=== PATIENT | female | born 1945 | race Caucasian/White ===

== ENCOUNTER → 2016-03-21 | Outpatient (CLI) | payer OTHER, MEDICARE ==
[~2016-03-21] MED LIST: ASPCH81X PO; CITA20TA9 PO; CLTP PO; CLX20 PO; COEN100C15 PO; Centrum Silver PO; DPH/ PO; DYZ PO; EST1 PO; GLC/500 PO; GLC500 PO; HMLI7525 SC; INSDGI SC; INSU100I SC; LEVO112T4 PO; LOSA50TA6 PO; METO25TA56 PO; NVLGI SC; PRAV20TA PO; REPA2TAB13 PO; SYN100 PO
--- NOTE | 2016-03-21 12:46 | MAMMOGRAPHY REPORT ---
BILATERAL DIGITAL SCREENING MAMMOGRAM TOMOSYNTHESIS WITH CAD: 03/21/2016 CLINICAL HISTORY: Routine screening. Patient has no complaints. TECHNIQUE: Breast tomosynthesis in addition to standard 2D mammography was performed. Current study was also evaluated with a Computer Aided Detection (CAD) system. COMPARISON: Comparison is made to exams dated: 03/16/2015 mammogram, 03/16/2015 ultrasound, 03/09/2015 mammogram, 03/02/2013 mammogram, 02/28/2012 mammogram, and 02/26/2011 mammogram - [facility]. BREAST COMPOSITION: There are scattered areas of fibroglandular density in both breasts. FINDINGS: No suspicious masses, calcifications, or areas of architectural distortion are noted in e ither breast. There has been no significant interval change compared to prior exams. Bilateral joaquina gn-appearing calcifications are not significantly changed. A biopsy marker clip is again noted in t he right upper outer quadrant. Small partially visualized benign-appearing mass in the right medial posterior breast is stable, and was shown to represent a benign epidermal inclusion/sebaceous cyst on prior 2015 ultrasound exam. IMPRESSION: ACR BI-RADS CATEGORY 2: BENIGN There is no mammographic evidence of malignancy. A 1 year screening mammogram is recommended. The p atient will receive written notification of the results. Approximately 10% of breast cancers are not detected with mammography. A negative mammographic repor t should not delay biopsy if a clinically suggestive mass is present. Jaci Heath M.D. ah/:03/21/2016 11:30:55 Vp Home Health: Ashley Dover, [facility] letter sent: Normal 1/2 BI-RADS Code: ACR BI-RADS Category 2: Benign
== END | disposition home or self-care (01) ==
LOC: C.MAMM 11:07
PROVIDERS: ATTEND Internal Medicine
DX: Z12.31 Encounter for screening mammogram for malignant neoplasm of breast (principal)

== ENCOUNTER 2016-10-02 21:17 | Emergency (ER) | payer OTHER, MEDICARE ==
[~2016-10-02] VITALS: Ht 154.9 cm; Wt 99.0 kg
[2016-10-02] MEDS: MoRPHine SULFATE 2 MG/ML CARP IV STA (00:25)
[~2016-10-02 21:17] MED LIST changes: -CITA20TA9 PO; -GLC/500 PO; -HMLI7525 SC; -INSU100I SC; -LEVO112T4 PO; -LOSA50TA6 PO; -METO25TA56 PO
[2016-10-02 21:36] VITALS: TEMP 36.7; Ht 154.9 cm; Wt 99.0 kg
[2016-10-02] MEDS ORDERED: ONDANSETRON INJ 2 MG/ML 2 ML VIAL IV STA (21:47)
[2016-10-02] MEDS ORDERED: MoRPHine SULFATE 4 MG/ML 1 ML CARP\\VIAL IV STA (21:47)
[2016-10-02 22:13] LABS: BASO % 0.2 %; BASO ABS # 0.02 K/uL (0-0.2); COMPLETE YES; EOS % 2.7 %; HEMATOCRIT 40.3 % (37-47); IG% 0.2 %; LYMPH % 24.9 %; LYMPH ABS # 2.62 K/uL (1.2-3.4); MEAN CORPUSCULAR HEMOGLOBIN 27.9 pg (25-34); MEAN CORPUSCULAR HGB CONC 31.8 g/dl (32-36); MEAN PLATELET VOLUME 11.2 fL (7.4-10.4); MONO % 6.9 %; NEUT % 65.1 %; PLATELET COUNT 263 K/uL (130-400); RED BLOOD COUNT 4.58 M/uL (4.2-5.4); WHITE BLOOD COUNT 10.53 K/uL (4.8-10.8)
[2016-10-02 22:28] LABS: ALT/SGPT 21 U/L (12-78); BLOOD UREA NITROGEN 11 mg/dl (7-18); BUN/CREATININE RATIO 11.7 (10-20); CALCIUM 9.1 mg/dl (8.5-10.1); CARBON DIOXIDE 27 mmol/L (21-32); CHLORIDE 108 mmol/L (98-107); CREATININE 0.95 mg/dl (0.60-1.20); GLUCOSE 99 mg/dl (70-99); POTASSIUM 4.5 mmol/L (3.5-5.1); SODIUM 141 mmol/L (136-145)
[2016-10-02 22:31] LABS: ALKALINE PHOSPHATASE 105 U/L (45-117); AST/SGOT 18 U/L (15-37)
--- NOTE | 2016-10-02 22:40 | DIAGNOSTIC IMAGING REPORT ---
LUMBAR SPINE WITHOUT CT DOSE: 1893.32 mGy.cm HISTORY: Pain. Trauma. eval for fx TECHNIQUE: Multiaxial CT images of the lumbar spine were performed and reformatted in the sagittal and coronal plane without the use of contrast. A dose lowering technique was utilized adhering to the principles of ALARA. COMPARISON: None. FINDINGS: Operative changes consistent with posterior laminectomy and fusion at L3 and L4. Posterior fusion L5-S1 with a disc spaces from L3 through S1. Posterior bulging disc L3-L4 combine with posterior osteophytic reaction. This prominent findings are seen at L4-L5. Compromise of the neuroforamina bilaterally at L3-L4 although somewhat more prominent on the right. Degenerative sclerosis and vacuum disc changes L2-L3. IMPRESSION: 1. Severe degenerative change throughout the entire lumbar spine with postoperative changes throughout is noted. 2. Posterior bulging disc L3-L4 with posterior osteophytic reaction. This creates prominent narrowing of the right and to lesser extent left neural foramina. 3. Moderate compromise of the neuroforamina bilaterally at L4-L5. 4. No acute process. The above report was generated using voice recognition software. It may contain grammatical, syntax or spelling errors. Electronically signed by: Fabio Street M.D. 10/02/2016 10:38 PM Dictated Date/Time: 10/02/2016 10:35 PM
[2016-10-02 22:41] LABS: URINE APPEARANCE CLEAR (CLEAR); URINE BILIRUBIN NEG (NEG); URINE COLOR YELLOW; URINE NITRITE NEG (NEG); URINE SPECIFIC GRAVITY 1.008 (1.000-1.030); UROBILINOGEN NEG (NEG)
--- NOTE | 2016-10-02 22:42 | DIAGNOSTIC IMAGING REPORT ---
ABD/PELVIS WITHOUT FOR STONE CT DOSE: HISTORY: Pain. right flank pain eval for stone TECHNIQUE: Multiaxial CT images of the abdomen and pelvis were performed without the use of intravenous and oral contrast according to the standard department stone protocol. A dose lowering technique was utilized adhering to the principles of ALARA. COMPARISON STUDY: None. FINDINGS: Lung bases are clear. Liver spleen and pancreas are unremarkable. Several gallstones are present the gallbladder neck. Kidneys demonstrate several vascular calcifications bilaterally. There is no evidence for an obstructing urinary tract calculus or hydronephrosis. Bowel pattern is nonobstructive. No significant abdominal or pelvic adenopathy. Postoperative changes of the lumbosacral spine. IMPRESSION: 1. Several small gallstones in the region of the gallbladder neck. 2. Nonobstructive bowel pattern. 3. No evidence for an obstructing urinary tract calculus. The above report was generated using voice recognition software. It may contain grammatical, syntax or spelling errors. Electronically signed by: Fabio Strete M.D. 10/02/2016 10:41 PM Dictated Date/Time: 10/02/2016 10:39 PM
[2016-10-02 22:50] LABS: MANUAL MICROSCOPIC REQUIRED? NO; REVIEW REQ? NO
[2016-10-02] MEDS ORDERED: METO25TA56 PO (22:50)
[2016-10-02] MEDS ORDERED: GLC/500 PO (22:50)
[2016-10-02] MEDS ORDERED: HMLI7525 SC (22:50)
[2016-10-02] MEDS ORDERED: LOSA50TA6 PO (22:50)
[2016-10-02] MEDS ORDERED: INSDGI SC (22:50)
[2016-10-02] MEDS ORDERED: CITA20TA9 PO (22:50)
[2016-10-02] MEDS ORDERED: INSU100I SC (22:50)
[2016-10-02] MEDS ORDERED: LEVO112T4 PO (22:50)
[2016-10-02] MEDS ORDERED: KETOROLAC TROMETHAMINE 30 MG/ML VIAL IV STA (23:52)
[2016-10-03] MEDS: MoRPHine SULFATE 2 MG/ML CARP IV STA (00:28)
[2016-10-03 00:30] VITALS: BP 109/63; PULSE 74; O2SAT 96
--- NOTE | 2016-10-03 00:51 | EMERGENCY ROOM VISIT NOTE ---
History Report prepared by Kathi: Everton Chaney Under the Supervision of: Dr. Ken Littlejohn M.D. First contact with patient: 21:40 Chief Complaint: FLANK PAIN Stated Complaint: SEVERE PAIN AT R KIDNEY History of Present Illness The patient is a 71 year old female who presents to the Emergency Room with complaints of intermittent sharp right sided flank pain that began a few days ago. She rates her pain a 10/10 in severity. Her pain is exacerbated with movement. She notes that the pain does not radiate to any other location. She denies any fevers, cough, chest pain, shortness of breath, diarrhea, dysuria, hematuria, previous abdominal surgeries, or any kidney stone history. She denies any recent trauma or falls as well. She is currently nauseated and had 1 episode of vomiting. Source of History: patient Onset: a couple of days ago Position: back (right flank) Symptom Intensity: 10/10 Quality: sharp Timing: constant Modifying Factors (Worsening): movement Associated Symptoms: + nausea, + vomiting, No fevers, No cough, No chest pain, No SOB, No abdominal pain, No urinary symptoms Review of Systems See HPI for pertinent positives & negatives. A total of 10 systems reviewed and were otherwise negative. Past Medical & Surgical Medical Problems: (1) Diabetes (2) HTN (hypertension) (3) Spinal stenosis Family History Omitted secondary to age. Social History Smoking Status: Never Smoker Smokeless Tobacco Use: No Drug Use: none Marital Status: Housing Status: lives with family Occupation Status: retired Current/Historical Medications Scheduled Aspirin (Aspirin Chewable), 81 MG PO DAILY Citalopram Hydrobromide (Celexa), 20 MG PO DAILY Insulin Glargine (Lantus), 25 UNITS SC HS Insulin Lispro (Human) (Humalog), 12 UNITS SC WM Levothyroxine Sodium (Levothyroxine Sodium), 1 TAB PO DAILYBB Losartan Potassium (Cozaar), 50 MG PO DAILY Metformin Hcl (Glucophage), 500 MG PO UD Metoprolol Tartrate (Lopressor) (Lopressor), Unknown Dose PO BID Pravastatin Sodium (Pravachol), 20 MG PO HS Allergies Coded Allergies: Adhesives (Verified Allergy, Unknown, 10/02/16) Meclizine (Verified Adverse Reaction, Unknown, SEVERE N&V, 10/02/16) Tetracycline (Verified Adverse Reaction, Unknown, SEVERE N&V, 10/02/16) Uncoded Allergies: OPIATEAGONISTS (Adverse Reaction, Unknown, SEVERE N&V,INCR HEART RATE, SKIPPED BEATS, 03/25/09) Physical Exam Vital Signs Date Time Temp Pulse Resp B/P (MAP) Pulse Ox O2 Delivery O2 Flow Rate FiO2 10/02/16 22:48 87 18 137/62 97 Room Air 10/02/16 21:36 36.7 67 20 124/79 94 Room Air Physical Exam Constitutional: Vital signs reviewed. Eyes: Pupils are equal round reactive to light. Conjunctiva are noninjected. ENT: Pharynx is clear without erythema or exudate. Mucous membranes are moist. Neck supple without meningeal signs. Respiratory: Clear to auscultation bilaterally. Breath sounds are equal bilaterally. Cardiovascular: Regular rate and rhythm. No rubs or gallops. GI: Soft, nondistended and nontender. Bowel sounds are present. Musculoskeletal: No peripheral edema. No lower extremity tenderness. No midline tenderness to the thoracic or lumbosacral spine. No CVA tenderness. Pain with movement of her trunk. Integumentary: No cyanosis. Neurological: The patient is awake and alert. No focal deficits. Psychiatric: Normal affect. Medical Decision & Procedures ER Provider Diagnostic Interpretation: Radiology results as stated below per my review and the radiologist's interpretation: ABD/PELVIS WITHOUT FOR STONE CT DOSE: HISTORY: Pain. right flank pain eval for stone TECHNIQUE: Multiaxial CT images of the abdomen and pelvis were performed without the use of intravenous and oral contrast according to the standard department stone protocol. A dose lowering technique was utilized adhering to the principles of ALARA. COMPARISON STUDY: None. FINDINGS: Lung bases are clear. Liver spleen and pancreas are unremarkable. Several gallstones are present the gallbladder neck. Kidneys demonstrate several vascular calcifications bilaterally. There is no evidence for an obstructing urinary tract calculus or hydronephrosis. Bowel pattern is nonobstructive. No significant abdominal or pelvic adenopathy. Postoperative changes of the lumbosacral spine. IMPRESSION: 1. Several small gallstones in the region of the gallbladder neck. 2. Nonobstructive bowel pattern. 3. No evidence for an obstructing urinary tract calculus. The above report was generated using voice recognition software. It may contain grammatical, syntax or spelling errors. Electronically signed by: Fabio Street M.D. 10/02/2016 10:41 PM Dictated Date/Time: 10/02/2016 10:39 PM LUMBAR SPINE WITHOUT CT DOSE: 1893.32 mGy.cm HISTORY: Pain. Trauma. eval for fx TECHNIQUE: Multiaxial CT images of the lumbar spine were performed and reformatted in the sagittal and coronal plane without the use of contrast. A dose lowering technique was utilized adhering to the principles of ALARA. COMPARISON: None. FINDINGS: Operative changes consistent with posterior laminectomy and fusion at L3 and L4. Posterior fusion L5-S1 with a disc spaces from L3 through S1. Posterior bulging disc L3-L4 combine with posterior osteophytic reaction. This prominent findings are seen at L4-L5. Compromise of the neuroforamina bilaterally at L3-L4 although somewhat more prominent on the right. Degenerative sclerosis and vacuum disc changes L2-L3. IMPRESSION: 1. Severe degenerative change throughout the entire lumbar spine with postoperative changes throughout is noted. 2. Posterior bulging disc L3-L4 with posterior osteophytic reaction. This creates prominent narrowing of the right and to lesser extent left neural foramina. 3. Moderate compromise of the neuroforamina bilaterally at L4-L5. 4. No acute process. The above report was generated using voice recognition software. It may contain grammatical, syntax or spelling errors. Electronically signed by: Fabio Street M.D. 10/02/2016 10:38 PM Dictated Date/Time: 10/02/2016 10:35 PM CHEST X-RAY 1 VIEW: No evidence of pneumothorax, effusion, infiltrate, or rib fracture. Per vt Laboratory Results 10/02/16 22:00 Red Blood Count 4.58, Mean Corpuscular Volume 88.0, Mean Corpuscular Hemoglobin 27.9, Mean Corpuscular Hemoglobin Concent 31.8, Mean Platelet Volume 11.2, Neutrophils (%) (Auto) 65.1, Lymphocytes (%) (Auto) 24.9, Monocytes (%) (Auto) 6.9, Eosinophils (%) (Auto) 2.7, Basophils (%) (Auto) 0.2, Neutrophils # (Auto) 6.86, Lymphocytes # (Auto) 2.62, Monocytes # (Auto) 0.73, Eosinophils # (Auto) 0.28, Basophils # (Auto) 0.02 10/02/16 22:00 Test 10/02/16 22:00 10/02/16 22:20 White Blood Count 10.53 K/uL (4.8-10.8) Red Blood Count 4.58 M/uL (4.2-5.4) Hemoglobin 12.8 g/dL (12.0-16.0) Hematocrit 40.3 % (37-47) Mean Corpuscular Volume 88.0 fL (80-100) Mean Corpuscular Hemoglobin 27.9 pg (25-34) Mean Corpuscular Hemoglobin Concent 31.8 g/dl (32-36) Platelet Count 263 K/uL (130-400) Mean Platelet Volume 11.2 fL (7.4-10.4) Neutrophils (%) (Auto) 65.1 % Lymphocytes (%) (Auto) 24.9 % Monocytes (%) (Auto) 6.9 % Eosinophils (%) (Auto) 2.7 % Basophils (%) (Auto) 0.2 % Neutrophils # (Auto) 6.86 K/uL (1.4-6.5) Lymphocytes # (Auto) 2.62 K/uL (1.2-3.4) Monocytes # (Auto) 0.73 K/uL (0.11-0.59) Eosinophils # (Auto) 0.28 K/uL (0-0.5) Basophils # (Auto) 0.02 K/uL (0-0.2) RDW Standard Deviation 44.5 fL (36.4-46.3) RDW Coefficient of Variation 13.8 % (11.5-14.5) Immature Granulocyte % (Auto) 0.2 % Immature Granulocyte # (Auto) 0.02 K/uL (0.00-0.02) Anion Gap 6.0 mmol/L (3-11) Est Creatinine Clear Calc Drug Dose 56.8 ml/min Estimated GFR () 68.9 Estimated GFR (Non- 59.4 BUN/Creatinine Ratio 11.7 (10-20) Calcium Level 9.1 mg/dl (8.5-10.1) Total Bilirubin 0.3 mg/dl (0.2-1) Direct Bilirubin < 0.1 mg/dl (0-0.2) Aspartate Amino Transf (AST/SGOT) 18 U/L (15-37) Alanine Aminotransferase (ALT/SGPT) 21 U/L (12-78) Alkaline Phosphatase 105 U/L (45-117) Total Protein 7.2 gm/dl (6.4-8.2) Albumin 3.6 gm/dl (3.4-5.0) Lipase 519 U/L (73-393) Urine Color YELLOW Urine Appearance CLEAR (CLEAR) Urine pH 7.0 (4.5-7.5) Urine Specific Ralston 1.008 (1.000-1.030) Urine Protein NEG (NEG) Urine Glucose (UA) NEG (NEG) Urine Ketones NEG (NEG) Urine Occult Blood NEG (NEG) Urine Nitrite NEG (NEG) Urine Bilirubin NEG (NEG) Urine Urobilinogen NEG (NEG) Urine Leukocyte Esterase NEG (NEG) Laboratory results as reviewed by me. Medications Administered Medications (Trade) Dose Ordered Sig/Elisabeth Route Start Time Stop Time Status Last Admin Dose Admin Ondansetron HCl (Zofran Inj) 4 mg NOW STAT IV 10/02/16 21:47 10/02/16 21:49 DC 10/02/16 22:12 4 MG Morphine Sulfate (MoRPHine SULFATE INJ) 2 mg NOW STAT IV 10/02/16 23:52 10/02/16 23:54 DC 10/03/16 00:28 2 MG Ketorolac Tromethamine (Toradol Inj) 10 mg NOW STAT IV 10/02/16 23:52 10/02/16 23:54 DC 10/03/16 00:28 10 MG ED Course 0: The patient was evaluated in room C3. A complete history and physical exam was performed. 2146: Ordered Zofran Inj 4 mg IV, Morphine Sulfate 4 mg IV 2251: After reassessment, the patient is still having pain. She is having tenderness in her right posterior 12th rib. She is not having tenderness over her abdomen. We discussed her test results. 2349: I discussed her test results with her. She says she has an appointment to see her PA-C tomorrow morning at 1000. She requested pain medication so she can go home and sleep. 2351: Ordered Toradol Inj 10 mg IV, Morphine Sulfate 2 mg IV 5: Upon reevaluation, the patient appeared to have improvement of her symptoms. I discussed tabatha's findings with her. She verbalized agreement of the treatment plan. She was discharged home. Medical Decision This is a 71-year-old female who presents with right-sided back pain. Differential diagnosis includes strain, rib fracture, vertebral fracture, kidney stone, colitis.I did perform a limited focused review of portions of the patient's old chart on the electronic medical record. The patient has had no recent pertinent visits to this hospital. I did evaluate the patient as noted above. IV access was established. I did treat the patient with IV Zofran and morphine. I did order and personally review the patient's urinalysis as described above. I did order and review the patient's blood work as noted in the electronic medical record. Labs are unremarkable other than a minimally elevated lipase. I did order a CT of the abdomen and pelvis and lumbosacral spine. I did review the images myself as well as the radiology report as described above. There is no evidence of acute abnormality on her CT scan of the abdomen or pelvis. She does have gallstones and she has degenerative changes in her lumbar spine. I did reassess the patient. She has absolutely no tenderness in her abdomen or pain in her abdomen to suggest gallbladder pathology. She has reproducible tenderness to the right posterior 12th rib. I did order a chest and rib x-ray which per my dictation shows no acute fracture or dislocation. At this time the cause of her symptoms is unclear but I did not see any indication for hospitalization or further testing. Her pain is very reproducible with movement and palpation. She does have an appointment to see her PA tomorrow morning which she will keep. She did request another pain shot before she goes home so that she can sleep. She was given IV Toradol and 2 mg morphine IV. She was discharged in good condition with return instructions as outlined below. Medication Reconcilliation Current Medication List: was personally reviewed by me Blood Pressure Screening Patient's blood pressure: Elevated blood pressure Blood pressure disposition: Elevated BP felt to be situational Impression Primary Impression: Right flank pain Additional Impression: Gallstones Scribe Attestation The scribe's documentation has been prepared under my direct and personally reviewed by me in its entirety. I confirm that the note above accurately reflects all work, treatment, procedures, and medical decision making performed by me. Departure Information Dispostion Home / Self-Care Referrals Marlee Rizvi M.D. (PCP) Forms HOME CARE DOCUMENTATION FORM, IMPORTANT VISIT INFORMATION Patient Instructions ED Flank Pain Uncertain Cause, Gallstones Dc, [facility] Additional Instructions You have been examined and treated today on an emergency basis only. This is not a substitute for, or an effort to provide, complete comprehensive medical care. It is impossible to recognize and treat all injuries or illnesses in a single emergency department visit. It is therefore important that you follow up closely with your physician per your appointment tomorrow morning. Return for worsening symptoms or if you develop fever, vomiting, abdominal pain, chest pain , shortness of breath or any other concerning symptoms. Problem Qualifiers
--- NOTE | 2016-10-03 07:11 | DIAGNOSTIC IMAGING REPORT ---
PA CHEST WITH RIGHT-SIDED RIB SERIES CLINICAL HISTORY: Right-sided chest wall pain. FINDINGS: A PA chest radiograph with 4 additional views may right-sided rib series is compared to study dated 12/11/2007. The patient is status post midline sternotomy. The heart is enlarged and there is atherosclerotic calcification of the thoracic aorta. The pulmonary vasculature is noncongested. Chronic interstitial thickening is similar to previous. No airspace consolidation, pleural effusion, or pneumothorax is seen. The skeletal structures are osteopenic. There is no radiographic evidence of right-sided rib fracture on the rib series. The remainder of the bony thorax is grossly intact. Fusion hardware is noted in the lumbar region. IMPRESSION: 1. Cardiomegaly with no active disease in the chest. 2. There is no radiographic evidence of right-sided rib fracture as clinically queried. Electronically signed by: Michael Chauhan M.D. 10/03/2016 7:10 AM Dictated Date/Time: 10/03/2016 7:08 AM
== END 2016-10-03 00:37 | disposition home or self-care (01) ==
LOC: C.EDB 21:18 → C.EDC 10-03 00:37
DX: R10.11 Right upper quadrant pain (principal); R10.31 Right lower quadrant pain; K80.20 Calculus of gallbladder without cholecystitis without obstruction; R11.2 Nausea with vomiting, unspecified; E11.9 Type 2 diabetes mellitus without complications; I10 Essential (primary) hypertension; M48.00 Spinal stenosis, site unspecified; Z79.82 Long term (current) use of aspirin; Z79.4 Long term (current) use of insulin; Z79.84 Long term (current) use of oral hypoglycemic drugs

== ENCOUNTER → 2017-03-25 | Outpatient (CLI) | payer OTHER, MEDICARE ==
[~2017-03-25] MED LIST changes: +CITA20TA9 PO; -CLTP PO; -CLX20 PO; -COEN100C15 PO; -Centrum Silver PO; -DPH/ PO; -DYZ PO; -EST1 PO; +GLC/500 PO; -GLC500 PO; +INSU100I SC; +LEVO112T4 PO; +LOSA50TA6 PO; +METO25TA56 PO; -NVLGI SC; -REPA2TAB13 PO; -SYN100 PO
--- NOTE | 2017-03-26 13:28 | MAMMOGRAPHY REPORT ---
BILATERAL DIGITAL SCREENING MAMMOGRAM TOMOSYNTHESIS WITH CAD: 03/25/2017 CLINICAL HISTORY: Routine screening. Patient has no complaints. TECHNIQUE: Breast tomosynthesis in addition to standard 2D mammography was performed. Current study was also evaluated with a Computer Aided Detection (CAD) system. COMPARISON: Comparison is made to exams dated: 03/21/2016 mammogram, 03/16/2015 mammogram, 03/16/2015 ul trasound, 03/09/2015 mammogram, 03/03/2014 mammogram, and 03/02/2013 mammogram - [facility] enter. BREAST COMPOSITION: There are scattered areas of fibroglandular density in both breasts. FINDINGS: There is a newly visualized 6.7 mm focal asymmetry in the upper outer anterior subareolar right breast, for which additional targeted ultrasound and possible additional mammographic views are recommended. There are diffuse bilateral benign-appearing calcifications and groupings of microcalcifications, whi ch are stable compared to prior exams. Mild to moderate vascular calcification in the breasts. No ot her suspicious mass, architectural distortion or cluster of microcalcifications is seen. IMPRESSION: ACR BI-RADS CATEGORY 0: INCOMPLETE EVALUATION: NEED ADDITIONAL IMAGING EVALUATION The newly visualized 6.7 mm focal asymmetry in the anterior/subareolar right breast needs additional evaluation. The patient will be called to schedule an appointment. Approximately 10% of breast cancers are not detected with mammography. A negative mammographic report should not delay biopsy if a clinically suggestive mass is present. Maria D Hwang M.D. ay/:03/25/2017 16:09:51 Alcoholic Counselor: Ashley ROMO(R)(M), [facility] letter sent: Addl Imaging 0 BI-RADS Code: ACR BI-RADS Category 0: Incomplete Evaluation: Need Additional Imaging Evaluation
== END | disposition home or self-care (01) ==
LOC: C.MAMM 09:56
PROVIDERS: ATTEND Internal Medicine
DX: Z12.31 Encounter for screening mammogram for malignant neoplasm of breast (principal); N64.89 Other specified disorders of breast

== ENCOUNTER → 2017-04-01 | Outpatient (CLI) | payer OTHER, MEDICARE ==
--- NOTE | 2017-04-01 15:20 | MAMMOGRAPHY REPORT ---
ULTRASOUND OF RIGHT BREAST: 04/01/2017 CLINICAL HISTORY: 71-year-old woman called back from screening mammography for a 6.7 mm focal asymmet ry in the anterior subareolar right breast, best seen on the MLO view. Family history of breast canc er = mother and 2 sisters. COMPARISON: Comparison is made to exams dated: 03/25/2017 mammogram, 03/21/2016 mammogram, 03/16/2015 wilma mogram, 03/16/2015 ultrasound, 03/09/2015 mammogram, and 03/03/2014 mammogram - [facility] nter. FINDINGS: Targeted ultrasound was performed in the periareolar and subareolar right breast. In the 11:00 periareolar right breast, there is an oval parallel circumscribed hypoechoic solid mass measuri ng 8.1 x 3.5 x 7.5 mm. This correlates with the mammographic focal asymmetry. Given the smooth circ umscribed margins and parallel orientation this most likely represents a fibroadenoma. With the heather ent in the room, prior right MLO views were again reviewed and it is noted that the prior 2013 and 13 as well as 2009 mammograms have a somewhat similar appearance to the current exam although tomosyn thesis was not available for those images. Nevertheless, this most likely represent a benign fibroad enoma. Given the strong family history of breast cancer, a short interval follow-up targeted ultraso und and possible tomosynthesis mammogram is recommended to ensure stability in 6 months. IMPRESSION: ACR-BI-RADS CATEGORY 3: PROBABLY BENIGN - FOLLOW-UP RECOMMENDED There is a benign-appearing solid 8.1 mm oval parallel and circumscribed mass in the 11:00 periareola r right breast on targeted ultrasound, thought to correlate with the mammographic finding. 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 However, given the strong f amily history of breast cancer, a short interval follow-up targeted right breast ultrasound and possi ble tomosynthesis mammogram is recommended to ensure stability in 6 months. Maria D Hwang M.D. ay/:04/01/2017 14:16:46 Patient Companion: Dr. Maria D Hwang, [facility] letter sent: Follow Up Recommended 3 BI-RADS Code: ACR-BI-RADS Category 3: Probably Benign
== END | disposition home or self-care (01) ==
LOC: C.MAMM 13:45
PROVIDERS: ATTEND Internal Medicine
DX: N63.11 Unspecified lump in the right breast, upper outer quadrant (principal); Z80.3 Family history of malignant neoplasm of breast

== ENCOUNTER 2022-06-18 09:04 | Inpatient (IN) ==
--- NOTE | 2022-06-18 10:14 | Emergency Department Note ---
Impression & Plan Acute low back pain, Degenerative disc disease, Neuroforaminal stenosis of lumbar spine ED Provider Note INFORMANT: Patient ED PROVIDER(S): Jaylan Suarez MD CHIEF COMPLAINT: Back PLAN: Disposition: Admitted Condition: Good Outpatient prescription management: none Referral: None MEDICAL DECISION MAKING: Patient presented with acute worsening of her low back pain. She had a fall. She had a work-up initiated. Her CBC and chemistry panels were unremarkable. CT scan of the lumbar spine was performed and revealed postoperative changes in significant degenerative findings. The patient had no fracture. She was given IV Tylenol as she cannot take any other pain medications without severe adverse reaction. On reassessment she was feeling somewhat better. I consulted with her spine surgeon, Dr. Taveras. In light of the issues and pre-existing problems he felt the patient would benefit from admission and further management by him. Patient was admitted. Discussed with enterprise services manager. After review of the information above and other included data, I feel the patient requires admission. Triage Nursing notes reviewed and agree them. Vital Signs: reviewed and remarkable for no significant abnormalities Prior /Outside records reviewed: none Differential diagnosis: Musculoskeletal, disc herniation, fracture, metastatic disease, cord compression, discitis, sciatica, cauda equina, infection, aortic disease, renal colic, gastrointestinal, as well as other pathologies. Diagnostics, as interpreted by me: ECG: none Cardiac Monitoring: Cardiac monitoring ordered by me: The patient was placed on continuous cardiac monitoring and observed. It revealed a normal sinus rhythm at 60 beats per minute without ectopy or evidence of dysrhythmia. Medical decision rules: none Imaging studies: CT as noted above HPI: The patient is a 76 year old female who presents to the Emergency Room with complaints of back pain. This started a year ago, worsened and is now severe. Located in lumbar region, radiates to abd. She had a visit in Feb which lead to a MRI, but could not complete. Had to have sedation, which occurred two weeks ago. Saw Dr. Guerra 4 days ago for spine consult. Told she needs surgery. Patient fell 3 days ago. The patient also notes the following associated s ymptoms, weakness. The patient has using tylenol relieving factors. Current pain is rated as 10/10. Pt denies LOC, headache, fevers, chills, diaphoresis, visual changes, neck pain, chest pain, breathing difficulties, nausea, vomiting, abdominal pain, melena, hematochezia, urinary symptoms, numbness, lymphadenopathy, rash, or other complaints. PAST MEDICAL HISTORY: See Below, htn, dm PAST SURGICAL HISTORY: See Below, SOCIAL HISTORY: See Below, retired HOME MEDICATIONS: See Below ALLERGIES: See Below VITALS: See Below PHYSICAL EXAMINATION: GENERAL: Awake, alert, uncomfortable-appearing, in no distress HENT: Normocephalic, atraumatic. Oropharynx unremarkable. EYES: Normal conjunctiva. Sclera non-icteric. NECK: Inspection normal. Non-tender. Supple. No nuchal rigidity. FROM. No masses. RESPIRATORY: Clear to auscultation. No wheezes. No rales. Normal respiratory effort. CARDIAC: Normal rate. Normal rhythm. No murmurs. No rubs. Extremities warm and well perfused. Pulses equal. No JVD. GI: Soft, non-distended. No tenderness to palpation. No rebound or guarding. No masses. RECTAL: Deferred. MUSCULOSKELETAL: Atraumatic. Chest examination reveals no tenderness. The back is symmetrical on inspection without obvious abnormality. There is no CVA tenderness to palpation. No joint edema. LOWER EXTREMITIES: Calves are equal size bilaterally and non-tender. No edema. No discoloration. NEURO: Normal sensorium. No focal sensory or motor deficits noted. SKIN: No rash or jaundice noted. Past Med/Surg History Medical History (Updated 06/18/22 @ 16:08 by Jaylan Suarez MD) Arthritis CAD (coronary artery disease) CABG (2011) 09/19/20 cardiac cath with patent grafts > medical management rec'd Chronic back pain Claustrophobia severe Diabetes mellitus, type 2 IDDM GERD (gastroesophageal reflux disease) controlled History of anemia No known blood transfusions History of COVID-19 PHx 2020 - headache only at the time. History of gastric ulcer 2019 Hx of gout Hyperlipidemia 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 Hypothyroidism Macular degeneration Morbid obesity Motion sickness Nausea and vomiting after administration of anesthetic agent Spinal stenosis Stroke ~2019 -> treated at [facility] -> left eye blindness and gastric ulcers at the time. follows with PCP. Surgical History H/O partial thyroidectomy Benign lump removal History of appendectomy History of breast biopsy x3 History of cardiac cath 09/19/20 > no stents History of cataract surgery R/L History of cholecystectomy History of colonoscopy History of coronary artery bypass graft CABG (2011) x2 vessels. follows with [facility] History of esophagogastroduodenoscopy (EGD) History of hysterectomy History of lumbar surgery x2 (+ hardware) History of tooth extraction History of total knee replacement Right Family History Brother Family history of diabetes mellitus Sister Family history of diabetes mellitus Mother Family history of diabetes mellitus Father Family history of diabetes mellitus Other No family history of adverse response to anesthesia Social History Smoking Status: Never smoker Second Hand Exposure: No; Do You Dip or Chew Tobacco: No; Hx Alcohol Use: No Hx Substance Use: No Preferred Language: Kyrgyz Communication Ability: Effective Laborer Tree Tapping Required: No Beliefs That Will Affect Care: None Current Living Situation: Alone Feels Safe at Home: Yes Assistive Devices: Denture - Upper, Glasses, Scooter/Electric Scooter, Stair Lift and Walker Allergies Allergies Allergy/AdvReac Type Severity Reaction Status Date / Time latex Allergy Intermediate skin Verified 06/04/22 09:58 irritation and peels skin off prednisone AdvReac Severe STROKE Verified 06/04/22 09:41 meclizine AdvReac Mild Severe N&V Verified 06/04/22 09:41 tetracycline AdvReac Mild Severe N&V Verified 06/04/22 09:41 tramadol AdvReac Blurry Verified 06/08/22 06:50 [facility] Allergy Intermediate Severe Uncoded 06/04/22 09:41 N&V, increased heart rate, "skipped beats" Home Meds Home Medications Medication Instructions Recorded Confirmed allopurinol 100 mg tablet 200 mg PO QPM 10/26/20 06/18/22 amlodipine 2.5 mg tablet 2.5 mg PO QAM 10/26/20 06/18/22 aspirin 81 mg tablet,delayed 81 mg PO QAM 10/26/20 06/18/22 release atorvastatin 40 mg tablet 40 mg PO HS 10/26/20 06/18/22 furosemide 20 mg tablet 20 mg PO Q2D 10/26/20 06/18/22 insulin glargine 100 unit/mL (3 25 unit subcut HS 10/26/20 06/18/22 mL) subcutaneous pen (Lantus Solostar U-100 Insulin) insulin lispro 100 unit/mL 10 unit subcut TIDM 10/26/20 06/18/22 subcutaneous pen (Humalog KwikPen (U-100) Insulin) pantoprazole 40 mg tablet,delayed 40 mg PO QAM 10/26/20 06/18/22 release acetaminophen 500 mg tablet 500 mg PO TID PRN Pain 06/04/22 06/18/22 levothyroxine 125 mcg tablet 125 mcg PO DAILY 06/18/22 06/18/22 Results & Data (ED) Vital Signs Vital Signs - 24 hr 06/18/22 09:08 06/18/22 09:19 06/18/22 09:30 Temperature 36.8 C Temperature Source Temporal Artery Scan Pulse Rate 47 L 60 72 Pulse Rate from SpO2 Sensor Respiratory Rate 20 19 Blood Pressure 122/73 Blood Pressure Mean 89 Pulse Oximetry 96 95 Oxygen Delivery Method Room Air Sepsis Recent Fever Within 48 Hours No Sepsis New/Unexplained Change in Mental Status N/A Sepsis Action Taken by Nursing No Action Required 06/18/22 10:00 06/18/22 11:10 06/18/22 12:08 Temperature Temperature Source Pulse Rate 62 60 60 Pulse Rate from SpO2 Sensor 58 L Respiratory Rate 18 19 20 Blood Pressure 120/66 Blood Pressure Mean 84 Pulse Oximetry 97 98 97 Oxygen Delivery Method Sepsis Recent Fever Within 48 Hours Sepsis New/Unexplained Change in Mental Status Sepsis Action Taken by Nursing 06/18/22 13:00 06/18/22 14:29 Temperature Temperature Source Pulse Rate 60 60 Pulse Rate from SpO2 Sensor 58 L Respiratory Rate 15 20 Blood Pressure 121/62 Blood Pressure Mean 81 Pulse Oximetry 96 97 Oxygen Delivery Method Sepsis Recent Fever Within 48 Hours Sepsis New/Unexplained Change in Mental Status Sepsis Action Taken by Nursing Laboratory Data 06/18/22 11:18 06/18/22 12:02 Lab Results 06/18/22 06/18/22 06/18/22 Range/Units 11:18 11:18 12:02 WBC 7.20 (4.8-10.8) K/ul RBC 4.78 (4.20-5.40) M/uL Hgb 13.8 (12.0-16.0) g/dl Hct 42.8 (37.0-47.0) % MCV 89.5 (80.0-100.0) fL MCH 28.9 (25.0-34.0) pg MCHC 32.2 (32.0-36.0) g/dL RDW Std Deviation 45.4 (36.4-46.3) fL RDW Coeff of Jeri 13.9 (11.5-14.5) % Plt Count 196 (130-400) K/uL MPV 12.3 (9.4-12.4) fL Immature Gran % (Auto) 0.3 % Neut % (Auto) 61.2 % Lymph % (Auto) 29.7 % Stanly % (Auto) 7.1 % Eos % (Auto) 1.1 % Baso % (Auto) 0.6 % Neut # (Auto) 4.41 (1.40-6.50) K/uL Lymph # (Auto) 2.14 (1.2-3.4) K/uL Stanly # (Auto) 0.51 (0.11-0.59) K/uL Eos # (Auto) 0.08 (0-0.50) K/uL Baso # (Auto) 0.04 (0-0.2) K/uL Immature Gran # (Auto) 0.02 (0.01-0.20) K/uL Sodium 139 (136-145) mmol/L Potassium TNP 4.4 Chloride 106 (98-107) mmol/L Carbon Dioxide 27 (21-32) mmol/L Anion Gap 6 (3-11) BUN 18 (6-23) mg/dl Creatinine 0.79 (0.6-1.2) mg/dl Est Cr Clr Drug Dosing Not Reportable Est GFR ( Amer) 83.1 ml/min Est GFR (Non-Af Amer) 71.7 ml/min BUN/Creatinine Ratio 22.8 H (10-20) Glucose 136 H (70-99(Fasting)) mg/dl Calcium 9.4 (8.6-10.3) mg/dl Total Bilirubin 0.6 (0.2-1.0) mg/dl AST TNP 21 ALT 18 (7-52) U/L Alkaline Phosphatase 98 (34-104) U/L Total Protein 6.8 (6.0-8.3) gm/dl Albumin 4.0 (3.4-5.0) gm/dl Globulin 2.8 (2.5-4.0) gm/dl Albumin/Globulin Ratio 1.4 (0.9-2) SARS-CoV-2, RNA, NAAT (NEGATIVE) 06/18/22 Range/Units Unknown WBC (4.8-10.8) K/ul RBC (4.20-5.40) M/uL Hgb (12.0-16.0) g/dl Hct (37.0-47.0) % MCV (80.0-100.0) fL MCH (25.0-34.0) pg MCHC (32.0-36.0) g/dL RDW Std Deviation (36.4-46.3) fL RDW Coeff of Jeri (11.5-14.5) % Plt Count (130-400) K/uL MPV (9.4-12.4) fL Immature Gran % (Auto) % Neut % (Auto) % Lymph % (Auto) % Stanly % (Auto) % Eos % (Auto) % Baso % (Auto) % Neut # (Auto) (1.40-6.50) K/uL Lymph # (Auto) (1.2-3.4) K/uL Stanly # (Auto) (0.11-0.59) K/uL Eos # (Auto) (0-0.50) K/uL Baso # (Auto) (0-0.2) K/uL Immature Gran # (Auto) (0.01-0.20) K/uL Sodium (136-145) mmol/L Potassium Chloride (98-107) mmol/L Carbon Dioxide (21-32) mmol/L Anion Gap (3-11) BUN (6-23) mg/dl Creatinine (0.6-1.2) mg/dl Est Cr Clr Drug Dosing Est GFR ( Amer) ml/min Est GFR (Non-Af Amer) ml/min BUN/Creatinine Ratio (10-20) Glucose (70-99(Fasting)) mg/dl Calcium (8.6-10.3) mg/dl Total Bilirubin (0.2-1.0) mg/dl AST ALT (7-52) U/L Alkaline Phosphatase (34-104) U/L Total Protein (6.0-8.3) gm/dl Albumin (3.4-5.0) gm/dl Globulin (2.5-4.0) gm/dl Albumin/Globulin Ratio (0.9-2) SARS-CoV-2, RNA, NAAT NEGATIVE (NEGATIVE) Administered Medications Discontinued Medications Acetaminophen (Ofirmev) 1,000 mg in 100 mls @ 400 mls/hr IV NOW STA Stop: 06/18/22 10:35 Last Infusion: 06/18/22 11:30 Dose: 0 mls/hr Documented By: Admin: 06/18/22 11:10 Dose: 400 mls/hr Documented By: MINH Imaging Data Radiologist's Impression: Lumbar Spine CT 06/18/22 10:15 CT SCAN OF THE LUMBAR SPINE WITHOUT IV CONTRAST CLINICAL HISTORY: Low back pain. Recent fall. COMPARISON STUDY: CT of the lumbar spine dated 10/02/2016. MRI of the lumbar spine dated 06/08/2022. TECHNIQUE: CT scan of the lumbar spine was performed from the lower thoracic spine to the sacrum. Images are reviewed in the axial, sagittal, and coronal planes. IV contrast was not administered for this examination. The examination is degraded by large body habitus, and by significant streak artifact from the body wall abutting the CT gantry. There is also streak artifact from metallic spinal hardware. A dose lowering technique was utilized adhering to the principles of ALARA. CT DOSE: 709.88 mGy.cm FINDINGS: Skeletal structures are osteopenic. There is no evidence of acute fracture or malalignment involving the lumbar spine. Vertebral body height and alignment are maintained. Large anterior and lateral marginal osteophytes are seen throughout. There is postsurgical change from laminectomy and posterior fusion seen at L3-S1. Interpedicular screws are seen at L3 and L4. The orth opedic hardware appears intact. Lucency around the interpedicular screws at L4 suggests loosening. The patient is status post discectomy at L3-L4, L4-L5, and L5-S1. There is advanced disc space narrowing at L2-L3. Advanced disc space narrowing is also seen in the lower thoracic region. The central canal is not well visualized due to streak artifact. Posterior disc osteophyte complexes are seen at several levels. There is multilevel degenerative endplate sclerosis. The visualized sacrum and bony pelvis appear intact. Sclerotic change is noted in the sacroiliac joints. Mild paravertebral edema the lower thoracic region is likely on a degenerative basis. There is fatty atrophy of the paraspinous musculature. The abdominal aorta is normal in caliber noting moderate atherosclerotic calcification. No retroperitoneal lymphadenopathy is seen. IMPRESSION: 1. Significantly streak artifact degraded examination. 2. There is no evidence of fracture or malalignment involving the lumbar spine. 3. Osteopenia with postoperative and spondylotic change as above. ACT 112: Negative or not required by law. Dictated: 06/18/2022 10:59 AM Transcribed: 06/18/2022 11:40 AM Venkata [id number] RENÉE_Luis Daniel [id number] Electronically signed by: Michael Chauhan M.D. 06/18/2022 11:45 AM Discharge Plan Visit Data Chief Complaint: Back Injury/Pain Stated Complaint: BACK AND HIP PAIN ED Provider: Jaylan Suarez Discharge Problem: Acute low back pain, Degenerative disc disease, Neuroforaminal stenosis of lumbar spine Forms Stand Alone Forms: My [facility] [place] Prescriptions Prescriptions: No Action atorvastatin 40 mg Tablet 40 mg PO HS amlodipine 2.5 mg Tablet 2.5 mg PO QAM allopurinol 100 mg Tablet 200 mg PO QPM aspirin 81 mg Tablet,Delayed Release (Dr/Ec) 81 mg PO QAM pantoprazole 40 mg Tablet,Delayed Release (Dr/Ec) 40 mg PO QAM furosemide 20 mg Tablet 20 mg PO Q2D insulin lispro [Humalog KwikPen Insulin] 100 unit/mL Insulin Pen 10 unit SUBCUT TIDM insulin glargine [Lantus Solostar U-100 Insulin] 100 unit/mL (3 mL) Insulin Pen 25 unit SUBCUT HS acetaminophen 500 mg Tablet 500 mg PO TID PRN (Reason: Pain) levothyroxine 125 mcg tablet 125 mcg PO DAILY Referrals Referrals: Chaitanya Fernandez MD [Primary Care Provider] -
[2022-06-18] MEDS ORDERED: ACETAMINOPHEN 1,000 MG/100 ML VIAL IV STA (10:21)
[2022-06-18 11:39] LABS: Basophils # (auto) 0.04 K/uL (0-0.2); Basophils % (auto) 0.6 %; Eosinophils # (auto) 0.08 K/uL (0-0.50); Eosinophils % (auto) 1.1 %; Hematocrit (blood only) 42.8 % (37.0-47.0); Hemoglobin 13.8 g/dl (12.0-16.0); Immature Granulocytes # (auto) 0.02 K/uL (0.01-0.20); Immature Granulocytes % (auto) 0.3 %; Lymphocytes # (auto) 2.14 K/uL (1.2-3.4); Lymphocytes % (auto) 29.7 %; Mean Corpuscular Hemoglobin 28.9 pg (25.0-34.0); Mean Corpuscular Hgb Conc 32.2 g/dL (32.0-36.0); Mean Corpuscular Volume 89.5 fL (80.0-100.0); Mean Platelet Volume 12.3 fL (9.4-12.4); Monocytes # (auto) 0.51 K/uL (0.11-0.59); Monocytes % (auto) 7.1 %; Neutrophils # (auto) 4.41 K/uL (1.40-6.50); Neutrophils % (auto) 61.2 %; Platelet Count 196 K/uL (130-400); RDW Coefficient of Variation 13.9 % (11.5-14.5); RDW Standard Deviation 45.4 fL (36.4-46.3); Red Blood Count 4.78 M/uL (4.20-5.40)
--- NOTE | 2022-06-18 11:46 | CT Scan Report ---
CT SCAN OF THE LUMBAR SPINE WITHOUT IV CONTRAST CLINICAL HISTORY: Low back pain. Recent fall. COMPARISON STUDY: CT of the lumbar spine dated 10/02/2016. MRI of the lumbar spine dated 06/08/2022. TECHNIQUE: CT scan of the lumbar spine was performed from the lower thoracic spine to the sacrum. Denisse ges are reviewed in the axial, sagittal, and coronal planes. IV contrast was not administered for thi s examination. The examination is degraded by large body habitus, and by significant streak artifact from the body wall abutting the CT gantry. There is also streak artifact from metallic spinal hardwar e. A dose lowering technique was utilized adhering to the principles of ALARA. CT DOSE: 709.88 mGy.cm FINDINGS: Skeletal structures are osteopenic. There is no evidence of acute fracture or malalignment involving the lumbar spine. Vertebral body height and alignment are maintained. Large anterior and la teral marginal osteophytes are seen throughout. There is postsurgical change from laminectomy and pos terior fusion seen at L3-S1. Interpedicular screws are seen at L3 and L4. The orthopedic hardware isma ears intact. Lucency around the interpedicular screws at L4 suggests loosening. The patient is status post discectomy at L3-L4, L4-L5, and L5-S1. There is advanced disc space narrowing at L2-L3. Advance d disc space narrowing is also seen in the lower thoracic region. The central canal is not well visua lized due to streak artifact. Posterior disc osteophyte complexes are seen at several levels. There i s multilevel degenerative endplate sclerosis. The visualized sacrum and bony pelvis appear intact. Sc lerotic change is noted in the sacroiliac joints. Mild paravertebral edema the lower thoracic region is likely on a degenerative basis. There is fatty atrophy of the paraspinous musculature. The abdomin al aorta is normal in caliber noting moderate atherosclerotic calcification. No retroperitoneal lymph adenopathy is seen. IMPRESSION: 1. Significantly streak artifact degraded examination. 2. There is no evidence of fracture or malalignment involving the lumbar spine. 3. Osteopenia with postoperative and spondylotic change as above. ACT 112: Negative or not required by law. Dictated: 06/18/2022 10:59 AM Transcribed: 06/18/2022 11:40 AM Venkata [id number] Luis [id number] Electronically signed by: Michael Chauhan M.D. 06/18/2022 11:45 AM
[2022-06-18 11:57] LABS: Alanine Aminotransferase 18 U/L (7-52); Albumin Globulin Ratio 1.4 (0.9-2); Alkaline Phosphatase 98 U/L (34-104); Anion Gap 6 (3-11); BUN Creatinine Ratio 22.8 (10-20); Bilirubin,Total 0.6 mg/dl (0.2-1.0); Blood Urea Nitrogen 18 mg/dl (6-23); Calcium 9.4 mg/dl (8.6-10.3); Carbon Dioxide 27 mmol/L (21-32); Chloride 106 mmol/L (98-107); Est GFR (African American) 83.1 ml/min; Est GFR (Non-African American) 71.7 ml/min; Globulin 2.8 gm/dl (2.5-4.0); Glucose 136 mg/dl (70-99(Fasting)); Sodium 139 mmol/L (136-145); Total Protein 6.8 gm/dl (6.0-8.3)
--- NOTE | 2022-06-18 12:40 | History & Physical Report ---
Date of Service June 18, 2022 Assessment & Plan (1) Spinal stenosis: Plan: Assessment severe thoracolumbar spinal stenosis secondary to disc condition T12- L1 and canal compromise. The patient has had marked plan status over the past several weeks cannot stand and walk without her legs giving out. She has severe pain across the lumbosacral junction down her legs when she stands. She is only comfortable at rest. This point in light of her presentation recommending thoracolumbar decompression and fusion T11-L3 with instrumentation. Patient stands agrees. She will be admitted for medical evaluation and will perform surgery as soon as possible. History of Present Illness Chief Complaint: Bilateral leg pain and weakness Primary Care Provider: Chaitanya Fernandez MD This is a 76-year-old female known to me the presents multiple status over the past several weeks. She is here today after a fall on Saturday and decreased ability to ambulate. Allergies Allergy/AdvReac Type Severity Reaction Status Date / Time latex Allergy Intermediate skin Verified 06/04/22 09:58 irritation and peels skin off prednisone AdvReac Severe STROKE Verified 06/04/22 09:41 meclizine AdvReac Mild Severe N&V Verified 06/04/22 09:41 tetracycline AdvReac Mild Severe N&V Verified 06/04/22 09:41 tramadol AdvReac Blurry Verified 06/08/22 06:50 [facility] Allergy Intermediate Severe Uncoded 06/04/22 09:41 N&V, increased heart rate, "skipped beats" Home Medications Medication Instructions Recorded Confirmed Type allopurinol 100 mg tablet 200 mg PO QPM 10/26/20 06/08/22 History amlodipine 2.5 mg tablet 2.5 mg PO QAM 10/26/20 06/08/22 History aspirin 81 mg tablet,delayed 81 mg PO QAM 10/26/20 06/08/22 History release atorvastatin 40 mg tablet 40 mg PO HS 10/26/20 06/08/22 History furosemide 20 mg tablet 20 mg PO Q2D 10/26/20 06/08/22 History insulin glargine 100 unit/mL (3 25 unit subcut HS 10/26/20 06/08/22 History mL) subcutaneous pen (Lantus Solostar U-100 Insulin) insulin lispro 100 unit/mL 10 unit subcut TIDM 10/26/20 06/08/22 History subcutaneous pen (Humalog KwikPen (U-100) Insulin) levothyroxine 112 mcg tablet 112 mcg PO QAM 10/26/20 06/08/22 History pantoprazole 40 mg tablet,delayed 40 mg PO QAM 10/26/20 06/08/22 History release acetaminophen 500 mg tablet 500 mg PO TID PRN Pain 06/04/22 06/08/22 History Past Med/Surg History Medical History (Updated 06/18/22 @ 10:14 by Jaylan Suarez MD) Arthritis CAD (coronary artery disease) CABG (2011) 09/19/20 cardiac cath with patent grafts > medical management rec'd Chronic back pain Claustrophobia severe Diabetes mellitus, type 2 IDDM GERD (gastroesophageal reflux disease) controlled History of anemia No known blood transfusions History of COVID-19 PHx 2020 - headache only at the time. History of gastric ulcer 2019 Hx of gout Hyperlipidemia 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 Hypothyroidism Macular degeneration Morbid obesity Motion sickness Nausea and vomiting after administration of anesthetic agent Spinal stenosis Stroke ~2018 -> treated at [facility] -> left eye blindness and gastric ulcers at the time. follows with PCP. Surgical History H/O partial thyroidectomy Benign lump removal History of appendectomy History of breast biopsy x3 History of cardiac cath 09/19/20 > no stents History of cataract surgery R/L History of cholecystectomy History of colonoscopy History of coronary artery bypass graft CABG (2011) x2 vessels. follows with [facility] History of esophagogastroduodenoscopy (EGD) History of hysterectomy History of lumbar surgery x2 (+ hardware) History of tooth extraction History of total knee replacement Right Family History Brother Family history of diabetes mellitus Sister Family history of diabetes mellitus Mother Family history of diabetes mellitus Father Family history of diabetes mellitus Other No family history of adverse response to anesthesia Social History Smoking Status: Never smoker Second Hand Exposure: No; Do You Dip or Chew Tobacco: No; Hx Alcohol Use: No Hx Substance Use: No Preferred Language: Portuguese Communication Ability: Effective Warehouse Delivery Manager Required: No Beliefs That Will Affect Care: None Current Living Situation: Alone Feels Safe at Home: Yes Assistive Devices: Denture - Upper, Glasses, Scooter/Electric Scooter, Stair Lift and Walker Physical Exam Physical Exam: On exam she is currently in bed she is comfortable while lying supine. She is reasonable plantarflexion dorsiflexion quadriceps. Sensory is intact. Results & Data Results & Data Vital Signs (Past 12 Hours) Vital Signs Temp Pulse Resp BP Pulse Ox O2 Del Method 06/18/22 12:08 60 20 120/66 97 06/18/22 11:10 60 19 98 06/18/22 10:00 62 18 97 06/18/22 09:30 72 19 95 06/18/22 09:19 60 06/18/22 09:08 36.8 C 47 L 20 122/73 96 Room Air Code Status & VTE Plan VTE Prophylaxis Plan VTE Prophylaxis will be ordered: Yes
[2022-06-18 12:44] LABS: Potassium 4.4 mmol/L (3.5-5.1)
[2022-06-18] MEDS ORDERED: NALOXONE HCL 0.4 MG/1 ML VIAL/CARP IV PRN (17:06)
[2022-06-18] MEDS ORDERED: ACETAMINOPHEN 1,000 MG/100 ML VIAL IV PRN (17:06)
[2022-06-18] MEDS ORDERED: diphenhydrAMINE Capsule 25 MG CAP PO PRN (17:06)
[2022-06-18] MEDS ORDERED: ONDANSETRON 4 MG OD TAB PO PRN (17:06)
[2022-06-18] MEDS ORDERED: METOCLOPRAMIDE HCL INJ 5 MG/ML 2 ML VIAL IV PRN (17:06)
[2022-06-18] MEDS ORDERED: PROMETHAZINE HCL 12.5 MG in SODIUM CHLORIDE 0.9% 50 ML IV PRN (17:06)
[2022-06-18] MEDS ORDERED: ACETAMINOPHEN 500 MG TAB PO PRN (17:06)
[2022-06-18] MEDS ORDERED: ALUMINUM/MAGNESIUM SUSP 30 ML UDC PO PRN (17:06)
[2022-06-18] MEDS ORDERED: PHARMACY GLYCEMIC MGMT CONSULT PRN (17:06)
[2022-06-18] MEDS ORDERED: MAGNESIUM HYDROXIDE SUSP 30 ML UDC PO PRN (17:06)
[2022-06-18] MEDS ORDERED: ONDANSETRON INJ 2 MG/ML 2 ML VIAL IV PRN (17:06)
[2022-06-18] MEDS ORDERED: HYDROmorphone INJ 0.5 MG/0.5 ML SYR IV PRN (17:06)
[2022-06-18] MEDS ORDERED: hydrOXYzine HCl 25 MG TAB PO PRN (17:06)
[2022-06-18] MEDS ORDERED: Patient's ALLERGY Info needs ENTERED SCH (17:30)
[2022-06-18 17:46] LABS: Basophils # (auto) 0.06 K/uL (0-0.2); Basophils % (auto) 0.9 %; Eosinophils % (auto) 1.5 %; Hematocrit (blood only) 42.7 % (37.0-47.0); Hemoglobin 14.2 g/dl (12.0-16.0); Immature Granulocytes # (auto) 0.07 K/uL (0.01-0.20); Lymphocytes # (auto) 2.29 K/uL (1.2-3.4); Lymphocytes % (auto) 33.8 %; Mean Corpuscular Hemoglobin 29.2 pg (25.0-34.0); Mean Corpuscular Hgb Conc 33.3 g/dL (32.0-36.0); Mean Corpuscular Volume 87.7 fL (80.0-100.0); Mean Platelet Volume 12.6 fL (9.4-12.4); Monocytes # (auto) 0.48 K/uL (0.11-0.59); Monocytes % (auto) 7.1 %; Neutrophils # (auto) 3.78 K/uL (1.40-6.50); Neutrophils % (auto) 55.7 %; Platelet Count 205 K/uL (130-400); RDW Coefficient of Variation 13.9 % (11.5-14.5); RDW Standard Deviation 44.6 fL (36.4-46.3); Red Blood Count 4.87 M/uL (4.20-5.40); White Blood Count 6.78 K/ul (4.8-10.8)
[2022-06-18 17:55] LABS: Bilirubin,Total 0.7 mg/dl (0.2-1.0); Calcium 9.3 mg/dl (8.6-10.3); Potassium 4.6 mmol/L (3.5-5.1)
[2022-06-18 18:01] LABS: Albumin Globulin Ratio 1.4 (0.9-2); BUN Creatinine Ratio 22.4 (10-20); Creatinine Clr Calc Pharmacy 63.9 ml/min; Est GFR (African American) 87.1 ml/min; Est GFR (Non-African American) 75.1 ml/min; Globulin 2.8 gm/dl (2.5-4.0); Total Protein 6.8 gm/dl (6.0-8.3)
[2022-06-18] MEDS: SODIUM CHLORIDE 0.9% 1000ML 1,000 ML IV SCH (18:10)
[2022-06-18] MEDS: ALLERGY Noted to ORDERED Medication SCH (18:11)
--- NOTE | 2022-06-18 18:11 | Hospitalist Consultation ---
Date of Consultation June 18, 2022 Assessment & Plan (1) Spinal stenosis: Admitted to [facility] under spine Ortho service Patient presenting from home with reports of worsening back pain. Had MRI on 06/08/2022 that showed Large T12-L1 disc extrusion causes severe central canal stenosis. Dr. Taveras recommending thoracolumbar decompression and fusion T11-L3 with instrumentation. Surgery date pending. Due to chronic medical conditions, patient will be considered intermediate to high risk for surgery. Obtain preop EKG and CXR Pain control bowel regimen (2) CAD (coronary artery disease): S/p CABG in 2011 and cardiac cath 09/2020 done after positive stress test showed patent SHANE to LAD and SVG-OM graft, SVG graft to RCA was occluded and RCA territory was supplied by collaterals from left. Appears stable, no reports of chest pain Will obtain EKG Continue ASA, statin, beta-soni (3) Diabetes mellitus, type 2: Hgb A1c 7.4 04/2022 On Humalog and Lantus Glycemic pharmacy consulted by primary service (4) HTN (hypertension): Continue metoprolol, amlodipine, losartan (5) Hypothyroidism: Continue levothyroxine (6) GERD (gastroesophageal reflux disease): Continue PPI DVT PROPHYLAXIS TEDs/SCDs as per spine Ortho Patient seen in collaboration with Dr. Alanis. Thank you for this consultation. We will follow the patient with you during their hospital stay. You can reach a member of the [facility] Hospitalist Team 10/09 via the [facility]ist role in [place] [employer]. I spent a total of 60 minutes coordinating, documenting, and providing care for this patient excluding time spent in the performance of separately billed services. This included personally reviewing all current laboratories and imaging studies, medication reconciliation, outpatient chart review, and discussion with specialists. Supervising Physician Co-Signing Physician Notes Reviewed patient with Linda Neuro: AAOx 3 HEENT: head normocephalic, CV: S1/S2, no murmurs Resp: Lungs air entry present bilaterally no crackles GI: Abdomen no tenderness Musculoskeletal: no join pain , back pain + Skin: (-) rashes , (-) erythema. Psych: normal affect Thank you for the courtesy of the consult. Our team will continue to follow this patient along with you . stratified at moderate risk for this procedure. History of Present Illness Reason for Consultation: Preop evaluation Requesting Physician: Dr. Taveras Attending Physician: Benoit Taveras, History of Present Illness 76-year-old female with PMH DM type II, hypothyroidism, HTN, CAD s/p CABG, retinal artery occlusion, osteoarthritis, degenerative disc disease, and other problems listed below who presents to the ED for evaluation of ongoing back pain. History is obtained from the patient at the bedside as well as review of outpatient PCP, cardiology, neurosurgery records. Patient reports ongoing worsening mid to low back pain for the past several months. Patient reports pain radiates into both of her hips and she has associated bilateral lower extremity weakness. Denies numbness and tingling. No bowel or bladder dysfunction. Patient suffered a fall 3 days ago while trying to reach for her walker. Due to back pain, patient has low exercise capacity. She denies any episodes of chest pain or shortness of breath. No lightheadedness, dizziness, diaphoresis, syncopal events. Denies any other recent illnesses, fevers, chills. No abdominal pain, nausea, vomiting, diarrhea. Denies urinary symptoms. Patient had an MRI completed on 06/08/2022 that showed Large T12-L1 disc extrusion causes severe central canal stenosis. Patient was evaluated by Dr. Taveras in the ED who is recommending thoracolumbar decompression and fusion T11-L3 with instrumentation. Allergies Allergy/AdvReac Type Severity Reaction Status Date / Time latex Allergy Intermediate skin Verified 06/04/22 09:58 irritation and peels skin off prednisone AdvReac Severe STROKE Verified 06/04/22 09:41 meclizine AdvReac Mild Severe N&V Verified 06/04/22 09:41 tetracycline AdvReac Mild Severe N&V Verified 06/04/22 09:41 tramadol AdvReac Blurry Verified 06/08/22 06:50 [facility] Allergy Intermediate Severe Uncoded 06/04/22 09:41 N&V, increased heart rate, "skipped beats" Home Medications Medication Instructions Recorded Confirmed Type allopurinol 100 mg tablet 200 mg PO QPM 10/26/20 06/18/22 History aspirin 81 mg tablet,delayed 81 mg PO QAM 10/26/20 06/18/22 History release atorvastatin 40 mg tablet 40 mg PO HS 10/26/20 06/18/22 History furosemide 20 mg tablet 20 mg PO Q2D PRN leg edema 10/26/20 06/18/22 History insulin glargine 100 unit/mL (3 25 unit subcut HS 10/26/20 06/18/22 History mL) subcutaneous pen (Lantus Solostar U-100 Insulin) insulin lispro 100 unit/mL 10 unit subcut TIDM 10/26/20 06/18/22 History subcutaneous pen (Humalog KwikPen (U-100) Insulin) pantoprazole 40 mg tablet,delayed 40 mg PO BID 10/26/20 06/18/22 History release amlodipine 5 mg tablet 5 mg PO DAILY 06/18/22 06/18/22 History levothyroxine 125 mcg tablet 125 mcg PO DAILY 06/18/22 06/18/22 History losartan 50 mg tablet 50 mg PO DAILY 06/18/22 06/18/22 History metoprolol tartrate 50 mg tablet 50 mg PO BID 06/18/22 06/18/22 History trazodone 50 mg tablet 25 mg PO HS 06/18/22 06/18/22 History Patient History Medical History (Updated 06/18/22 @ 18:12 by CARRINGTON Kaba) Arthritis CAD (coronary artery disease) CABG (2011) 09/19/20 catheterization done after positive stress test showed patent SHANE to LAD and SVG-OM graft, SVG graft to RCA was occluded and RCA territory was supplied by collaterals from left, Chronic back pain Claustrophobia severe Diabetes mellitus, type 2 IDDM GERD (gastroesophageal reflux disease) controlled History of anemia No known blood transfusions History of COVID-19 PHx 2020 - headache only at the time. History of gastric ulcer 2019 Hx of gout Hyperlipidemia 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 Hypothyroidism Left knee DJD Macular degeneration Morbid obesity Motion sickness Nausea and vomiting after administration of anesthetic agent Spinal stenosis Stroke ~2018 -> treated at [facility] -> left eye blindness and gastric ulcers at the time. follows with PCP. Surgical History H/O partial thyroidectomy Benign lump removal History of appendectomy History of breast biopsy x3 History of cardiac cath 09/19/20 > no stents History of cataract surgery R/L History of cholecystectomy History of colonoscopy History of coronary artery bypass graft CABG (2011) x2 vessels. follows with [facility] Cardiology History of esophagogastroduodenoscopy (EGD) History of hysterectomy History of lumbar surgery x2 (+ hardware) History of tooth extraction History of total knee replacement Right Family History Brother Family history of diabetes mellitus Sister Family history of diabetes mellitus Mother Family history of diabetes mellitus Father Family history of diabetes mellitus Other No family history of adverse response to anesthesia Social History Smoking Status: Never smoker Second Hand Exposure: No; Do You Dip or Chew Tobacco: No; Hx Alcohol Use: No Hx Substance Use: No Preferred Language: Indian Communication Ability: Effective A R Collections Rep Required: No Beliefs That Will Affect Care: None Current Living Situation: Alone Other Information That Helps Us Care for You: No Feels Safe at Home: Yes Safety Concerns: Feels Safe At This Time Assistive Devices: Stair Lift, Walker and Wheelchair Review of Systems Review of Systems: ROS per HPI, all other systems reviewed and negative Physical Exam Physical Exam: please refer to Dr. Alanis's addendum for physical exam Results & Data Results & Data Vital Signs (Past 12 Hours) Vital Signs Temp Pulse Pulse Pulse Resp BP BP 06/18/22 17:08 36.7 C 58 L 16 160/78 H 06/18/22 16:35 62 18 141/60 H 06/18/22 16:25 62 18 141/60 H 06/18/22 14:29 60 20 121/62 06/18/22 13:00 60 15 06/18/22 12:08 60 20 120/66 06/18/22 11:10 60 19 06/18/22 10:00 62 18 06/18/22 09:30 72 19 06/18/22 09:19 60 06/18/22 09:08 36.8 C 47 L 20 122/73 Pulse Ox O2 Del Method 06/18/22 17:08 96 Room Air 06/18/22 16:35 96 Room Air 06/18/22 16:25 96 Room Air 06/18/22 14:29 97 06/18/22 13:00 96 06/18/22 12:08 97 06/18/22 11:10 98 06/18/22 10:00 97 06/18/22 09:30 95 06/18/22 09:19 06/18/22 09:08 96 Room Air Laboratory Results Short CBC 06/18/22 06/18/22 Range/Units 11:18 17:18 WBC 7.20 6.78 (4.8-10.8) K/ul Hgb 13.8 14.2 (12.0-16.0) g/dl Hct 42.8 42.7 (37.0-47.0) % Plt Count 196 205 (130-400) K/uL BMP 06/18/22 06/18/22 06/18/22 11:18 12:02 17:18 Sodium 139 136 Potassium TNP 4.4 4.6 Chloride 106 109 H Carbon Dioxide 27 23 BUN 18 17 Creatinine 0.79 0.76 Glucose 136 H 150 H Calcium 9.4 9.3 Liver Function 06/18/22 06/18/22 06/18/22 Range/Units 11:18 12:02 17:18 Total Bilirubin 0.6 0.7 (0.2-1.0) mg/dl AST TNP 21 24 ALT 18 17 (7-52) U/L Alkaline Phosphatase 98 99 (34-104) U/L Albumin 4.0 4.0 (3.4-5.0) gm/dl Diagnostic Findings Lumbar Spine CT 06/18/22 10:15 CT SCAN OF THE LUMBAR SPINE WITHOUT IV CONTRAST CLINICAL HISTORY: Low back pain. Recent fall. COMPARISON STUDY: CT of the lumbar spine dated 10/02/2016. MRI of the lumbar spine dated 06/08/2022. TECHNIQUE: CT scan of the lumbar spine was performed from the lower thoracic spine to the sacrum. Images are reviewed in the axial, sagittal, and coronal planes. IV contrast was not administered for this examination. The examination is degraded by large body habitus, and by significant streak artifact from the body wall abutting the CT gantry. There is also streak artifact from metallic spinal hardware. A dose lowering technique was utilized adhering to the principles of ALARA. CT DOSE: 709.88 mGy.cm FINDINGS: Skeletal structures are osteopenic. There is no evidence of acute fracture or malalignment involving the lumbar spine. Vertebral body height and alignment are maintained. Large anterior and lateral marginal osteophytes are seen throughout. There is postsurgical change from laminectomy and posterior fusion seen at L3-S1. Interpedicular screws are seen at L3 and L4. The orthopedic hardware appears intact. Lucency around the interpedicular screws at L4 suggests loosening. The patient is status post discectomy at L3-L4, L4-L5, and L5-S1. There is advanced disc space narrowing at L2-L3. Advanced disc space narrowing is also seen in the lower thoracic region. The central canal is not well visualized due to streak artifact. Posterior disc osteophyte complexes are seen at several levels. There is multilevel degenerative endplate sclerosis. The visualized sacrum and bony pelvis appear intact. Sclerotic change is noted in the sacroiliac joints. Mild paravertebral edema the lower thoracic region is likely on a degenerative basis. There is fatty atrophy of the paraspinous musculature. The abdominal aorta is normal in caliber noting moderate atherosclerotic calcification. No retroperitoneal lymphadenopathy is seen. IMPRESSION: 1. Significantly streak artifact degraded examination. 2. There is no evidence of fracture or malalignment involving the lumbar spine. 3. Osteopenia with postoperative and spondylotic change as above. ACT 112: Negative or not required by law. Dictated: 06/18/2022 10:59 AM Transcribed: 06/18/2022 11:40 AM Venkata [id number] RENÉE_Luis Daniel [id number] Electronically signed by: Michael Chauhan M.D. 06/18/2022 11:45 AM
[2022-06-18] MEDS: FUROSEMIDE 20 MG TAB PO SCH (18:28)
[2022-06-18] MEDS: ACETAMINOPHEN 500 MG TAB PO SCH (19:48)
[2022-06-18] MEDS: ATORVASTATIN 40 MG TAB PO SCH (20:44)
[2022-06-18] MEDS: allopurinoL 100 MG TAB PO SCH ×2 (20:44→21:10)
[2022-06-18] MEDS: METOPROLOL TARTRATE 50 MG TAB PO SCH (20:45)
[2022-06-18] MEDS: PANTOprazole 40 MG TAB PO SCH (20:46)
[2022-06-18] MEDS: traZODone HCL 50 MG TAB PO SCH (20:48)
[2022-06-18] MEDS: INSULIN ASPART PER UNIT CHARGE SC SCH (21:18)
[2022-06-18] MEDS: LANTUS PER UNIT CHARGE SC SCH (21:21)
[2022-06-19] MEDS: ACETAMINOPHEN 500 MG TAB PO SCH ×4 (00:37→20:35)
[2022-06-19] MEDS: ALLERGY Noted to ORDERED Medication SCH ×3 (00:38→15:30)
[2022-06-19] MEDS: LEVOTHYROXINE SODIUM 125 MCG TABLET PO SCH (05:42)
[2022-06-19] MEDS ORDERED: ceFAZolin 2000MG 2,000 MG/15 ML SYR IV SCH (06:00)
[2022-06-19] MEDS: SODIUM CHLORIDE 0.9% 1000ML 1,000 ML IV SCH ×2 (07:25→19:55)
[2022-06-19 07:41] LABS: Hematocrit (blood only) 40.4 % (37.0-47.0); Hemoglobin 13.2 g/dl (12.0-16.0); Mean Corpuscular Hemoglobin 29.3 pg (25.0-34.0); Mean Corpuscular Hgb Conc 32.7 g/dL (32.0-36.0); Mean Corpuscular Volume 89.6 fL (80.0-100.0); Mean Platelet Volume 12.5 fL (9.4-12.4); Platelet Count 206 K/uL (130-400); RDW Coefficient of Variation 13.8 % (11.5-14.5); RDW Standard Deviation 45.1 fL (36.4-46.3); Red Blood Count 4.51 M/uL (4.20-5.40); White Blood Count 5.88 K/ul (4.8-10.8)
--- NOTE | 2022-06-19 08:04 | XRay Report ---
XR chest 1V portable HISTORY: Preoperative evaluation. COMPARISON: Chest 10/28/2020. FINDINGS: No pneumothorax. No pleural effusions. There are low lung volumes. No new focal lung consol idations to suggest a pneumonia. No evidence for pulmonary edema. The cardiac silhouette is mildly en larged. There are mitral annulus calcifications and poststernotomy changes again noted. IMPRESSION: Mild cardiomegaly. Otherwise, no acute process within the chest. ACT 112: Negative or not required by law. Electronically signed by: Eduard Mustafa M.D. 06/19/2022 7:14 AM
[2022-06-19 08:14] LABS: BUN Creatinine Ratio 21.3 (10-20); Calcium 9.1 mg/dl (8.6-10.3); Creatinine Clr Calc Pharmacy 60.7 ml/min; Est GFR (African American) 81.8 ml/min; Est GFR (Non-African American) 70.6 ml/min; Potassium 4.1 mmol/L (3.5-5.1)
[2022-06-19] MEDS: LOSARTAN POTASSIUM 50 MG TAB PO SCH (08:15)
[2022-06-19] MEDS: ASPIRIN 81 MG ECTAB PO SCH (08:15)
[2022-06-19] MEDS: PANTOprazole 40 MG TAB PO SCH ×2 (08:15→20:38)
[2022-06-19] MEDS: amLODIPine BESYLATE 5 MG TAB PO SCH (08:15)
[2022-06-19] MEDS: METOPROLOL TARTRATE 50 MG TAB PO SCH ×2 (08:16→20:37)
[2022-06-19] MEDS: LANTUS PER UNIT CHARGE SC SCH ×2 (08:46→20:39)
[2022-06-19] MEDS: INSULIN ASPART PER UNIT CHARGE SC SCH ×4 (08:47→20:39)
[2022-06-19] MEDS ORDERED: amLODIPine BESYLATE 5 MG TAB PO SCH (09:00)
[2022-06-19] MEDS ORDERED: PANTOprazole 40 MG TAB PO SCH (09:00)
[2022-06-19] MEDS ORDERED: LEVOTHYROXINE SODIUM 112 MCG TABLET PO SCH (09:00)
[2022-06-19 09:35] LABS: Estimated Average Glucose 154 mg/dl
--- NOTE | 2022-06-19 13:13 | Orthopedic Progress Note ---
Date of Service June 19, 2022 Assessment & Plan (1) Spinal stenosis: Plan: At this time she is cleared for surgery. We have allocated to significant component of time morning to perform her procedure. We will make her n.p.o. at midnight Saturday. Patient stands and agrees. Admission and Anticipated Discharge Date Admission Date: June 18, 2022 Subjective Patient continues to have back and bilateral leg pain with inability to ambulate Physical Exam Physical Exam: Patient is currently in bed. She does have reasonable plantarflexion dorsiflexion at rest. Results & Data Vital Signs (Past 12 Hours) Vital Signs Temp Pulse Resp BP Pulse Ox O2 Del Method 06/19/22 07:19 36.3 C L 58 L 18 155/80 H 97 Room Air
--- NOTE | 2022-06-19 13:22 | Pharmacy Report ---
Pharmacy Glycemic Short Note 2 - Date of Service June 19, 2022 - Glycemic Short BSG Results (Last 24 hours): 06/18/22 06/18/22 06/18/22 16:58 17:18 20:51 Glucose 150 H POC Glucose 139 H 192 H 06/19/22 06/19/22 06/19/22 07:03 08:07 12:05 Glucose 114 H POC Glucose 115 H 153 H OUTPATIENT ANTIDIABETIC REGIMEN: * Lantus 25 units SC HS * Humalog 10 units SC AC * HbA1c: 7.0% (06/19/22) ASSESSMENT: * 76 yo F admitted on 06/18/22 secondary to intractable back pain. Pharmacy has been consulted to assist with inpatient glycemic management. Patient is a well controlled Type 2 diabetic as an outpatient. Please refer to outpatient regimen and most recent HbA1c above. * Plan is to go to the OR with Dr. Taveras on (06/21). Ordered and tolerating a T2DM diet. * Received 14 units of basal last evening along with 2 units of bolus insulin. BSGs were: 139-192 mg/dL. * Fasting BSG this AM was 115 mg/dL, controlled. Tightened Novolog with breakfast given OR date is now scheduled and no chance of going NPO. * Lunch BSG trended up to 153 mg/dL. Therefore, tightened Novolog even further to start at dinner. Now based on weight/stress of 2-3. Will schedule a reduced basal dose as compared to home dose for now that is similar to the 14 units she received last evening. PLAN FOR INPATIENT GLYCEMIC CONTROL: * Basal insulin * Lantus 15 units SC HS * Bolus insulin * NovoLog per scale ACHS or Q6hrs while NPO * Goal Range: Low 110 mg/dL - High 140 mg/dL * Correction Factor: 20 mg/dL/unit * Nutritional / Prandial insulin per carb ratio of 1 unit per 6 grams CHO consumed
--- NOTE | 2022-06-19 13:58 | Hospitalist Progress Note ---
Date of Service June 19, 2022 Assessment & Plan (1) Spinal stenosis: Plan: Admitted to [facility] under spine Ortho service Patient presenting from home with reports of worsening back pain. Had MRI on 06/08/2022 that showed Large T12-L1 disc extrusion causes severe central canal stenosis. Dr. Taveras recommending thoracolumbar decompression and fusion T11-L3 with instrumentation. Plan is for surgery on , 06/21/22. We will make n.p.o. after midnight on 06/21 Due to chronic medical conditions, patient will be considered intermediate to high risk for surgery. Chest x-ray revealed mild cardiomegaly, no acute cardiopulmonary process EKG reveals normal sinus rhythm with occasional PVC, ventricular rate 68 bpm, no significant ST or T wave changes, compared to ec from 10/25/21 Pain control bowel regimen (2) CAD (coronary artery disease): Plan: S/p CABG in 2011 and cardiac cath 09/2020 done after positive stress test showed patent SHANE to LAD and SVG-OM graft, SVG graft to RCA was occluded and RCA territory was supplied by collaterals from left. Appears stable, no reports of chest pain Continue ASA, statin, beta-soni Last echocardiogram 07/25/2020 revealed normal LV EF 55%, mitral calcification with moderate MR stable since 2019 Patient denies any chest pain or shortness of breath (3) Diabetes mellitus, type 2: Plan: Hgb A1c 7.4 04/2022, now 7.0 as of today On Humalog and Lantus Glycemic pharmacy consulted by primary service BSG 114, 153, stable (4) HTN (hypertension): Plan: Continue metoprolol, amlodipine, losartan (5) Hypothyroidism: Plan: Continue levothyroxine (6) GERD (gastroesophageal reflux disease): Plan: Continue PPI DVT PROPHYLAXIS TEDs/SCDs as per spine Ortho Thank you for this consultation. We will follow the patient with you during their hospital stay. You can reach a member of the [facility] Hospitalist Team 10/09 via the [facility] Hospitalist role in [place] [employer]. A total of 40 was spent coordinating, documenting, and providing care for this patient excluding time spent in the performance of separately billed services. This included personally viewing all current laboratories and imaging studies, medication reconciliation, outpatient chart review, and discussion with specialists. Patient was seen and examined in collaboration with Dr. Perdue, please see addendum Admission and Anticipated Discharge Date Admission Date: June 18, 2022 Supervising Physician Co-Signing Physician Notes Attending addendum: The patient was seen and examined in medical floor She complains to have back pain with bilateral leg weakness and numbness Denies any other symptoms of cough, chest pain, shortness of breath, abdominal pain, nausea and or vomiting On examination Sitting at the edge of the bed with acute distress due to back pain Hemodynamically stable Chest-clear to auscultate bilateral Heart-S1, D2anzbdna Abdomen-benign Examination of the spine-localized tenderness lower lumbar area Her labs, EKG and imaging studies reviewed Has lumbar spinal stenosis with radiculopathy Will have lumbar decompression and fusion tomorrow Agree with assessment and plan as outlined above by Ellen Perdue Subjective Patient was seen and examined in room 361. Follow-up thoracolumbar compression. At this point time she feels her pain is controlled. She is asking if she can be discharged to home until her surgery date. She denies fever, chills, sweats, lightheadedness, dizziness, chest pain, shortness of breath, nausea, vomiting, abdominal pain. She continues to have back and bilateral leg pain. She is unable to walk due to pain and weakness. Review of Systems Review of Systems: All systems reviewed & are unremarkable except as noted in HPI & below Physical Exam Physical Exam: Gen: WD/WN, NAD, A&O x3 HEENT: Normocephalic, atraumatic, conjunctivae moist, sclerae anicteric, mucous membranes moist. Lung: Clear to Auscultation bilaterally, no wheezes/rales/rhonchi Heart: Regular rate, regular rhythm, no murmurs, rubs, or gallops Abdomen: Soft, NT, ND +BS x 4 Extremities: No edema Skin: Warm, no rash, negative turgor. Results & Data Results & Data Vital Signs (Past 12 Hours) Vital Signs Temp Pulse Resp BP Pulse Ox O2 Del Method 06/19/22 07:19 36.3 C L 58 L 18 155/80 H 97 Room Air Laboratory Results Short CBC 06/18/22 06/19/22 Range/Units 17:18 07:03 WBC 6.78 5.88 (4.8-10.8) K/ul Hgb 14.2 13.2 (12.0-16.0) g/dl Hct 42.7 40.4 (37.0-47.0) % Plt Count 205 206 (130-400) K/uL BMP 06/18/22 06/19/22 17:18 07:03 Sodium 136 141 Potassium 4.6 4.1 Chloride 109 H 107 Carbon Dioxide 23 26 BUN 17 17 Creatinine 0.76 0.80 Glucose 150 H 114 H Calcium 9.3 9.1 Liver Function 06/18/22 Range/Units 17:18 Total Bilirubin 0.7 (0.2-1.0) mg/dl AST 24 (13-39) U/L ALT 17 (7-52) U/L Alkaline Phosphatase 99 (34-104) U/L Albumin 4.0 (3.4-5.0) gm/dl Diagnostic Findings Reviewed imaging with patient Medications Administered Current Inpatient Medications Acetaminophen (Acetaminophen 500 Mg Tab) 1,000 mg PO Q8 LETTY Stop: 07/18/22 17:59 Last Admin: 06/19/22 13:55 Dose: 1,000 mg Al Hydrox/Mg Hydrox/Simethicone (Aluminum/Magnesium Susp 30 Ml Udc) 30 ml PO Q6H PRN PRN Reason: Dyspepsia Stop: 07/18/22 17:05 Allopurinol (Allopurinol 100 Mg Tab) 200 mg PO QPM LETTY Stop: 07/18/22 20:59 Last Admin: 06/18/22 21:10 Dose: Not Given Amlodipine Besylate (Amlodipine Besylate 5 Mg Tab) 5 mg PO DAILY LETTY Stop: 07/19/22 08:59 Last Admin: 06/19/22 08:15 Dose: 5 mg Aspirin (Aspirin 81 Mg Ectab) 81 mg PO QAM LETTY Stop: 07/19/22 08:59 Last Admin: 06/19/22 08:15 Dose: 81 mg Atorvastatin Calcium (Atorvastatin 40 Mg Tab) 40 mg PO HS LETTY Stop: 07/18/22 20:59 Last Admin: 06/18/22 20:44 Dose: 40 mg Bisacodyl (Bisacodyl 10 Mg Supp) 10 mg NV DAILY PRN PRN Reason: Constipation Stop: 07/20/22 12:13 Diphenhydramine HCl (Diphenhydramine Capsule 25 Mg Cap) 25 mg PO Q6H PRN PRN Reason: Allergic Rhinitis/Insomnia Stop: 07/18/22 17:05 Furosemide (Furosemide 20 Mg Tab) 20 mg PO Q48H [facility] Stop: 07/18/22 17:05 Last Admin: 06/18/22 18:28 Dose: 20 mg Hydroxyzine HCl (Hydroxyzine Hcl 25 Mg Tab) 25 mg PO Q8H PRN PRN Reason: Anxiety Stop: 07/18/22 17:05 Sodium Chloride (Nss 1000ml) 1,000 mls @ 75 mls/hr IV .[id number] [facility] Stop: 07/18/22 17:05 Last Admin: 06/19/22 07:25 Dose: 75 mls/hr Promethazine HCl 12.5 mg/ (Sodium Chloride) 50.5 mls @ 202 mls/hr IV Q6H PRN PRN Reason: Nausea &/or Vomiting Stop: 07/18/22 17:05 Cefazolin Sodium (Ancef 2000mg) 2,000 mg in 15 mls @ 3.75 mls/min IV PREOP [facility]; Protocol Stop: 06/20/22 05:59 Last Admin: 06/19/22 05:43 Dose: Not Given Insulin Aspart (Insulin Aspart Per Unit Charge) 0 units SC [facility]; Protocol Stop: 07/18/22 20:59 Last Admin: 06/19/22 12:49 Dose: 5 units Insulin Glargine (Lantus Per Unit Charge) 15 units SC [facility]; Protocol Stop: 07/19/22 20:59 Levothyroxine Sodium (Levothyroxine Sodium 125 Mcg Tablet) [facility] Stop: 07/19/22 06:29 Last Admin: 06/19/22 05:42 Dose: 125 mcg Losartan Potassium (Losartan Potassium 50 Mg Tab) 50 mg PO DAILY [facility] Stop: 07/19/22 08:59 Last Admin: 06/19/22 08:15 Dose: 50 mg Magnesium Hydroxide (Magnesium Hydroxide Susp 30 Ml Udc) 30 ml PO Q24H PRN PRN Reason: Constipation Stop: 07/18/22 17:05 Metoclopramide HCl (Metoclopramide Hcl Inj 5 Mg/Ml 2 Ml Vial) 10 mg IV Q6H PRN PRN Reason: Nausea &/or Vomiting Stop: 07/18/22 17:05 Metoprolol Tartrate (Metoprolol Tartrate 50 Mg Tab) 50 mg PO BID [facility] Stop: 07/18/22 20:59 Last Admin: 06/19/22 08:16 Dose: Not Given Miscellaneous Information (Pharmacy Glycemic Mgmt Consult) 1 each N/A UD PRN PRN Reason: Consult Stop: 07/18/22 17:05 Miscellaneous Information (Allergy Noted To Ordered Medication) 1 each N/A QSHIFT [facility] Stop: 07/18/22 17:29 Last Admin: 06/19/22 08:16 Dose: 1 each Naloxone HCl (Naloxone Hcl 0.4 Mg/1 Ml Vial/Carp) 0.1 mg IV Q5M PRN PRN Reason: Oversedation/respiratory dep Stop: 07/18/22 17:05 Ondansetron HCl (Ondansetron Inj 2 Mg/Ml 2 Ml Vial) 4 mg IV Q6H PRN PRN Reason: Nausea &/or Vomiting Stop: 07/18/22 17:05 Ondansetron HCl (Ondansetron 4 Mg Od Tab) 4 mg PO Q6H PRN PRN Reason: Nausea Stop: 07/18/22 17:05 Pantoprazole Sodium (Pantoprazole 40 Mg Tab) 40 mg PO BID [facility] Stop: 07/18/22 20:59 Last Admin: 06/19/22 08:15 Dose: 40 mg Trazodone HCl (Trazodone Hcl 50 Mg Tab) 25 mg PO HS [facility] Stop: 07/18/22 20:59 Last Admin: 06/18/22 20:48 Dose: 25 mg
--- NOTE | 2022-06-19 20:20 | Electrocardiogram Report ---
Test Reason : Blood Pressure : / mmHG Vent. Rate : 068 BPM Atrial Rate : 068 BPM P-R Int : 156 ms QRS Dur : 096 ms QT Int : 434 ms P-R-T Axes : -17 -27 113 degrees QTc Int : 461 ms Sinus rhythm with occasional Premature ventricular complexes Abnormal ECG When compared with ECG of 11-DEC-2007 09:20, Premature ventricular complexes are now Present QRS duration has increased ST now depressed in Lateral leads Inverted T waves have replaced nonspecific T wave abnormality in Lateral leads Confirmed by Zach Wilson ([id number]) on 06/19/2022 8:20:15 PM Referred By: REFERRED SELF Confirmed By:Zach Wilson
[2022-06-19] MEDS: allopurinoL 100 MG TAB PO SCH (20:36)
[2022-06-19] MEDS: ATORVASTATIN 40 MG TAB PO SCH (20:37)
[2022-06-19] MEDS: traZODone HCL 50 MG TAB PO SCH (20:38)
[2022-06-20] MEDS: ALLERGY Noted to ORDERED Medication SCH ×2 (05:41→10:27)
[2022-06-20] MEDS: ACETAMINOPHEN 500 MG TAB PO SCH ×3 (05:42→21:26)
[2022-06-20] MEDS: LEVOTHYROXINE SODIUM 125 MCG TABLET PO SCH (05:43)
[2022-06-20] MEDS: SODIUM CHLORIDE 0.9% 1000ML 1,000 ML IV SCH (08:14)
[2022-06-20] MEDS: PANTOprazole 40 MG TAB PO SCH ×2 (08:16→21:25)
[2022-06-20] MEDS: LOSARTAN POTASSIUM 50 MG TAB PO SCH (08:16)
[2022-06-20] MEDS: amLODIPine BESYLATE 5 MG TAB PO SCH (08:17)
[2022-06-20] MEDS: ASPIRIN 81 MG ECTAB PO SCH (08:17)
[2022-06-20] MEDS: METOPROLOL TARTRATE 50 MG TAB PO SCH ×2 (08:19→21:25)
[2022-06-20] MEDS: DOCUSATE SODIUM/SENNA 50/8.6MG TAB PO SCH (09:02)
[2022-06-20] MEDS: POLYETHYLENE (MIRALAX) 17 GM PACK PO SCH (09:02)
[2022-06-20] MEDS: INSULIN ASPART PER UNIT CHARGE SC SCH ×4 (09:03→21:24)
[2022-06-20] MEDS ORDERED: Nursing to Pharmacy Communication SCH (10:30)
--- NOTE | 2022-06-20 11:11 | Pharmacy Report ---
Pharmacy Glycemic Short Note 2 - Date of Service June 20, 2022 - Glycemic Short BSG Results (Last 24 hours): 06/19/22 06/19/22 06/19/22 12:05 17:05 20:27 POC Glucose 153 H 112 H 124 H 06/20/22 08:12 POC Glucose 137 H OUTPATIENT ANTIDIABETIC REGIMEN: * Lantus 25 units SC HS * Humalog 10 units SC AC * HbA1c: 7.0% (06/19/22) ASSESSMENT: 06/20: * Patient received 32 units of insulin yesterday; 15 units basal and 17 units bolus. * BSGs yesterday were [phone] mg/dl * Fasting BSG today was 137 mg/dl. Since her fasting increased today compared to yesterday, her basal dose could be increased. However, continued basal at 15 units again today since she will be going NPO at midnight for lumbar surgery in the morning tomorrow. * Novolog parameters continued the same as yesterday. 06/19/22: * 76 yo F admitted on 06/18/22 secondary to intractable back pain. Pharmacy has been consulted to assist with inpatient glycemic management. Patient is a well controlled Type 2 diabetic as an outpatient. Please refer to outpatient regimen and most recent HbA1c above. * Plan is to go to the OR with Dr. Taveras on (06/21). Ordered and tolerating a T2DM diet. * Received 14 units of basal last evening along with 2 units of bolus insulin. BSGs were: 139-192 mg/dL. * Fasting BSG this AM was 115 mg/dL, controlled. Tightened Novolog with breakfast given OR date is now scheduled and no chance of going NPO. * Lunch BSG trended up to 153 mg/dL. Therefore, tightened Novolog even further to start at dinner. Now based on weight/stress of 2-3. Will schedule a reduced basal dose as compared to home dose for now that is similar to the 14 units she received last evening. PLAN FOR INPATIENT GLYCEMIC CONTROL: * Basal insulin * Lantus 15 units SC HS * Bolus insulin * NovoLog per scale ACHS or Q6hrs while NPO * Goal Range: Low 110 mg/dL - High 140 mg/dL * Correction Factor: 20 mg/dL/unit * Nutritional / Prandial insulin per carb ratio of 1 unit per 6 grams CHO consumed
[2022-06-20] MEDS ORDERED: bisacodyL 10 MG SUPP PR PRN (12:14)
--- NOTE | 2022-06-20 13:56 | Hospitalist Progress Note ---
Date of Service June 20, 2022 Assessment & Plan (1) Spinal stenosis: Plan: Admitted to [facility] under spine Ortho service Patient presenting from home with reports of worsening back pain. Had MRI on 06/08/2022 that showed Large T12-L1 disc extrusion causes severe central canal stenosis. Dr. Taveras recommending thoracolumbar decompression and fusion T11-L3 with instrumentation. Plan is for surgery on , 06/21/22. will make n.p.o. after midnight on 06/21 Due to chronic medical conditions, patient will be considered intermediate to high risk for surgery. Chest x-ray revealed mild cardiomegaly, no acute cardiopulmonary process EKG reveals normal sinus rhythm with occasional PVC, ventricular rate 68 bpm, no significant ST or T wave changes, compared to ec from 10/25/21 Pain contro,l bowel regimen Hold IVF for now, resume when NPO, pt tolerating diet (2) CAD (coronary artery disease): Plan: S/p CABG in 2011 and cardiac cath 09/2020 done after positive stress test showed patent SHANE to LAD and SVG-OM graft, SVG graft to RCA was occluded and RCA territory was supplied by collaterals from left. Appears stable, no reports of chest pain Continue ASA, statin, beta-soni Last echocardiogram 07/25/2020 revealed normal LV EF 55%, mitral calcification with moderate MR stable since 2019 Patient denies any chest pain or shortness of breath (3) Diabetes mellitus, type 2: Plan: Hgb A1c 7.4 04/2022, now 7.0 as of 06/19 On Humalog and Lantus Glycemic pharmacy consulted by primary service BSG 145 (4) HTN (hypertension): Plan: Continue metoprolol, amlodipine, losartan, lasix (5) Hypothyroidism: Plan: Continue levothyroxine (6) GERD (gastroesophageal reflux disease): Plan: Continue PPI DVT PROPHYLAXIS TEDs/SCDs as per spine Ortho Thank you for this consultation. We will follow the patient with you during their hospital stay. You can reach a member of the [facility] Hospitalist Team 10/09 via the [facility] Hospitalist role in [employer]. A total of 35 was spent coordinating, documenting, and providing care for this patient excluding time spent in the performance of separately billed services. This included personally viewing all current laboratories and imaging studies, medication reconciliation, outpatient chart review, and discussion with special ists. Patient was seen and examined in collaboration with Dr. Orellana, please see addendum Admission and Anticipated Discharge Date Admission Date: June 18, 2022 Supervising Physician Co-Signing Physician Notes Patient is seen and examined at bedside. States having back pain controlled with medications. Offers no other complaints. Patient is planned for lumbar surgery tomorrow. Agree with assessment and plan as above. Continue insulin while hospitalized for management of diabetes mellitus. I personally reviewed the record. Patient is interviewed and examined at bedside. Patient's care is coordinated with Katina Dunlap PA-C. Please refer to the documentation above for details of patient's presentation and for discussion of other issues. Subjective Patient was seen and examined in room 361. Follow-up thoracolumbar compression. Currently she feels constipated. No BM in 4 days. Requesting bowel meds. Denies f/c/s, chest pain, sob, n/v/d, abd pain. Review of Systems Review of Systems: All systems reviewed & are unremarkable except as noted in Subjective Physical Exam Physical Exam: Gen: WD/WN, NAD, A&O x3 HEENT: Normocephalic, atraumatic, conjunctivae moist, sclerae anicteric, mucous membranes moist. Lung: Clear to Auscultation bilaterally, no wheezes/rales/rhonchi Heart: Regular rate, regular rhythm, no murmurs, rubs, or gallops Abdomen: Soft, NT, ND +BS x 4 obese abdomen Extremities: No edema Skin: Warm, no rash, negative turgor. Results & Data Results & Data Vital Signs (Past 12 Hours) Vital Signs Temp Pulse Resp BP Pulse Ox O2 Del Method 06/20/22 07:29 36.3 C L 59 L 17 147/82 H 94 Room Air Laboratory Results Lumbar Spine CT 06/18/22 10:15 CT SCAN OF THE LUMBAR SPINE WITHOUT IV CONTRAST CLINICAL HISTORY: Low back pain. Recent fall. COMPARISON STUDY: CT of the lumbar spine dated 10/02/2016. MRI of the lumbar spine dated 06/08/2022. TECHNIQUE: CT scan of the lumbar spine was performed from the lower thoracic spine to the sacrum. Images are reviewed in the axial, sagittal, and coronal planes. IV contrast was not administered for this examination. The examination is degraded by large body habitus, and by significant streak artifact from the body wall abutting the CT gantry. There is also streak artifact from metallic spinal hardware. A dose lowering technique was utilized adhering to the principles of ALARA. CT DOSE: 709.88 mGy.cm FINDINGS: Skeletal structures are osteopenic. There is no evidence of acute fracture or malalignment involving the lumbar spine. Vertebral body height and alignment are maintained. Large anterior and lateral marginal osteophytes are seen throughout. There is postsurgical change from laminectomy and posterior fusion seen at L3-S1. Interpedicular screws are seen at L3 and L4. The orthopedic hardware appears intact. Lucency around the interpedicular screws at L4 suggests loosening. The patient is status post discectomy at L3-L4, L4-L5, and L5-S1. There is advanced disc space narrowing at L2-L3. Advanced disc space narrowing is also seen in the lower thoracic region. The central canal is not well visualized due to streak artifact. Posterior disc osteophyte complexes are seen at several levels. There is multilevel degenerative endplate sclerosis. The visualized sacrum and bony pelvis appear intact. Sclerotic change is noted in the sacroiliac joints. Mild paravertebral edema the lower thoracic region is likely on a degenerative basis. There is fatty atrophy of the paraspinous musculature. The abdominal aorta is normal in caliber noting moderate atherosclerotic calcification. No retroperitoneal lymphadenopathy is seen. IMPRESSION: 1. Significantly streak artifact degraded examination. 2. There is no evidence of fracture or malalignment involving the lumbar spine. 3. Osteopenia with postoperative and spondylotic change as above. ACT 112: Negative or not required by law. Dictated: 06/18/2022 10:59 AM Transcribed: 06/18/2022 11:40 AM Venkata [id number] RENÉE_Luis Daniel [id number] Electronically signed by: Michael Chauhan M.D. 06/18/2022 11:45 AM Chest X-Ray 06/18/22 18:53 XR chest 1V portable HISTORY: Preoperative evaluation. COMPARISON: Chest 10/28/2020. FINDINGS: No pneumothorax. No pleural effusions. There are low lung volumes. No new focal lung consolidations to suggest a pneumonia. No evidence for pulmonary edema. The cardiac silhouette is mildly enlarged. There are mitral annulus calcifications and poststernotomy changes again noted. IMPRESSION: Mild cardiomegaly. Otherwise, no acute process within the chest. ACT 112: Negative or not required by law. Electronically signed by: Eduard Mustafa M.D. 06/19/2022 7:14 AM Medications Administered Current Inpatient Medications Acetaminophen (Acetaminophen 500 Mg Tab) 1,000 mg PO Q8 LETTY Stop: 07/18/22 17:59 Last Admin: 06/20/22 13:00 Dose: 1,000 mg Al Hydrox/Mg Hydrox/Simethicone (Aluminum/Magnesium Susp 30 Ml Udc) 30 ml PO Q6H PRN PRN Reason: Dyspepsia Stop: 07/18/22 17:05 Allopurinol (Allopurinol 100 Mg Tab) 200 mg PO QPM LETTY Stop: 07/18/22 20:59 Last Admin: 06/19/22 20:36 Dose: 200 mg Amlodipine Besylate (Amlodipine Besylate 5 Mg Tab) 5 mg PO DAILY LETTY Stop: 07/19/22 08:59 Last Admin: 06/20/22 08:17 Dose: 5 mg Aspirin (Aspirin 81 Mg Ectab) 81 mg PO QAM LETTY Stop: 07/19/22 08:59 Last Admin: 06/20/22 08:17 Dose: 81 mg Atorvastatin Calcium (Atorvastatin 40 Mg Tab) 40 mg PO HS LETTY Stop: 07/18/22 20:59 Last Admin: 06/19/22 20:37 Dose: 40 mg Bisacodyl (Bisacodyl 10 Mg Supp) [address] DAILY PRN PRN Reason: Constipation Stop: 07/20/22 12:13 Diphenhydramine HCl (Diphenhydramine Capsule 25 Mg Cap) 25 mg PO Q6H PRN PRN Reason: Allergic Rhinitis/Insomnia Stop: 07/18/22 17:05 Last Admin: 06/19/22 20:35 Dose: 25 mg Furosemide (Furosemide 20 Mg Tab) 20 mg PO Q48H LETTY Stop: 07/18/22 17:05 Last Admin: 06/18/22 18:28 Dose: 20 mg Hydroxyzine HCl (Hydroxyzine Hcl 25 Mg Tab) 25 mg PO Q8H PRN PRN Reason: Anxiety Stop: 07/18/22 17:05 Sodium Chloride (Nss 1000ml) 1,000 mls @ 75 mls/hr IV .[id number] LETTY Stop: 07/18/22 17:05 Last Infusion: 06/20/22 10:40 Dose: Infused Promethazine HCl 12.5 mg/ (Sodium Chloride) 50.5 mls @ 202 mls/hr IV Q6H PRN PRN Reason: Nausea &/or Vomiting Stop: 07/18/22 17:05 Insulin Aspart (Insulin Aspart Per Unit Charge) 0 units SC ACHS [facility]; Protocol Stop: 07/18/22 20:59 Last Admin: 06/20/22 12:58 Dose: 3 units Insulin Glargine (Lantus Per Unit Charge) 15 units SC [facility]; Protocol Stop: 07/19/22 20:59 Last Admin: 06/19/22 20:39 Dose: 15 units Levothyroxine Sodium (Levothyroxine Sodium 125 Mcg Tablet) [facility] Stop: 07/19/22 06:29 Last Admin: 06/20/22 05:43 Dose: 125 mcg Losartan Potassium (Losartan Potassium 50 Mg Tab) 50 mg PO DAILY [facility] Stop: 07/19/22 08:59 Last Admin: 06/20/22 08:16 Dose: 50 mg Magnesium Hydroxide (Magnesium Hydroxide Susp 30 Ml Udc) 30 ml PO Q24H PRN PRN Reason: Constipation Stop: 07/18/22 17:05 Metoclopramide HCl (Metoclopramide Hcl Inj 5 Mg/Ml 2 Ml Vial) 10 mg IV Q6H PRN PRN Reason: Nausea &/or Vomiting Stop: 07/18/22 17:05 Metoprolol Tartrate (Metoprolol Tartrate 50 Mg Tab) 50 mg PO BID [facility] Stop: 07/18/22 20:59 Last Admin: 06/20/22 08:19 Dose: Not Given Miscellaneous Information (Pharmacy Glycemic Mgmt Consult) 1 each N/A UD PRN PRN Reason: Consult Stop: 07/18/22 17:05 Naloxone HCl (Naloxone Hcl 0.4 Mg/1 Ml Vial/Carp) 0.1 mg IV Q5M PRN PRN Reason: Oversedation/respiratory dep Stop: 07/18/22 17:05 Ondansetron HCl (Ondansetron Inj 2 Mg/Ml 2 Ml Vial) 4 mg IV Q6H PRN PRN Reason: Nausea &/or Vomiting Stop: 07/18/22 17:05 Ondansetron HCl (Ondansetron 4 Mg Od Tab) 4 mg PO Q6H PRN PRN Reason: Nausea Stop: 07/18/22 17:05 Pantoprazole Sodium (Pantoprazole 40 Mg Tab) 40 mg PO BID LETTY Stop: 07/18/22 20:59 Last Admin: 06/20/22 08:16 Dose: 40 mg Polyethylene Glycol (Polyethylene (Miralax) 17 Gm Pack) 17 gm PO DAILY LETTY Stop: 07/20/22 08:59 Last Admin: 06/20/22 09:02 Dose: 17 gm Senna/Docusate Sodium (Docusate Sodium/Senna 50/8.6mg Tab) 1 tab PO QAM LETTY Stop: 07/20/22 08:59 Last Admin: 06/20/22 09:02 Dose: 1 tab Trazodone HCl (Trazodone Hcl 50 Mg Tab) 25 mg PO HS [facility] Stop: 07/18/22 20:59 Last Admin: 06/19/22 20:38 Dose: 25 mg
[2022-06-20] MEDS: FUROSEMIDE 20 MG TAB PO SCH (17:46)
[2022-06-20] MEDS ORDERED: LANTUS PER UNIT CHARGE SC SCH (21:00)
[2022-06-20] MEDS: LANTUS PER UNIT CHARGE SC SCH (21:24)
[2022-06-20] MEDS: traZODone HCL 50 MG TAB PO SCH (21:25)
[2022-06-20] MEDS: ATORVASTATIN 40 MG TAB PO SCH (21:25)
[2022-06-20] MEDS: allopurinoL 100 MG TAB PO SCH (21:27)
[2022-06-21] MEDS: LEVOTHYROXINE SODIUM 125 MCG TABLET PO SCH (06:10)
[2022-06-21] MEDS: ACETAMINOPHEN 500 MG TAB PO SCH (06:10)
[2022-06-21] MEDS ORDERED: LIDOCAINE 2% 2 ML VIAL/AMP(20MG/ML) INFIL ONE ×2 (07:08→08:11)
[2022-06-21] MEDS ORDERED: PROPOFOL IV EMULSION 10 MG/ML 20 ML VIAL IV ONE (07:08)
[2022-06-21] MEDS ORDERED: ROCURONIUM BROMIDE 10 MG/ML 5 ML VIAL IV ONE (07:08)
[2022-06-21] MEDS ORDERED: ONDANSETRON INJ 2 MG/ML 2 ML VIAL ONE (07:08)
[2022-06-21] MEDS ORDERED: fentaNYL citrate PF 100 MCG/2 ML VIAL ONE (07:09)
[2022-06-21] MEDS ORDERED: ALBUMIN HUMAN 5% 12.5 GM/250 ML VIAL IV ONE (07:23)
--- NOTE | 2022-06-21 07:31 | History & Physical Bridge Note ---
Date of Service June 21, 2022 History & Physical Bridge Note I have examined the patient, reviewed the History & Physical and in the interval since the performance of the History & Physical I have noted the following changes of clinical significance: no changes noted Lumbar decompression and fusion T12-L3 with hardware removal L3-L4
[2022-06-21] MEDS ORDERED: BUPIVACAINE/EPINEPHRINE 0.25% 1:200,000 30 ML VIAL ONE (08:17)
[2022-06-21] MEDS ORDERED: ceFAZolin 330 MG/ML 1 GM VIAL ONE (08:17)
[2022-06-21] MEDS ORDERED: ePHEDrine sulfate 50 MG/ML AMP IV PRN (08:20)
[2022-06-21] MEDS ORDERED: fentaNYL citrate PF 100 MCG/2 ML VIAL IV PRN (08:20)
[2022-06-21] MEDS ORDERED: ONDANSETRON INJ 2 MG/ML 2 ML VIAL IV PRN (08:20)
[2022-06-21] MEDS ORDERED: ATROPINE SULFATE 0.1 MG/ML 10ML SYR IV PRN (08:20)
--- NOTE | 2022-06-21 08:20 | Anesthesiology Consultation ---
Date of Service June 21, 2022 Assessment & Plan Chart Review Chart Review: Acceptable Risk for Surgery Consults Requested none ASA ASA3 Proposed Anesthesia Anesthesia Type: General Anesthesia Line Insertion: Arterial line and Central Venous Catheter Risk / Benefits Reviewed With: PT / POA / Parent / Guardian, Accepts Plan and In formed Consent Obtained Additional Comments: possible cvp History Surgery Operation Date: 06/21/22 08:15 Proposed Procedures p T12-L3 Decompression Fusion, L3-L4 Hardware Removal - Benoit Taveras, Height/Weight Height: 5 ft 1 in Weight: 94.1 kg Allergies Allergy/AdvReac Type Severity Reaction Status Date / Time latex Allergy Intermediate skin Verified 06/04/22 09:58 irritation and peels skin off prednisone AdvReac Severe STROKE Verified 06/04/22 09:41 meclizine AdvReac Mild Severe N&V Verified 06/04/22 09:41 tetracycline AdvReac Mild Severe N&V Verified 06/04/22 09:41 tramadol AdvReac Blurry Verified 06/08/22 06:50 Vision [employer]PIATE[employer] Allergy Intermediate Severe Uncoded 06/04/22 09:41 N&V, increased heart rate, "skipped beats" Medications Home Medications Medication Instructions Recorded Confirmed Last Taken allopurinol 100 mg tablet 200 mg PO QPM 10/26/20 06/18/22 06/18/22 aspirin 81 mg tablet,delayed 81 mg PO QAM 10/26/20 06/18/22 06/18/22 release atorvastatin 40 mg tablet 40 mg PO HS 10/26/20 06/18/22 06/17/22 furosemide 20 mg tablet 20 mg PO Q2D PRN leg edema 10/26/20 06/18/22 06/16/22 insulin glargine 100 unit/mL (3 25 unit subcut HS 10/26/20 06/18/22 06/17/22 mL) subcutaneous pen (Lantus Solostar U-100 Insulin) insulin lispro 100 unit/mL 10 unit subcut TIDM 10/26/20 06/18/22 06/18/22 subcutaneous pen (Humalog KwikPen (U-100) Insulin) pantoprazole 40 mg tablet,delayed 40 mg PO BID 10/26/20 06/18/22 06/18/22 release amlodipine 5 mg tablet 5 mg PO DAILY 06/18/22 06/18/22 Unknown levothyroxine 125 mcg tablet 125 mcg PO DAILY 06/18/22 06/18/22 06/18/22 losartan 50 mg tablet 50 mg PO DAILY 06/18/22 06/18/22 Unknown metoprolol tartrate 50 mg tablet 50 mg PO BID 06/18/22 06/18/22 Unknown trazodone 50 mg tablet 25 mg PO HS 06/18/22 06/18/22 Unknown Active Medications Generic Name Dose Route Start Last Admin Trade Name Freq PRN Reason Stop Dose Admin Acetaminophen 1,000 mg 06/18/22 18:00 06/21/22 06:10 Acetaminophen 500 Mg Tab PO 07/18/22 17:59 1,000 mg Q8 LETTY Administration Allopurinol 200 mg 06/18/22 21:00 06/20/22 21:27 Allopurinol 100 Mg Tab PO 07/18/22 20:59 200 mg QPM LETTY Administration Amlodipine Besylate 5 mg 06/19/22 09:00 06/20/22 08:17 Amlodipine Besylate 5 Mg Tab PO 07/19/22 08:59 5 mg DAILY LETTY Administration Aspirin 81 mg 06/19/22 09:00 06/20/22 08:17 Aspirin 81 Mg Ectab PO 07/19/22 08:59 81 mg QAM LETTY Administration Atorvastatin Calcium 40 mg 06/18/22 21:00 06/20/22 21:25 Atorvastatin 40 Mg Tab PO 07/18/22 20:59 40 mg HS LETTY Administration Diphenhydramine HCl 25 mg 06/18/22 17:06 06/19/22 20:35 Diphenhydramine Capsule 25 Mg Cap PO 07/18/22 17:05 25 mg Q6H PRN Administration Allergic Rhinitis/Insomnia Furosemide 20 mg 06/18/22 17:06 06/20/22 17:46 Furosemide 20 Mg Tab PO 07/18/22 17:05 20 mg Q48H LETTY Administration Sodium Chloride 1,000 mls @ 75 mls/hr 06/18/22 17:06 06/20/22 10:40 Nss 1000ml IV 07/18/22 17:05 Infused .[id number] LETTY Infusion Insulin Glargine 15 units 06/19/22 21:00 06/20/22 21:24 Lantus Per Unit Charge SC 07/19/22 20:59 15 units HS LETTY Administration Protocol Levothyroxine Sodium 125 mcg 06/19/22 06:30 06/21/22 06:10 Levothyroxine Sodium 125 Mcg Tablet PO 07/19/22 06:29 125 mcg DAILYBB LETTY Administration Losartan Potassium 50 mg 06/19/22 09:00 06/20/22 08:16 Losartan Potassium 50 Mg Tab PO 07/19/22 08:59 50 mg DAILY LETTY Administration Metoprolol Tartrate 50 mg 06/18/22 21:00 06/20/22 21:25 Metoprolol Tartrate 50 Mg Tab PO 07/18/22 20:59 50 mg BID LETTY Administration Pantoprazole Sodium 40 mg 06/18/22 21:00 06/20/22 21:25 Pantoprazole 40 Mg Tab PO 07/18/22 20:59 40 mg BID LETTY Administration Polyethylene Glycol 17 gm 06/20/22 09:00 06/20/22 09:02 Polyethylene (Miralax) 17 Gm Pack PO 07/20/22 08:59 17 gm DAILY LETTY Administration Senna/Docusate Sodium 1 tab 06/20/22 09:00 06/20/22 09:02 Docusate Sodium/Senna 50/8.6mg Tab PO 07/20/22 08:59 1 tab QAM LETTY Administration Trazodone HCl 25 mg 06/18/22 21:00 06/20/22 21:25 Trazodone Hcl 50 Mg Tab PO 07/18/22 20:59 25 mg HS LETTY Administration NPO Date Last Intake of Fluids: 06/20/22 Time Last Intake of Fluids: 21:30 Last Intake of Fluids Comment: sips with meds Date Last Intake of Solids: 06/20/22 Time Last Intake of Solids: 17:30 Past Medical History Medical History (Updated 06/18/22 @ 18:12 by CARRINGTON Kaba) Arthritis CAD (coronary artery disease) CABG (2011) 09/19/20 catheterization done after positive stress test showed patent SHANE to LAD and SVG-OM graft, SVG graft to RCA was occluded and RCA territory was supplied by collaterals from left, Chronic back pain Claustrophobia severe Diabetes mellitus, type 2 IDDM GERD (gastroesophageal reflux disease) controlled History of anemia No known blood transfusions History of COVID-19 PHx 2020 - headache only at the time. History of gastric ulcer 2019 Hx of gout Hyperlipidemia 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 Hypothyroidism Left knee DJD Macular degeneration Morbid obesity Motion sickness Nausea and vomiting after administration of anesthetic agent Spinal stenosis Stroke ~2019 -> treated at [facility] -> left eye blindness and gastric ulcers at the time. follows with PCP. Exercise / Class Metabolic Activity II 4-5 Yardwork/Stairs/Walk up hill Past Family History Family History Brother Family history of diabetes mellitus Sister Family history of diabetes mellitus Mother Family history of diabetes mellitus Father Family history of diabetes mellitus Other No family history of adverse response to anesthesia Past Surgical History Surgical History H/O partial thyroidectomy Benign lump removal History of appendectomy History of breast biopsy x3 History of cardiac cath 09/19/20 > no stents History of cataract surgery R/L History of cholecystectomy History of colonoscopy History of coronary artery bypass graft CABG (2011) x2 vessels. follows with [facility] Cardiology History of esophagogastroduodenoscopy (EGD) History of hysterectomy History of lumbar surgery x2 (+ hardware) History of tooth extraction History of total knee replacement Right Past Anesthesia History No Hx of Anesthesia Complications History of PONV No Hx of PONV Social History Smoking Status: Never smoker tobacco type: cigarettes Do You Dip or Chew Tobacco: No Hx Alcohol Use: No Hx Substance Use: No substance use type: does not use Review of Systems ROS Unobtainable: All systems reviewed & are unremarkable except as noted in HPI & below Physical Exam Vital Signs Last Vital Signs Temp 36.7 C 06/21/22 07:23 Pulse 65 06/21/22 07:23 Resp 18 06/21/22 07:23 BP 117/62 06/21/22 07:23 Pulse Ox 98 06/21/22 07:23 O2 Del Method Room Air 06/21/22 07:23 ENMT Thyromental Distance: > or= 3.5 Finger Breadths Mallampati Class: II Respiratory normal respiratory effort Auscultation: lungs clear to auscultation bilaterally Cardiovascular Rate/Rhythm: regular rate and regular rhythm Neurologic moves all extremities Psychiatric Orientation: alert and oriented x 3 Testing Laboratory Results 06/19/22 07:03 06/19/22 07:03 Hemoglobin A1c 7.0 % (4.5-5.6) H 06/19/22 07:03 Blood Type O Positive 06/20/22 14:50 Antibody Screen NEGATIVE 06/20/22 14:50 06/21/22 06/20/22 07:20 20:20 POC Glucose 142 H 168 H
[2022-06-21] MEDS ORDERED: ePHEDrine sulfate 50 MG/ML SYR ONE (08:52)
[2022-06-21] MEDS ORDERED: PHENYLEPHRINE 100MCG/ML 5ML SYR ONE (08:52)
[2022-06-21] MEDS ORDERED: SODIUM CHLORIDE 0.9% PF INJ 10 ML VIAL ONE (09:07)
[2022-06-21] MEDS ORDERED: FLOSEAL HEMOSTATIC MATRIX 10ML TOP ONE (09:21)
[2022-06-21] MEDS ORDERED: SURGICEL ABSORB HEMOSTAT 2IN X 14IN TOP ONE (09:24)
--- NOTE | 2022-06-21 09:47 | Pharmacy Report ---
Pharmacy Glycemic Short Note 2 - Date of Service June 21, 2022 - Glycemic Short BSG Results (Last 24 hours): 06/20/22 06/20/22 06/20/22 12:02 17:04 20:20 POC Glucose 145 H 145 H 168 H 06/21/22 07:20 POC Glucose 142 H OUTPATIENT ANTIDIABETIC REGIMEN: * Lantus 25 units SC HS * Humalog 10 units SC AC * HbA1c: 7.0% (06/19/22) ASSESSMENT: 06/21: * Carie received 31 units of insulin yesterday (15 units Lantus + 16 units Novolog) with good glycemic control * Currently NPO for T12-L3 Decompression Fusion, L3-L4 Hardware Removal. She is ordered dexamethasone 6 mg IV daily x 3 doses post-op. No steroids given lena- operatively. * Fasting BSG is trending upward (115 -> 137 ->142 mg/dL). Will increase basal insulin today following surgery. * Post prandial BSGs are acceptable. No change to Novolog for today. Will tighten starting tomorrow due to steroids. 06/20: * Patient received 32 units of insulin yesterday; 15 units basal and 17 units bolus. * BSGs yesterday were [id number] mg/dl * Fasting BSG today was 137 mg/dl. Since her fasting increased today compared to yesterday, her basal dose could be increased. However, continued basal at 15 units again today since she will be going NPO at midnight for lumbar surgery in the morning tomorrow. * Novolog parameters continued the same as yesterday. 06/19/22: * 76 yo F admitted on 06/18/22 secondary to intractable back pain. Pharmacy has been consulted to assist with inpatient glycemic management. Patient is a well controlled Type 2 diabetic as an outpatient. Please refer to outpatient regimen and most recent HbA1c above. * Plan is to go to the OR with Dr. Taveras on (06/21). Ordered and tolerating a T2DM diet. * Received 14 units of basal last evening along with 2 units of bolus insulin. BSGs were: 139-192 mg/dL. * Fasting BSG this AM was 115 mg/dL, controlled. Tightened Novolog with breakfast given OR date is now scheduled and no chance of going NPO. * Lunch BSG trended up to 153 mg/dL. Therefore, tightened Novolog even further to start at dinner. Now based on weight/stress of 2-3. Will schedule a reduced basal dose as compared to home dose for now that is similar to the 14 units she received last evening. PLAN FOR INPATIENT GLYCEMIC CONTROL: * Basal insulin * Lantus 18 units SC HS * Bolus insulin * NovoLog per scale ACHS or Q6hrs while NPO * Goal Range: Low 110 mg/dL - High 140 mg/dL * Correction Factor: 20 mg/dL/unit -> tighten to 15 starting 5/5 AM * Nutritional / Prandial insulin per carb ratio of 1 unit per 6 grams CHO consumed -> tighten to 4 starting 5/5 AM
[2022-06-21] MEDS ORDERED: SUGAMMADEX SODIUM 200 MG/2 ML VIAL IV ONE (10:20)
--- NOTE | 2022-06-21 11:40 | Operative Report ---
Post Operative Report Pre & Post Diagnosis Operation Date: 06/21/22 08:15 Pre-Op Diagnosis: Thoracolumbar spinal stenosis with myelopathy Morbid obesity Post-Op Diagnosis: Same I identified the patient and participated in the time-out.: Yes Procedure Operation Date: 06/21/22 08:15 Actual Procedures #1 removal of posterior instrumentation L3-L4. #2 exploration of fusion L3-L4 per #3 lumbar decompression with bilaterally facetectomies and foraminotomies T10-T11, T11-T12 and T12-L1. #4 posterior spinal fusion T10-L4. #5 placement posterior segmental instrumentation T10-L4. #6 interbody fusion T12-L1. #7 placement of Spira 9 x 26 mm cage x2 at T12-L1. #8 placement locally harvested morselized autograft and posterior gutters. #9 placement of I factor amount of V toss in the interbody space and infuse collagen sponge V toss in the posterior gutters T10-L4. Surgeon Benoit Taveras, DO [employer] Jackelyn Saucedo Estimated Blood Loss 600 Findings Consistent with Post-Op Diagnosis The patient is 5 foot 1 weighing over 94 kg with a BMI in excess of 39. The patient's body habitus did contribute to significant technical difficulty required deeper retractors longer instruments in order to perform her procedure. This at least 50% increased operative time. Specimens None Indications This is a 76-year-old female who presents above-mentioned diagnosis and is here for surgical intervention. Description of Procedure Patient was met with identified informed consent obtained. Patient was then taken to the operative suite underwent patient placed in a prone position the [place] table top Mika frame. All bony promises well-padded eyes inspected to ensure no external pressure placed upon the. This point the thoracolumbar spine was prepped and draped in a sterile fashion. Sharp dissection with assistance of Bovie cautery to form down to and exposing the lamina and transverse processes from T10 to the instrumentation at L3-L4 bilaterally. Then proceeded move the hardware bilaterally explore the fusion mass noted to be intact. Then formed a complete laminectomy of L1 T12 T11 and partial laminectomy for the 10 to address severe central and lateral recess stenosis. Also evidence of massive disc herniation T12-L1. Pedicle screws then placed in [id number] and L1-L2 and L4 bilaterally with assistance of fluoroscopy and the proper sized lisbeth contoured and placed. By way the transforaminal approach on the left complete discectomy of T12-L1 was performed endplates curetted to subcortically bone and two 9 x 26 mm Spira cage with I factor tapped the position to provide adequate stabilization. The rods then locked in final position bilaterally. The transverse processes of [id number] L1-L2 were then burred to subcortically and bone. Infuse bone sponge from mass graft locally harvested Was placed in the posterior gutters. 15 round NANDO drain inserted. The incision was then closed with 1 Vicryl to fascia 2-0 Vicryl subcutaneously and 4 Monocryl for final skin closure. Steri-Strip sterile dressings placed. Patient awakened and taken to PACU in stable condition. Please note spinal cord monitoring was utilized at the procedure no changes noted. Lastly Jackelyn Saucedo was present at the entire procedure involved patient positioning complex portions of the surgery and final skin closure. I attest to the content of the Intraoperative Record and any orders documented therein. Any exceptions are noted below.
[2022-06-21] MEDS ORDERED: METOPROLOL TARTRATE 1 MG/ML VIAL IV ONE (11:56)
[2022-06-21] MEDS ORDERED: ESMOLOL HCL INJ 10 MG/ML 10ML VIAL IV ONE (11:57)
--- NOTE | 2022-06-21 12:13 | Fluoroscopy Report ---
INTRAOPERATIVE RADIOGRAPHS CLINICAL HISTORY: T12-L3 spinal fusion. Fluoro time: 64 seconds. Ka,r: 31.28 mGy FINDINGS: 4 spot fluoroscopic views of the thoracolumbar spine are presented. There is evidence of mu ltilevel discectomy with extensive thoracolumbar spinal fusion. The exact levels cannot be delineated on the provided images. The orthopedic hardware appears intact. IMPRESSION: Intraoperative images from thoracolumbar spinal fusion surgery as above. Electronically signed by: Michael Chauhan M.D. 06/21/2022 12:11 PM
[2022-06-21] MEDS ORDERED: METOCLOPRAMIDE HCL INJ 5 MG/ML 2 ML VIAL IV STA (12:31)
[2022-06-21] MEDS ORDERED: ACETAMINOPHEN 1000 MG/100 ML IV IV ONE (13:00)
[2022-06-21] MEDS ORDERED: ACETAMINOPHEN 1,000 MG/100 ML VIAL IV STA (13:06)
[2022-06-21] MEDS ORDERED: HYDROmorphone INJ 1 MG/ML SYRINGE IV PRN (13:45)
[2022-06-21] MEDS ORDERED: DO NOT ADMINISTER FLU VACCINE PRN (13:45)
[2022-06-21] MEDS ORDERED: LORazepam 0.5 MG TAB PO PRN (13:45)
[2022-06-21] MEDS ORDERED: METOCLOPRAMIDE HCL INJ 5 MG/ML 2 ML VIAL IV PRN (13:45)
[2022-06-21] MEDS ORDERED: hydrOXYzine HCl 25 MG TAB PO PRN (13:45)
[2022-06-21] MEDS ORDERED: diphenhydrAMINE Capsule 25 MG CAP PO PRN (13:45)
[2022-06-21] MEDS ORDERED: NALOXONE HCL 0.4 MG/1 ML VIAL/CARP IV PRN (13:45)
[2022-06-21] MEDS ORDERED: DO NOT ADMINISTER PNEUMOCOCCAL VACCINE PRN (13:45)
[2022-06-21] MEDS ORDERED: PROMETHAZINE HCL 12.5 MG in SODIUM CHLORIDE 0.9% 50 ML IV PRN (13:45)
[2022-06-21] MEDS ORDERED: HYDROmorphone INJ 0.5 MG/0.5 ML SYR IV PRN (13:45)
[2022-06-21] MEDS ORDERED: ALUMINUM/MAGNESIUM SUSP 30 ML UDC PO PRN (13:45)
[2022-06-21] MEDS ORDERED: FAMOTIDINE 20 MG TAB PO PRN (13:45)
[2022-06-21] MEDS ORDERED: oxyCODONE HCL IR 5 MG TAB (IMMEDIATE RELEASE) PO PRN (13:45)
[2022-06-21] MEDS ORDERED: SOD PHOSPHATE/SOD BIPHOSPHATE ENEMA 132 ML BTL PR PRN (13:45)
[2022-06-21] MEDS ORDERED: bisacodyL 10 MG SUPP PR PRN (13:45)
[2022-06-21] MEDS ORDERED: LORazepam 2 MG/1 ML VIAL IV PRN (13:45)
[2022-06-21] MEDS ORDERED: MAGNESIUM HYDROXIDE SUSP 30 ML UDC PO PRN (13:45)
[2022-06-21] MEDS: SODIUM CHLORIDE 0.9% 1000ML 1,000 ML IV SCH ×2 (14:43→14:59)
[2022-06-21] MEDS: INSULIN ASPART PER UNIT CHARGE SC SCH ×3 (14:55→18:47)
[2022-06-21] MEDS: ASPIRIN 81 MG ECTAB PO SCH (14:56)
[2022-06-21] MEDS: METOPROLOL TARTRATE 50 MG TAB PO SCH ×2 (14:56→21:07)
[2022-06-21] MEDS: LOSARTAN POTASSIUM 50 MG TAB PO SCH (14:56)
[2022-06-21] MEDS: amLODIPine BESYLATE 5 MG TAB PO SCH (14:56)
[2022-06-21] MEDS: PANTOprazole 40 MG TAB PO SCH ×2 (14:57→21:07)
[2022-06-21] MEDS: DOCUSATE SODIUM/SENNA 50/8.6MG TAB PO SCH ×2 (14:59→21:05)
[2022-06-21] MEDS: POLYETHYLENE (MIRALAX) 17 GM PACK PO SCH (14:59)
[2022-06-21 15:19] LABS: Albumin Level 3.8 gm/dl (3.4-5.0); BUN Creatinine Ratio 23.5 (10-20); Bilirubin,Total 0.6 mg/dl (0.2-1.0); Calcium 8.7 mg/dl (8.6-10.3); Creatinine Clr Calc Pharmacy 57.1 ml/min; Est GFR (African American) 76.1 ml/min; Est GFR (Non-African American) 65.6 ml/min; Globulin 1.9 gm/dl (2.5-4.0); Magnesium 1.5 mg/dl (1.7-2.4); Potassium 4.4 mmol/L (3.5-5.1); Total Protein 5.7 gm/dl (6.0-8.3)
[2022-06-21 15:54] LABS: INR 1.1 (0.9-1.1); Prothrombin Time 11.5 Seconds (9.0-12.0)
[2022-06-21 16:04] LABS: Basophils # (auto) 0.02 K/uL (0-0.2); Basophils % (auto) 0.2 %; Eosinophils # (auto) 0.01 K/uL (0-0.50); Eosinophils % (auto) 0.1 %; Hematocrit (blood only) 31.5 % (37.0-47.0); Hemoglobin 10.2 g/dl (12.0-16.0); Immature Granulocytes # (auto) 0.05 K/uL (0.01-0.20); Immature Granulocytes % (auto) 0.4 %; Lymphocytes # (auto) 0.64 K/uL (1.2-3.4); Lymphocytes % (auto) 5.5 %; Mean Corpuscular Hemoglobin 29.1 pg (25.0-34.0); Mean Corpuscular Hgb Conc 32.4 g/dL (32.0-36.0); Mean Corpuscular Volume 89.7 fL (80.0-100.0); Mean Platelet Volume 12.4 fL (9.4-12.4); Monocytes # (auto) 0.52 K/uL (0.11-0.59); Monocytes % (auto) 4.5 %; Neutrophils # (auto) 10.41 K/uL (1.40-6.50); Neutrophils % (auto) 89.3 %; Platelet Count 178 K/uL (130-400); RDW Coefficient of Variation 13.6 % (11.5-14.5); RDW Standard Deviation 44.1 fL (36.4-46.3); Red Blood Count 3.51 M/uL (4.20-5.40); White Blood Count 11.65 K/ul (4.8-10.8)
[2022-06-21] MEDS: ACETAMINOPHEN 1,000 MG/100 ML VIAL IV PRN (17:03)
--- NOTE | 2022-06-21 17:54 | Hospitalist Progress Note ---
Date of Service June 21, 2022 Assessment & Plan (1) Spinal stenosis: Plan: Thoracolumbar spinal stenosis with myelopathy S/P thoracal lumbar decompression, fusion surgery by on 06/21/22 MRI on 06/08/2022 that showed Large T12-L1 disc extrusion causes severe central canal stenosis. Pain control, DVT prophylaxis, wound care and activity as per primary team Monitor for postop anemia Incentive spirometry Bowel regimen to prevent constipation PT OT as able Hypomagnesemia Replete electrolytes as needed (2) CAD (coronary artery disease): Plan: S/p CABG in 2011 and cardiac cath 09/2020 done after positive stress test showed patent SHANE to LAD and SVG-OM graft, SVG graft to RCA was occluded and RCA territory was supplied by collaterals from left. Appears stable, no reports of chest pain Continue ASA, statin, beta-soni Last echocardiogram 07/25/2020 revealed normal LV EF 55%, mitral calcification with moderate MR stable since 2019 Patient denies any chest pain or shortness of breath (3) Diabetes mellitus, type 2: Plan: Hgb A1c 7.4 04/2022, now 7.0 as of 06/19 On Humalog and Lantus Glycemic pharmacy consulted by primary service Monitor BSG (4) HTN (hypertension): Plan: Continue metoprolol, amlodipine, losartan, lasix (5) Hypothyroidism: Plan: Continue levothyroxine (6) GERD (gastroesophageal reflux disease): Plan: Continue PPI DVT PROPHYLAXIS TEDs/SCDs as per spine Ortho Admission and Anticipated Discharge Date Admission Date: June 18, 2022 Subjective Patient is seen and examined postoperatively States having back pain, nausea Also was transiently hypoxic, hypothermic which resolved Denies any chest pain, dyspnea, dizziness No other complaints Review of Systems Review of Systems: All systems reviewed & are unremarkable except as noted in Subjective Physical Exam Physical Exam: Physical Exam: Vitals signs as noted above General Appearance:Obese, no apparent distress Head: normocephalic, Atraumatic Eyes: normal inspection, EOMI Neck: supple, Trachea midline Respiratory/Chest: Normal breath sounds, CTA, No accessory muscle use Cardiovascular: S1, S2, No murmur Abdomen/GI:Soft, Non tender, Bowel sounds present Extremities/Musculoskeletal:normal inspection, no edema Neurologic/Psych:AAOX3, grossly no focal neurological deficits Skin: normal color, warm Results & Data Results & Data Vital Signs (Past 12 Hours) Vital Signs Temp Pulse Pulse Resp BP BP Pulse Ox 06/21/22 15:43 06/21/22 16:55 36.2 C L 88 16 111/55 L 94 06/21/22 15:58 36.3 C L 84 18 122/57 L 94 06/21/22 14:44 36.3 C L 81 16 120/70 100 06/21/22 14:39 36.3 C L 06/21/22 14:13 34.8 C L 78 15 117/66 100 06/21/22 13:45 34.4 C L 83 15 126/70 100 06/21/22 13:15 36.1 C L 85 19 100 06/21/22 13:05 82 17 118/47 L 100 06/21/22 12:55 78 16 129/56 L 100 06/21/22 12:45 86 16 121/73 97 06/21/22 12:35 87 15 137/57 L 100 06/21/22 12:25 87 12 115/49 L 93 06/21/22 12:15 88 22 122/56 L 100 06/21/22 12:05 92 H 17 124/49 L 100 06/21/22 11:54 36.1 C L 92 H 14 109/70 100 06/21/22 07:23 36.7 C 65 18 117/62 98 O2 Del Method O2 Flow Rate 06/21/22 15:43 Room Air 06/21/22 16:55 Room Air 06/21/22 15:58 Room Air 06/21/22 14:44 Nasal Cannula 3 06/21/22 14:39 06/21/22 14:13 Nasal Cannula 2 06/21/22 13:45 Nasal Cannula 2 06/21/22 13:15 Nasal Cannula 2 06/21/22 13:05 Nasal Cannula 3 06/21/22 12:55 Nasal Cannula 3 06/21/22 12:45 Room Air 06/21/22 12:35 Room Air 06/21/22 12:25 Room Air 06/21/22 12:15 Oxymask 5 06/21/22 12:05 Oxymask 5 06/21/22 11:54 Oxymask 8 06/21/22 07:23 Room Air Laboratory Results Short CBC 06/21/22 06/21/22 Range/Units 14:23 15:43 WBC Cancelled 11.65 H Hgb Cancelled 10.2 L Hct Cancelled 31.5 L Plt Count Cancelled 178 BMP 06/21/22 14:23 Sodium 138 Potassium 4.4 Chloride 105 Carbon Dioxide 23 BUN 20 Creatinine 0.85 Glucose 233 H Calcium 8.7 Liver Function 06/21/22 Range/Units 14:23 Total Bilirubin 0.6 (0.2-1.0) mg/dl AST 18 (13-39) U/L ALT 12 (7-52) U/L Alkaline Phosphatase 78 (34-104) U/L Albumin 3.8 (3.4-5.0) gm/dl
[2022-06-21] MEDS ORDERED: MAGNESIUM SULFATE / D5W 1 GM/100 ML BAG IV ONE (18:15)
[2022-06-21] MEDS: ceFAZolin 2000MG 2,000 MG/15 ML SYR IV SCH (19:36)
[2022-06-21] MEDS ORDERED: INSULIN ASPART PER UNIT CHARGE SC SCH (21:00)
[2022-06-21] MEDS ORDERED: LANTUS PER UNIT CHARGE SC SCH (21:00)
[2022-06-21] MEDS: traZODone HCL 50 MG TAB PO SCH (21:01)
[2022-06-21] MEDS: allopurinoL 100 MG TAB PO SCH (21:05)
[2022-06-21] MEDS: ATORVASTATIN 40 MG TAB PO SCH (21:08)
[2022-06-21] MEDS ORDERED: SODIUM CHLORIDE 0.9% 500 ML IV ONE (23:58)
--- NOTE | 2022-06-22 00:01 | Communication Note ---
Date of Service: June 22, 2022 SBP noted to be 80s as per RN. Patient asymptomatic. NANDO drainage slower than what patient reported as per RN. AP Hypotension IVF bolus hold antihypertensives for now
[2022-06-22] MEDS: SODIUM CHLORIDE 0.9% 1000ML 1,000 ML IV SCH (00:09)
[2022-06-22] MEDS: KETOROLAC TROMETHAMINE 15 MG/ML VIAL IV PRN ×3 (00:10→21:53)
[2022-06-22 00:43] LABS: Hemoglobin 8.8 g/dl (12.0-16.0)
[2022-06-22] MEDS ORDERED: SODIUM CHLORIDE 0.9% 1000ML 1,000 ML IV SCH (01:00)
[2022-06-22] MEDS: LACTATED RINGER'S 1,000 ML IV SCH ×3 (01:25→14:33)
[2022-06-22] MEDS: ceFAZolin 2000MG 2,000 MG/15 ML SYR IV SCH (01:32)
[2022-06-22] MEDS: LEVOTHYROXINE SODIUM 125 MCG TABLET PO SCH (05:57)
[2022-06-22] MEDS: POLYETHYLENE (MIRALAX) 17 GM PACK PO SCH ×3 (05:57→18:15)
[2022-06-22] MEDS ORDERED: LACTATED RINGER'S 1,000 ML IV ONE (06:24)
[2022-06-22 06:58] LABS: Anion Gap 7 (3-11); BUN Creatinine Ratio 22.1 (10-20); Blood Urea Nitrogen 17 mg/dl (6-23); Calcium 8.3 mg/dl (8.6-10.3); Carbon Dioxide 24 mmol/L (21-32); Chloride 107 mmol/L (98-107); Est GFR (African American) 85.7 ml/min; Glucose 133 mg/dl (70-99(Fasting)); Magnesium 1.7 mg/dl (1.7-2.4); Sodium 138 mmol/L (136-145)
[2022-06-22] MEDS: ACETAMINOPHEN 1,000 MG/100 ML VIAL IV PRN (07:55)
[2022-06-22] MEDS: ONDANSETRON 4 MG OD TAB PO PRN (08:01)
[2022-06-22] MEDS: ASPIRIN 81 MG ECTAB PO SCH (08:48)
[2022-06-22] MEDS: dexAMETHasone 6 MG in SYRINGE 0 ML IV SCH (08:48)
[2022-06-22] MEDS: PANTOprazole 40 MG TAB PO SCH ×2 (08:49→20:54)
[2022-06-22] MEDS: LANTUS PER UNIT CHARGE SC SCH (08:51)
[2022-06-22] MEDS ORDERED: LACTATED RINGER'S 2,000 ML IV ONE (09:34)
[2022-06-22] MEDS: METOPROLOL TARTRATE 50 MG TAB PO SCH ×2 (10:37→20:55)
--- NOTE | 2022-06-22 10:45 | Pharmacy Report ---
Pharmacy Glycemic Short Note 2 - Date of Service June 22, 2022 - Glycemic Short BSG Results (Last 24 hours): 06/21/22 06/21/22 06/21/22 11:03 11:59 14:23 Glucose 233 H POC Glucose 196 H 205 H 06/21/22 06/21/22 06/22/22 17:00 19:43 06:13 Glucose 133 H POC Glucose 248 H 258 H 06/22/22 08:31 Glucose POC Glucose 167 H OUTPATIENT ANTIDIABETIC REGIMEN: * Lantus 25 units SC HS * Humalog 10 units SC AC * HbA1c: 7.0% (06/19/22) ASSESSMENT: 06/22: * Total of 30 units of insulin given yesterday; 18 units basal and 12 units bolus. * BSGs yesterday were [phone] mg/dl. Unclear why her BSGs trended up above 200 mg/dl at dinner and HS yesterday. I wonder if she did receive a dose of IV steroid lena-operatively yesterday although there is no documentation of this on the APR. * Fasting BSG today was 133 mg/dl. Lantus HS dose increased slightly. * Since IV Dex 6 mg daily x 3 days is ordered, Lantus 15 units (based on stress of 2) QAM added on to be given with IV steroid x 3 days. 06/21: * Carie received 31 units of insulin yesterday (15 units Lantus + 16 units Novolog) with good glycemic control * Currently NPO for T12-L3 Decompression Fusion, L3-L4 Hardware Removal. She is ordered dexamethasone 6 mg IV daily x 3 doses post-op. No steroids given lena- operatively. * Fasting BSG is trending upward (115 -> 137 ->142 mg/dL). Will increase basal insulin today following surgery. * Post prandial BSGs are acceptable. No change to Novolog for today. Will tighten starting tomorrow due to steroids. 06/20: * Patient received 32 units of insulin yesterday; 15 units basal and 17 units bolus. * BSGs yesterday were [phone] mg/dl * Fasting BSG today was 137 mg/dl. Since her fasting increased today compared to yesterday, her basal dose could be increased. However, continued basal at 15 units again today since she will be going NPO at midnight for lumbar surgery in the morning tomorrow. * Novolog parameters continued the same as yesterday. 06/19/22: * 76 yo F admitted on 06/18/22 secondary to intractable back pain. Pharmacy has been consulted to assist with inpatient glycemic management. Patient is a well controlled Type 2 diabetic as an outpatient. Please refer to outpatient regimen and most recent HbA1c above. * Plan is to go to the OR with Dr. Taveras on (06/21). Ordered and tolerating a T2DM diet. * Received 14 units of basal last evening along with 2 units of bolus insulin. BSGs were: 139-192 mg/dL. * Fasting BSG this AM was 115 mg/dL, controlled. Tightened Novolog with breakfast given OR date is now scheduled and no chance of going NPO. * Lunch BSG trended up to 153 mg/dL. Therefore, tightened Novolog even further to start at dinner. Now based on weight/stress of 2-3. Will schedule a reduced basal dose as compared to home dose for now that is similar to the 14 units she received last evening. PLAN FOR INPATIENT GLYCEMIC CONTROL: * Basal insulin * Lantus 20 units SC HS * Lantus 15 units SC QAM with IV Dex x 3 days * Bolus insulin * NovoLog per scale ACHS or Q6hrs while NPO * Goal Range: Low 110 mg/dL - High 140 mg/dL * Correction Factor: 15 mg/dL/unit * Nutritional / Prandial insulin per carb ratio of 1 unit per 4 grams CHO consumed
[2022-06-22 10:48] LABS: Basophils # (auto) 0.04 K/uL (0-0.2); Basophils % (auto) 0.4 %; Eosinophils # (auto) 0.01 K/uL (0-0.50); Eosinophils % (auto) 0.1 %; Hematocrit (blood only) 25.3 % (37.0-47.0); Hemoglobin 8.6 g/dl (12.0-16.0); Immature Granulocytes # (auto) 0.04 K/uL (0.01-0.20); Immature Granulocytes % (auto) 0.4 %; Lymphocytes # (auto) 0.54 K/uL (1.2-3.4); Lymphocytes % (auto) 4.9 %; Mean Corpuscular Hemoglobin 29.9 pg (25.0-34.0); Mean Corpuscular Volume 87.8 fL (80.0-100.0); Mean Platelet Volume 13.1 fL (9.4-12.4); Monocytes # (auto) 0.74 K/uL (0.11-0.59); Monocytes % (auto) 6.7 %; Neutrophils # (auto) 9.72 K/uL (1.40-6.50); Neutrophils % (auto) 87.5 %; Platelet Count 169 K/uL (130-400); RDW Coefficient of Variation 14.1 % (11.5-14.5); RDW Standard Deviation 45.3 fL (36.4-46.3); Red Blood Count 2.88 M/uL (4.20-5.40); White Blood Count 11.09 K/ul (4.8-10.8)
[2022-06-22] MEDS: INSULIN ASPART PER UNIT CHARGE SC SCH ×4 (10:55→20:45)
[2022-06-22] MEDS: oxyCODONE HCL IR 5 MG TAB (IMMEDIATE RELEASE) PO PRN ×2 (13:43→20:46)
--- NOTE | 2022-06-22 14:11 | Orthopedic Progress Note ---
Date of Service June 22, 2022 Assessment & Plan (1) Spinal stenosis: Plan: At this time we will continue physical therapy monitor progress and consider rehab Saturday. Admission and Anticipated Discharge Date Admission Date: June 18, 2022 Subjective Patient's back pain is controlled leg symptoms improved Physical Exam Physical Exam: Patient is in the chair at the bedside. Is good strength testing. Results & Data Vital Signs (Past 12 Hours) Vital Signs Temp Pulse Resp BP Pulse Ox O2 Del Method 06/22/22 12:10 84 16 112/66 98 Room Air 06/22/22 07:36 37.7 C H 93 H 16 109/66 97 Room Air 06/22/22 04:01 36.7 C 87 16 95/58 L 94 Room Air Queries Orthopedic Spine Acute Posthemorrhagic Anemia: Yes Obesity: Yes
--- NOTE | 2022-06-22 20:15 | Hospitalist Progress Note ---
Date of Service June 22, 2022 Assessment & Plan (1) Spinal stenosis: Plan: Thoracolumbar spinal stenosis with myelopathy S/P thoracal lumbar decompression, fusion surgery by on 06/21/22 Postoperative acute blood loss anemia MRI on 06/08/2022 that showed Large T12-L1 disc extrusion causes severe central canal stenosis. Pain control, DVT prophylaxis, wound care and activity as per primary team Monitor for postop anemia Incentive spirometry Bowel regimen to prevent constipation PT OT as able No indication for transfusion currently Leukocytosis likely reactive, secondary to steroids Monitor CBC Hypomagnesemia Replete electrolytes as needed (2) CAD (coronary artery disease): Plan: S/p CABG in 2011 and cardiac cath 09/2020 done after positive stress test showed patent SHANE to LAD and SVG-OM graft, SVG graft to RCA was occluded and RCA territory was supplied by collaterals from left. Appears stable, no reports of chest pain Continue ASA, statin, beta-soni Last echocardiogram 07/25/2020 revealed normal LV EF 55%, mitral calcification with moderate MR stable since 2019 Patient denies any chest pain or shortness of breath (3) Diabetes mellitus, type 2: Plan: Hgb A1c 7.4 04/2022, now 7.0 as of 06/19 On Humalog and Lantus Glycemic pharmacy consulted by primary service Monitor BSG (4) HTN (hypertension): Plan: Continue metoprolol Hold amlodipine, losartan, lasix for now (5) Hypothyroidism: Plan: Continue levothyroxine (6) GERD (gastroesophageal reflux disease): Plan: Continue PPI DVT PROPHYLAXIS TEDs/SCDs as per spine Ortho Admission and Anticipated Discharge Date Admission Date: June 18, 2022 Subjective Patient is seen and examined postoperatively Patient's feels tired Also reports back pain at surgical site No other complaints Denies any chest pain, dyspnea, dizziness Review of Systems Review of Systems: All systems reviewed & are unremarkable except as noted in Subjective Physical Exam Physical Exam: Physical Exam: Vitals signs as noted above General Appearance:Obese, no apparent distress Head: normocephalic, Atraumatic Eyes: normal inspection, EOMI Neck: supple, Trachea midline Respiratory/Chest: Normal breath sounds, CTA, No accessory muscle use Cardiovascular: S1, S2, No murmur Abdomen/GI:Soft, Non tender, Bowel sounds present Extremities/Musculoskeletal:normal inspection, no edema Neurologic/Psych:AAOX3, grossly no focal neurological deficits Skin: normal color, warm Results & Data Results & Data Vital Signs (Past 12 Hours) Vital Signs Temp Pulse Resp BP Pulse Ox O2 Del Method 06/22/22 19:29 Room Air 06/22/22 15:18 36.8 C 70 16 111/70 95 Room Air 06/22/22 12:10 84 16 112/66 98 Room Air
[2022-06-22] MEDS: traZODone HCL 50 MG TAB PO SCH (20:54)
[2022-06-22] MEDS: ATORVASTATIN 40 MG TAB PO SCH (20:54)
[2022-06-22] MEDS: DOCUSATE SODIUM/SENNA 50/8.6MG TAB PO SCH (20:55)
[2022-06-22] MEDS: allopurinoL 100 MG TAB PO SCH (20:55)
[2022-06-22] MEDS ORDERED: LANTUS PER UNIT CHARGE SC SCH (21:00)
[2022-06-23] MEDS: POLYETHYLENE (MIRALAX) 17 GM PACK PO SCH ×5 (00:16→22:42)
[2022-06-23] MEDS: LACTATED RINGER'S 1,000 ML IV SCH (00:22)
[2022-06-23] MEDS: ONDANSETRON 4 MG OD TAB PO PRN (05:23)
[2022-06-23] MEDS: oxyCODONE HCL IR 5 MG TAB (IMMEDIATE RELEASE) PO PRN (05:24)
[2022-06-23] MEDS: LEVOTHYROXINE SODIUM 125 MCG TABLET PO SCH (05:24)
[2022-06-23] MEDS: LANTUS PER UNIT CHARGE SC SCH ×2 (08:43→20:50)
[2022-06-23] MEDS: INSULIN ASPART PER UNIT CHARGE SC SCH ×4 (08:44→20:50)
[2022-06-23] MEDS: ASPIRIN 81 MG ECTAB PO SCH (08:55)
[2022-06-23] MEDS: METOPROLOL TARTRATE 50 MG TAB PO SCH ×2 (08:55→20:52)
--- NOTE | 2022-06-23 08:55 | Orthopedic Progress Note ---
Date of Service June 23, 2022 Assessment & Plan (1) Spinal stenosis: Plan: This time we will continue physical therapy advance her bowel regiment and consider discharge next week. Admission and Anticipated Discharge Date Admission Date: June 18, 2022 Subjective Patient complaining of back pain struggling with no bowel movement. Leg symptoms improved. Physical Exam Physical Exam: On exam she is in the chair at bedside is good strength testing. Results & Data Vital Signs (Past 12 Hours) Vital Signs Temp Pulse Resp BP Pulse Ox O2 Del Method 06/23/22 07:33 36.8 C 77 16 105/65 96 Room Air Queries Orthopedic Spine Acute Posthemorrhagic Anemia: Yes Obesity: Yes
[2022-06-23] MEDS: PANTOprazole 40 MG TAB PO SCH ×2 (08:56→20:51)
[2022-06-23] MEDS: dexAMETHasone 6 MG in SYRINGE 0 ML IV SCH (08:57)
[2022-06-23 10:18] LABS: Hematocrit (blood only) 24.3 % (37.0-47.0); Hemoglobin 8.4 g/dl (12.0-16.0); Mean Corpuscular Hemoglobin 29.1 pg (25.0-34.0); Mean Corpuscular Hgb Conc 34.6 g/dL (32.0-36.0); Mean Corpuscular Volume 84.1 fL (80.0-100.0); Mean Platelet Volume 13.4 fL (9.4-12.4); Platelet Count 159 K/uL (130-400); Platelet Estimate Normal (Normal); RDW Coefficient of Variation 14.3 % (11.5-14.5); RDW Standard Deviation 44.2 fL (36.4-46.3); Red Blood Count 2.89 M/uL (4.20-5.40); White Blood Count 13.45 K/ul (4.8-10.8)
[2022-06-23] MEDS ORDERED: bisacodyL 5 MG TABEC PO ONE (13:51)
--- NOTE | 2022-06-23 17:16 | Hospitalist Progress Note ---
Date of Service June 23, 2022 Assessment & Plan (1) Spinal stenosis: Plan: Thoracolumbar spinal stenosis with myelopathy S/P thoracal lumbar decompression, fusion surgery by on 06/21/22 Postoperative acute blood loss anemia MRI on 06/08/2022 that showed Large T12-L1 disc extrusion causes severe central canal stenosis. Pain control, DVT prophylaxis, wound care and activity as per primary team Monitor for postop anemia Incentive spirometry PT OT as able No indication for transfusion currently Leukocytosis likely reactive, secondary to steroids Monitor CBC Continue bowel regimen Hypomagnesemia Replete electrolytes as needed (2) CAD (coronary artery disease): Plan: S/p CABG in 2011 and cardiac cath 09/2020 done after positive stress test showed patent SHANE to LAD and SVG-OM graft, SVG graft to RCA was occluded and RCA territory was supplied by collaterals from left. Appears stable, no reports of chest pain Continue ASA, statin, beta-soni Last echocardiogram 07/25/2020 revealed normal LV EF 55%, mitral calcification with moderate MR stable since 2019 Patient denies any chest pain or shortness of breath (3) Diabetes mellitus, type 2: Plan: Hgb A1c 7.4 04/2022, now 7.0 as of 06/19 On Humalog and Lantus Glycemic pharmacy consulted by primary service Monitor BSG (4) HTN (hypertension): Plan: Continue metoprolol Hold amlodipine, losartan, lasix for now BP stable (5) Hypothyroidism: Plan: Continue levothyroxine (6) GERD (gastroesophageal reflux disease): Plan: Continue PPI DVT PROPHYLAXIS TEDs/SCDs as per spine Ortho Admission and Anticipated Discharge Date Admission Date: June 18, 2022 Subjective Patient is seen and examined postoperatively Reports constipation, nausea and poor appetite Also reports back pain at surgical site No other complaints BP stable Denies any chest pain, dyspnea, dizziness Review of Systems Review of Systems: All systems reviewed & are unremarkable except as noted in Subjective Physical Exam Physical Exam: Physical Exam: Vitals signs as noted above General Appearance:Obese, no apparent distress Head: normocephalic, Atraumatic Eyes: normal inspection, EOMI Neck: supple, Trachea midline Respiratory/Chest: Normal breath sounds, CTA, No accessory muscle use Cardiovascular: S1, S2, No murmur Abdomen/GI:Soft, Non tender, Bowel sounds present Extremities/Musculoskeletal:normal inspection, no edema Neurologic/Psych:AAOX3, grossly no focal neurological deficits Skin: normal color, warm Results & Data Results & Data Vital Signs (Past 12 Hours) Vital Signs Temp Pulse Resp BP Pulse Ox O2 Del Method 06/23/22 15:22 37.3 C 72 16 122/72 92 Room Air 06/23/22 07:33 36.8 C 77 16 105/65 96 Room Air Laboratory Results Short CBC 06/23/22 Range/Units 09:20 WBC 13.45 H (4.8-10.8) K/ul Hgb 8.4 L (12.0-16.0) g/dl Hct 24.3 L (37.0-47.0) % Plt Count 159 (130-400) K/uL
[2022-06-23] MEDS: DOCUSATE SODIUM/SENNA 50/8.6MG TAB PO SCH (20:51)
[2022-06-23] MEDS: allopurinoL 100 MG TAB PO SCH (20:52)
[2022-06-23] MEDS: ATORVASTATIN 40 MG TAB PO SCH (20:52)
[2022-06-23] MEDS: traZODone HCL 50 MG TAB PO SCH (20:52)
[2022-06-24] MEDS: LEVOTHYROXINE SODIUM 125 MCG TABLET PO SCH (05:56)
[2022-06-24] MEDS: POLYETHYLENE (MIRALAX) 17 GM PACK PO SCH ×3 (05:56→16:11)
[2022-06-24] MEDS: ONDANSETRON 4 MG OD TAB PO PRN ×2 (05:56→12:27)
[2022-06-24 06:39] LABS: BUN Creatinine Ratio 23.8 (10-20); Calcium 8.7 mg/dl (8.6-10.3); Creatinine Clr Calc Pharmacy 77.1 ml/min; Est GFR (African American) 99.6 ml/min; Est GFR (Non-African American) 85.9 ml/min; Potassium 4.3 mmol/L (3.5-5.1)
[2022-06-24 06:48] LABS: Hematocrit (blood only) 22.7 % (37.0-47.0); Hemoglobin 7.5 g/dl (12.0-16.0)
[2022-06-24] MEDS: ACETAMINOPHEN 500 MG TAB PO PRN ×2 (07:33→15:33)
[2022-06-24] MEDS: PANTOprazole 40 MG TAB PO SCH ×2 (07:34→20:50)
[2022-06-24] MEDS: dexAMETHasone 6 MG in SYRINGE 0 ML IV SCH (07:34)
[2022-06-24] MEDS: ASPIRIN 81 MG ECTAB PO SCH (07:34)
--- NOTE | 2022-06-24 08:21 | Orthopedic Progress Note ---
Date of Service June 24, 2022 Assessment & Plan (1) Neuroforaminal stenosis of lumbar spine: Plan: Carie is postoperative day 3 status post T10-L4 decompression fusion. We will continue with physical therapy. Maintain NANDO drain due to high output. Would consider blood transfusion. We will leave this up to the hospitalist team to assess as well. Ultimately she [facility] be [facility] when they have a bed available and insurance is authorized. DVT prophylaxis is in the form of teds and SCDs. Continue with aggressive bowel regimen. Admission and Anticipated Discharge Date Admission Date: June 18, 2022 Subjective Carie is postoperative day 3 status post T10-L4 decompression and fusion. She is in a bit more pain today. This is across her incision. H&H are 7.5 and 22.7 respectively. Denies any heart palpitations, shortness of breath, dizziness or lightheadedness. NANDO drain output last shift was 75 cc. Yesterday in physical therapy ambling roughly 30 feet. Review of Systems Review of Systems: All systems reviewed & are unremarkable except as noted in HPI & below Physical Exam Physical Exam: She sitting in a chair A bit uncomfortable Alert and oriented x3 Dressing is clean dry and intact with functioning NANDO drain Calf soft nontender bilaterally Abdomen soft Strength intact bilateral lower extremities Results & Data Vital Signs (Past 12 Hours) Vital Signs Temp Pulse Resp BP Pulse Ox O2 Del Method 06/24/22 07:47 36.6 C 64 18 145/79 H 99 Room Air 06/24/22 04:00 36.8 C 70 18 128/72 94 Room Air 06/23/22 20:32 36.8 C 72 18 137/76 95 Room Air
[2022-06-24] MEDS ORDERED: SODIUM CHLORIDE 0.9% 250 ML IV PRN (08:47)
[2022-06-24] MEDS: METOPROLOL TARTRATE 50 MG TAB PO SCH ×2 (09:11→20:49)
[2022-06-24] MEDS: INSULIN ASPART PER UNIT CHARGE SC SCH ×4 (09:11→20:53)
[2022-06-24] MEDS: LANTUS PER UNIT CHARGE SC SCH ×2 (09:18→20:54)
--- NOTE | 2022-06-24 10:13 | XRay Report ---
[facility] CLINICAL HISTORY: Constipation. COMPARISON STUDY: CT of the abdomen and pelvis October 02, 2016. FINDINGS: Postoperative findings within the spine are incidentally noted. Small right and trace left pleural effusions. A surgical drain is in place. The bowel gas pattern is normal. Moderate to large a mount of stool within the rectum is noted. Small amount of stool within the colon is noted. IMPRESSION: 1. Moderate to large amount of stool within the rectum. Small amount of stool within the colon. 2. No evidence for a bowel obstruction. ACT 112: Negative or not required by law. Electronically signed by: Fortino Monaco M.D. 06/24/2022 10:11 AM
--- NOTE | 2022-06-24 17:52 | Hospitalist Progress Note ---
Date of Service June 24, 2022 Assessment & Plan (1) Spinal stenosis: Plan: Thoracolumbar spinal stenosis with myelopathy S/P thoracal lumbar decompression, fusion surgery by on 06/21/22 Postoperative acute blood loss anemia MRI on 06/08/2022 that showed Large T12-L1 disc extrusion causes severe central canal stenosis. Pain control, DVT prophylaxis, wound care and activity as per primary team Monitor for postop anemia Incentive spirometry PT OT as able No indication for transfusion currently Leukocytosis likely reactive, secondary to steroids Monitor CBC Continue bowel regimen, enema as needed Hb 7.5 today We will transfuse 1 unit PRBC today given history of coronary artery disease Hypomagnesemia Replete electrolytes as needed (2) CAD (coronary artery disease): Plan: S/p CABG in 2011 and cardiac cath 09/2020 done after positive stress test showed patent SHANE to LAD and SVG-OM graft, SVG graft to RCA was occluded and RCA territory was supplied by collaterals from left. Appears stable, no reports of chest pain Continue ASA, statin, beta-soni Last echocardiogram 07/25/2020 revealed normal LV EF 55%, mitral calcification with moderate MR stable since 2019 Patient denies any chest pain or shortness of breath (3) Diabetes mellitus, type 2: Plan: Hgb A1c 7.4 04/2022, now 7.0 as of 06/19 On Humalog and Lantus Glycemic pharmacy consulted by primary service Monitor BSG (4) HTN (hypertension): Plan: Continue metoprolol Hold amlodipine, losartan Resume home Lasix Blood pressure better (5) Hypothyroidism: Plan: Continue levothyroxine (6) GERD (gastroesophageal reflux disease): Plan: Continue PPI DVT PROPHYLAXIS TEDs/SCDs as per spine Ortho Admission and Anticipated Discharge Date Admission Date: June 18, 2022 Subjective Patient is seen and examined postoperatively Remains constipated Also reports nausea and pain at surgical site Denies any chest pain, dyspnea, dizziness No other complaints Review of Systems Review of Systems: All systems reviewed & are unremarkable except as noted in Subjective Physical Exam Physical Exam: Physical Exam: Vitals signs as noted above General Appearance:Obese, no apparent distress Head: normocephalic, Atraumatic Eyes: normal inspection, EOMI Neck: supple, Trachea midline Respiratory/Chest: Normal breath sounds, CTA, No accessory muscle use Cardiovascular: S1, S2, No murmur Abdomen/GI:Soft, Non tender, Bowel sounds present Extremities/Musculoskeletal:normal inspection, pedal edema Neurologic/Psych:AAOX3, grossly no focal neurological deficits Skin: normal color, warm Results & Data Results & Data Vital Signs (Past 12 Hours) Vital Signs Temp Pulse Pulse Resp BP BP Pulse Ox 06/24/22 14:18 36.3 C L 74 16 136/72 97 06/24/22 13:18 36.7 C 70 18 135/68 95 06/24/22 12:18 37.1 C 63 18 145/76 H 96 06/24/22 11:18 36.7 C 57 L 16 122/73 96 06/24/22 10:48 36.9 C 61 16 132/72 98 06/24/22 10:15 37 C 67 18 120/77 94 06/24/22 10:33 36.9 C 58 L 16 128/74 98 06/24/22 07:47 36.6 C 64 18 145/79 H 99 O2 Del Method 06/24/22 14:18 06/24/22 13:18 06/24/22 12:18 06/24/22 11:18 06/24/22 10:48 06/24/22 10:15 06/24/22 10:33 06/24/22 07:47 Room Air Laboratory Results Short CBC 06/24/22 Range/Units 05:27 Hgb 7.5 L (12.0-16.0) g/dl Hct 22.7 L (37.0-47.0) % BMP 06/24/22 05:27 Sodium 138 Potassium 4.3 Chloride 105 Carbon Dioxide 27 BUN 15 Creatinine 0.63 Glucose 121 H Calcium 8.7
[2022-06-24] MEDS ORDERED: FUROSEMIDE INJ 20 MG/2 ML VIAL IV ONE (18:00)
[2022-06-24] MEDS: ATORVASTATIN 40 MG TAB PO SCH (20:48)
[2022-06-24] MEDS: allopurinoL 100 MG TAB PO SCH (20:48)
[2022-06-24] MEDS: DOCUSATE SODIUM/SENNA 50/8.6MG TAB PO SCH (20:49)
[2022-06-24] MEDS: traZODone HCL 50 MG TAB PO SCH (20:50)
[2022-06-25] MEDS: ACETAMINOPHEN 500 MG TAB PO PRN (04:23)
[2022-06-25] MEDS: ONDANSETRON 4 MG OD TAB PO PRN ×2 (04:23→18:23)
[2022-06-25] MEDS: LEVOTHYROXINE SODIUM 125 MCG TABLET PO SCH (06:10)
[2022-06-25 07:35] LABS: Hematocrit (blood only) 29.4 % (37.0-47.0); Hemoglobin 9.7 g/dl (12.0-16.0); Mean Corpuscular Hemoglobin 29.4 pg (25.0-34.0); Mean Corpuscular Volume 89.1 fL (80.0-100.0); Mean Platelet Volume 12.5 fL (9.4-12.4); Platelet Count 223 K/uL (130-400); RDW Coefficient of Variation 13.8 % (11.5-14.5); RDW Standard Deviation 45.1 fL (36.4-46.3); White Blood Count 11.28 K/ul (4.8-10.8)
[2022-06-25] MEDS: ASPIRIN 81 MG ECTAB PO SCH (08:31)
[2022-06-25] MEDS: METOPROLOL TARTRATE 50 MG TAB PO SCH ×2 (08:31→20:00)
[2022-06-25] MEDS: PANTOprazole 40 MG TAB PO SCH ×2 (08:31→20:44)
[2022-06-25] MEDS: oxyCODONE HCL IR 5 MG TAB (IMMEDIATE RELEASE) PO PRN ×2 (08:35→18:23)
[2022-06-25] MEDS ORDERED: bisacodyL 10 MG SUPP PR STA (09:13)
--- NOTE | 2022-06-25 09:22 | Orthopedic Progress Note ---
Date of Service June 25, 2022 Assessment & Plan (1) Spinal stenosis: Plan: At this time we will initiate physical therapy again today. Pending her progress she would be candidate for discharge to [facility] tomorrow. Admission and Anticipated Discharge Date Admission Date: June 18, 2022 Subjective Patient's back pain is controlled. Leg pain improved. She did not ambulate yesterday. Physical Exam Physical Exam: On exam she is in the chair at the bedside discussing the testing. She appears comfortable today. Results & Data Vital Signs (Past 12 Hours) Vital Signs Temp Pulse Resp BP Pulse Ox O2 Del Method 06/25/22 07:48 36.6 C 62 16 141/63 H 98 Room Air Queries Orthopedic Spine Acute Posthemorrhagic Anemia: Yes Obesity: Yes
[2022-06-25] MEDS: INSULIN ASPART PER UNIT CHARGE SC SCH ×4 (09:26→20:45)
[2022-06-25] MEDS: POLYETHYLENE (MIRALAX) 17 GM PACK PO SCH ×2 (10:20→20:46)
[2022-06-25] MEDS ORDERED: ASPIRIN 81 MG CHEW PO STA (10:29)
[2022-06-25 10:50] LABS: Albumin Globulin Ratio 1.2 (0.9-2); Albumin Level 3.2 gm/dl (3.4-5.0); BUN Creatinine Ratio 26.6 (10-20); Bilirubin,Total 0.9 mg/dl (0.2-1.0); Calcium 8.6 mg/dl (8.6-10.3); Creatinine Clr Calc Pharmacy 61.4 ml/min; Est GFR (African American) 83.1 ml/min; Est GFR (Non-African American) 71.7 ml/min; Globulin 2.6 gm/dl (2.5-4.0); Potassium 3.9 mmol/L (3.5-5.1); Total Protein 5.8 gm/dl (6.0-8.3)
[2022-06-25 10:58] LABS: Troponin I High Sensitivity 960.5 pg/ml (0-14)
--- NOTE | 2022-06-25 11:40 | Cardiology Consultation ---
Date of Consultation June 25, 2022 Assessment & Plan (1) Status post lumbar spine surgery for decompression of spinal cord: (2) Chest pain at rest: (3) Postoperative anemia: (4) Multi-vessel coronary artery stenosis: (5) Status post aorto-coronary artery bypass graft: (6) HTN (hypertension): (7) Dyslipidemia, goal LDL below 70: Plan 76-year-old female seen in cardiology consultation due to an episode of chest pain occurring at rest earlier this morning, symptoms suggestive of stress- induced angina versus other. EKG abnormal though without acute changes compared to prior. High-sensitivity troponin I elevated, significance to be determined. Recommend transfer to telemetry, serial high-sensitivity troponin measurements, resting echocardiography. Continue beta-soni, aspirin, and statin therapy. Would hold off on initiation of IV heparin pending serial troponin and findings. Recommend resumption of diuretic therapy. Further recommendations to come. Supervising Physician Co-Signing Physician Notes Patient seen and examined at the bedside. POD #[address] Taveras. Reports episode of substernal chest discomfort this a.m. lasting approximately 10 minutes. Discomfort began when she was speaking about her . Symptoms spontaneously resolved. High-sensitivity troponin elevated. ECG with diffuse ST-T wave abnormality unchanged from previous. She is pain-free currently. Notes discomfort related to recent surgery. Received transfusion of 1 unit packed red blood cells yesterday due to postoperative anemia. Reports worsening lower extremity edema. Diuretics held since admission. PE: VSS. GEN: NAD, AAO x3. Heart: Regular rhythm, normal S1-S2. No murmur appreciated. Lungs: Scant crackles at the left base, otherwise no rhonchi or wheeze. Extremities: 1-2 + LE edema. A/P: Agree with above PA-C history, physical exam, assessment and plan. Transient chest pain related to stress in the setting of volume overload and postoperative anemia status post transfusion of 1 unit packed red blood cells. Hemoglobin within acceptable range. Recommend restart furosemide. She will receive 40 mg x 1 now with repeat BMP in AM. Follow daily weight, fluid balance, and GFR. We will hold off on IV anticoagulation currently given postoperative state and anemia. She is chest pain free. Echocardiogram demonstrating preserved LV systolic function with a small, basal lateral wall motion abnormality. Patient has known severe, chronic chitina vessel disease as described above. Conservative management recommended at this time. We will continue to follow during hospitalization. History of Present Illness Reason for Consultation: Ekg change, episode of CP this morning,now resolved Requesting Physician: Germán Attending Physician: Benoit Taveras DO History of Present Illness Ms. Carie Rodney is a complex 76-year-old female who was admitted to [facility] on June 18, 2022 with worsening back pain. MRI on June 08, 2022 revealed a large T12-L1 disc extrusion causing severe central canal stenosis. On , June 21, 2022 the patient underwent lumbar decompression and fusion without complication. Postoperative course complicated by acute blood loss anemia with hemoglobin down to 7.5 g/dL on June 24, 2022. Patient received 1 unit of packed red blood cells on June 24, 2022 without complication, hemoglobin improving to 9.7 g/dL on June 25, 2022. This morning, while lying in bed talking to the nurse about her late , the patient developed sharp substernal chest discomfort that she describes as being a little on the heavy side. She notes experiencing the same discomfort when her in September 2021. No associated shortness of breath, diaphoresis, nausea, etc. The discomfort episode this morning lasted approximately 10 minutes and resolved without intervention. EKG at that time revealed sinus bradycardia at [address] bpm with diffuse marked ST abnormality. The results of the EKG this morning are similar to an EKG that was obtained on September 19, 2020 although the lateral changes are somewhat more pronounced on today's tracing. High-sensitivity troponin I elevated at 960.5 pg/mL. Resting echocardiography pending. Hypotension observed earlier this hospitalization required holding of amlodipine and losartan. Metoprolol has been continued without interruption. Aspirin has been administered throughout except for missing 1 dose on June 21, 2022. Patient with past poor tolerance to nitrates per documentation and discussion with the patient today. Patient currently chest pain-free. Patient lying supine, resting comfortably, without cough, chest congestion, shortness of breath, orthopnea, or PND. She notes lower extremity peripheral edema attributed to withholding of furosemide during hospitalization. No dizziness or lightheadedness. No near syncope or syncope. No current fevers or chills. Past Medical and Surgical History: Multivessel coronary artery disease Status post CABG x2 in 2011. Diagnostic cardiac catheterization on April 08, 2019 revealed severe chitina coronary disease with widely patent SHANE to the LAD and SVG to OM2 grafts. The RCA appeared chronically occluded in the distal RCA was supplied via left to right collaterals via the SVG-OM2. Coronary angiography last performed on September 19, 2020 revealed severe chronic chitina coronary artery disease with 2 of 2 bypass grafts patent. Left to right collaterals observed to the chronically occluded RCA. Overall, no changes in her coronary or bypass graft anatomy were noted to account for her symptoms at that time. Continued optimal medical therapy recommended. 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 Father with diabetes. Social History: Remote former smoker, 9 pack years. Social alcohol. No illegal drug use. 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 Allergies Allergy/AdvReac Type Severity Reaction Status Date / Time latex Allergy Intermediate skin Verified 06/04/22 09:58 irritation and peels skin off prednisone AdvReac Severe STROKE Verified 06/04/22 09:41 meclizine AdvReac Mild Severe N&V Verified 06/04/22 09:41 tetracycline AdvReac Mild Severe N&V Verified 06/04/22 09:41 tramadol AdvReac Blurry Verified 06/08/22 06:50 [facility] Allergy Intermediate Severe Uncoded 06/04/22 09:41 N&V, increased heart rate, "skipped beats" Home Medications Medication Instructions Recorded Confirmed Type allopurinol 100 mg tablet 200 mg PO QPM 10/26/20 06/18/22 History aspirin 81 mg tablet,delayed 81 mg PO QAM 10/26/20 06/18/22 History release atorvastatin 40 mg tablet 40 mg PO HS 10/26/20 06/18/22 History furosemide 20 mg tablet 20 mg PO Q2D PRN leg edema 10/26/20 06/18/22 History insulin glargine 100 unit/mL (3 25 unit subcut HS 10/26/20 06/18/22 History mL) subcutaneous pen (Lantus Solostar U-100 Insulin) insulin lispro 100 unit/mL 10 unit subcut TIDM 10/26/20 06/18/22 History subcutaneous pen (Humalog KwikPen (U-100) Insulin) pantoprazole 40 mg tablet,delayed 40 mg PO BID 10/26/20 06/18/22 History release amlodipine 5 mg tablet 5 mg PO DAILY 06/18/22 06/18/22 History levothyroxine 125 mcg tablet 125 mcg PO DAILY 06/18/22 06/18/22 History losartan 50 mg tablet 50 mg PO DAILY 06/18/22 06/18/22 History metoprolol tartrate 50 mg tablet 50 mg PO BID 06/18/22 06/18/22 History trazodone 50 mg tablet 25 mg PO HS 06/18/22 06/18/22 History oxycodone 5 mg tablet 5 mg PO DAILY PRN pain #30 tabs 06/25/22 Rx Patient History Medical History Arthritis CAD (coronary artery disease) CABG (2011) 09/19/20 catheterization done after positive stress test showed patent SHANE to LAD and SVG-OM graft, SVG graft to RCA was occluded and RCA territory was supplied by collaterals from left, Chronic back pain Claustrophobia severe Diabetes mellitus, type 2 IDDM GERD (gastroesophageal reflux disease) controlled History of anemia No known blood transfusions History of COVID-19 PHx 2020 - headache only at the time. History of gastric ulcer 2019 Hx of gout Hyperlipidemia 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 Hypothyroidism Left knee DJD Macular degeneration Morbid obesity Motion sickness Nausea and vomiting after administration of anesthetic agent Spinal stenosis Stroke ~2018 -> treated at [facility] -> left eye blindness and gastric ulcers at the time. follows with PCP. Surgical History H/O partial thyroidectomy Benign lump removal History of appendectomy History of breast biopsy x3 History of cardiac cath 09/19/20 > no stents History of cataract surgery R/L History of cholecystectomy History of colonoscopy History of coronary artery bypass graft CABG (2011) x2 vessels. follows with [facility] Cardiology History of esophagogastroduodenoscopy (EGD) History of hysterectomy History of lumbar surgery x2 (+ hardware) History of tooth extraction History of total knee replacement Right Family History Brother Family history of diabetes mellitus Sister Family history of diabetes mellitus Mother Family history of diabetes mellitus Father Family history of diabetes mellitus Other No family history of adverse response to anesthesia Social History Smoking Status: Never smoker Second Hand Exposure: No; Do You Dip or Chew Tobacco: No; Hx Alcohol Use: No Hx Substance Use: No Preferred Language: Swedish Communication Ability: Effective [employer] Sales Representative Required: No Beliefs That Will Affect Care: None Current Living Situation: Alone Other Information That Helps Us Care for You: No Feels Safe at Home: Yes Safety Concerns: Feels Safe At This Time Assistive Devices: Scooter/Electric Scooter and Walker Review of Systems Review of Systems: Complete review of systems is otherwise as stated above, negative, noncontributory. Physical Exam Physical Exam: General: A&Ox3. NAD. + Pallor HENT: Normocephalic. Atraumatic. Eyes: PER. Conjunctiva pink, sclera clear. Neck: Bilateral carotid bruit No JVD. No HJR. Heart: RRR, 60 bpm. Systolic ejection murmurs, question mild aortic stenosis, mitral regurgitation Lungs: Clear to auscultation anteriorly and laterally. Abdomen: +BS. Soft. Nontender. No masses or organomegaly. Extremities: Thick, with 1+ pitting edema. No clubbing. No cyanosis. Limited neurological examination is without focal deficits. Pulses: radial=2/4, posterior tibial=1/4. Results & Data Vital Signs (Past 12 Hours) Vital Signs Temp Pulse Resp BP BP Pulse Ox O2 Del Method 06/25/22 09:56 56 L 16 136/77 96 Room Air 06/25/22 07:48 36.6 C 62 16 141/63 H 98 Room Air Laboratory Results Cardiac Enzymes 06/25/22 Range/Units 10:09 AST 29 (13-39) U/L Troponin I High Sens 960.5 H* (0-14) pg/ml CBC 06/25/22 Range/Units 07:15 WBC 11.28 H (4.8-10.8) K/ul RBC 3.30 L (4.20-5.40) M/uL Hgb 9.7 L (12.0-16.0) g/dl Hct 29.4 L (37.0-47.0) % Plt Count 223 (130-400) K/uL Comprehensive Metabolic Panel 06/25/22 Range/Units 10:09 Sodium 139 (136-145) mmol/L Potassium 3.9 (3.5-5.1) mmol/L Chloride 103 (98-107) mmol/L Carbon Dioxide 30 (21-32) mmol/L BUN 21 (6-23) mg/dl Creatinine 0.79 (0.6-1.2) mg/dl Glucose 111 H (70-99(Fasting)) mg/dl Calcium 8.6 (8.6-10.3) mg/dl AST 29 (13-39) U/L ALT 23 (7-52) U/L Alkaline Phosphatase 75 (34-104) U/L Total Protein 5.8 L (6.0-8.3) gm/dl Albumin 3.2 L (3.4-5.0) gm/dl Intake and Output 06/24/22 06/25/22 06/25/22 22:59 06:59 14:59 Intake Total 660 / 970 Output Total 51 / 141 20 / 141 Balance 609 / 829 -20 / 829 Intake: Oral 660 / 660 Output: Drain Output 50 / 140 20 / 140 Back NANDO 50 / 140 20 / 140 # Bowel Movements Other: # Unmeasured Voids 2 1
[2022-06-25] MEDS ORDERED: NITROGLYCERIN SL 0.4 MG/TAB TAB SL PRN (12:00)
--- NOTE | 2022-06-25 12:14 | Hospitalist Progress Note ---
Date of Service June 25, 2022 Assessment & Plan (1) Spinal stenosis: Plan: Thoracolumbar spinal stenosis with myelopathy S/P thoracal lumbar decompression, fusion surgery by on 06/21/22 Postoperative acute blood loss anemia MRI on 06/08/2022 that showed Large T12-L1 disc extrusion causes severe central canal stenosis. Pain control, DVT prophylaxis, wound care and activity as per primary team Monitor for postop anemia Incentive spirometry PT OT as able No indication for transfusion currently Leukocytosis likely reactive, secondary to steroids Monitor CBC Continue bowel regimen, enema as needed Hb 7.5 today on 06/24, received 1 unit PRBC hgb up to 9.7 today Hypomagnesemia Replete electrolytes as needed (2) CAD (coronary artery disease): Plan: S/p CABG in 2011 and cardiac cath 09/2020 done after positive stress test showed patent SHANE to LAD and SVG-OM graft, SVG graft to RCA was occluded and RCA territory was supplied by collaterals from left. Appears stable, no reports of chest pain Continue ASA, statin, beta-soni Last echocardiogram 07/25/2020 revealed normal LV EF 55%, mitral calcification with moderate MR stable since 2019 Patient denies any chest pain or shortness of breath Acute Resting Chest Pain Elevated troponin, ecg change pt c/o resting CP that occurred for approx 10-15min and resolved on own. Occurred after discussing patients late who passed in September 2021 and she became very tearful Initial trop 960, ecg with dynamic inferior and lateral T wave inversions and inferior ST depression from admitting ecg; however similar to ecg from September. Known RCA disease Obtain echo, repeat 2hr trop at 12 and then q6 after that consult cards - discussed with Dr. Tinsley and Fabio Taveras aware and okay with IV heparin if indicated Echocardiogram demonstrating preserved LV systolic function with a small, basal lateral wall motion abnormality Appreciate cards recommendation - no indication for heparin at this time given post op status and anemia, continue to trend trops, IV diuresis ordered (3) Diabetes mellitus, type 2: Plan: Hgb A1c 7.4 04/2022, now 7.0 as of 06/19 On Humalog and Lantus Glycemic pharmacy consulted by primary service Monitor BSG (4) HTN (hypertension): Plan: Continue metoprolol Hold amlodipine, losartan Resume home Lasix Blood pressure better, 129/74, continue to hold above meds for now (5) Hypothyroidism: Plan: Continue levothyroxine (6) GERD (gastroesophageal reflux disease): Plan: Continue PPI DVT PROPHYLAXIS TEDs/SCDs as per spine Ortho Pt was seen and examined in collaboration with Dr. Orellana please see addendum A total of 60 was spent coordinating, documenting, and providing care for this patient excluding time spent in the performance of separately billed services. This included personally viewing all current laboratories and imaging studies, medication reconciliation, outpatient chart review, and discussion with specialists. Discussed with Granddaughter Marjan [phone] Attempted to call Marjan back with permission of patient and she did not answer x 2 to provide afternoon update. Admission and Anticipated Discharge Date Admission Date: June 18, 2022 Supervising Physician Co-Signing Physician Notes Patient is seen and examined at bedside. Back pain at surgical site is improved after removing drain today. Patient had transient chest pain this morning. Reports chronic unchanged nausea. Denies any shortness of breath, dizziness, diaphoresis. EKG showed ischemic changes, echo showed small sized lateral wall motion abnormality with hypokinesis of the segments. Elevated troponins noted. Discussed with ice cream dispenser on-call. Recommended conservative management given postoperative state, anemia. Currently patient is chest pain-free. Troponin elevation likely demand ischemia secondary to volume overload. IV Lasix given. Monitor volume status. Appreciate cardiology input. We will repeat EKG in the morning. Trend troponin. No IV heparin for now per cardiology. No contraindication for IV heparin as per orthopedic surgery. I personally reviewed the record. Patient is interviewed and examined at bedside. Patient's care is coordinated with Katina Dunlap PA-C. Please refer to the documentation above for details of patient's presentation and for discussion of other issues. Subjective Patient was seen and evaluated in room 361. Follow-up thoracolumbar decompression and fusion by Dr. Taveras. Patient sitting up in bedside chair. She continues to complain of back and hip pain. She said currently her hip pain is worse in her back. She did have a bowel movement yesterday secondary to a suppository. That was her first bowel movement in over a week. She continues to feel chronically nauseated and bloated. Generally decreased appetite. Patient's nurse reported patient complaint of chest pain and therefore patient was reevaluated. She said pain was substernal and nonradiating. She denied any diaphoresis but continued to complain of nausea. She denies any associated shortness of breath. She has history of CABG back in 2011. Chest pain was brought on by talking about her who passed last September which she was for 54 years. This made her tearful. Review of Systems Review of Systems: All systems reviewed & are unremarkable except as noted in HPI & below Physical Exam Physical Exam: Gen: WD/WN, elderly, female, sitting up in bedside chair, NAD, A&O x3, tearful HEENT: Normocephalic, atraumatic, conjunctivae moist, sclerae anicteric, mucous membranes moist. Lung: Clear to Auscultation bilaterally, no wheezes/rales/rhonchi Heart: Regular rate, regular rhythm, no murmurs, rubs, or gallops Abdomen: Soft, NT, ND +BS x 4 obese abdomen Extremities: Obese extremities,no edema, lumbar dressing CDI, NANDO drain removed Skin: Warm, no rash, negative turgor. Results & Data Results & Data Vital Signs (Past 12 Hours) Vital Signs Temp Pulse Resp BP BP Pulse Ox O2 Del Method 06/25/22 09:56 56 L 16 136/77 96 Room Air 06/25/22 07:48 36.6 C 62 16 141/63 H 98 Room Air Laboratory Results Short CBC 06/25/22 Range/Units 07:15 WBC 11.28 H (4.8-10.8) K/ul Hgb 9.7 L (12.0-16.0) g/dl Hct 29.4 L (37.0-47.0) % Plt Count 223 (130-400) K/uL BMP 06/25/22 10:09 Sodium 139 Potassium 3.9 Chloride 103 Carbon Dioxide 30 BUN 21 Creatinine 0.79 Glucose 111 H Calcium 8.6 Liver Function 06/25/22 Range/Units 10:09 Total Bilirubin 0.9 (0.2-1.0) mg/dl AST 29 (13-39) U/L ALT 23 (7-52) U/L Alkaline Phosphatase 75 (34-104) U/L Albumin 3.2 L (3.4-5.0) gm/dl
--- NOTE | 2022-06-25 13:26 | Pharmacy Report ---
Pharmacy Glycemic Short Note 2 - Date of Service June 25, 2022 - Glycemic Short BSG Results (Last 24 hours): 06/24/22 06/24/22 06/25/22 17:11 20:25 08:05 Glucose POC Glucose 242 H 197 H 127 H 06/25/22 06/25/22 10:09 11:44 Glucose 111 H POC Glucose 136 H OUTPATIENT ANTIDIABETIC REGIMEN: * Lantus 25 units SC HS * Humalog 10 units SC AC * HbA1c: 7.0% (06/19/22) ASSESSMENT: 06/25/22 * Patient's BSGs yesterday were [phone] mg/dL. Patient received 62 units (40 units of basal and 22 units of bolus). Patient's last day of dexamethasone 6 mg IV was yesterday. * Yesterday and today patient has decreased PO intake. * Fasting today is 127 mg/dL. * Due to decreased PO intake and discontinuation of steroids, will create Lantus scale for this evening. Patient with acute chest pain so unclear currently treatment path. * Novolog loosened since steroids discontinued. 06/22: * Total of 30 units of insulin given yesterday; 18 units basal and 12 units bolus. * BSGs yesterday were [phone] mg/dl. Unclear why her BSGs trended up above 200 mg/dl at dinner and HS yesterday. I wonder if she did receive a dose of IV steroid lena-operatively yesterday although there is no documentation of this on the APR. * Fasting BSG today was 133 mg/dl. Lantus HS dose increased slightly. * Since IV Dex 6 mg daily x 3 days is ordered, Lantus 15 units (based on stress of 2) QAM added on to be given with IV steroid x 3 days. 06/21: * Carie received 31 units of insulin yesterday (15 units Lantus + 16 units Novolog) with good glycemic control * Currently NPO for T12-L3 Decompression Fusion, L3-L4 Hardware Removal. She is ordered dexamethasone 6 mg IV daily x 3 doses post-op. No steroids given lena- operatively. * Fasting BSG is trending upward (115 -> 137 ->142 mg/dL). Will increase basal insulin today following surgery. * Post prandial BSGs are acceptable. No change to Novolog for today. Will tighten starting tomorrow due to steroids. 06/20: * Patient received 32 units of insulin yesterday; 15 units basal and 17 units bolus. * BSGs yesterday were [phone] mg/dl * Fasting BSG today was 137 mg/dl. Since her fasting increased today compared to yesterday, her basal dose could be increased. However, continued basal at 15 units again today since she will be going NPO at midnight for lumbar surgery in the morning tomorrow. * Novolog parameters continued the same as yesterday. 06/19/22: * 76 yo F admitted on 06/18/22 secondary to intractable back pain. Pharmacy has been consulted to assist with inpatient glycemic management. Patient is a well controlled Type 2 diabetic as an outpatient. Please refer to outpatient regimen and most recent HbA1c above. * Plan is to go to the OR with Dr. Taveras on (06/21). Ordered and tolerating a T2DM diet. * Received 14 units of basal last evening along with 2 units of bolus insulin. BSGs were: 139-192 mg/dL. * Fasting BSG this AM was 115 mg/dL, controlled. Tightened Novolog with breakfast given OR date is now scheduled and no chance of going NPO. * Lunch BSG trended up to 153 mg/dL. Therefore, tightened Novolog even further to start at dinner. Now based on weight/stress of 2-3. Will schedule a reduced basal dose as compared to home dose for now that is similar to the 14 units she received last evening. PLAN FOR INPATIENT GLYCEMIC CONTROL: * Basal insulin * Lantus 15-25 units HS (see eMAR for details) * Bolus insulin * NovoLog per scale ACHS or Q6hrs while NPO * Goal Range: Low 110 mg/dL - High 140 mg/dL * Correction Factor: 20 mg/dL/unit * Nutritional / Prandial insulin per carb ratio of 1 unit per 6 grams CHO consumed
[2022-06-25] MEDS: KETOROLAC TROMETHAMINE 15 MG/ML VIAL IV PRN ×2 (13:44→22:02)
[2022-06-25] MEDS: ONDANSETRON INJ 2 MG/ML 2 ML VIAL IV PRN ×2 (13:44→22:02)
[2022-06-25] MEDS ORDERED: FUROSEMIDE 40 MG/4 ML VIAL IV ONE (13:56)
[2022-06-25] MEDS ORDERED: POTASSIUM CHLORIDE CRTAB 20 MEQ TABCR PO ONE (13:58)
[2022-06-25] MEDS: traZODone HCL 50 MG TAB PO SCH (20:42)
[2022-06-25] MEDS: ATORVASTATIN 40 MG TAB PO SCH (20:43)
[2022-06-25] MEDS: allopurinoL 100 MG TAB PO SCH (20:43)
[2022-06-25] MEDS: DOCUSATE SODIUM/SENNA 50/8.6MG TAB PO SCH (20:44)
[2022-06-25] MEDS: LANTUS PER UNIT CHARGE SC SCH (20:45)
[2022-06-26] MEDS: ONDANSETRON 4 MG OD TAB PO PRN ×2 (01:08→09:38)
[2022-06-26] MEDS: oxyCODONE HCL IR 5 MG TAB (IMMEDIATE RELEASE) PO PRN ×4 (01:08→19:42)
[2022-06-26] MEDS: KETOROLAC TROMETHAMINE 15 MG/ML VIAL IV PRN (06:28)
[2022-06-26] MEDS: ONDANSETRON INJ 2 MG/ML 2 ML VIAL IV PRN ×2 (06:30→14:49)
[2022-06-26] MEDS: LEVOTHYROXINE SODIUM 125 MCG TABLET PO SCH (06:31)
[2022-06-26 07:35] LABS: BUN Creatinine Ratio 22.7 (10-20); Calcium 8.3 mg/dl (8.6-10.3); Creatinine Clr Calc Pharmacy 56.1 ml/min; Est GFR (African American) 72.9 ml/min; Est GFR (Non-African American) 62.9 ml/min; Magnesium 1.8 mg/dl (1.7-2.4); Potassium 4.1 mmol/L (3.5-5.1)
[2022-06-26] MEDS: INSULIN ASPART PER UNIT CHARGE SC SCH ×4 (07:37→20:51)
[2022-06-26] MEDS ORDERED: GLUCAGON FOR INJ 1 MG VIAL IM PRN (07:45)
[2022-06-26] MEDS ORDERED: GLUCOSE 10 TAB/TUBE PO PRN (07:45)
[2022-06-26] MEDS ORDERED: DEXTROSE 50% 50 ML SYRINGE IV PRN (07:45)
[2022-06-26] MEDS ORDERED: CARBOHYDRATES FOR HYPOGLYCEMIA PO PRN (07:45)
[2022-06-26] MEDS ORDERED: GLUCOSE 40% GEL 15 GM TUBE PO PRN (07:45)
[2022-06-26] MEDS: METOPROLOL TARTRATE 50 MG TAB PO SCH ×2 (08:50→20:52)
[2022-06-26] MEDS: POLYETHYLENE (MIRALAX) 17 GM PACK PO SCH ×2 (08:50→20:54)
[2022-06-26] MEDS: ASPIRIN 81 MG ECTAB PO SCH (08:50)
[2022-06-26] MEDS: PANTOprazole 40 MG TAB PO SCH ×2 (08:50→20:53)
[2022-06-26] MEDS ORDERED: FUROSEMIDE INJ 20 MG/2 ML VIAL IV ONE (09:48)
[2022-06-26] MEDS ORDERED: POTASSIUM CHLORIDE 10 MEQ TABCR PO ONE (09:49)
--- NOTE | 2022-06-26 09:52 | Cardiology Progress Note ---
Date of Service June 26, 2022 Assessment & Plan (1) Status post lumbar spine surgery for decompression of spinal cord: (2) Chest pain at rest: (3) Postoperative anemia: (4) Multi-vessel coronary artery stenosis: (5) Status post aorto-coronary artery bypass graft: (6) HTN (hypertension): (7) Dyslipidemia, goal LDL below 70: Plan 76-year-old female with significant multivessel coronary artery disease status post CABG. Patient evaluated initially on 06/25/2022 after experiencing an episode of resting chest pain which was self limiting. EKG abnormal though without significant change compared to prior available EKG's. Troponin elevated, flat. Echocardiogram demonstrating preserved LV systolic function with a small, basal lateral wall motion abnormality. Event felt to represent demand ischemia occurring in the setting of postoperative anemia, volume overload, and grief nevaeh ction when discussing her late husbands . IV heparin not utilized (postoperative back surgery, anemia). Patient without further chest pain. Volume overload improved following IV furosemide administration. Recommend ongoing conservative medical management with patient in full agreement. Continue beta- soni, aspirin, and statin therapy. Resume lower dose amlodipine, 2.5 mg/day. Additional IV diuretic therapy today with oral potassium supplementation. Increase activity as tolerated. Admission and Anticipated Discharge Date Admission Date: June 18, 2022 Supervising Physician Co-Signing Physician Notes Patient seen and examined at the bedside. POD #[address] Taveras.No recurrent discomfort. Received transfusion of 1 unit packed red blood cells 06/23/2022 due to postoperative anemia. Edema improved with restarting furosemide. PE: VSS. GEN: NAD, AAO x3. Heart: Regular rhythm, normal S1-S2. No murmur appreciated. Lungs: No rales, rhonchi or wheeze. Extremities: Trace edema. A/P: Agree with above PA-C history, physical exam, assessment and plan. Transient chest pain related to stress in the setting of volume overload, postoperative anemia status post transfusion of 1 unit packed red blood cells with elevated troponin suggestive of demand ischemia. Hemoglobin within acceptable range. Additional IV furosemide today. Follow daily weight, fluid balance, and GFR. Remains chest pain free. Echocardiogram demonstrating preserved LV systolic function with a small, basal lateral wall motion abnormality. Patient has known severe, chronic nome vessel disease as described above. Continue conservative management recommended at this time. Subjective Patient seen and examined. Chart, medications, and telemetry reviewed. Ongoing back pain. No further chest pain. Breathing is OK. Peripheral edema has improved. No palpitations. No orthopnea or PND. No lightheadedness, dizziness, or near syncope. No fevers or chills Telemetry: Sinus bradycardia overnight into the upper 40's, currently sinus at 72 bpm. No significant bradycardia or pauses. No atrial arrhythmias. No VT. Review of Systems Review of Systems: Complete review of systems is otherwise as stated above, negative, noncontributory. Physical Exam Physical Exam: General: A&Ox3. NAD. + Pallor HENT: Normocephalic. Atraumatic. Eyes: PER. Conjunctiva pink, sclera clear. Neck: Bilateral carotid bruit No JVD. No HJR. Heart: RRR, 70 bpm. Systolic ejection murmurs, question mild aortic stenosis, mitral regurgitation Lungs: Clear to auscultation anteriorly and laterally. Abdomen: +BS. Soft. Nontender. No masses or organomegaly. Extremities: Thick. Improved peripheral edema, nonpitting. No clubbing. No cyanosis. Limited neurological examination is without focal deficits. Pulses: radial=2/4, posterior tibial=1/4. Results & Data Vital Signs (Past 12 Hours) Vital Signs Temp Pulse Pulse Resp BP BP Pulse Ox 06/26/22 08:06 36.5 C 77 18 139/76 97 06/26/22 07:00 51 L 06/26/22 02:26 36.4 C L 63 18 133/76 94 06/25/22 23:00 56 L 06/25/22 23:00 36.5 C 51 L 17 108/61 98 O2 Del Method 06/26/22 08:06 Room Air 06/26/22 07:00 06/26/22 02:26 Room Air 06/25/22 23:00 06/25/22 23:00 Room Air Laboratory Results Cardiac Enzymes 06/25/22 06/25/22 06/25/22 Range/Units 10:09 12:28 14:53 AST 29 (13-39) U/L Troponin I High Sens 960.5 H* 1237.2 H* D 1468.5 H* (0-14) pg/ml 06/25/22 06/25/22 06/26/22 Range/Units 18:20 21:33 00:12 AST (13-39) U/L Troponin I High Sens 1332.1 H* 963.9 H* D 1135.8 H* (0-14) pg/ml Comprehensive Metabolic Panel 06/25/22 06/26/22 Range/Units 10:09 06:42 Sodium 139 140 (136-145) mmol/L Potassium 3.9 4.1 (3.5-5.1) mmol/L Chloride 103 104 (98-107) mmol/L Carbon Dioxide 30 31 (21-32) mmol/L BUN 21 20 (6-23) mg/dl Creatinine 0.79 0.88 (0.6-1.2) mg/dl Glucose 111 H 51 L* (70-99(Fasting)) mg/dl Calcium 8.6 8.3 L (8.6-10.3) mg/dl AST 29 (13-39) U/L ALT 23 (7-52) U/L Alkaline Phosphatase 75 (34-104) U/L Total Protein 5.8 L (6.0-8.3) gm/dl Albumin 3.2 L (3.4-5.0) gm/dl Intake and Output 06/25/22 06/26/22 06/26/22 22:59 06:59 14:59 Intake Total 300 / 300 Output Total Balance 299 / 299 Intake: Oral 300 / 300 Output: # Bowel Movements Other: Other Intake Source sips sips # Unmeasured Voids 1 Weight 96.8 kg Weight Measurement Method Built in [facility]
[2022-06-26] MEDS: amLODIPine BESYLATE 5 MG TAB PO SCH (11:19)
[2022-06-26] MEDS: ACETAMINOPHEN 500 MG TAB PO PRN (12:32)
--- NOTE | 2022-06-26 13:12 | Hospitalist Progress Note ---
Date of Service June 26, 2022 Assessment & Plan (1) Spinal stenosis: Plan: Thoracolumbar spinal stenosis with myelopathy S/P thoracal lumbar decompression, fusion surgery by on 06/21/22 Postoperative acute blood loss anemia MRI on 06/08/2022 that showed Large T12-L1 disc extrusion causes severe central canal stenosis. Pain control, DVT prophylaxis, wound care and activity as per primary team Monitor for postop anemia Incentive spirometry PT OT as able No indication for transfusion currently Leukocytosis likely reactive, secondary to steroids Monitor CBC Continue bowel regimen, she is now having bowel movements Hb 7.5 today on 06/24, received 1 unit PRBC hgb up to 9.7 today Acute blood loss anemia 2/ postoperative state pre op hgb 13.2 06/24 was 7.5, received 1 unit PRBC now 9.7 continue to monitor, no s/sx of bleeding Hypomagnesemia Replete electrolytes as needed (2) CAD (coronary artery disease): Plan: S/p CABG in 2011 and cardiac cath 09/2020 done after positive stress test showed patent SHANE to LAD and SVG-OM graft, SVG graft to RCA was occluded and RCA territory was supplied by collaterals from left. Appears stable, no reports of chest pain Continue ASA, statin, beta-soni Last echocardiogram 07/25/2020 revealed normal LV EF 55%, mitral calcification with moderate MR stable since 2019 Patient denies any chest pain or shortness of breath NSTEMI 2/2 demand ischemia in setting of volume overload and post operative anemia pt c/o resting CP that occurred for approx 10-15min and resolved on own. Occurred after discussing patients late who passed in September 2021 and she became very tearful Initial trop 960, ecg with dynamic inferior and lateral T wave inversions and inferior ST depression from admitting ecg; however similar to ecg from September. Known RCA disease Seen and evaluated by cardiology - appreciate their input Echocardiogram demonstrating preserved LV systolic function with a small, basal lateral wall motion abnormality Appreciate cards recommendation - no indication for heparin at this time given post op status and anemia, continue to trend trops, IV diuresis ordered (3) Diabetes mellitus, type 2: Plan: Hgb A1c 7.4 04/2022, now 7.0 as of 06/19 On Humalog and Lantus Glycemic pharmacy consulted by primary service Monitor BSG - pt hypoglycemic this morning will discuss with Pharmacy (4) HTN (hypertension): Plan: Continue metoprolol lasix and amlodipine resumed; however amlodipine now 2.5mg daily losartan still on hold, BP 146/76 continue to monitor and consider resuming (5) Hypothyroidism: Plan: Continue levothyroxine (6) GERD (gastroesophageal reflux disease): Plan: Continue PPI DVT PROPHYLAXIS TEDs/SCDs as per spine Ortho Pt was seen and examined in collaboration with Dr. Orellana please see addendum A total of 45 was spent coordinating, documenting, and providing care for this patient excluding time spent in the performance of separately billed services. This included personally viewing all current laboratories and imaging studies, medication reconciliation, outpatient chart review, and discussion with specialists. Admission and Anticipated Discharge Date Admission Date: June 18, 2022 Supervising Physician Co-Signing Physician Notes Patient is seen and examined at bedside. Patient denied any recurrence of chest pain. Still has back pain with activity especially. Had bowel movement today. Hemoglobin stable today. Denies any shortness of breath, dizziness, diaphoresis. Thoracolumbar spinal stenosis with myelopathy S/P surgery. Acute blood loss anemia postoperative. Hypomagnesemia. Type II NE. Appreciate cardiology input. Agree with physical exam, assessment and plan. Monitor volume status. IV Lasix per cardiology. Monitor CBC and transfuse PRBCs as needed. Monitor electrolytes. Blood pressure improved. Insulin adjusted for hyperglycemia. I personally reviewed the record. Patient is interviewed and examined at bedside. Patient's care is coordinated with Katina Dunlap PA-C. Please refer to the documentation above for details of patient's presentation and for discussion of other issues. Subjective Patient seen and examined in room 220. Follow-up thoracolumbar surgery NSTEMI. Patient is feeling much better today. She has had no recurrence of chest pain. She feels lower extremity swelling is improving. She continues to have back pain but feels she is moving around better. She is hopeful to get discharged to [facility] tomorrow. Her bowels are now moving has had multiple loose bowel movements. She is also able to tolerate oral intake better. Review of Systems Review of Systems: All systems reviewed & are unremarkable except as noted in HPI & below Physical Exam Physical Exam: Gen: WD/WN, elderly, female, sitting up in bed, NAD, A&O x3, HEENT: Normocephalic, atraumatic, conjunctivae moist, sclerae anicteric, mucous membranes moist. Lung: Clear to Auscultation bilaterally, no wheezes/rales/rhonchi Heart: Regular rate, regular rhythm, no murmurs, rubs, or gallops Abdomen: Soft, NT, ND +BS x 4 obese abdomen Extremities: Obese extremities, +1 lower extremity edema, lumbar dressing CDI, Skin: Warm, no rash, negative turgor. Results & Data Results & Data Vital Signs (Past 12 Hours) Vital Signs Temp Pulse Pulse Resp BP Pulse Ox Pulse Ox 06/26/22 12:00 36.8 C 06/26/22 12:00 95 06/26/22 11:59 37.0 C 61 19 146/76 H 97 06/26/22 08:06 36.5 C 77 18 139/76 97 06/26/22 07:00 51 L 06/26/22 02:26 36.4 C L 63 18 133/76 94 O2 Del Method O2 Del Method 06/26/22 12:00 06/26/22 12:00 Room Air 06/26/22 11:59 Room Air 06/26/22 08:06 Room Air 06/26/22 07:00 06/26/22 02:26 Room Air Diagnostic Findings BMP 06/26/22 06:42 Sodium 140 Potassium 4.1 Chloride 104 Carbon Dioxide 31 BUN 20 Creatinine 0.88 Glucose 51 L* Calcium 8.3 L Echocardiogram: EF 60 to 65%, mild concentric left ventricular hypertrophy, small size lateral wall motion abnormality with hypokinesis of segments. Aortic valve sclerosis mild, severe mitral annular calcification, mild MR, mild TR elevated systolic pulmonary pressure of 40 mmHg Medications Administered Current Inpatient Medications Acetaminophen (Acetaminophen 500 Mg Tab) 1,000 mg PO Q8H PRN PRN Reason: MILD Pain Scale 1,2,3 & Pre PT Stop: 07/21/22 13:44 Last Admin: 06/26/22 12:32 Dose: 1,000 mg Al Hydrox/Mg Hydrox/Simethicone (Aluminum/Magnesium Susp 30 Ml Udc) 30 ml PO Q6H PRN PRN Reason: Dyspepsia Stop: 07/21/22 13:44 Allopurinol (Allopurinol 100 Mg Tab) 200 mg PO QPM LETTY Stop: 07/18/22 20:59 Last Admin: 06/25/22 20:43 Dose: 200 mg Amlodipine Besylate (Amlodipine Besylate 5 Mg Tab) [facility] [place]: 07/26/22 09:59 Last Admin: 06/26/22 11:19 Dose: 2.5 mg Aspirin (Aspirin 81 Mg Ectab) 81 mg PO QAM [facility] Stop: 07/19/22 08:59 Last Admin: 06/26/22 08:50 Dose: 81 mg Atorvastatin Calcium (Atorvastatin 40 Mg Tab) 40 mg PO HS [facility] Stop: 07/18/22 20:59 Last Admin: 06/25/22 20:43 Dose: 40 mg Bisacodyl (Bisacodyl 10 Mg Supp) 10 mg ME DAILY PRN PRN Reason: Constipation Stop: 07/21/22 13:44 Last Admin: 06/24/22 15:29 Dose: 10 mg Dextrose (Dextrose 50% 50 Ml Syringe) 25 - 50 ml IV UD PRN; Protocol PRN Reason: Hypoglycemia Protocol Stop: 07/26/22 07:44 Diphenhydramine HCl (Diphenhydramine Capsule 25 Mg Cap) 25 mg PO Q6H PRN PRN Reason: Allergic Rhinitis/Insomnia Stop: 07/21/22 13:44 Last Admin: 06/21/22 21:00 Dose: 25 mg Famotidine (Famotidine 20 Mg Tab) 20 mg PO Q12H PRN PRN Reason: Dyspepsia Stop: 07/21/22 13:44 Furosemide (Furosemide 20 Mg Tab) 20 mg PO Q48H [facility] Stop: 07/18/22 17:05 Last Admin: 06/20/22 17:46 Dose: 20 mg Glucagon (Glucagon For Inj 1 Mg Vial) 1 mg IM UD PRN; Protocol PRN Reason: Hypoglycemia Protocol Stop: 07/26/22 07:44 Glucose (Glucose 40% Gel 15 Gm Tube) 15 - 30 gm PO UD PRN; Protocol PRN Reason: Hypoglycemia Protocol Stop: 07/26/22 07:44 Glucose (Glucose 10 Tab/Tube) 4 - 8 tab PO UD PRN; Protocol PRN Reason: Hypoglycemia Protocol Stop: 07/26/22 07:44 Hydroxyzine HCl (Hydroxyzine Hcl 25 Mg Tab) 25 mg PO Q8H PRN PRN Reason: Anxiety Stop: 07/21/22 13:44 Promethazine HCl 12.5 mg/ (Sodium Chloride) 50.5 mls @ 202 mls/hr IV Q6H PRN PRN Reason: Nausea &/or Vomiting Stop: 07/21/22 13:44 Last Infusion: 06/21/22 16:24 Dose: Infused Influenza Virus Vaccine Quadrival (Do Not Administer Flu Vaccine) 1 each N/A PRN PRN PRN Reason: Notification Stop: 07/21/22 13:44 Insulin Aspart (Insulin Aspart Per Unit Charge) 0 units SC [facility]; Protocol Stop: 07/22/22 07:29 Last Admin: 06/26/22 12:11 Dose: Not Given Insulin Glargine (Lantus Per Unit Charge) 0 units SC [facility]; Protocol Stop: 07/25/22 20:59 Last Admin: 06/25/22 20:45 Dose: 20 units Ketorolac Tromethamine (Ketorolac Tromethamine 15 Mg/Ml Vial) 15 mg IV Q8 PRN PRN Reason: Pain Stop: 06/26/22 18:00 Last Admin: 06/26/22 06:28 Dose: 15 mg Levothyroxine Sodium (Levothyroxine Sodium 125 Mcg Tablet) [facility] Stop: 07/19/22 06:29 Last Admin: 06/26/22 06:31 Dose: 125 mcg Lorazepam (Lorazepam 0.5 Mg Tab) 0.5 mg PO Q8H PRN PRN Reason: Sedation/Anxiety Stop: 07/21/22 13:44 Lorazepam (Lorazepam 2 Mg/1 Ml Vial) 0.5 mg IV Q8H PRN PRN Reason: Sedation/Anxiety Stop: 07/21/22 13:44 Losartan Potassium (Losartan Potassium 50 Mg Tab) 50 mg PO DAILY [facility] Stop: 07/19/22 08:59 Last Admin: 06/21/22 14:56 Dose: Not Given Magnesium Hydroxide (Magnesium Hydroxide Susp 30 Ml Udc) 30 ml PO Q24H PRN PRN Reason: Constipation Stop: 07/21/22 13:44 Last Admin: 06/22/22 12:52 Dose: 30 ml Metoclopramide HCl (Metoclopramide Hcl Inj 5 Mg/Ml 2 Ml Vial) 10 mg IV Q6H PRN PRN Reason: Nausea &/or Vomiting Stop: 07/21/22 13:44 Last Admin: 06/21/22 21:00 Dose: 10 mg Metoprolol Tartrate (Metoprolol Tartrate 50 Mg Tab) 50 mg PO BID [facility] Stop: 07/18/22 20:59 Last Admin: 06/26/22 08:50 Dose: 50 mg Miscellaneous (Carbohydrates For Hypoglycemia ) 15 - 30 gm PO UD PRN PRN Reason: Hypoglycemia Treatment Stop: 07/26/22 07:44 Last Admin: 06/26/22 07:25 Dose: 30 gm Miscellaneous Information (Pharmacy Glycemic Mgmt Consult) 1 each N/A UD PRN PRN Reason: Consult Stop: 07/18/22 17:05 Naloxone HCl (Naloxone Hcl 0.4 Mg/1 Ml Vial/Carp) 0.1 mg IV Q5M PRN PRN Reason: Oversedation/Resp depression Stop: 07/21/22 13:44 Nitroglycerin (Nitroglycerin Sl 0.4 Mg/Tab Tab) 0.4 mg SL UD PRN PRN Reason: Chest Pain Stop: 07/25/22 11:59 Ondansetron HCl (Ondansetron Inj 2 Mg/Ml 2 Ml Vial) 4 mg IV Q6H PRN PRN Reason: Nausea &/or Vomiting Stop: 07/21/22 13:44 Last Admin: 06/26/22 06:30 Dose: 4 mg Ondansetron HCl (Ondansetron 4 Mg Od Tab) 4 mg PO Q6H PRN PRN Reason: Nausea Stop: 07/21/22 13:44 Last Admin: 06/26/22 09:38 Dose: 4 mg Oxycodone HCl (Oxycodone Hcl Ir 5 Mg Tab (Immediate Release)) 2.5 mg PO Q4H PRN PRN Reason: Pain & Pre PT Stop: 07/05/22 13:44 Last Admin: 06/26/22 09:38 Dose: 2.5 mg Pantoprazole Sodium (Pantoprazole 40 Mg Tab) 40 mg PO BID [facility] Stop: 07/18/22 20:59 Last Admin: 06/26/22 08:50 Dose: 40 mg Pneumococcal Polyvalent Vaccine (Do Not Administer Pneumococcal Vaccine) 1 each N/A PRN PRN PRN Reason: Notification Stop: 07/21/22 13:44 Polyethylene Glycol (Polyethylene (Miralax) 17 Gm Pack) 17 gm PO BID [facility] Stop: 07/25/22 09:14 Last Admin: 06/26/22 08:50 Dose: 17 gm Senna/Docusate Sodium (Docusate Sodium/Senna 50/8.6mg Tab) 2 tab PO LETTY Stop: 07/21/22 20:59 Last Admin: 06/25/22 20:44 Dose: 2 tab Trazodone HCl (Trazodone Hcl 50 Mg Tab) 25 mg PO [facility] Stop: 07/18/22 20:59 Last Admin: 06/25/22 20:42 Dose: 25 mg
--- NOTE | 2022-06-26 13:19 | Pharmacy Report ---
Pharmacy Glycemic Short Note 2 - Date of Service June 26, 2022 - Glycemic Short BSG Results (Last 24 hours): 06/25/22 06/26/22 06/26/22 20:11 06:42 07:21 Glucose 51 L* POC Glucose 160 H 50 L* 06/26/22 06/26/22 06/26/22 07:23 07:54 11:19 Glucose POC Glucose 52 L* 87 131 H OUTPATIENT ANTIDIABETIC REGIMEN: * Lantus 25 units SC HS * Humalog 10 units SC AC * HbA1c: 7.0% (06/19/22) ASSESSMENT: 06/26/22 * Patient received total of 21 units of insulin yesterday, of which 20 units were basal * Steroids d/c yesterday therefore basal insulin decreased by ~50%. Fasting BSG low this AM at 50 mg/dL despite decrease in basal insulin. No oral intake noted yesterday * Will hold basal insulin this AM and provide conservative scale for HS 0-5-10 units based upon BSG value * Plan to loosen CF/CR this AM 06/25/22 * Patient's BSGs yesterday were [phone] mg/dL. Patient received 62 units (40 units of basal and 22 units of bolus). Patient's last day of dexamethasone 6 mg IV was yesterday. * Yesterday and today patient has decreased PO intake. * Fasting today is 127 mg/dL. * Due to decreased PO intake and discontinuation of steroids, will create Lantus scale for this evening. Patient with acute chest pain so unclear currently treatment path. * Novolog loosened since steroids discontinued. 06/22: * Total of 30 units of insulin given yesterday; 18 units basal and 12 units bolus. * BSGs yesterday were [phone] mg/dl. Unclear why her BSGs trended up above 200 mg/dl at dinner and HS yesterday. I wonder if she did receive a dose of IV steroid lena-operatively yesterday although there is no documentation of this on the APR. * Fasting BSG today was 133 mg/dl. Lantus HS dose increased slightly. * Since IV Dex 6 mg daily x 3 days is ordered, Lantus 15 units (based on stress of 2) QAM added on to be given with IV steroid x 3 days. 06/21: * Carie received 31 units of insulin yesterday (15 units Lantus + 16 units Novolog) with good glycemic control * Currently NPO for T12-L3 Decompression Fusion, L3-L4 Hardware Removal. She is ordered dexamethasone 6 mg IV daily x 3 doses post-op. No steroids given lena- operatively. * Fasting BSG is trending upward (115 -> 137 ->142 mg/dL). Will increase basal insulin today following surgery. * Post prandial BSGs are acceptable. No change to Novolog for today. Will tighten starting tomorrow due to steroids. 06/20: * Patient received 32 units of insulin yesterday; 15 units basal and 17 units bolus. * BSGs yesterday were [phone] mg/dl * Fasting BSG today was 137 mg/dl. Since her fasting increased today compared to yesterday, her basal dose could be increased. However, continued basal at 15 units again today since she will be going NPO at midnight for lumbar surgery in the morning tomorrow. * Novolog parameters continued the same as yesterday. 06/19/22: * 76 yo F admitted on 06/18/22 secondary to intractable back pain. Pharmacy has been consulted to assist with inpatient glycemic management. Patient is a well controlled Type 2 diabetic as an outpatient. Please refer to outpatient regimen and most recent HbA1c above. * Plan is to go to the OR with Dr. Taveras on (06/21). Ordered and tolerating a T2DM diet. * Received 14 units of basal last evening along with 2 units of bolus insulin. BSGs were: 139-192 mg/dL. * Fasting BSG this AM was 115 mg/dL, controlled. Tightened Novolog with breakfast given OR date is now scheduled and no chance of going NPO. * Lunch BSG trended up to 153 mg/dL. Therefore, tightened Novolog even further to start at dinner. Now based on weight/stress of 2-3. Will schedule a reduced basal dose as compared to home dose for now that is similar to the 14 units she received last evening. PLAN FOR INPATIENT GLYCEMIC CONTROL: * Basal insulin * Lantus 0,5,10 units HS (see eMAR for details) * Bolus insulin * NovoLog per scale ACHS or Q6hrs while NPO * Goal Range: Low 110 mg/dL - High 140 mg/dL * Correction Factor: 30 mg/dL/unit * Nutritional / Prandial insulin per carb ratio of 1 unit per 10 grams CHO consumed
--- NOTE | 2022-06-26 16:02 | Orthopedic Progress Note ---
Date of Service June 26, 2022 Assessment & Plan (1) Status post lumbar spine surgery for decompression of spinal cord: Plan: At this time we will continue to encourage the patient to be out of bed ambulating once in the chair. We will await clearance from medicine prior to discharge to rehab. Admission and Anticipated Discharge Date Admission Date: June 18, 2022 Subjective Back pain controlled leg symptoms continue to be improved. She denies any chest pain or shortness of breath. Physical Exam Physical Exam: Patient is currently in bed. She has good strength testing lower extremities. No edema is appreciated. Results & Data Vital Signs (Past 12 Hours) Vital Signs Temp Pulse Pulse Resp BP Pulse Ox Pulse Ox 06/26/22 15:31 36.7 C 75 18 101/57 L 97 06/26/22 12:00 36.8 C 06/26/22 12:00 95 06/26/22 11:59 37.0 C 61 19 146/76 H 97 06/26/22 08:06 36.5 C 77 18 139/76 97 06/26/22 07:00 51 L O2 Del Method O2 Del Method 06/26/22 15:31 Room Air 06/26/22 12:00 06/26/22 12:00 Room Air 06/26/22 11:59 Room Air 06/26/22 08:06 Room Air 06/26/22 07:00 Queries Orthopedic Spine Acute Posthemorrhagic Anemia: Yes Obesity: Yes
[2022-06-26] MEDS: FUROSEMIDE 20 MG TAB PO SCH (17:22)
[2022-06-26] MEDS: LANTUS PER UNIT CHARGE SC SCH (20:50)
[2022-06-26] MEDS: allopurinoL 100 MG TAB PO SCH (20:52)
[2022-06-26] MEDS: ATORVASTATIN 40 MG TAB PO SCH (20:53)
[2022-06-26] MEDS: DOCUSATE SODIUM/SENNA 50/8.6MG TAB PO SCH (21:05)
[2022-06-26] MEDS: traZODone HCL 50 MG TAB PO SCH (21:06)
[2022-06-27] MEDS: oxyCODONE HCL IR 5 MG TAB (IMMEDIATE RELEASE) PO PRN ×3 (02:20→12:07)
--- NOTE | 2022-06-27 04:58 | Electrocardiogram Report ---
Test Reason : Blood Pressure : / mmHG Vent. Rate : 053 BPM Atrial Rate : 053 BPM P-R Int : 126 ms QRS Dur : 094 ms QT Int : 446 ms P-R-T Axes : 085 -02 182 degrees QTc Int : 418 ms Sinus bradycardia Marked ST abnormality, possible lateral subendocardial injury T wave abnormality, consider anterior ischemia Abnormal ECG When compared with ECG of 19-JUN-2022 10:08, Premature ventricular complexes are no longer Present T wave inversion now evident in Inferior leads T wave inversion now evident in Anterior leads Confirmed by Carlos Enrique Butler ([id number]) on 06/27/2022 4:57:33 AM Referred By: REFERRED SELF Confirmed By:Carlos Enrique Butler
--- NOTE | 2022-06-27 05:02 | Electrocardiogram Report ---
Test Reason : Blood Pressure : / mmHG Vent. Rate : 061 BPM Atrial Rate : 061 BPM P-R Int : 134 ms QRS Dur : 102 ms QT Int : 416 ms P-R-T Axes : 067 -05 177 degrees QTc Int : 418 ms Normal sinus rhythm with sinus arrhythmia Abnormal ECG When compared with ECG of 25-JUN-2022 10:03, No significant change was found Confirmed by Carlos Enrique Butler ([id number]) on 06/27/2022 5:02:34 AM Referred By: REFERRED SELF Confirmed By:Carlos Enrique Butler
--- NOTE | 2022-06-27 05:56 | Electrocardiogram Report ---
Test Reason : Blood Pressure : / mmHG Vent. Rate : 065 BPM Atrial Rate : 065 BPM P-R Int : 140 ms QRS Dur : 096 ms QT Int : 404 ms P-R-T Axes : 084 -21 153 degrees QTc Int : 420 ms Normal sinus rhythm T wave abnormality, consider anterior ischemia Abnormal ECG When compared with ECG of 25-JUN-2022 11:24, T wave inversion no longer evident in Inferior leads Confirmed by Carlos Enrique Butler ([id number]) on 06/27/2022 5:56:17 AM Referred By: REFERRED SELF Confirmed By:Carlos Enrique Butler
[2022-06-27] MEDS: LEVOTHYROXINE SODIUM 125 MCG TABLET PO SCH (06:21)
[2022-06-27 07:08] LABS: Hematocrit (blood only) 28.4 % (37.0-47.0); Hemoglobin 9.2 g/dl (12.0-16.0); Mean Corpuscular Hemoglobin 28.8 pg (25.0-34.0); Mean Corpuscular Hgb Conc 32.4 g/dL (32.0-36.0); Mean Corpuscular Volume 88.8 fL (80.0-100.0); Mean Platelet Volume 12.1 fL (9.4-12.4); Platelet Count 222 K/uL (130-400); RDW Coefficient of Variation 13.7 % (11.5-14.5); RDW Standard Deviation 44.8 fL (36.4-46.3)
[2022-06-27 07:21] LABS: BUN Creatinine Ratio 21.1 (10-20); Creatinine Clr Calc Pharmacy 65.8 ml/min; Est GFR (African American) 87.1 ml/min; Est GFR (Non-African American) 75.1 ml/min; Magnesium 1.7 mg/dl (1.7-2.4)
[2022-06-27] MEDS: ASPIRIN 81 MG ECTAB PO SCH (07:47)
[2022-06-27] MEDS: PANTOprazole 40 MG TAB PO SCH (07:47)
[2022-06-27] MEDS: METOPROLOL TARTRATE 50 MG TAB PO SCH (07:47)
[2022-06-27] MEDS: amLODIPine BESYLATE 5 MG TAB PO SCH (07:47)
[2022-06-27] MEDS: POLYETHYLENE (MIRALAX) 17 GM PACK PO SCH (07:48)
[2022-06-27] MEDS: INSULIN ASPART PER UNIT CHARGE SC SCH ×2 (07:58→12:06)
--- NOTE | 2022-06-27 08:48 | Orthopedic Progress Note ---
Date of Service June 27, 2022 Assessment & Plan (1) Status post lumbar spine surgery for decompression of spinal cord: Plan: Carie is orthopedically stable for discharge to [facility]. Currently awaiting for the okay from the hospitalist team for discharge as well. We will continue with physical therapy. Continue with pain control. DVT prophylaxis is in the form of teds and SCDs. Admission and Anticipated Discharge Date Admission Date: June 18, 2022 Subjective Carie is postoperative day 7 status post T10-L4 decompression and fusion. Only complaint is incisional pain. She states her legs feel greatly improved when ambulating. Denies any chest pain, shortness of breath, dizziness or lightheadedness. She is having bowel movements. She has been accepted to [facility] for discharge Review of Systems Review of Systems: All systems reviewed & are unremarkable except as noted in HPI & below Physical Exam Physical Exam: Sitting on the edge of the bed eating breakfast in no acute distress Alert and oriented x3 Dressing has modest drainage incision looks great Calf soft and nontender bilaterally Strength is intact bilateral lower extremities Results & Data Vital Signs (Past 12 Hours) Vital Signs Temp Pulse Pulse Resp BP BP Pulse Ox 06/27/22 07:38 36.9 C 66 18 112/65 92 06/27/22 03:41 36.6 C 73 17 146/68 H 93 06/26/22 23:00 75 06/26/22 22:53 36.8 C 70 15 115/65 94 O2 Del Method 06/27/22 07:38 Room Air 06/27/22 03:41 Room Air 06/26/22 23:00 06/26/22 22:53 Room Air
--- NOTE | 2022-06-27 09:14 | Cardiology Progress Note ---
Date of Service June 27, 2022 Assessment & Plan (1) Status post lumbar spine surgery for decompression of spinal cord: (2) Chest pain at rest: (3) Postoperative anemia: (4) Multi-vessel coronary artery stenosis: (5) Status post aorto-coronary artery bypass graft: (6) HTN (hypertension): (7) Dyslipidemia, goal LDL below 70: Plan 76-year-old female with significant multivessel coronary artery disease status post CABG. Patient evaluated initially on 06/25/2022 after experiencing an episode of resting chest pain which was self limiting. EKG abnormal though without significant change compared to prior available EKG's. Troponin elevated, flat. Echocardiogram demonstrating preserved LV systolic function with a small, basal lateral wall motion abnormality. Event felt to represent demand ischemia occurring in the setting of postoperative anemia, volume overload, and grief re action when discussing her late husbands . IV heparin not utilized (postoperative back surgery, anemia). Patient without further chest pain. Volume overload improved following IV furosemide. Recommend ongoing conservative medical management with patient in full agreement. Continue beta-soni, aspirin, and statin therapy. Amlodipine resumed with dosing reduced to 2.5 mg/day. Recommend furosemide 20 mg/day. Increase activity as tolerated. Signing off; contact with questions or concerns. Admission and Anticipated Discharge Date Admission Date: June 18, 2022 Supervising Physician Co-Signing Physician Notes Patient seen and examined at the bedside. POD #[address] Taveras.No recurrent chest discomfort. Received transfusion of 1 unit packed red blood cells 06/23/2022 due to postoperative anemia. Hemoglobin remained stable. Edema improved. PE: VSS. GEN: NAD, AAO x3. Heart: Regular rhythm, normal S1-S2. No murmur appreciated. Lungs: No rales, rhonchi or wheeze. Extremities: Trace edema. A/P: Agree with above PA-C history, physical exam, assessment and plan. Transient chest pain related to stress event, volume overload, and postoperative anemia with elevated troponin suggestive of demand ischemia. Hemoglobin within acceptable range. Additional IV furosemide today. Follow daily weight, fluid balance, and GFR. Remains chest pain free. Echocardiogram demonstrating preserved LV systolic function with a small, basal lateral wall motion abnormality. Patient has known severe, chronic [place] vessel disease as described above. Continue conservative management recommended at this time. Continue outpatient cardiac medications as noted above. Subjective Patient seen and examined. Chart, medications, and telemetry reviewed. Ongoing back pain, improving. No chest pain. No shortness of breath. No palpitations. Peripheral edema has improved. No orthopnea or PND. No dizziness or near syncope. No fevers or chills. Telemetry: Sinus rhythm in the 60s to 90s, with occasional PACs. No significant bradycardia. No pauses. No atrial arrhythmias. No VT. Review of Systems Review of Systems: Complete review of systems is otherwise as stated above, negative, noncontributory. Physical Exam Physical Exam: General: A&Ox3. NAD. + Pallor HENT: Normocephalic. Atraumatic. Eyes: PER. Conjunctiva pink, sclera clear. Neck: Bilateral carotid bruit No JVD. No HJR. Heart: RRR, 70 bpm. Systolic ejection murmurs, question mild aortic stenosis, mitral regurgitation Lungs: Clear to auscultation anteriorly and laterally. Abdomen: +BS. Soft. Nontender. No masses or organomegaly. Extremities: Thick. Improved peripheral edema, only mild. No clubbing. No cyanosis. Limited neurological examination is without focal deficits. Pulses: radial=2/4, posterior tibial=1/4. Results & Data Vital Signs (Past 12 Hours) Vital Signs Temp Pulse Pulse Resp BP BP Pulse Ox 06/27/22 07:38 36.9 C 66 18 112/65 92 06/27/22 03:41 36.6 C 73 17 146/68 H 93 06/26/22 23:00 75 06/26/22 22:53 36.8 C 70 15 115/65 94 O2 Del Method 06/27/22 07:38 Room Air 06/27/22 03:41 Room Air 06/26/22 23:00 06/26/22 22:53 Room Air Laboratory Results CBC 06/27/22 Range/Units 06:24 WBC 6.70 (4.8-10.8) K/ul RBC 3.20 L (4.20-5.40) M/uL Hgb 9.2 L (12.0-16.0) g/dl Hct 28.4 L (37.0-47.0) % Plt Count 222 (130-400) K/uL Comprehensive Metabolic Panel 06/27/22 Range/Units 06:24 Sodium 138 (136-145) mmol/L Potassium 4.0 (3.5-5.1) mmol/L Chloride 104 (98-107) mmol/L Carbon Dioxide 29 (21-32) mmol/L BUN 16 (6-23) mg/dl Creatinine 0.76 (0.6-1.2) mg/dl Glucose 95 (70-99(Fasting)) mg/dl Calcium 8.0 L (8.6-10.3) mg/dl Intake and Output 06/26/22 06/27/22 06/27/22 22:59 06:59 14:59 Intake Total 240 / 240 Output Total 800 / 1151 Balance -800 / -851 240 / 240 Intake: Oral 240 / 240 Output: Urine 800 / 1150 Other: # Unmeasured Voids 1 1 Weight 99.2 kg Weight Measurement Method Built in [facility]
[2022-06-27] MEDS ORDERED: POTASSIUM CHLORIDE 10 MEQ TABCR PO SCH (09:30)
[2022-06-27] MEDS ORDERED: FUROSEMIDE 20 MG TAB PO SCH (09:30)
--- NOTE | 2022-06-27 10:09 | Hospitalist Progress Note ---
Date of Service June 27, 2022 Assessment & Plan (1) Spinal stenosis: Plan: This is a 76-year-old female who has significant past medical history of CAD with history of CABG in 2011, T2DM, HTN, hypothyroidism, GERD who presented to ED secondary to back pain and inability to walk. Outpatient MRI on 06/08/2022 showed a large T12-L1 disc extrusion causing severe canal stenosis. Due to worsening symptoms she presented to ED. On 06/21/2022 patient underwent thoracolumbar decompression and fusion by Dr. Taveras. She tolerated the procedure well. Her postop course was complicated by postoperative acute blood loss anemia with hemoglobin of 7.5. In setting of known CAD she was transfused 1 unit PRBC. Her hemoglobin remained stable and on day of discharge was 9.2. Her hospital course was further complicated by transient episode of chest pain on 06/25 that was self-limiting and occurred after discussion about her . EKG and troponin were ordered. EKG revealed diffuse T wave inversion with inferior ST depression and upon further review was similar to prior EKG in September 2020. Her initial troponin was in the 900s and did peak at 1200 but mostly remained flat. Resting echocardiogram did reveal small, basal lateral wall motion abnormality consistent with NSTEMI. She was seen and evaluated by cardiology and felt this was likely secondary to postoperative anemia, volume overload and grief reaction. She did not receive IV heparin due to postoperative anemia and postoperative state. She was felt to be mildly overloaded and did receive IV Lasix 20 mg x 2. Cardiology then recommended daily 20 mg of Lasix. Due to blood pressure being on the lower side her amlodipine was reduced to 2.5 mg daily and her losartan continues to remain on hold. Her blood sugar did run on the lower side during her hospital stay and she did have insulin adjustments. Her outpatient regimen is going to be decreased at discharge, to Lantus 10 units at HS and Humalong 5mg TID Meals. She will need close blood sugar monitoring and may need further adjustments prior to being discharged home. On day of discharge patient was in good spirits, chest pain-free and she was hemodynamically stable. Her blood pressure was 112/65. Her hemoglobin was stable 9.2. (2) CAD (coronary artery disease): (3) Diabetes mellitus, type 2: (4) HTN (hypertension): (5) Hypothyroidism: (6) GERD (gastroesophageal reflux disease): Plan: DVT PROPHYLAXIS TEDs/SCDs as per spine Ortho Dispo: Pt to go to [facility] today Pt was seen and examined in collaboration with Dr. Orellana please see addendum A total of 45 was spent coordinating, documenting, and providing care for this patient excluding time spent in the performance of separately billed services. This included personally viewing all current laboratories and imaging studies, medication reconciliation, outpatient chart review, and discussion with specialists. Admission and Anticipated Discharge Date Admission Date: June 18, 2022 Supervising Physician Co-Signing Physician Notes Patient is seen and examined at bedside. Back pain slowly improving per patient. No new complaints. Constipation resolved. No recurrence of chest pain. Denies any dyspnea, dizziness, nausea, abdominal pain. Plan to be discharged to rehab facility today. Discussed with cardiology for further recommendations on medication adjustments. Thoracolumbar spinal stenosis with myelopathy S/P surgery. Acute blood loss anemia postoperative. Hypomagnesemia. Type II CO. Appreciate cardiology input. Agree with physical exam, assessment and plan. Monitor volume status.Received IV Lasix. Continue to hold losartan on discharge. Needs follow-up with primary care physician upon discharge from rehab facility. I personally reviewed the record. Patient is interviewed and examined at bedside. Patient's care is coordinated with Katina Dunlap PA-C. Please refer to the documentation above for details of patient's presentation and for discussion of other issues. Subjective Patient seen and examined in room 220. Follow-up thoracolumbar surgery NSTEMI. Patient is doing well this morning and hoping to go to [facility]. She denies any further chest pain, fever, chills, sweats, lightheadedness, dizziness, nausea, vomiting, abdominal pain. She is passing gas and bowels are moving. Feels lower extremity swelling is much improved. Review of Systems Review of Systems: All systems reviewed & are unremarkable except as noted in HPI & below Physical Exam Physical Exam: Gen: WD/WN, elderly, female, sitting up in bed, NAD, A&O x3, HEENT: Normocephalic, atraumatic, conjunctivae moist, sclerae anicteric, mucous membranes moist. Lung: Clear to Auscultation bilaterally, no wheezes/rales/rhonchi Heart: Regular rate, regular rhythm, no murmurs, rubs, or gallops Abdomen: Soft, NT, ND +BS x 4 obese abdomen Extremities: Obese extremities, trace pretibial lower extremity edema, lumbar dressing CDI, Skin: Warm, no rash, negative turgor. Results & Data Results & Data Vital Signs (Past 12 Hours) Vital Signs Temp Pulse Pulse Resp BP BP Pulse Ox 06/27/22 09:48 62 06/27/22 07:38 36.9 C 66 18 112/65 92 06/27/22 03:41 36.6 C 73 17 146/68 H 93 06/26/22 23:00 75 06/26/22 22:53 36.8 C 70 15 115/65 94 O2 Del Method 06/27/22 09:48 06/27/22 07:38 Room Air 06/27/22 03:41 Room Air 06/26/22 23:00 06/26/22 22:53 Room Air Laboratory Results Short CBC 06/27/22 Range/Units 06:24 WBC 6.70 (4.8-10.8) K/ul Hgb 9.2 L (12.0-16.0) g/dl Hct 28.4 L (37.0-47.0) % Plt Count 222 (130-400) K/uL BMP 06/27/22 06:24 Sodium 138 Potassium 4.0 Chloride 104 Carbon Dioxide 29 BUN 16 Creatinine 0.76 Glucose 95 Calcium 8.0 L Medications Administered Current Inpatient Medications Acetaminophen (Acetaminophen 500 Mg Tab) 1,000 mg PO Q8H PRN PRN Reason: MILD Pain Scale 1,2,3 & Pre PT Stop: 07/21/22 13:44 Last Admin: 06/26/22 12:32 Dose: 1,000 mg Al Hydrox/Mg Hydrox/Simethicone (Aluminum/Magnesium Susp 30 Ml Udc) 30 ml PO Q6H PRN PRN Reason: Dyspepsia Stop: 07/21/22 13:44 Allopurinol (Allopurinol 100 Mg Tab) 200 mg PO QPM LETTY Stop: 07/18/22 20:59 Last Admin: 06/26/22 20:52 Dose: 200 mg Amlodipine Besylate (Amlodipine Besylate 5 Mg Tab) 2.5 mg PO QAM LETTY Stop: 07/26/22 09:59 Last Admin: 06/27/22 07:47 Dose: 2.5 mg Aspirin (Aspirin 81 Mg Ectab) 81 mg PO QAM [facility] Stop: 07/19/22 08:59 Last Admin: 06/27/22 07:47 Dose: 81 mg Atorvastatin Calcium (Atorvastatin 40 Mg Tab) 40 mg PO HS LETTY Stop: 07/18/22 20:59 Last Admin: 06/26/22 20:53 Dose: 40 mg Bisacodyl (Bisacodyl 10 Mg Supp) 10 mg TX DAILY PRN PRN Reason: Constipation Stop: 07/21/22 13:44 Last Admin: 06/24/22 15:29 Dose: 10 mg Dextrose (Dextrose 50% 50 Ml Syringe) 25 - 50 ml IV UD PRN; Protocol PRN Reason: Hypoglycemia Protocol Stop: 07/26/22 07:44 Diphenhydramine HCl (Diphenhydramine Capsule 25 Mg Cap) 25 mg PO Q6H PRN PRN Reason: Allergic Rhinitis/Insomnia Stop: 07/21/22 13:44 Last Admin: 06/21/22 21:00 Dose: 25 mg Famotidine (Famotidine 20 Mg Tab) 20 mg PO Q12H PRN PRN Reason: Dyspepsia Stop: 07/21/22 13:44 Furosemide (Furosemide 20 Mg Tab) 20 mg PO DAILY LETTY Stop: 07/27/22 09:29 Glucagon (Glucagon For Inj 1 Mg Vial) 1 mg IM UD PRN; Protocol PRN Reason: Hypoglycemia Protocol Stop: 07/26/22 07:44 Glucose (Glucose 40% Gel 15 Gm Tube) 15 - 30 gm PO UD PRN; Protocol PRN Reason: Hypoglycemia Protocol Stop: 07/26/22 07:44 Glucose (Glucose 10 Tab/Tube) 4 - 8 tab PO UD PRN; Protocol PRN Reason: Hypoglycemia Protocol Stop: 07/26/22 07:44 Hydroxyzine HCl (Hydroxyzine Hcl 25 Mg Tab) 25 mg PO Q8H PRN PRN Reason: Anxiety Stop: 07/21/22 13:44 Promethazine HCl 12.5 mg/ (Sodium Chloride) 50.5 mls @ 202 mls/hr IV Q6H PRN PRN Reason: Nausea &/or Vomiting Stop: 07/21/22 13:44 Last Infusion: 06/21/22 16:24 Dose: Infused Influenza Virus Vaccine Quadrival (Do Not Administer Flu Vaccine) 1 each N/A PRN PRN PRN Reason: Notification Stop: 07/21/22 13:44 Insulin Aspart (Insulin Aspart Per Unit Charge) 0 units SC ACHS [facility], [facility]; Protocol Stop: 07/22/22 07:29 Last Admin: 06/27/22 07:58 Dose: 3 units Insulin Glargine (Lantus Per Unit Charge) 0 units SC HS [facility], [facility]; Protocol Stop: 07/25/22 20:59 Last Admin: 06/26/22 20:50 Dose: 5 units Levothyroxine Sodium (Levothyroxine Sodium 125 Mcg Tablet) [facility] Stop: 07/19/22 06:29 Last Admin: 06/27/22 06:21 Dose: 125 mcg Lorazepam (Lorazepam 0.5 Mg Tab) 0.5 mg PO Q8H PRN PRN Reason: Sedation/Anxiety Stop: 07/21/22 13:44 Last Admin: 06/26/22 17:22 Dose: 0.5 mg Lorazepam (Lorazepam 2 Mg/1 Ml Vial) 0.5 mg IV Q8H PRN PRN Reason: Sedation/Anxiety Stop: 07/21/22 13:44 Losartan Potassium (Losartan Potassium 50 Mg Tab) 50 mg PO DAILY [facility] Stop: 07/19/22 08:59 Last Admin: 06/21/22 14:56 Dose: Not Given Magnesium Hydroxide (Magnesium Hydroxide Susp 30 Ml Udc) 30 ml PO Q24H PRN PRN Reason: Constipation Stop: 07/21/22 13:44 Last Admin: 06/22/22 12:52 Dose: 30 ml Metoclopramide HCl (Metoclopramide Hcl Inj 5 Mg/Ml 2 Ml Vial) 10 mg IV Q6H PRN PRN Reason: Nausea &/or Vomiting Stop: 07/21/22 13:44 Last Admin: 06/21/22 21:00 Dose: 10 mg Metoprolol Tartrate (Metoprolol Tartrate 50 Mg Tab) 50 mg PO BID [facility] Stop: 07/18/22 20:59 Last Admin: 06/27/22 07:47 Dose: 50 mg Miscellaneous (Carbohydrates For Hypoglycemia ) 15 - 30 gm PO UD PRN PRN Reason: Hypoglycemia Treatment Stop: 07/26/22 07:44 Last Admin: 06/26/22 07:25 Dose: 30 gm Miscellaneous Information (Pharmacy Glycemic Mgmt Consult) 1 each N/A UD PRN PRN Reason: Consult Stop: 07/18/22 17:05 Naloxone HCl (Naloxone Hcl 0.4 Mg/1 Ml Vial/Carp) 0.1 mg IV Q5M PRN PRN Reason: Oversedation/Resp depression Stop: 07/21/22 13:44 Nitroglycerin (Nitroglycerin Sl 0.4 Mg/Tab Tab) 0.4 mg SL UD PRN PRN Reason: Chest Pain Stop: 07/25/22 11:59 Ondansetron HCl (Ondansetron Inj 2 Mg/Ml 2 Ml Vial) 4 mg IV Q6H PRN PRN Reason: Nausea &/or Vomiting Stop: 07/21/22 13:44 Last Admin: 06/26/22 14:49 Dose: 4 mg Ondansetron HCl (Ondansetron 4 Mg Od Tab) 4 mg PO Q6H PRN PRN Reason: Nausea Stop: 07/21/22 13:44 Last Admin: 06/26/22 09:38 Dose: 4 mg Oxycodone HCl (Oxycodone Hcl Ir 5 Mg Tab (Immediate Release)) 2.5 mg PO Q4H PRN PRN Reason: Pain & Pre PT Stop: 07/05/22 13:44 Last Admin: 06/27/22 07:59 Dose: 2.5 mg Pantoprazole Sodium (Pantoprazole 40 Mg Tab) 40 mg PO BID [facility] Stop: 07/18/22 20:59 Last Admin: 06/27/22 07:47 Dose: 40 mg Pneumococcal Polyvalent Vaccine (Do Not Administer Pneumococcal Vaccine) 1 each N/A PRN PRN PRN Reason: Notification Stop: 07/21/22 13:44 Polyethylene Glycol (Polyethylene (Miralax) 17 Gm Pack) 17 gm PO BID LETTY Stop: 07/25/22 09:14 Last Admin: 06/27/22 07:48 Dose: 17 gm Potassium Chloride (Potassium Chloride 10 Meq Tabcr) 10 meq PO DAILY [facility] Stop: 07/27/22 09:29 Senna/Docusate Sodium (Docusate Sodium/Senna 50/8.6mg Tab) 2 tab PO HS LETTY Stop: 07/21/22 20:59 Last Admin: 06/26/22 21:05 Dose: 2 tab Trazodone HCl (Trazodone Hcl 50 Mg Tab) 25 mg PO HS LETTY Stop: 07/18/22 20:59 Last Admin: 06/26/22 21:06 Dose: 25 mg
--- NOTE | 2022-06-28 05:28 | Electrocardiogram Report ---
Test Reason : Blood Pressure : / mmHG Vent. Rate : 071 BPM Atrial Rate : 071 BPM P-R Int : 134 ms QRS Dur : 104 ms QT Int : 368 ms P-R-T Axes : 061 -08 168 degrees QTc Int : 399 ms Normal sinus rhythm T wave abnormality, consider anterior ischemia Abnormal ECG When compared with ECG of 26-JUN-2022 06:34, No significant change Confirmed by Carlos Enrique Butler ([id number]) on 06/28/2022 5:28:10 AM Referred By: REFERRED SELF Confirmed By:Carlos Enrique Butler
--- NOTE | 2022-06-28 10:42 | Discharge Summary ---
Date of Service June 28, 2022 Admission HPI Per Admitting Provider This is a 76-year-old female known to me the presents multiple status over the past several weeks. She is here today after a fall on Saturday and decreased ability to ambulate. Admission Exam (Per Admitting) Constitutional WD/WN, vitals as above Eyes normal visual hawth[place] by confrontation ENMT external ear and nose normal, oropharynx normal Neck normal visual inspection Respiratory normal respiratory effort Cardiovascular Extremities: normal capillary refill Gastrointestinal (Abdomen) Inspection/Auscultation: abdomen normal to inspection Musculoskeletal Spine: + limited thoraco-lumbar ROM Extremities: extremities normal to inspection Skin no rashes, warm and dry Neurologic normal touch/pain/proprioception and moves all extremities Psychiatric A+Ox3, euthymic affect Eye Contact: good eye contact Specialty Data Cardiology Cardiology was consulted on 06/25/2022 for chest pain. Labs were ordered. Troponin was slightly elevated. No changes to medications were ordered. She was moved to the telemetry floor for observation. Discharge Data Consultations 06/18/22 12:12 ED Decision to Admit Stat 06/18/22 17:06 Consult Internal Medicine Routine 06/25/22 10:31 Consult Cardiology Routine Procedures Performed Operation Date: 06/21/22 08:15 Actual Procedures p T12-L3 Decompression Fusion, L3-L4 Hardware Removal(Not Applicable) - Benoit Taveras DO Hospital Course (1) Status post lumbar spine surgery for decompression of spinal cord: Carie was admitted through the ER to Dr. Taveras's service for thoracic stenosis. She underwent a multilevel lumbar thoracolumbar decompression and fusion by Dr. Taveras. Postoperatively she had a very slow recovery. To participate in physical therapy. On she had some chest pain that was self- limiting. Cardiology was consulted. Labs were ordered. This was deemed stable. She was transferred to the telemetry unit for observation. She is subsequently on 06/27 was discharged to [facility] for rehab.
--- NOTE | 2022-06-29 10:58 | Coding Query ---
CODING QUERY To promote full compliance with coding requirements relating to patient care, provider participation is requested in all cases of associate director data & analytics uncertainty. Please assist us with the question(s) below: Coding Question(s): Pt status post spinal fusion . Documentation 06/26 Hospitalist note stated Type 2 HI . Also NSTEMI 2/2 demand ischemia. Cardiology note 06/26 stated demand ischemia in setting of postop anemia. Seeking to clarify the post surgery demand ischemia . Please check below the diagnosis that was suspected/monitored/treated. Thanks for your help. Aubrey Gomez [facility] Physician's Response(s): Patient was treated /monitored for Demand Ischemia , present after admission x Patient was treated/ monitored for Type II HI Demand Ischemia Other: Please document: Principal Diagnosis: "that condition established after study, to be chiefly responsible for occasioning the admission of the patient to the hospital for care." Co-Existing Principal Diagnosis: "when two or more diagnoses equally meet the criteria for principal diagnosis as determined by the circumstances of admission, diagnostic work up, and/or therapy provided, and the Alphabetic Index, Tabular List, or another coding guideline does not provide sequencing direction, any one of the diagnoses may be sequenced first." "When the physician has documented what appears to be a current diagnosis in the body of the record, but has not included the diagnosis in the final diagnostic statement, the physician should be asked whether the diagnosis should be added." (Source Coding [facility] 2 QTR90. p3-4) ADAMD
== END 2022-06-27 13:04 | DRG 453 ==
LOC: ED 09:04 → 3W 12:18 → 2S 06-25 11:05

== ENCOUNTER 2022-07-03 21:05 | Inpatient (IN) ==
[2022-07-03] MEDS ORDERED: PANTOprazole 40 MG in SYRINGE 0 ML IV ONE (21:50)
[2022-07-03 22:11] LABS: Basophils # (auto) 0.04 K/uL (0-0.2); Basophils % (auto) 0.3 %; Eosinophils # (auto) 0.19 K/uL (0-0.50); Eosinophils % (auto) 1.6 %; Hematocrit (blood only) 31.7 % (37.0-47.0); Hemoglobin 10.4 g/dl (12.0-16.0); Immature Granulocytes # (auto) 0.23 K/uL (0.01-0.20); Lymphocytes % (auto) 16.3 %; Mean Corpuscular Hgb Conc 32.8 g/dL (32.0-36.0); Mean Corpuscular Volume 88.3 fL (80.0-100.0); Mean Platelet Volume 11.2 fL (9.4-12.4); Monocytes # (auto) 0.71 K/uL (0.11-0.59); Monocytes % (auto) 6.1 %; Neutrophils # (auto) 8.57 K/uL (1.40-6.50); Neutrophils % (auto) 73.7 %; Platelet Count 380 K/uL (130-400); RDW Coefficient of Variation 13.6 % (11.5-14.5); Red Blood Count 3.59 M/uL (4.20-5.40); White Blood Count 11.64 K/ul (4.8-10.8)
[2022-07-03 22:21] LABS: Albumin Globulin Ratio 1.1 (0.9-2); Albumin Level 3.4 gm/dl (3.4-5.0); BUN Creatinine Ratio 15.8 (10-20); Bilirubin,Total 0.5 mg/dl (0.2-1.0); Calcium 9.1 mg/dl (8.6-10.3); Creatinine Clr Calc Pharmacy 49.6 ml/min; Est GFR (African American) 61.7 ml/min; Est GFR (Non-African American) 53.3 ml/min; Total Protein 6.4 gm/dl (6.0-8.3)
[2022-07-03] MEDS ORDERED: SODIUM CHLORIDE 0.9% 500 ML IV ONE (22:59)
[2022-07-03] MEDS ORDERED: KETOROLAC 30 MG/ML VIAL IV ONE (23:04)
[2022-07-03] MEDS ORDERED: OPTIRAY 320 100ml IV ONE (23:41)
[2022-07-03] MEDS ORDERED: NITROGLYCERIN SL 0.4 MG/TAB TAB ONE ×2 (23:47→23:59)
--- NOTE | 2022-07-03 23:55 | CT Scan Report ---
Exam(s): CT ABDOMEN + PELVIS With Contrast IV Amt: 86 ml optiray 320 EXAM: CT Abdomen and Pelvis With Intravenous Contrast CLINICAL HISTORY: Reason for exam: eval epigastric pain. TECHNIQUE: Axial computed tomography images of the abdomen and pelvis with intravenous contrast. CTDI is 20.72 mGy and DLP is 1042.09 mGy-cm. Automated exposure control was utilized for the study. A dose lowering technique was utilized adhering to the principles of ALARA. CONTRAST: Patient received 86 ml optiray 320 of IV contrast COMPARISON: No relevant prior studies available. FINDINGS: Lung bases: Unremarkable. No mass. No consolidation. Mediastinum: Small hiatal hernia. ABDOMEN: Liver: Unremarkable. No mass. Gallbladder and bile ducts: Cholecystectomy. No ductal dilation. Pancreas: Unremarkable. No mass. No ductal dilation. Spleen: Mild splenomegaly measuring up to 13.4 cm. Adrenals: Unremarkable. No mass. Kidneys and ureters: Unremarkable. No solid mass. No hydronephrosis. Stomach and bowel: Diverticulosis, without acute diverticulitis. No small bowel obstruction. No free air. Mild fecal retention, correlate with constipation. No small bowel obstruction. PELVIS: Appendix: Suspected appendectomy. Bladder: Decompressed urinary bladder. Reproductive: Unremarkable as visualized. ABDOMEN and PELVIS: Intraperitoneal space: See above. Bones/joints: Posterior thoracolumbar fusion at multiple levels including L4 and L5 laminectomy/posterior decompression. Degenerative changes of the spine. No dislocation. Soft tissues: Unremarkable. Vasculature: Atherosclerotic changes of the aorta. No abdominal aortic aneurysm. Lymph nodes: Unremarkable. No enlarged lymph nodes. IMPRESSION: 1. Diverticulosis, without acute diverticulitis. No small bowel obstruction. No free air. 2. Small hiatal hernia. 3. Cholecystectomy. 4. Mild splenomegaly measuring up to 13.4 cm. 5. Mild fecal retention, correlate with constipation. No small bowel obstruction. 6. Suspected appendectomy. Electronically signed by: Cyril Alonso MD 07/03/22 23:54 PM
[2022-07-04] MEDS ORDERED: NITROGLYCERIN 2% OINTMENT 30GM TUBE EXT ONE (00:07)
[2022-07-04 00:12] LABS: Troponin I High Sensitivity 12.7 pg/ml (0-14)
--- NOTE | 2022-07-04 00:41 | Emergency Department Note ---
Impression & Plan Abdominal pain, acute, epigastric, Chest pain due to myocardial ischemia Admit to the [facility] ED Provider Note NAME: SARITHA LIN AGE: 76 SEX: F ARRIVES VIA: Ambulance INFORMANT: Patient and her granddaughter ED PROVIDER(S): Chata Seaman DO CHIEF COMPLAINT: Epigastric abdominal pain PLAN: Disposition: Admit to the [facility] Condition: Guarded MEDICAL DECISION MAKING: This is a 76-year-old female patient presents to the emergency department with epigastric abdominal pain from [facility]. The patient underwent decompression of the lumbar spine with Dr. Taveras 2 weeks ago. She has been rehabbing at [facility] since that time. Over the past 24 hours she developed epigastric abdominal pain along with right and left upper quadrant p ain for which she has been taking Tylenol and OxyContin. On presentation to the ER, the patient had reproducible discomfort with palpation in the epigastrium. She was given a dose of Protonix with no relief of her discomfort. She went on to receive a dose of Toradol which gave her some mild relief to her pain. She went for CT scan of the abdomen/pelvis. Upon returning from radiology, the heather ent developed some substernal chest discomfort, pallor and diaphoresis. A repeat EKG was done at that time which showed diffuse ischemic changes. Patient's chest pain subsided with sublingual nitroglycerin. Troponin was negative. I reviewed the cardiology notes from [facility]. I discussed the case with the [facility] and they will evaluate for further management. Other laboratory studies revealed a white blood cell count 11.6, hemoglobin was elevated at 10.4 up from 9.2 during her recent admission. Glucose was 181. Patient remained hemodynamically stable while here in the emergency department. Overall, the epigastric discomfort felt improved but the patient will require a much more significant work-up of the chest discomfort and ischemic changes noted on EKG. Triage Nursing notes reviewed and agree with them. Additional history obtained from the granddaughter is at the bedside External medical records were reviewed including cardiology notes from the most recent admission to the hospital for her spinal surgery. The patient did have an episode of chest discomfort at rest at that time for which she was evaluated by cardiology. Vital Signs: reviewed and remarkable for tachycardia Differential diagnosis: Pancreatitis, ulcerative disease, gastritis, cardiac ischemia, aortic dissection ER treatment provided: Cardiac monitoring Twelve-lead EKG IV Protonix IV Toradol Sublingual nitroglycerin Nitroglycerin paste Diagnostics independently interpreted by me: ECG: EKG 1-normal sinus rhythm at a rate of [address] segment elevation or signs of ischemia. There is no ectopy. EKG #2-sinus tachycardia at a rate of 103. There is marked ST depression in leads II, aVF, V2, V3, V4, V5, V6. There is T wave inversions in lead I and aVL. This is significantly concerning for cardiac ischemia. EKG #3-there is some improvement in the ischemic changes as the T wave inversions in 1 and aVL have resolved and the dramatic ST segment depression in the anterior and lateral leads have decreased. Cardiac Monitoring: Normal sinus rhythm at a rate of 92. Laboratory studies: See below Imaging studies: As per stat rad CT scan of the abdomen/pelvis: See radiology report HPI: 76/F arrives for evaluation of epigastric abdominal pain. Patient underwent lumbar decompression with Dr. Taveras 2 weeks ago. She has been recovering/rehabbing at [facility]. Over the past 24 hours, the patient has developed epigastric abdominal pain that seems to wrap around both upper quadrants of her abdomen. She was transported here by EMS for evaluation. PAST MEDICAL HISTORY:See Below PAST SURGICAL HISTORY:See Below FAMILY HISTORY:See Below SOCIAL HISTORY:See Below HOME MEDICATIONS:See list ALLERGIES:See list VITALS:See Below PHYSICAL EXAMINATION: HEENT: Head - normocephalic and atraumatic Pupils are equal, round, and reactive to light. Extraocular eye muscles are intact, and sclera are anicteric. Nose - moist nasal mucosa without discharge. Mouth - moist buccal mucosa. Oropharynx is nonerythematous and there is no tonsillar exudate or edema noted. Neck: Supple; no JVD or cervical lymphadenopathy Heart: Regular rate and rhythm. There is a normal S1 and S2 with no murmurs, clicks, or gallops appreciated. Lungs: Clear to auscultation bilaterally with no wheezes, rales, or rhonchi. Abdomen: Soft, exquisitely tender to palpation in the epigastrium,, nondistended, with good bowel sounds. There are no palpable pulsatile masses or hepatosplenomegaly. There is no guarding, rigidity, or rebound noted. Extremities: No evidence of cyanosis, clubbing, or edema. There are easily palpable peripheral pulses. Skin: Pale, warm and dry with good turgor and no rashes. ED COURSE: Times/Reassessments: 2129: Patient was evaluated in room B4. A complete history and physical was performed. An order was placed for continuous cardiac monitoring. Patient was in a normal sinus rhythm at a rate of 92. A twelve- lead EKG was obtained. An IV lock was initiated and labs were drawn as above. Patient was given a dose of IV Protonix. Upon repeat evaluation, the patient was still having moderate discomfort and was given a dose of IV Toradol. She went for CT scan of the abdomen/pelvis. Upon returning from radiology, she began to complain of discomfort in her chest. A repeat twelve-lead EKG was obtained. I reevaluated the patient at this time and she was given a dose of sublingual nitroglycerin for the substernal chest discomfort she was experiencing. Second IV lock was initiated. A second sublingual nitroglycerin was given and the patient's pain came down from a 10 to a 5 to a 2. A third EKG was obtained. I discussed the case with the [facility] and they will evaluate for further management. Chata Seaman DO Past Med/Surg History Medical History Arthritis CAD (coronary artery disease) CABG (2011) 09/19/20 catheterization done after positive stress test showed patent SHANE to LAD and SVG-OM graft, SVG graft to RCA was occluded and RCA territory was supplied by collaterals from left, Chronic back pain Claustrophobia severe Diabetes mellitus, type 2 IDDM GERD (gastroesophageal reflux disease) controlled History of anemia No known blood transfusions History of COVID-19 PHx 2020 - headache only at the time. History of gastric ulcer 2019 Hx of gout Hyperlipidemia 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 Hypothyroidism Left knee DJD Macular degeneration Morbid obesity Motion sickness Nausea and vomiting after administration of anesthetic agent Spinal stenosis Stroke ~2019 -> treated at [facility] -> left eye blindness and gastric ulcers at the time. follows with PCP. Surgical History H/O partial thyroidectomy Benign lump removal History of appendectomy History of breast biopsy x3 History of cardiac cath 09/19/20 > no stents History of cataract surgery R/L History of cholecystectomy History of colonoscopy History of coronary artery bypass graft CABG (2011) x2 vessels. follows with [facility] History of esophagogastroduodenoscopy (EGD) History of hysterectomy History of lumbar surgery x2 (+ hardware) History of tooth extraction History of total knee replacement Right Family History Brother Family history of diabetes mellitus Sister Family history of diabetes mellitus Mother Family history of diabetes mellitus Father Family history of diabetes mellitus Other No family history of adverse response to anesthesia Social History Smoking Status: Never smoker Second Hand Exposure: No; Do You Dip or Chew Tobacco: No; Hx Alcohol Use: No Hx Substance Use: No Preferred Language: Taiwanese Communication Ability: Effective Baked And Graphite Inspector Required: No Beliefs That Will Affect Care: None Current Living Situation: Alone Feels Safe at Home: Yes Assistive Devices: Scooter/Electric Scooter and Walker Allergies Allergies Allergy/AdvReac Type Severity Reaction Status Date / Time latex Allergy Intermediate skin Verified 07/03/22 23:00 irritation and peels skin off prednisone AdvReac Severe STROKE Verified 07/03/22 23:00 meclizine AdvReac Mild Severe N&V Verified 07/03/22 23:00 tetracycline AdvReac Mild Severe N&V Verified 07/03/22 23:00 tramadol AdvReac Blurry Verified 07/03/22 23:00 Vision [facility] Allergy Intermediate Severe Uncoded 07/03/22 23:00 N&V, increased heart rate, "skipped beats" Home Meds Home Medications Medication Instructions Recorded Confirmed acetaminophen 500 mg tablet 1,000 mg PO Q8 07/03/22 07/03/22 (Tylenol Extra Strength) allopurinol 100 mg tablet 200 mg PO DAILY 07/03/22 07/03/22 amlodipine 2.5 mg tablet 2.5 mg PO DAILY 07/03/22 07/03/22 aspirin 81 mg tablet,delayed 81 mg PO DAILY 07/03/22 07/03/22 release atorvastatin 40 mg tablet 40 mg PO QAM 07/03/22 07/03/22 baclofen 5 mg tablet 5 mg PO TID PRN Pain 07/03/22 07/03/22 docusate sodium 100 mg capsule 100 mg PO BID 07/03/22 07/03/22 furosemide 20 mg tablet (Lasix) 20 mg PO DAILY 07/03/22 07/03/22 insulin aspart U-100 100 unit/mL 7 unit subcut TIDWMEAL 07/03/22 07/03/22 subcutaneous solution insulin glargine 100 unit/mL 18 unit subcut HS 07/03/22 07/03/22 subcutaneous solution (Lantus U-100 Insulin) levothyroxine 125 mcg tablet 125 mcg PO DAILY 07/03/22 07/03/22 lidocaine 5 % topical patch 1 patch topical DAILY 07/03/22 07/03/22 losartan 50 mg tablet 50 mg PO DAILY 07/03/22 07/03/22 metoprolol tartrate 50 mg tablet 50 mg PO Q12 07/03/22 07/03/22 ondansetron HCl 4 mg tablet 4 mg PO Q4 PRN nausea/vomiting 07/03/22 07/03/22 oxycodone 5 mg tablet 5 mg PO Q4 PRN .pain 4-6 07/03/22 07/03/22 oxycodone 5 mg tablet 10 mg PO Q4 PRN .pain 7-10 07/03/22 07/03/22 pantoprazole 40 mg tablet,delayed 40 mg PO BID 07/03/22 07/03/22 release polyethylene glycol 3350 17 gram 17 g PO DAILY PRN Constipation 07/03/22 07/03/22 oral powder packet (Miralax) potassium chloride 10 mEq 10 meq PO DAILY 07/03/22 07/03/22 tablet,extended release sennosides 8.6 mg-docusate sodium 2 tab-cap PO HS 07/03/22 07/03/22 50 mg tablet (Senna with Docusate Sodium) sennosides 8.6 mg-docusate sodium 1 tab-cap PO .QLUNCH PRN 07/03/22 07/03/22 50 mg tablet (Senokot-S) Constipation trazodone 50 mg tablet 25 mg PO HS 07/03/22 07/03/22 Results & Data (ED) Vital Signs Vital Signs - 24 hr 07/03/22 21:24 07/03/22 21:52 07/03/22 21:35 Temperature 36.5 C Temperature Source Oral Pulse Rate 84 84 96 H Pulse Rate [Apical] Respiratory Rate 18 Blood Pressure 130/76 Blood Pressure [Right Arm] Blood Pressure Mean 94 Blood Pressure Mean [Right Arm] Blood Pressure Position Lying Blood Pressure Position [Right Arm] Pulse Oximetry 97 98 Oxygen Delivery Method Room Air Room Air Sepsis Recent Fever Within 48 Hours No Sepsis New/Unexplained Change in Mental Status N/A Sepsis Action Taken by Nursing No Action Required 07/03/22 23:48 07/04/22 00:02 07/04/22 00:15 Temperature Temperature Source Pulse Rate Pulse Rate [Apical] 104 H 109 H Respiratory Rate 24 20 Blood Pressure Blood Pressure [Right Arm] 139/84 121/66 121/63 Blood Pressure Mean Blood Pressure Mean [Right Arm] 102 84 82 Blood Pressure Position Blood Pressure Position [Right Arm] Sitting Pulse Oximetry 97 Oxygen Delivery Method Sepsis Recent Fever Within 48 Hours Sepsis New/Unexplained Change in Mental Status Sepsis Action Taken by Nursing Laboratory Data 07/03/22 21:18 07/03/22 21:18 Lab Results 07/03/22 07/03/22 Range/Units 21:18 21:18 WBC 11.64 H (4.8-10.8) K/ul RBC 3.59 L (4.20-5.40) M/uL Hgb 10.4 L (12.0-16.0) g/dl Hct 31.7 L (37.0-47.0) % MCV 88.3 (80.0-100.0) fL MCH 29.0 (25.0-34.0) pg MCHC 32.8 (32.0-36.0) g/dL RDW Std Deviation 44.0 (36.4-46.3) fL RDW Coeff of Jeri 13.6 (11.5-14.5) % Plt Count 380 (130-400) K/uL MPV 11.2 (9.4-12.4) fL Immature Gran % (Auto) 2.0 % Neut % (Auto) 73.7 % Lymph % (Auto) 16.3 % [place] % (Auto) 6.1 % Eos % (Auto) 1.6 % Baso % (Auto) 0.3 % Neut # (Auto) 8.57 H (1.40-6.50) K/uL Lymph # (Auto) 1.90 (1.2-3.4) K/uL [place] # (Auto) 0.71 H (0.11-0.59) K/uL Eos # (Auto) 0.19 (0-0.50) K/uL Baso # (Auto) 0.04 (0-0.2) K/uL Immature Gran # (Auto) 0.23 H (0.01-0.20) K/uL Sodium 136 (136-145) mmol/L Potassium 4.0 (3.5-5.1) mmol/L Chloride 99 (98-107) mmol/L Carbon Dioxide 28 (21-32) mmol/L Anion Gap 9 (3-11) BUN 16 (6-23) mg/dl Creatinine 1.01 (0.6-1.2) mg/dl Est Cr Clr Drug Dosing 49.6 ml/min Est GFR ( Amer) 61.7 ml/min Est GFR (Non-Af Amer) 53.3 ml/min BUN/Creatinine Ratio 15.8 (10-20) Glucose 181 H (70-99(Fasting)) mg/dl Calcium 9.1 (8.6-10.3) mg/dl Total Bilirubin 0.5 (0.2-1.0) mg/dl AST 27 (13-39) U/L ALT 20 (7-52) U/L Alkaline Phosphatase 126 H (34-104) U/L Troponin I High Sens 12.7 (0-14) pg/ml Total Protein 6.4 (6.0-8.3) gm/dl Albumin 3.4 (3.4-5.0) gm/dl Globulin 3.0 (2.5-4.0) gm/dl Albumin/Globulin Ratio 1.1 (0.9-2) Lipase 14 (11-82) U/L Administered Medications Discontinued Medications Pantoprazole Sodium 40 mg/ (Syringe) 10 mls @ 5 mls/min IV NOW ONE Stop: 07/03/22 21:51 Last Admin: 07/03/22 22:45 Dose: 5 mls/min Documented By: MINA Sodium Chloride (Nss) 500 mls @ 999 mls/hr IV .Q31M ONE Stop: 07/03/22 23:29 Last Infusion: 07/03/22 23:46 Dose: 0 mls/hr Documented By: Admin: 07/03/22 23:08 Dose: 999 mls/hr Documented By: MINA Ioversol (Optiray 320 100ml) 100 ml IV ONCE ONE Stop: 07/03/22 23:42 Last Admin: 07/03/22 23:41 Dose: 86 ml Documented By: BEA Ketorolac Tromethamine (Ketorolac 30 Mg/Ml Vial) 30 mg IV NOW ONE Stop: 07/03/22 23:05 Last Admin: 07/03/22 23:08 Dose: 30 mg Documented By: MINA Nitroglycerin (Nitroglycerin Sl 0.4 Mg/Tab Tab) Confirm Administered Dose 0.4 mg .ROUTE .STK-MED ONE Stop: 07/03/22 23:48 Last Admin: 07/03/22 23:50 Dose: 0.4 mg Documented By: BARRERA Nitroglycerin (Nitroglycerin Sl 0.4 Mg/Tab Tab) Confirm Administered Dose 0.4 mg .ROUTE .STK-MED ONE Stop: 07/04/22 00:00 Last Admin: 07/03/22 23:59 Dose: 0.4 mg Documented By: MINA Nitroglycerin (Nitroglycerin 2% Ointment 30gm Tube) 0.5 inch EXT NOW ONE Stop: 07/04/22 00:08 Last Admin: 07/04/22 00:16 Dose: 0.5 inch Documented By: MINA Imaging Data Radiologist's Impression: Abdomen/Pelvis CT 07/03/22 23:06 Exam(s): CT ABDOMEN + PELVIS With Contrast IV Amt: 86 ml optiray 320 EXAM: CT Abdomen and Pelvis With Intravenous Contrast CLINICAL HISTORY: Reason for exam: eval epigastric pain. TECHNIQUE: Axial computed tomography images of the abdomen and pelvis with intravenous contrast. CTDI is 20.72 mGy and DLP is 1042.09 mGy-cm. Automated exposure control was utilized for the study. A dose lowering technique was utilized adhering to the principles of ALARA. CONTRAST: Patient received 86 ml optiray 320 of IV contrast COMPARISON: No relevant prior studies available. FINDINGS: Lung bases: Unremarkable. No mass. No consolidation. Mediastinum: Small hiatal hernia. ABDOMEN: Liver: Unremarkable. No mass. Gallbladder and bile ducts: Cholecystectomy. No ductal dilation. Pancreas: Unremarkable. No mass. No ductal dilation. Spleen: Mild splenomegaly measuring up to 13.4 cm. Adrenals: Unremarkable. No mass. Kidneys and ureters: Unremarkable. No solid mass. No hydronephrosis. Stomach and bowel: Diverticulosis, without acute diverticulitis. No small bowel obstruction. No free air. Mild fecal retention, correlate with constipation. No small bowel obstruction. PELVIS: Appendix: Suspected appendectomy. Bladder: Decompressed urinary bladder. Reproductive: Unremarkable as visualized. ABDOMEN and PELVIS: Intraperitoneal space: See above. Bones/joints: Posterior thoracolumbar fusion at multiple levels including L4 and L5 laminectomy/posterior decompression. Degenerative changes of the spine. No dislocation. Soft tissues: Unremarkable. Vasculature: Atherosclerotic changes of the aorta. No abdominal aortic aneurysm. Lymph nodes: Unremarkable. No enlarged lymph nodes. IMPRESSION: 1. Diverticulosis, without acute diverticulitis. No small bowel obstruction. No free air. 2. Small hiatal hernia. 3. Cholecystectomy. 4. Mild splenomegaly measuring up to 13.4 cm. 5. Mild fecal retention, correlate with constipation. No small bowel obstruction. 6. Suspected appendectomy. Electronically signed by: Cyril Alonso MD 07/03/22 23:54 PM Discharge Plan Visit Data Chief Complaint: Abdominal Pain Stated Complaint: UPPER GASTRIC PAIN ED Provider: Chata Seaman Discharge Problem: Abdominal pain, acute, epigastric, Chest pain due to myocardial ischemia Forms Stand Alone Forms: [employer] Prescriptions Prescriptions: No Action losartan 50 mg tablet 50 mg PO DAILY atorvastatin 40 mg tablet 40 mg PO QAM insulin glargine [Lantus U-100 Insulin] 100 unit/mL solution 18 unit SUBCUT HS trazodone 50 mg tablet 25 mg PO HS polyethylene glycol 3350 [Miralax] 17 gram Powder In Packet 17 g PO DAILY PRN (Reason: Constipation) ondansetron HCl 4 mg Tablet 4 mg PO Q4 PRN (Reason: nausea/vomiting) sennosides-docusate sodium [Senokot-S] 8.6-50 mg Tablet 1 tab-cap PO .QLUNCH PRN (Reason: Constipation) sennosides-docusate sodium [Senna with Docusate Sodium] 8.6-50 mg Tablet 2 tab-cap PO HS amlodipine 2.5 mg tablet 2.5 mg PO DAILY potassium chloride 10 mEq Tablet Extended Release 10 meq PO DAILY allopurinol 100 mg Tablet 200 mg PO DAILY aspirin [Aspir-Low] 81 mg Tablet,Delayed Release (Dr/Ec) 81 mg PO DAILY acetaminophen [Tylenol Extra Strength] 500 mg Tablet 1,000 mg PO Q8 insulin aspart U-100 100 unit/mL Solution 7 unit SUBCUT TIDWMEAL pantoprazole 40 mg Tablet,Delayed Release (Dr/Ec) 40 mg PO BID lidocaine 5 % Adhesive Patch,Medicated 1 patch TOPICAL DAILY Rx Instructions: leave on most painful area for up to 12 hrs metoprolol tartrate 50 mg tablet 50 mg PO Q12 docusate sodium 100 mg Capsule 100 mg PO BID furosemide [Lasix] 20 mg Tablet 20 mg PO DAILY oxycodone 5 mg tablet 10 mg PO Q4 PRN (Reason: .pain 7-10) oxycodone 5 mg tablet 5 mg PO Q4 PRN (Reason: .pain 4-6) baclofen 5 mg Tablet 5 mg PO TID PRN (Reason: Pain) levothyroxine 125 mcg tablet 125 mcg PO DAILY Referrals Referrals: Chaitanya Fernandez MD [Primary Care Provider] - Chest pain due to myocardial ischemia Qualifiers: Ischemic chest pain type: unstable angina pectoris Qualified Code(s): I20.0 - Unstable angina
[2022-07-04] MEDS ORDERED: diphenhydrAMINE HCL 25 MG/10 ML UDC PO ONE (02:39)
[2022-07-04] MEDS ORDERED: diphenhydrAMINE HCL 25 MG/10 ML UDC ONE (02:41)
[2022-07-04] MEDS ORDERED: MoRPHine SULFATE 4 MG/ML 1 ML CARP\\VIAL IV PRN (04:07)
[2022-07-04] MEDS ORDERED: GLUCOSE 40% GEL 15 GM TUBE PO PRN (04:07)
[2022-07-04] MEDS ORDERED: GLUCAGON FOR INJ 1 MG VIAL SQ PRN (04:07)
[2022-07-04] MEDS ORDERED: GLUCOSE 10 TAB/TUBE PO PRN (04:07)
[2022-07-04] MEDS ORDERED: CARBOHYDRATES FOR HYPOGLYCEMIA PO PRN (04:07)
[2022-07-04] MEDS ORDERED: BACLOFEN 10 MG TAB PO PRN (04:07)
[2022-07-04] MEDS ORDERED: DEXTROSE 50% 50 ML SYRINGE IV PRN (04:07)
[2022-07-04] MEDS ORDERED: PHARMACY GLYCEMIC MGMT CONSULT PRN (04:07)
[2022-07-04] MEDS ORDERED: NITROGLYCERIN SL 0.4 MG/TAB TAB SL PRN (04:07)
[2022-07-04] MEDS ORDERED: POLYETHYLENE (MIRALAX) 17 GM PACK PO PRN (04:07)
[2022-07-04] MEDS ORDERED: ACETAMINOPHEN 325 MG TAB PO PRN (04:07)
[2022-07-04] MEDS: ACETAMINOPHEN 500 MG TAB PO SCH ×3 (05:30→20:39)
[2022-07-04] MEDS: LEVOTHYROXINE SODIUM 125 MCG TABLET PO SCH (05:33)
[2022-07-04] MEDS: INSULIN ASPART PER UNIT CHARGE SC SCH ×4 (05:37→20:39)
[2022-07-04] MEDS ORDERED: ENOXAPARIN INJ 40 MG/0.4 ML SYR SQ SCH (06:00)
[2022-07-04] MEDS ORDERED: NITROGLYCERIN 2% OINTMENT 30GM TUBE EXT SCH (06:00)
[2022-07-04 06:01] LABS: Basophils # (auto) 0.02 K/uL (0-0.2); Basophils % (auto) 0.2 %; Eosinophils # (auto) 0.12 K/uL (0-0.50); Eosinophils % (auto) 1.3 %; Hematocrit (blood only) 29.2 % (37.0-47.0); Hemoglobin 9.4 g/dl (12.0-16.0); Immature Granulocytes # (auto) 0.05 K/uL (0.01-0.20); Immature Granulocytes % (auto) 0.5 %; Lymphocytes # (auto) 1.42 K/uL (1.2-3.4); Mean Corpuscular Hemoglobin 28.8 pg (25.0-34.0); Mean Corpuscular Hgb Conc 32.2 g/dL (32.0-36.0); Mean Corpuscular Volume 89.6 fL (80.0-100.0); Mean Platelet Volume 10.7 fL (9.4-12.4); Monocytes # (auto) 0.49 K/uL (0.11-0.59); Monocytes % (auto) 5.2 %; Neutrophils # (auto) 7.39 K/uL (1.40-6.50); Neutrophils % (auto) 77.8 %; Platelet Count 338 K/uL (130-400); RDW Coefficient of Variation 13.8 % (11.5-14.5); RDW Standard Deviation 45.1 fL (36.4-46.3); Red Blood Count 3.26 M/uL (4.20-5.40); White Blood Count 9.49 K/ul (4.8-10.8)
[2022-07-04 06:05] LABS: BUN Creatinine Ratio 17.9 (10-20); Calcium 8.9 mg/dl (8.6-10.3); Creatinine Clr Calc Pharmacy 59.1 ml/min; Est GFR (African American) 77.2 ml/min; Est GFR (Non-African American) 66.6 ml/min; Magnesium 1.5 mg/dl (1.7-2.4); Potassium 4.2 mmol/L (3.5-5.1)
--- NOTE | 2022-07-04 06:40 | History and Physical Report ---
DATE OF ADMISSION: 07/04/2022. CHIEF COMPLAINT: Abdominal pain and chest pain. HISTORY OF PRESENT ILLNESS: This is a 76-year-old female with past medical history significant for multivessel coronary artery disease, status post CABG in 2011, hypertension, hyperlipidemia, diabetes, hypothyroidism, GERD, who presents with abdominal pain. The patient recently had a back surgery in the first week of June and was discharged to [facility]. During the last admission, she had an episode of chest pain at rest. Seen by cardiology. At that time, troponin peaked up to 1400 and trended down. Echo showed preserved LV systolic function with small basal lateral wall motion abnormality. The event felt to be from demand ischemia from post op, , volume overload, and grief reaction of her 's . At that time, volume overload improved with IV Lasix. Medical management was recommended and she was discharged to [facility], seems to be on 06/28/2022. The patient says she is ambulating with a walker. Since yesterday, she is having significant abdominal tenderness in the epigastric region. She has a history of gastric ulcers with the use of steroids 5 years ago for her knee. She was worried about ulcers and came to the hospital; with IV Protonix it did not improve much, with the Toradol it seemed to improve. She is also having constipation because of the pain medications, but says she had some bowel movement at the rehab. While she went for CAT scan of abdomen and pelvis, she developed chest pain, severe in nature, was diaphoretic, nauseous. She was very short of breath during the episode. With Nitro the pain resolved. Currently asymptomatic. Currently, the pain is completely resolved. Denies any fevers. No cough. Appetite is poor. No difficulty swallowing. Denies any headache. No dizziness, no blurred visions, no runny nose, no sore throat, no cough. Denies any blood in the stools. Normal bladder movements. Currently, resting comfortably and hemodynamically stable. ALLERGIES: LATEX, PREDNISONE, MECLIZINE, TETRACYCLINE, TRAMADOL, OPIATE AGONIST. PAST MEDICAL HISTORY: As mentioned above. PAST SURGICAL HISTORY: Back surgery, CABG, partial thyroidectomy, benign ,history of appendectomy, history of breast biopsy x3, history of cardiac catheterization, no stents, history of cataract surgery, history of cholecystectomy, colonoscopy, EGD, hysterectomy, lumbar surgery x2, history of tooth extraction, history of right total knee replacement. MEDICATIONS: The patient seems to be on Tylenol Extra Strength 1000 mg p.o. every 8 hours, allopurinol 200 mg p.o. daily, amlodipine 2.5 mg p.o. daily, aspirin 81 mg p.o. daily, atorvastatin 40 mg p.o. daily, baclofen 5 mg p.o. daily, Colace 100 mg p.o. b.i.d., Lasix 20 mg p.o. daily, insulin 7 units subcutaneous with meals, Lantus 8 units subcutaneous at bedtime, levothyroxine 125 mcg p.o. daily, lidocaine 1 patch topical daily, losartan 50 mg p.o. daily, metoprolol tartrate 50 mg p.o. b.i.d., Zofran 4 mg p.o. every 4 hours p.r.n., oxycodone 10 mg p.o. every 4 hours p.r.n. for severe pain, oxycodone 5 mg p.o. every 4 hours p.r.n. for moderate pain, Protonix 40 mg p.o. b.i.d., MiraLax 17 g p.o. daily p.r.n., potassium chloride 20 mEq p.o. daily, Senokot S two tablets p.o. at bedtime, Senokot S one tablet p.r.n., trazodone 25 mg p.o. at bedtime. FAMILY HISTORY: Significant for mother has diabetes, father has diabetes. SOCIAL HISTORY: No smoking. No alcohol use. No substance abuse. Living currently at [facility]. REVIEW OF SYSTEMS: As per HPI. Rest of review of systems is negative. PHYSICAL EXAMINATION: GENERAL: The patient is of moderate build, not in acute distress. VITAL SIGNS: Temperature 36.5, pulse 91, respiratory rate 18, blood pressure 108/56, oxygen 98% on 2 liters. HEENT: Pupils equal, round and reactive to light. Oral mucosa moist. NECK: No JVD. No neck masses. CARDIOVASCULAR: S1 and S2 heard. Regular rate and rhythm. No murmur, no gallop. RESPIRATORY SYSTEM: Normal AP diameter. No accessory muscle use. No wheezing, no crackles. ABDOMEN: Soft, bowel sounds present. Tenderness in the epigastric region. No guarding, no distention. CENTRAL NERVOUS SYSTEM: Cranial nerves II-XII grossly intact, nonfocal. EXTREMITIES: No erythema. Lower extremity pedal edema present. LABORATORY DATA: WBC 11.6, hemoglobin 10.4, hematocrit 31.7, platelets 380. Sodium 136, potassium 4, chloride 99, CO2 of 28, BUN 16, creatinine 1.01, serum glucose 181, calcium 9.1, total bilirubin 0.5, AST 27, ALT 20, alkaline phosphatase 126. Troponin I high sensitivity 12.7, repeat 13.1. Lipase 14. SARS-CoV-2 rapid test pending. IMAGING DATA: CT abdomen and pelvis with IV contrast, diverticulosis without acute diverticulitis. No small-bowel obstruction, no free air, cholecystectomy, mild splenomegaly, measuring up to 13.4 cm, mild fecal retention, suspected appendectomy. EKG: First EKG shows normal sinus rhythm, rate of 90. Some mild ST depressions in the inferior and lateral leads. Repeat EKG shows sinus tachycardia at a rate of 103. Marked ST depressions in inferior and anterolateral leads. Repeat EKG again done later after some time, EKG #3, shows sinus tachycardia at a rate of 107 [address] PAC[address] with improving ST depressions in the inferior and lateral leads. ASSESSMENT AND PLAN: This is a 76-year-old female who presents with abdominal pain and also has some chest pain. 1. Chest pain: Has EKG changes with ST depressions in anterolateral leads. Resolved with nitro. On nitro paste. Currently asymptomatic. Her troponin initially was 12.7 and repeat after a couple of hours is 13.1. She had a similar episode last admission, thought to be postoperative. At that time, troponins were elevated. The patient has history of coronary artery disease and coronary artery bypass grafting in 2011. Will continue nitro paste. Follow serial enzymes. Will repeat echo. Monitor in the tele. Keep her n.p.o. Consult cardiology in the a.m. Continue her cardiac medications of aspirin, high-dose statin, and beta soni. Closely monitor in the tele floor. 2. Epigastric abdominal pain: Tenderness on palpitation. History of gastric ulcer in the past. Will continue with home Protonix, Pepcid b.i.d. If not improving, consult GI. 3. Diabetes: Currently n.p.o. To cut back on insulin Lantus as currently npo. Start on sliding scale. Glycemic pharmacy consult. 4. Recent back surgery pain: Continue her home pain medications. 5. Constipation: Continue bowel regimen. 6. Hyperlipidemia: Continue statin. 7. 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: Continue amlodipine, losartan, metoprolol. Currently on nitro paste. Will monitor the blood pressure. 8. Gout: On allopurinol. 9. Lower extremity edema since the surgery: On Lasix. Which will be continued. Follow the echocardiogram. 10. Anemia: Hemoglobin 10.4, it was 9.2 at discharge. Will follow the repeat labs. 11. Hypothyroidism: On Synthroid. 12. Deep venous thrombosis prophylaxis: Currently on iv heparin Addendum: Am troponin increased to 70. patient seems asymptomatic. Staring on iv low dose heparin and follow repeat ekgs.. Await cardiac inputs DISPOSITION: Closely monitor in the tele floor. Level 1 full code. PT/OT prior to discharge. Social service to help with discharge planning. Job ID: [id number] MTDD
[2022-07-04 06:42] LABS: Troponin I High Sensitivity 79.2 pg/ml (0-14)
--- NOTE | 2022-07-04 06:43 | XRay Report ---
XR chest 1V portable HISTORY: 76 years-old Female sob acute shortness of breath COMPARISON: 06/18/2022 TECHNIQUE: AP view of the chest FINDINGS: Cardiac silhouette is enlarged prior median sternotomy with CABG. Dense calcifications of the mitral annulus. Right hilar nodular focus measuring 2.3 cm again noted likely secondary to pulmonary vascula ture. Pulmonary vascular congestion. No pneumothorax. Trace pleural effusions with blunting of the co stophrenic angles. Left shoulder rotator cuff calcific tendinosis. Degenerative changes of the should ers and spine. IMPRESSION: 1. Cardiomegaly with pulmonary vascular congestion. 2. Mild bibasilar atelectasis. ACT 112: Negative or not required by law. The above report was generated using voice recognition software. It may contain grammatical, syntax o r spelling errors. Electronically signed by: Cruzito Jeff M.D. 07/04/2022 6:41 AM
[2022-07-04] MEDS ORDERED: Heparin IV Adult Wt-Based Low-Dose *NO* Bolus Protocol IV SCH (06:54)
[2022-07-04] MEDS ORDERED: bisacodyL 10 MG SUPP PR ONE (07:30)
[2022-07-04 07:56] LABS: Estimated Average Glucose 151 mg/dl; Hemoglobin A1C 6.9 % (4.5-5.6)
[2022-07-04] MEDS: HEPARIN SODIUM/DEXTROSE 25,000 UNITS/500 ML BAG IV SCH (08:12)
--- NOTE | 2022-07-04 08:50 | Hospitalist Progress Note ---
Date of Service July 04, 2022 Assessment & Plan (1) Epigastric pain: Plan: Acute onset epigastric pain since yesterday. h/o PUD. No change in BMs or other GI symptoms such as vomiting are present. Cont Protonix 40mg BID and Pepcid also added. Maalox PRN pain. (2) Demand ischemia: Plan: Known h/o CAD and cardiology has evaluated her this morning. Clinical picture is less concerning for ACS at this time. Trop trend is likely related to elevated HR and BP on arrival in setting of post-operative anemia and other known chronic diseases. Continues on a heparin drip for now and cardiology pl anning to optimize medical therapy. (3) CAD (coronary artery disease): Plan: chronic, plan as above. (4) Diabetes mellitus, type 2: Plan: chronic, at goal. Cont basal bolus insulin while admitted. (5) Postoperative anemia: Plan: chronic, around her baseline. No overt blood loss. (6) HTN (hypertension): Plan: chronic, around goal with slight elevation this am. Cont current medical therapy including amlodipine, Lasix and losartan. Nitro topical added by cardiology. DVT prophylaxis: heparin drip Full Code Dispo-uncertain, pending PT/OT recommendations Nery Castillo DO [facility] Hospitalist Admission and Anticipated Discharge Date Admission Date: July 04, 2022 Subjective 76 yo F with h/o CABG in 2011 and a h/o peptic ulcer disease presented with epigastric abdominal pain. She was asleep when I walked in today and appears comfortable She reports ongoing epigastric pain that stretches across her anterior chest under her breasts bilaterally She denies any changes with her discomfort with respect to food-doesn't make the pain worse or better She felt like this with stomach ulcers in the past Reports 3 BMs since yesterday that are normal and denies blood per rectum Dynamic EKG changes overnight with DT dep in anterolateral leads echo this am with small wall motion abnormality seen HS trop trended 13, 79, 178 She was placed on heparin Reports that PPI and Pepcid have not helped her discomfort. Review of Systems Review of Systems: All systems were reviewed and negative except as indicated on HPI above., Physical Exam Physical Exam: CONSTITUTIONAL: WNWD, vitals as above, generally well-appearing, NAD EYES: normal conjunctivae, no scleral icterus ENT: external ear and nose normal, oropharynx clear, MMM NECK: trachea midline RESPIRATORY: clear to auscultation bilaterally, no crackles, rales or wheezes, normal respiratory effort CARDIOVASCULAR: regular rate and rhythm, S1 and 2 heard without murmurs, gallops or rubs, no JVD, no peripheral edema GASTROINTESTINAL: normal bowel sounds, soft, nontender,ND, no guarding MUSCULOSKELETAL: strength 5/5 throughout, head is normocephalic and atraumatic SKIN: warm and dry, posterior vertical incision closed and healing well. Lidocaine patch in place. NEUROLOGIC: CN 2-12 grossly intact, no sensory deficit, normal cognition, normal speech, no tremor PSYCHIATRIC: alert cooperative and oriented to person, place and time. Euthymic mood, makes good eye contact, language grossly intact, recent and remote memory grossly intact. Results & Data Results & Data Vital Signs (Past 12 Hours) Vital Signs Temp Pulse Pulse Resp BP BP Pulse Ox 07/04/22 07:54 36.8 C 114 H 18 159/75 H 97 07/04/22 04:22 115 H 07/04/22 04:00 36.4 C L 105 H 20 164/78 H 97 07/04/22 04:04 90 22 07/04/22 03:45 93 H 16 98 07/04/22 03:45 123/61 07/04/22 03:30 92 H 17 98 07/04/22 03:30 93/53 L 07/04/22 04:00 07/04/22 03:15 92 H 17 98 07/04/22 03:15 129/66 07/04/22 03:00 76 17 96 07/04/22 03:00 127/65 07/04/22 02:45 94 H 20 97 07/04/22 02:45 126/66 07/04/22 02:30 99 H 22 97 07/04/22 02:30 141/71 H 07/04/22 02:15 107 H 20 97 07/04/22 02:15 140/72 07/04/22 02:00 99 H 15 98 07/04/22 02:00 108/62 07/04/22 01:45 88 18 99 07/04/22 01:45 96/59 L 07/04/22 01:30 88 17 99 07/04/22 01:30 97/54 L 07/04/22 01:15 97 H 6 L 98 07/04/22 01:15 104/58 L 07/04/22 01:00 96 H 18 98 07/04/22 01:00 118/61 07/04/22 00:45 110 H 19 99 07/04/22 00:45 132/85 07/04/22 00:30 99 H 20 99 07/04/22 00:30 120/90 07/04/22 00:15 102 H 9 L 98 07/04/22 00:15 121/63 07/04/22 00:00 112 H 22 97 07/03/22 23:59 121/66 07/03/22 23:59 104 H 21 97 07/03/22 23:57 111/61 07/03/22 23:57 103 H 19 97 07/03/22 23:51 135/66 07/03/22 23:51 101 H 14 07/03/22 23:45 108 H 21 07/03/22 23:45 139/84 07/03/22 23:44 98 07/03/22 23:15 83 18 91 07/03/22 23:00 83 20 95 07/03/22 23:00 144/71 H 07/03/22 22:45 93 H 18 98 07/03/22 22:30 94 H 19 98 07/03/22 22:30 158/67 H 07/03/22 22:28 159/57 H 07/03/22 22:28 91 H 19 99 07/03/22 22:15 95 H 23 98 07/03/22 22:00 91 H 23 96 07/03/22 21:45 95 H 24 99 07/03/22 21:30 88 15 98 07/03/22 21:27 130/76 07/03/22 21:27 84 17 97 07/04/22 03:00 88 18 127/65 98 07/04/22 01:36 91 H 18 108/56 L 98 07/04/22 00:15 121/63 07/04/22 00:02 109 H 20 121/66 97 07/03/22 23:48 104 H 24 139/84 07/03/22 21:35 96 H 07/03/22 21:52 84 98 07/03/22 21:24 36.5 C 84 18 130/76 97 O2 Del Method O2 Flow Rate 07/04/22 07:54 Room Air 07/04/22 04:22 07/04/22 04:00 Nasal Cannula 2 07/04/22 04:04 07/04/22 03:45 2 07/04/22 03:45 07/04/22 03:30 2 07/04/22 03:30 07/04/22 04:00 Room Air 07/04/22 03:15 07/04/22 03:15 07/04/22 03:00 07/04/22 03:00 07/04/22 02:45 07/04/22 02:45 07/04/22 02:30 07/04/22 02:30 07/04/22 02:15 07/04/22 02:15 07/04/22 02:00 07/04/22 02:00 07/04/22 01:45 07/04/22 01:45 07/04/22 01:30 07/04/22 01:30 07/04/22 01:15 07/04/22 01:15 07/04/22 01:00 07/04/22 01:00 07/04/22 00:45 07/04/22 00:45 07/04/22 00:30 07/04/22 00:30 07/04/22 00:15 07/04/22 00:15 07/04/22 00:00 07/03/22 23:59 07/03/22 23:59 07/03/22 23:57 07/03/22 23:57 07/03/22 23:51 07/03/22 23:51 07/03/22 23:45 07/03/22 23:45 07/03/22 23:44 07/03/22 23:15 Nasal Cannula 2 07/03/22 23:00 07/03/22 23:00 07/03/22 22:45 07/03/22 22:30 07/03/22 22:30 07/03/22 22:28 07/03/22 22:28 07/03/22 22:15 07/03/22 22:00 07/03/22 21:45 07/03/22 21:30 07/03/22 21:27 07/03/22 21:27 07/04/22 03:00 Nasal Cannula 2 07/04/22 01:36 Nasal Cannula 2 07/04/22 00:15 07/04/22 00:02 07/03/22 23:48 07/03/22 21:35 07/03/22 21:52 Room Air 07/03/22 21:24 Room Air Laboratory Results Short CBC 07/03/22 07/04/22 Range/Units 21:18 05:28 WBC 11.64 H 9.49 (4.8-10.8) K/ul Hgb 10.4 L 9.4 L (12.0-16.0) g/dl Hct 31.7 L 29.2 L (37.0-47.0) % Plt Count 380 338 (130-400) K/uL BMP 07/03/22 07/04/22 21:18 05:28 Sodium 136 136 Potassium 4.0 4.2 Chloride 99 102 Carbon Dioxide 28 25 BUN 16 15 Creatinine 1.01 0.84 Glucose 181 H 225 H Calcium 9.1 8.9 Liver Function 07/03/22 Range/Units 21:18 Total Bilirubin 0.5 (0.2-1.0) mg/dl AST 27 (13-39) U/L ALT 20 (7-52) U/L Alkaline Phosphatase 126 H (34-104) U/L Albumin 3.4 (3.4-5.0) gm/dl Diagnostic Findings Abdomen/Pelvis CT 07/03/22 23:06 Exam(s): CT ABDOMEN + PELVIS With Contrast IV Amt: 86 ml optiray 320 EXAM: CT Abdomen and Pelvis With Intravenous Contrast CLINICAL HISTORY: Reason for exam: eval epigastric pain. TECHNIQUE: Axial computed tomography images of the abdomen and pelvis with intravenous contrast. CTDI is 20.72 mGy and DLP is 1042.09 mGy-cm. Automated exposure control was utilized for the study. A dose lowering technique was utilized adhering to the principles of ALARA. CONTRAST: Patient received 86 ml optiray 320 of IV contrast COMPARISON: No relevant prior studies available. FINDINGS: Lung bases: Unremarkable. No mass. No consolidation. Mediastinum: Small hiatal hernia. ABDOMEN: Liver: Unremarkable. No mass. Gallbladder and bile ducts: Cholecystectomy. No ductal dilation. Pancreas: Unremarkable. No mass. No ductal dilation. Spleen: Mild splenomegaly measuring up to 13.4 cm. Adrenals: Unremarkable. No mass. Kidneys and ureters: Unremarkable. No solid mass. No hydronephrosis. Stomach and bowel: Diverticulosis, without acute diverticulitis. No small bowel obstruction. No free air. Mild fecal retention, correlate with constipation. No small bowel obstruction. PELVIS: Appendix: Suspected appendectomy. Bladder: Decompressed urinary bladder. Reproductive: Unremarkable as visualized. ABDOMEN and PELVIS: Intraperitoneal space: See above. Bones/joints: Posterior thoracolumbar fusion at multiple levels including L4 and L5 laminectomy/posterior decompression. Degenerative changes of the spine. No dislocation. Soft tissues: Unremarkable. Vasculature: Atherosclerotic changes of the aorta. No abdominal aortic aneurysm. Lymph nodes: Unremarkable. No enlarged lymph nodes. IMPRESSION: 1. Diverticulosis, without acute diverticulitis. No small bowel obstruction. No free air. 2. Small hiatal hernia. 3. Cholecystectomy. 4. Mild splenomegaly measuring up to 13.4 cm. 5. Mild fecal retention, correlate with constipation. No small bowel obstruction. 6. Suspected appendectomy. Electronically signed by: Cyril Alonso MD 07/03/22 23:54 PM Chest X-Ray 07/04/22 04:07 XR chest 1V portable HISTORY: 76 years-old Female sob acute shortness of breath COMPARISON: 06/18/2022 TECHNIQUE: AP view of the chest FINDINGS: Cardiac silhouette is enlarged prior median sternotomy with CABG. Dense calcifications of the mitral annulus. Right hilar nodular focus measuring 2.3 cm again noted likely secondary to pulmonary vasculature. Pulmonary vascular congestion. No pneumothorax. Trace pleural effusions with blunting of the costophrenic angles. Left shoulder rotator cuff calcific tendinosis. Degenerative changes of the shoulders and spine. IMPRESSION: 1. Cardiomegaly with pulmonary vascular congestion. 2. Mild bibasilar atelectasis. ACT 112: Negative or not required by law. The above report was generated using voice recognition software. It may contain grammatical, syntax or spelling errors. Electronically signed by: Cruzito Jeff M.D. 07/04/2022 6:41 AM Medications Administered Current Inpatient Medications Acetaminophen (Acetaminophen 325 Mg Tab) 650 mg PO Q4H PRN PRN Reason: Pain or Fever Stop: 08/03/22 04:06 Last Admin: 07/04/22 07:50 Dose: 650 mg Acetaminophen (Acetaminophen 500 Mg Tab) 1,000 mg PO Q8 LETTY Stop: 06/16/23 05:59 Last Admin: 07/04/22 05:30 Dose: 1,000 mg Allopurinol (Allopurinol 100 Mg Tab) 200 mg PO DAILY LETTY Stop: 08/03/22 08:59 Amlodipine Besylate (Amlodipine Besylate 5 Mg Tab) 2.5 mg PO DAILY LETTY Stop: 08/03/22 08:59 Aspirin (Aspirin 81 Mg Ectab) 81 mg PO DAILY LETTY Stop: 08/03/22 08:59 Atorvastatin Calcium (Atorvastatin 40 Mg Tab) 40 mg PO QAM LETTY Stop: 08/03/22 08:59 Baclofen (Baclofen 10 Mg Tab) 5 mg PO TID PRN PRN Reason: Pain Stop: 08/03/22 04:06 Dextrose (Dextrose 50% 50 Ml Syringe) 25 - 50 ml IV UD PRN; Protocol PRN Reason: Hypoglycemia Protocol Stop: 08/03/22 04:06 Docusate Sodium (Docusate Sodium 100 Mg Cap) 100 mg PO BID LETTY Stop: 08/03/22 08:59 Furosemide (Furosemide 20 Mg Tab) 20 mg PO DAILY LETTY Stop: 08/03/22 08:59 Glucagon (Glucagon For Inj 1 Mg Vial) 1 mg SQ UD PRN; Protocol PRN Reason: Hypoglycemia Protocol Stop: 08/03/22 04:06 Glucose (Glucose 10 Tab/Tube) 4 - 8 tab PO UD PRN; Protocol PRN Reason: Hypoglycemia Treatment Stop: 08/03/22 04:06 Glucose (Glucose 40% Gel 15 Gm Tube) 15 - 30 gm PO UD PRN; Protocol PRN Reason: Hypoglycemia Protocol Stop: 08/03/22 04:06 Famotidine 20 mg/ Syringe 5 mls @ 2.5 mls/min IV Q12 LETTY Stop: 08/03/22 08:59 Heparin Sodium/Dextrose (Heparin Sodium/Dextrose) 25,000 units in 500 mls @ 16 mls/hr IV .Q24H LETTY; Protocol Stop: 08/03/22 06:59 Last Admin: 07/04/22 08:12 Dose: 800 units/hr, 16 mls/hr Insulin Aspart (Insulin Aspart Per Unit Charge) 0 units SC Q6H LETTY Stop: 08/03/22 05:59 Last Admin: 07/04/22 05:37 Dose: 4 units Insulin Glargine (Lantus Per Unit Charge) 10 units SQ HS [facility] Stop: 08/03/22 20:59 Levothyroxine Sodium (Levothyroxine Sodium 125 Mcg Tablet) 125 mcg PO DAILYBB [facility] Stop: 08/03/22 06:29 Last Admin: 07/04/22 05:33 Dose: 125 mcg Lidocaine (Lidocaine 5% 1 Patch) 1 patch TD DAILY [facility] Stop: 08/03/22 08:59 Losartan Potassium (Losartan Potassium 50 Mg Tab) 50 mg PO DAILY [facility] Stop: 08/03/22 08:59 Metoprolol Tartrate (Metoprolol Tartrate 50 Mg Tab) 50 mg PO Q12 [facility] Stop: 08/03/22 08:59 Miscellaneous (Remove Lidoderm Patch) 1 each N/A DAILY@2100 [facility] Stop: 08/03/22 20:59 Miscellaneous (Carbohydrates For Hypoglycemia ) 15 - 30 gm PO UD PRN PRN Reason: Hypoglycemia Protocol Stop: 08/03/22 04:06 Miscellaneous Information (Pharmacy Glycemic Mgmt Consult) 1 each N/A UD PRN PRN Reason: Consult Stop: 08/03/22 04:06 Morphine Sulfate (Morphine Sulfate 4 Mg/Ml 1 Ml Carp\Vial) 3 mg IV Q4H PRN PRN Reason: Severe Pain (Scale 7, 8, 9,10) Stop: 07/18/22 04:06 Nitroglycerin (Nitroglycerin Sl 0.4 Mg/Tab Tab) 0.4 mg SL Q5M PRN PRN Reason: Chest Pain Stop: 08/03/22 04:06 Nitroglycerin (Nitroglycerin 2% Ointment 30gm Tube) 0.5 inch EXT Q6H [facility] Stop: 08/03/22 05:59 Last Admin: 07/04/22 05:40 Dose: 0.5 inch Oxycodone HCl (Oxycodone Hcl Ir 5 Mg Tab (Immediate Release)) 5 mg PO Q4 PRN PRN Reason: .pain 4-6 Stop: 07/18/22 04:06 Pantoprazole Sodium (Pantoprazole 40 Mg Tab) 40 mg PO BID [facility] Stop: 08/03/22 08:59 Polyethylene Glycol (Polyethylene (Miralax) 17 Gm Pack) 17 gm PO DAILY PRN PRN Reason: Constipation Stop: 08/03/22 04:06 Potassium Chloride (Potassium Chloride 10 Meq Tabcr) 10 meq PO DAILY [facility] Stop: 08/03/22 08:59 Senna/Docusate Sodium (Docusate Sodium/Senna 50/8.6mg Tab) 2 tab PO HS LETTY Stop: 08/03/22 20:59 Trazodone HCl (Trazodone Hcl 50 Mg Tab) 25 mg PO HS LETTY Stop: 08/03/22 20:59
[2022-07-04] MEDS ORDERED: METOPROLOL TARTRATE 50 MG TAB PO SCH (09:00)
[2022-07-04] MEDS: POTASSIUM CHLORIDE 10 MEQ TABCR PO SCH (09:12)
[2022-07-04] MEDS: DOCUSATE SODIUM 100 MG CAP PO SCH ×2 (09:12→20:39)
[2022-07-04] MEDS: allopurinoL 100 MG TAB PO SCH (09:13)
[2022-07-04] MEDS: ASPIRIN 81 MG ECTAB PO SCH (09:13)
[2022-07-04] MEDS: PANTOprazole 40 MG TAB PO SCH ×2 (09:13→20:39)
[2022-07-04] MEDS: ATORVASTATIN 40 MG TAB PO SCH (09:13)
[2022-07-04] MEDS: FUROSEMIDE 20 MG TAB PO SCH (09:13)
[2022-07-04] MEDS: LOSARTAN POTASSIUM 50 MG TAB PO SCH (09:13)
[2022-07-04] MEDS: LIDOCAINE 5% 1 PATCH TD SCH (09:13)
[2022-07-04] MEDS: amLODIPine BESYLATE 5 MG TAB PO SCH (09:14)
[2022-07-04] MEDS: FAMOTIDINE 20 MG in SYRINGE 3 ML IV SCH ×2 (09:14→20:39)
--- NOTE | 2022-07-04 10:15 | Electrocardiogram Report ---
Test Reason : Blood Pressure : / mmHG Vent. Rate : 090 BPM Atrial Rate : 090 BPM P-R Int : 146 ms QRS Dur : 094 ms QT Int : 376 ms P-R-T Axes : 080 -24 155 degrees QTc Int : 459 ms Normal sinus rhythm Abnormal ECG When compared with ECG of 27-JUN-2022 06:08, ST now depressed in Inferior leads ST now depressed in Lateral leads QT has lengthened Confirmed by Reddy Henry ([id number]) on 07/04/2022 10:15:14 AM Referred By: REFERRED SELF Confirmed By:Dangelo Henry
--- NOTE | 2022-07-04 10:16 | Electrocardiogram Report ---
Test Reason : Blood Pressure : / mmHG Vent. Rate : 103 BPM Atrial Rate : 103 BPM P-R Int : 148 ms QRS Dur : 100 ms QT Int : 296 ms P-R-T Axes : 083 -26 192 degrees QTc Int : 387 ms Sinus tachycardia with sinus arrhythmia Marked ST abnormality, possible inferior subendocardial injury Marked ST abnormality, possible anterolateral subendocardial injury Abnormal ECG When compared with ECG of 03-JUL-2022 21:10, (unconfirmed) ST more depressed Inferior leads ST more depressed Anterolateral leads T wave inversion now evident in Inferior leads T wave inversion more evident in Anterolateral leads QT has shortened Confirmed by Reddy Henry ([id number]) on 07/04/2022 10:16:12 AM Referred By: REFERRED SELF Confirmed By:Dangelo Henry
--- NOTE | 2022-07-04 10:25 | Electrocardiogram Report ---
Test Reason : Blood Pressure : / mmHG Vent. Rate : 107 BPM Atrial Rate : 107 BPM P-R Int : 142 ms QRS Dur : 092 ms QT Int : 378 ms P-R-T Axes : 049 -33 124 degrees QTc Int : 504 ms Sinus tachycardia with Premature atrial complexes with Aberrant conduction Possible Left atrial enlargement Left axis deviation Marked ST abnormality, possible lateral subendocardial injury Abnormal ECG Confirmed by Reddy Henry ([id number] on 07/04/2022 10:24:51 AM Referred By: REFERRED SELF Confirmed By:Dangelo Henry
[2022-07-04] MEDS ORDERED: ALUMINUM/MAGNESIUM SUSP 30 ML UDC PO PRN (11:52)
[2022-07-04] MEDS ORDERED: METOPROLOL TARTRATE 25 MG TAB PO ONE (11:52)
--- NOTE | 2022-07-04 12:10 | Cardiology Consultation ---
Date of Consultation July 04, 2022 Assessment & Plan (1) Demand ischemia: (2) Multi-vessel coronary artery stenosis: (3) Status post aorto-coronary artery bypass graft: (4) Epigastric pain: Plan Patient is a 76-year-old female with known severe fixed ischemic heart disease with last cardiac catheterization demonstrating complete proximal occlusion of all [place] vessels including left main, patent SHANE graft and saphenous vein graft in 2020 performed after stress testing demonstrated large area of reversible ischemia. No targets amenable for intervention and patient managed on medical therapy. Patient had recent exacerbation of myocardial ischemia and angina post op surgic al intervention She presents now with epigastric and abdominal pain. Transient ischemia noted in the ER in association with chest pain and dynamic EKG changes secondary to acute demand issues including severe pain, hypertension, tachycardia and anemia Patient appropriately anticoagulated with heparin with no overt bleeding. Troponins mildly elevated as expected Echocardiogram not appreciably changed from prior study with elevated heart rate during exam We will increase cardiac medications with goals reducing myocardial demand issues. Will increase beta-soni with additional dose of metoprolol tartrate today. Increase topical nitrates currently. Plan continue IV heparin 24 to 48 hours if no bleeding issues develop Follow blood counts closely with low threshold for transfusion given ischemic heart disease History of Present Illness Reason for Consultation: Chest pain, abnormal EKG, non-ST elevation myocardial infarction Requesting Physician: Dr. Castillo Attending Physician: Nery Castillo, DO History of Present Illness Patient is a 76-year-old female with recent hospitalization for surgery and subsequent cardiac consultation postoperatively for dynamic EKG changes. Her underlying concerns include Multivessel coronary artery disease Status post CABG x2 in 2011. Diagnostic cardiac catheterization on April 08, 2019 revealed severe [place] coronary disease with widely patent SHANE to the LAD and SVG to OM2 grafts. The RCA appeared chronically occluded in the distal RCA was supplied via left to right collaterals via the SVG-OM2. Coronary angiography last performed on September 19, 2020 revealed severe chronic [place] coronary artery disease with 2 of 2 bypass grafts patent. Left to right collaterals observed to the chronically occluded RCA. Overall, no changes in her coronary or bypass graft anatomy were noted to account for her symptoms at that time. Continued optimal medical therapy recommended. 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 In the course of evaluation in the emergency room last evening while walking from imaging developed chest pain as well with significant ST depression in inferolateral leads. Patient currently comfortable other than moderate abdominal discomfort chest pain symptoms have resolved. Prior history of known angina but no recent congestive heart failure tachypalpitations syncope or near syncope. No overt bleeding issues current complaints gnawing pain mid epigastric area No fevers chills Still with persistent back pain low back with surgical incisions intact without drainage per patient Has been participating in physical therapy Allergies Allergy/AdvReac Type Severity Reaction Status Date / Time latex Allergy Intermediate skin Verified 07/03/22 23:00 irritation and peels skin off prednisone AdvReac Severe STROKE Verified 07/03/22 23:00 fentanyl AdvReac Intermediate "opiate Verified 07/04/22 02:49 agonists cause severe N&V, increased heart rate, "sk hydromorphone AdvReac Intermediate "opiate Verified 07/04/22 02:49 agonists cause severe N&V, increased heart rate, "sk methadone AdvReac Intermediate "opiate Verified 07/04/22 02:49 agonists cause severe N&V, increased heart rate, "sk morphine AdvReac Intermediate "opiate Verified 07/04/22 02:49 agonists cause severe N&V, increased heart rate, "sk oxycodone AdvReac Intermediate "opiate Verified 07/04/22 02:49 agonists cause severe N&V, increased heart rate, "sk meclizine AdvReac Mild Severe N&V Verified 07/03/22 23:00 tetracycline AdvReac Mild Severe N&V Verified 07/03/22 23:00 tramadol AdvReac Blurry Verified 07/03/22 23:00 Vision Home Medications Medication Instructions Recorded Confirmed Type acetaminophen 500 mg tablet 1,000 mg PO Q8 07/03/22 07/03/22 History (Tylenol Extra Strength) allopurinol 100 mg tablet 200 mg PO DAILY 07/03/22 07/03/22 History amlodipine 2.5 mg tablet 2.5 mg PO DAILY 07/03/22 07/03/22 History aspirin 81 mg tablet,delayed 81 mg PO DAILY 07/03/22 07/03/22 History release atorvastatin 40 mg tablet 40 mg PO QAM 07/03/22 07/03/22 History baclofen 5 mg tablet 5 mg PO TID PRN Pain 07/03/22 07/03/22 History docusate sodium 100 mg capsule 100 mg PO BID 07/03/22 07/03/22 History furosemide 20 mg tablet (Lasix) 20 mg PO DAILY 07/03/22 07/03/22 History insulin aspart U-100 100 unit/mL 7 unit subcut TIDWMEAL 07/03/22 07/03/22 History subcutaneous solution insulin glargine 100 unit/mL 18 unit subcut HS 07/03/22 07/03/22 History subcutaneous solution (Lantus U-100 Insulin) levothyroxine 125 mcg tablet 125 mcg PO DAILY 07/03/22 07/03/22 History lidocaine 5 % topical patch 1 patch topical DAILY 07/03/22 07/03/22 History losartan 50 mg tablet 50 mg PO DAILY 07/03/22 07/03/22 History metoprolol tartrate 50 mg tablet 50 mg PO Q12 07/03/22 07/03/22 History ondansetron HCl 4 mg tablet 4 mg PO Q4 PRN nausea/vomiting 07/03/22 07/03/22 History oxycodone 5 mg tablet 5 mg PO Q4 PRN .pain 4-6 07/03/22 07/03/22 History oxycodone 5 mg tablet 10 mg PO Q4 PRN .pain 7-10 07/03/22 07/03/22 History pantoprazole 40 mg tablet,delayed 40 mg PO BID 07/03/22 07/03/22 History release polyethylene glycol 3350 17 gram 17 g PO DAILY PRN Constipation 07/03/22 07/03/22 History oral powder packet (Miralax) potassium chloride 10 mEq 10 meq PO DAILY 07/03/22 07/03/22 History tablet,extended release sennosides 8.6 mg-docusate sodium 2 tab-cap PO HS 07/03/22 07/03/22 History 50 mg tablet (Senna with Docusate Sodium) sennosides 8.6 mg-docusate sodium 1 tab-cap PO .QLUNCH PRN 07/03/22 07/03/22 History 50 mg tablet (Senokot-S) Constipation trazodone 50 mg tablet 25 mg PO HS 07/03/22 07/03/22 History Patient History Medical History Arthritis CAD (coronary artery disease) CABG (2011) 09/19/20 catheterization done after positive stress test showed patent SHANE to LAD and SVG-OM graft, SVG graft to RCA was occluded and RCA territory was supplied by collaterals from left, Chronic back pain Claustrophobia severe Diabetes mellitus, type 2 IDDM GERD (gastroesophageal reflux disease) controlled History of anemia No known blood transfusions History of COVID-19 PHx 2020 - headache only at the time. History of gastric ulcer 2019 Hx of gout Hyperlipidemia 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 Hypothyroidism Left knee DJD Macular degeneration Morbid obesity Motion sickness Nausea and vomiting after administration of anesthetic agent Spinal stenosis Stroke ~2018 -> treated at [facility] -> left eye blindness and gastric ulcers at the time. follows with PCP. Surgical History H/O partial thyroidectomy Benign lump removal History of appendectomy History of breast biopsy x3 History of cardiac cath 09/19/20 > no stents History of cataract surgery R/L History of cholecystectomy History of colonoscopy History of coronary artery bypass graft CABG (2011) x2 vessels. follows with [facility] Cardiology History of esophagogastroduodenoscopy (EGD) History of hysterectomy History of lumbar surgery x2 (+ hardware) History of tooth extraction History of total knee replacement Right Family History Brother Family history of diabetes mellitus Sister Family history of diabetes mellitus Mother Family history of diabetes mellitus Father Family history of diabetes mellitus Other No family history of adverse response to anesthesia Social History Smoking Status: Never smoker Second Hand Exposure: No; Do You Dip or Chew Tobacco: No; Hx Alcohol Use: No Hx Substance Use: No Preferred Language: Tajik Communication Ability: Effective Remote Sensing Technician Required: No Beliefs That Will Affect Care: None Current Living Situation: Alone Other Information That Helps Us Care for You: No Feels Safe at Home: Yes Safety Concerns: Feels Safe At This Time Assistive Devices: Stair Lift, Walker and Wheelchair Review of Systems Review of Systems: All systems reviewed & are unremarkable except as noted in HPI & below Physical Exam Constitutional: + obese; no acute distress Eyes: PERRL, conjunctivae normal, anicteric sclerae ENMT: external ear and nose normal, oropharynx normal Neck: trachea midline, no thyromegaly Respiratory: normal respiratory effort, lungs clear to auscultation Cardiovascular: Vessels: no JVD and no femoral bruit Extremities: no edema Gastrointestinal (Abdomen): Inspection/Auscultation: + abdomen distended Percussion/Palpation: abdomen soft Musculoskeletal: Incision over lower back healing without drainage Results & Data Vital Signs (Past 12 Hours) Vital Signs Temp Pulse Pulse Resp BP BP Pulse Ox 07/04/22 12:00 36.7 C 81 18 140/82 95 07/04/22 09:00 79 07/04/22 07:54 36.8 C 114 H 18 159/75 H 97 07/04/22 04:22 115 H 07/04/22 04:00 36.4 C L 105 H 20 164/78 H 97 07/04/22 04:04 90 22 07/04/22 03:45 93 H 16 98 07/04/22 03:45 123/61 07/04/22 03:30 92 H 17 98 07/04/22 03:30 93/53 L 07/04/22 04:00 07/04/22 03:15 92 H 17 98 07/04/22 03:15 129/66 07/04/22 03:00 76 17 96 07/04/22 03:00 127/65 07/04/22 02:45 94 H 20 97 07/04/22 02:45 126/66 07/04/22 02:30 99 H 22 97 07/04/22 02:30 141/71 H 07/04/22 02:15 107 H 20 97 07/04/22 02:15 140/72 07/04/22 02:00 99 H 15 98 07/04/22 02:00 108/62 07/04/22 01:45 88 18 99 07/04/22 01:45 96/59 L 07/04/22 01:30 88 17 99 07/04/22 01:30 97/54 L 07/04/22 01:15 97 H 6 L 98 07/04/22 01:15 104/58 L 07/04/22 01:00 96 H 18 98 07/04/22 01:00 118/61 07/04/22 00:45 110 H 19 99 07/04/22 00:45 132/85 07/04/22 00:30 99 H 20 99 07/04/22 00:30 120/90 07/04/22 00:15 102 H 9 L 98 07/04/22 00:15 121/63 07/04/22 03:00 88 18 127/65 98 07/04/22 01:36 91 H 18 108/56 L 98 07/04/22 00:15 121/63 O2 Del Method O2 Flow Rate 07/04/22 12:00 Room Air 07/04/22 09:00 07/04/22 07:54 Room Air 07/04/22 04:22 07/04/22 04:00 Nasal Cannula 2 07/04/22 04:04 07/04/22 03:45 2 07/04/22 03:45 07/04/22 03:30 2 07/04/22 03:30 07/04/22 04:00 Room Air 07/04/22 03:15 07/04/22 03:15 07/04/22 03:00 07/04/22 03:00 07/04/22 02:45 07/04/22 02:45 07/04/22 02:30 07/04/22 02:30 07/04/22 02:15 07/04/22 02:15 07/04/22 02:00 07/04/22 02:00 07/04/22 01:45 07/04/22 01:45 07/04/22 01:30 07/04/22 01:30 07/04/22 01:15 07/04/22 01:15 07/04/22 01:00 07/04/22 01:00 07/04/22 00:45 07/04/22 00:45 07/04/22 00:30 07/04/22 00:30 07/04/22 00:15 07/04/22 00:15 07/04/22 03:00 Nasal Cannula 2 07/04/22 01:36 Nasal Cannula 2 07/04/22 00:15 Laboratory Results Laboratory Results - last 24 hr 07/03/22 07/03/22 07/03/22 21:18 21:18 23:50 WBC 11.64 H RBC 3.59 L Hgb 10.4 L Hct 31.7 L MCV 88.3 MCH 29.0 MCHC 32.8 RDW Std Deviation 44.0 RDW Coeff of Jeri 13.6 Plt Count 380 MPV 11.2 Immature Gran % (Auto) 2.0 Neut % (Auto) 73.7 Lymph % (Auto) 16.3 [place] % (Auto) 6.1 Eos % (Auto) 1.6 Baso % (Auto) 0.3 Neut # (Auto) 8.57 H Lymph # (Auto) 1.90 [place] # (Auto) 0.71 H Eos # (Auto) 0.19 Baso # (Auto) 0.04 Immature Gran # (Auto) 0.23 H Sodium 136 Potassium 4.0 Chloride 99 Carbon Dioxide 28 Anion Gap 9 BUN 16 Creatinine 1.01 Est Cr Clr Drug Dosing 49.6 Est GFR ( Amer) 61.7 Est GFR (Non-Af Amer) 53.3 BUN/Creatinine Ratio 15.8 Glucose 181 H POC Glucose Estimat Average Glucose Hemoglobin A1c Calcium 9.1 Magnesium Total Bilirubin 0.5 AST 27 ALT 20 Alkaline Phosphatase 126 H Troponin I High Sens 12.7 13.1 Total Protein 6.4 Albumin 3.4 Globulin 3.0 Albumin/Globulin Ratio 1.1 Lipase 14 SARS-CoV-2, RNA, NAAT 07/04/22 07/04/22 07/04/22 02:21 05:26 05:28 WBC 9.49 RBC 3.26 L Hgb 9.4 L Hct 29.2 L MCV 89.6 MCH 28.8 MCHC 32.2 RDW Std Deviation 45.1 RDW Coeff of Jeri 13.8 Plt Count 338 MPV 10.7 Immature Gran % (Auto) 0.5 Neut % (Auto) 77.8 Lymph % (Auto) 15.0 [place] % (Auto) 5.2 Eos % (Auto) 1.3 Baso % (Auto) 0.2 Neut # (Auto) 7.39 H Lymph # (Auto) 1.42 [place] # (Auto) 0.49 Eos # (Auto) 0.12 Baso # (Auto) 0.02 Immature Gran # (Auto) 0.05 Sodium Potassium Chloride Carbon Dioxide Anion Gap BUN Creatinine Est Cr Clr Drug Dosing Est GFR ( Amer) Est GFR (Non-Af Amer) BUN/Creatinine Ratio Glucose POC Glucose 232 H Estimat Average Glucose Hemoglobin A1c Calcium Magnesium Total Bilirubin AST ALT Alkaline Phosphatase Troponin I High Sens Total Protein Albumin Globulin Albumin/Globulin Ratio Lipase SARS-CoV-2, RNA, NAAT NEGATIVE 07/04/22 07/04/22 07/04/22 05:28 05:28 09:08 WBC RBC Hgb Hct MCV MCH MCHC RDW Std Deviation RDW Coeff of Jeri Plt Count MPV Immature Gran % (Auto) Neut % (Auto) Lymph % (Auto) [place] % (Auto) Eos % (Auto) Baso % (Auto) Neut # (Auto) Lymph # (Auto) [place] # (Auto) Eos # (Auto) Baso # (Auto) Immature Gran # (Auto) Sodium 136 Potassium 4.2 Chloride 102 Carbon Dioxide 25 Anion Gap 9 BUN 15 Creatinine 0.84 Est Cr Clr Drug Dosing 59.1 Est GFR ( Amer) 77.2 Est GFR (Non-Af Amer) 66.6 BUN/Creatinine Ratio 17.9 Glucose 225 H POC Glucose Estimat Average Glucose 151 Hemoglobin A1c 6.9 H Calcium 8.9 Magnesium 1.5 L Total Bilirubin AST ALT Alkaline Phosphatase Troponin I High Sens 79.2 H* D 178.4 H* D Total Protein Albumin Globulin Albumin/Globulin Ratio Lipase SARS-CoV-2, RNA, NAAT 07/04/22 12:00 WBC RBC Hgb Hct MCV MCH MCHC RDW Std Deviation RDW Coeff of Jeri Plt Count MPV Immature Gran % (Auto) Neut % (Auto) Lymph % (Auto) [place] % (Auto) Eos % (Auto) Baso % (Auto) Neut # (Auto) Lymph # (Auto) [place] # (Auto) Eos # (Auto) Baso # (Auto) Immature Gran # (Auto) Sodium Potassium Chloride Carbon Dioxide Anion Gap BUN Creatinine Est Cr Clr Drug Dosing Est GFR ( Amer) Est GFR (Non-Af Amer) BUN/Creatinine Ratio Glucose POC Glucose 263 H Estimat Average Glucose Hemoglobin A1c Calcium Magnesium Total Bilirubin AST ALT Alkaline Phosphatase Troponin I High Sens Total Protein Albumin Globulin Albumin/Globulin Ratio Lipase SARS-CoV-2, RNA, NAAT
[2022-07-04] MEDS ORDERED: LANTUS PER UNIT CHARGE SQ ONE (12:45)
--- NOTE | 2022-07-04 12:45 | Pharmacy Report ---
Pharmacy Glycemic Short Note 2 - Date of Service July 04, 2022 - Glycemic Short BSG Results (Last 24 hours): 07/03/22 07/04/22 07/04/22 21:18 05:26 05:28 Glucose 181 H 225 H POC Glucose 232 H 07/04/22 12:00 Glucose POC Glucose 263 H OUTPATIENT ANTIDIABETIC REGIMEN: * Lantus 18 units SC HS * Novolog 7 units SC TIDM HbA1c: 6.9% (07/04/22) ASSESSMENT: * PM is a 76 year old female who presented to ED overnight with acute epigastric abdominal pain and chest pain * Heparin gtt (mixed in dextrose) infusing * Known to pharmacy glycemic service due to recent surgery/hospitalization earlier this month * POD #13 s/p decompression/fusion - received ongoing IV dexamethasone at that time * BSGs uncontrolled thus far > 200 mg/dL * Originally NPO, now ordered a diet - will order one-time dose of Lantus in addition to weight-based stress of 2 Novolog PLAN FOR INPATIENT GLYCEMIC CONTROL: * Basal insulin * Lantus 15 units SC x 1 (~0.2 unit/kg of adjusted body weight) * Bolus insulin * NovoLog per scale ACHS or Q6hrs while NPO * Goal Range: Low 110 mg/dL - High 140 mg/dL * Correction Factor: 25 mg/dL/unit * Nutritional / Prandial insulin per carb ratio of 1 unit per 8 grams CHO consumed
[2022-07-04] MEDS: NITROGLYCERIN 2% OINTMENT 30GM TUBE EXT SCH ×3 (13:21→23:25)
[2022-07-04] MEDS ORDERED: ONDANSETRON INJ 2 MG/ML 2 ML VIAL IV PRN (14:33)
[2022-07-04 15:37] LABS: Partial Thromboplastin Ratio 1.5
[2022-07-04 15:41] LABS: Partial Thromboplastin Time 41.8 Seconds (21.0-31.0)
[2022-07-04] MEDS: PROMETHAZINE HCL 25 MG TAB PO PRN (18:32)
[2022-07-04] MEDS: traZODone HCL 50 MG TAB PO SCH (20:38)
[2022-07-04] MEDS: SUCRALFATE 1 GM/10 ML UDC PO SCH (20:38)
[2022-07-04] MEDS: DOCUSATE SODIUM/SENNA 50/8.6MG TAB PO SCH (20:38)
[2022-07-04] MEDS: METOPROLOL TARTRATE 25 MG TAB PO SCH (20:39)
[2022-07-04] MEDS ORDERED: LANTUS PER UNIT CHARGE SQ SCH (21:00)
[2022-07-05] MEDS: LEVOTHYROXINE SODIUM 125 MCG TABLET PO SCH (05:14)
[2022-07-05] MEDS: NITROGLYCERIN 2% OINTMENT 30GM TUBE EXT SCH ×2 (05:19→12:38)
[2022-07-05] MEDS: ACETAMINOPHEN 500 MG TAB PO SCH ×3 (05:31→22:11)
[2022-07-05 07:35] LABS: Partial Thromboplastin Ratio 1.5
[2022-07-05 08:43] LABS: Partial Thromboplastin Time 42.7 Seconds (21.0-31.0)
[2022-07-05] MEDS: INSULIN ASPART PER UNIT CHARGE SC SCH ×3 (08:43→17:47)
[2022-07-05] MEDS: DOCUSATE SODIUM 100 MG CAP PO SCH ×2 (08:44→20:16)
[2022-07-05] MEDS: LIDOCAINE 5% 1 PATCH TD SCH (08:45)
[2022-07-05] MEDS: POTASSIUM CHLORIDE 10 MEQ TABCR PO SCH (08:47)
[2022-07-05] MEDS: LOSARTAN POTASSIUM 50 MG TAB PO SCH (08:47)
[2022-07-05] MEDS: allopurinoL 100 MG TAB PO SCH (08:47)
[2022-07-05] MEDS: FUROSEMIDE 20 MG TAB PO SCH (08:47)
[2022-07-05] MEDS: ASPIRIN 81 MG ECTAB PO SCH (08:47)
[2022-07-05] MEDS: amLODIPine BESYLATE 5 MG TAB PO SCH ×2 (08:47→20:22)
[2022-07-05] MEDS: SUCRALFATE 1 GM/10 ML UDC PO SCH ×4 (08:48→20:19)
[2022-07-05] MEDS: PANTOprazole 40 MG TAB PO SCH (08:48)
[2022-07-05] MEDS: ATORVASTATIN 40 MG TAB PO SCH (08:48)
[2022-07-05] MEDS: METOPROLOL TARTRATE 25 MG TAB PO SCH ×2 (08:48→20:21)
[2022-07-05] MEDS: HEPARIN SODIUM/DEXTROSE 25,000 UNITS/500 ML BAG IV SCH (08:54)
[2022-07-05] MEDS: oxyCODONE HCL IR 5 MG TAB (IMMEDIATE RELEASE) PO PRN ×2 (08:56→22:11)
[2022-07-05] MEDS: FAMOTIDINE 20 MG in SYRINGE 3 ML IV SCH (08:58)
[2022-07-05] MEDS ORDERED: LANTUS PER UNIT CHARGE SC SCH (09:00)
[2022-07-05 09:14] LABS: Mean Corpuscular Hemoglobin 28.8 pg (25.0-34.0); Mean Corpuscular Hgb Conc 32.1 g/dL (32.0-36.0); Mean Corpuscular Volume 89.5 fL (80.0-100.0); Mean Platelet Volume 11.9 fL (9.4-12.4); Platelet Count 369 K/uL (130-400); RDW Coefficient of Variation 14.1 % (11.5-14.5); RDW Standard Deviation 45.2 fL (36.4-46.3); Red Blood Count 3.13 M/uL (4.20-5.40); White Blood Count 9.42 K/ul (4.8-10.8)
[2022-07-05 09:21] LABS: BUN Creatinine Ratio 14.3 (10-20); Creatinine Clr Calc Pharmacy 58.4 ml/min; Est GFR (African American) 77.2 ml/min; Est GFR (Non-African American) 66.6 ml/min; Magnesium 1.6 mg/dl (1.7-2.4); Phosphorus 3.9 mg/dl (2.5-4.9); Potassium 3.8 mmol/L (3.5-5.1)
[2022-07-05 09:28] LABS: Troponin I High Sensitivity 97.2 pg/ml (0-14)
[2022-07-05] MEDS: PROMETHAZINE HCL 25 MG TAB PO PRN (09:56)
--- NOTE | 2022-07-05 10:14 | Gastrointestinal Consultation ---
Date of Consultation July 05, 2022 Assessment & Plan (1) Epigastric pain: 76 year old female with history of multivessel coronary artery disease s/p CABG in 2011, T2DM, HTN, dyslipidemia, hypothyroidism, GERD admitted through the ED with epigastric/chest pain on ASA and heparin gtt for acute demand ischemia. She reports nausea and one episode of vomiting related to her narcotic analgesia but no report of black or bloody stools. May have clear liquids IV PPI BID x 2 days then PO PPI BID x 1 month then PO PPI 40 mg once daily May use Carafate slurry QID x 10 days Given her cardiac disease requiring heparin gtt, and no overt s/s of GI bleeding, no plan for inpatient EGD Plan for OP EGD once medically optimized. Recall GI as needed.Thank you for allowing us to participate in the care of this patient. Please call with any acute changes, questions or concerns. Please see addendum below with additional recommendation from my supervising physician. Supervising Physician Co-Signing Physician Notes I personally saw and evaluated the patient on 07/05/2022 with CARRINGTON Epperson and agree with her findings and plan of care. 76 y/o F admitted with chest and epigastric pain found to have EKG changes secondary to acute demand ischemia for which cardiology is consulted. GI was consulted for epigastric pain. On physical exam patients abdomen is soft, non-tender, non-distended. Will arrange outpatient EGD for patient. Can use PPI if ongoing epigastric pain. Sandra Brady DO Gastroenterology and Hepatology History of Present Illness Reason for Consultation: nausea, hx PUD Requesting Physician: Jonathan Attending Physician: Nery Castillo DO History of Present Illness 76 year old female with history of multivessel coronary artery disease s/p CABG in 2011, T2DM, HTN, dyslipidemia, hypothyroidism, GERD admitted through the ED with epigastric/chest pain. GI was asked to evaluate given her history of PUD. Pt was seen and chart was reviewed. Notes that she has had intermittent upper abd pain since Saturday. She is unable to explain what the pain feels like. She is not sure if it is burning, pressure or stabbing. There has been some nausea with this pain but it has since resolved. Notes she vomited x 1 episode but relates this to taking narcotic analgesia. Denies GERD. No dysphagia. No report of black or bloody stools. She is concerned she is missing an outpatient appt with her spine surgeon today. she is on ASA and a heparin gtt for acute demand issues CTAP 2022: Diverticulosis, without acute diverticulitis. No small bowel obstruction. No free air.Small hiatal hernia. Cholecystectomy. Mild splenomegaly measuring up to 13.4 cm. Mild fecal retention, correlate with constipation. No small bowel obstruction. Suspected appendectomy. EGD 2019: Normal esophagus. - Gastric erosions without bleeding. - Normal examined duodenum. - No specimens collected Colon 2017: Diverticulosis in the sigmoid colon. - The distal rectum and anal verge are normal on retroflexion view. - No specimens collected. Colon 2010: - Mild sigmoid diverticulosis. - The examination was otherwise normal. Allergies Allergy/AdvReac Type Severity Reaction Status Date / Time latex Allergy Intermediate skin Verified 07/03/22 23:00 irritation and peels skin off prednisone AdvReac Severe STROKE Verified 07/03/22 23:00 fentanyl AdvReac Intermediate "opiate Verified 07/04/22 02:49 agonists cause severe N&V, increased heart rate, " hydromorphone AdvReac Intermediate "opiate Verified 07/04/22 02:49 agonists cause severe N&V, increased heart rate, "sk methadone AdvReac Intermediate "opiate Verified 07/04/22 02:49 agonists cause severe N&V, increased heart rate, "sk morphine AdvReac Intermediate "opiate Verified 07/04/22 02:49 agonists cause severe N&V, increased heart rate, " oxycodone AdvReac Intermediate "opiate Verified 07/04/22 02:49 agonists cause severe N&V, increased heart rate, " meclizine AdvReac Mild Severe N&V Verified 07/03/22 23:00 tetracycline AdvReac Mild Severe N&V Verified 07/03/22 23:00 tramadol AdvReac Blurry Verified 07/03/22 23:00 Vision Home Medications Medication Instructions Recorded Confirmed Type acetaminophen 500 mg tablet 1,000 mg PO Q8 07/03/22 07/03/22 History (Tylenol Extra Strength) allopurinol 100 mg tablet 200 mg PO DAILY 07/03/22 07/03/22 History amlodipine 2.5 mg tablet 2.5 mg PO DAILY 07/03/22 07/03/22 History aspirin 81 mg tablet,delayed 81 mg PO DAILY 07/03/22 07/03/22 History release atorvastatin 40 mg tablet 40 mg PO QAM 07/03/22 07/03/22 History baclofen 5 mg tablet 5 mg PO TID PRN Pain 07/03/22 07/03/22 History docusate sodium 100 mg capsule 100 mg PO BID 07/03/22 07/03/22 History furosemide 20 mg tablet (Lasix) 20 mg PO DAILY 07/03/22 07/03/22 History insulin aspart U-100 100 unit/mL 7 unit subcut TIDWMEAL 07/03/22 07/03/22 History subcutaneous solution insulin glargine 100 unit/mL 18 unit subcut HS 07/03/22 07/03/22 History subcutaneous solution (Lantus U-100 Insulin) levothyroxine 125 mcg tablet 125 mcg PO DAILY 07/03/22 07/03/22 History lidocaine 5 % topical patch 1 patch topical DAILY 07/03/22 07/03/22 History losartan 50 mg tablet 50 mg PO DAILY 07/03/22 07/03/22 History metoprolol tartrate 50 mg tablet 50 mg PO Q12 07/03/22 07/03/22 History ondansetron HCl 4 mg tablet 4 mg PO Q4 PRN nausea/vomiting 07/03/22 07/03/22 History oxycodone 5 mg tablet 5 mg PO Q4 PRN .pain 4-6 07/03/22 07/03/22 History oxycodone 5 mg tablet 10 mg PO Q4 PRN .pain 7-10 07/03/22 07/03/22 History pantoprazole 40 mg tablet,delayed 40 mg PO BID 07/03/22 07/03/22 History release polyethylene glycol 3350 17 gram 17 g PO DAILY PRN Constipation 07/03/22 07/03/22 History oral powder packet (Miralax) potassium chloride 10 mEq 10 meq PO DAILY 07/03/22 07/03/22 History tablet,extended release sennosides 8.6 mg-docusate sodium 2 tab-cap PO HS 07/03/22 07/03/22 History 50 mg tablet (Senna with Docusate Sodium) sennosides 8.6 mg-docusate sodium 1 tab-cap PO .QLUNCH PRN 07/03/22 07/03/22 History 50 mg tablet (Senokot-S) Constipation trazodone 50 mg tablet 25 mg PO HS 07/03/22 07/03/22 History Patient History Medical History Arthritis CAD (coronary artery disease) CABG (2011) 09/19/20 catheterization done after positive stress test showed patent SHANE to LAD and SVG-OM graft, SVG graft to RCA was occluded and RCA territory was supplied by collaterals from left, Chronic back pain Claustrophobia severe Diabetes mellitus, type 2 IDDM GERD (gastroesophageal reflux disease) controlled History of anemia No known blood transfusions History of COVID-19 PHx 2020 - headache only at the time. History of gastric ulcer 2019 Hx of gout Hyperlipidemia 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 Hypothyroidism Left knee DJD Macular degeneration Morbid obesity Motion sickness Nausea and vomiting after administration of anesthetic agent Spinal stenosis Stroke ~2018 -> treated at [facility] -> left eye blindness and gastric ulcers at the time. follows with PCP. Surgical History H/O partial thyroidectomy Benign lump removal History of appendectomy History of breast biopsy x3 History of cardiac cath 09/19/20 > no stents History of cataract surgery R/L History of cholecystectomy History of colonoscopy History of coronary artery bypass graft CABG (2011) x2 vessels. follows with [facility] Cardiology History of esophagogastroduodenoscopy (EGD) History of hysterectomy History of lumbar surgery x2 (+ hardware) History of tooth extraction History of total knee replacement Right Family History Brother Family history of diabetes mellitus Sister Family history of diabetes mellitus Mother Family history of diabetes mellitus Father Family history of diabetes mellitus Other No family history of adverse response to anesthesia Social History Smoking Status: Never smoker Second Hand Exposure: No; Do You Dip or Chew Tobacco: No; Hx Alcohol Use: No Hx Substance Use: No Preferred Language: Comoran Communication Ability: Effective [employer] Sales Representative Required: No Beliefs That Will Affect Care: None Current Living Situation: Alone Other Information That Helps Us Care for You: No Feels Safe at Home: Yes Safety Concerns: Feels Safe At This Time Assistive Devices: Stair Lift and Walker Review of Systems Review of Systems: All systems reviewed & are unremarkable except as noted in HPI & below Physical Exam Constitutional: WD/WN, vitals as above Respiratory: normal respiratory effort, lungs clear to auscultation Cardiovascular: Rate/Rhythm: regular rate Gastrointestinal (Abdomen): normal bowel sounds, soft, nontender, no hepatosplenomegaly Skin: no rashes, warm and dry Results & Data Vital Signs (Past 12 Hours) Vital Signs Temp Pulse Pulse Resp BP Pulse Ox O2 Del Method 07/05/22 08:00 36.8 C 86 18 151/66 H 96 Room Air 07/05/22 07:35 82 07/05/22 03:00 82 18 158/67 H 96 Room Air 07/04/22 23:43 80 07/04/22 23:09 36.7 C 74 17 114/62 98 Room Air Laboratory Results 07/05/22 07/05/22 07/05/22 Range/Units 08:20 05:58 05:58 WBC 9.42 (4.8-10.8) K/ul RBC 3.13 L (4.20-5.40) M/uL Hgb 9.0 L (12.0-16.0) g/dl Hct 28.0 L (37.0-47.0) % MCV 89.5 (80.0-100.0) fL MCH 28.8 (25.0-34.0) pg MCHC 32.1 (32.0-36.0) g/dL RDW Std Deviation 45.2 (36.4-46.3) fL RDW Coeff of Jeri 14.1 (11.5-14.5) % Plt Count 369 (130-400) K/uL MPV 11.9 (9.4-12.4) fL APTT (21.0-31.0) Seconds PTT Ratio Sodium 138 (136-145) mmol/L Potassium 3.8 (3.5-5.1) mmol/L Chloride 102 (98-107) mmol/L Carbon Dioxide 28 (21-32) mmol/L Anion Gap 8 (3-11) BUN 12 (6-23) mg/dl Creatinine 0.84 (0.6-1.2) mg/dl Est Cr Clr Drug Dosing 58.4 ml/min Est GFR ( Amer) 77.2 ml/min Est GFR (Non-Af Amer) 66.6 ml/min BUN/Creatinine Ratio 14.3 (10-20) Glucose 173 H (70-99(Fasting)) mg/dl POC Glucose 189 H (70-99) mg/dl Calcium 9.0 (8.6-10.3) mg/dl Phosphorus 3.9 (2.5-4.9) mg/dl Magnesium 1.6 L (1.7-2.4) mg/dl Troponin I High Sens 97.2 H* D (0-14) pg/ml 07/05/22 07/04/22 07/04/22 Range/Units 05:53 20:05 16:24 WBC (4.8-10.8) K/ul RBC (4.20-5.40) M/uL Hgb (12.0-16.0) g/dl Hct (37.0-47.0) % MCV (80.0-100.0) fL MCH (25.0-34.0) pg MCHC (32.0-36.0) g/dL RDW Std Deviation (36.4-46.3) fL RDW Coeff of Jeri (11.5-14.5) % Plt Count (130-400) K/uL MPV (9.4-12.4) fL APTT 42.7 H* (21.0-31.0) Seconds PTT Ratio 1.5 Sodium (136-145) mmol/L Potassium (3.5-5.1) mmol/L Chloride (98-107) mmol/L Carbon Dioxide (21-32) mmol/L Anion Gap (3-11) BUN (6-23) mg/dl Creatinine (0.6-1.2) mg/dl Est Cr Clr Drug Dosing ml/min Est GFR ( Amer) ml/min Est GFR (Non-Af Amer) ml/min BUN/Creatinine Ratio (10-20) Glucose (70-99(Fasting)) mg/dl POC Glucose 182 H 256 H (70-99) mg/dl Calcium (8.6-10.3) mg/dl Phosphorus (2.5-4.9) mg/dl Magnesium (1.7-2.4) mg/dl Troponin I High Sens (0-14) pg/ml 07/04/22 07/04/22 07/04/22 Range/Units 14:36 12:47 12:00 WBC (4.8-10.8) K/ul RBC (4.20-5.40) M/uL Hgb (12.0-16.0) g/dl Hct (37.0-47.0) % MCV (80.0-100.0) fL MCH (25.0-34.0) pg MCHC (32.0-36.0) g/dL RDW Std Deviation (36.4-46.3) fL RDW Coeff of Jeri (11.5-14.5) % Plt Count (130-400) K/uL MPV (9.4-12.4) fL APTT 41.8 H* (21.0-31.0) Seconds PTT Ratio 1.5 Sodium (136-145) mmol/L Potassium (3.5-5.1) mmol/L Chloride (98-107) mmol/L Carbon Dioxide (21-32) mmol/L Anion Gap (3-11) BUN (6-23) mg/dl Creatinine (0.6-1.2) mg/dl Est Cr Clr Drug Dosing ml/min Est GFR ( Amer) ml/min Est GFR (Non-Af Amer) ml/min BUN/Creatinine Ratio (10-20) Glucose (70-99(Fasting)) mg/dl POC Glucose 263 H (70-99) mg/dl Calcium (8.6-10.3) mg/dl Phosphorus (2.5-4.9) mg/dl Magnesium (1.7-2.4) mg/dl Troponin I High Sens 216.6 H* D (0-14) pg/ml
--- NOTE | 2022-07-05 10:39 | Electrocardiogram Report ---
Test Reason : Blood Pressure : / mmHG Vent. Rate : 069 BPM Atrial Rate : 069 BPM P-R Int : 154 ms QRS Dur : 110 ms QT Int : 394 ms P-R-T Axes : 074 -20 166 degrees QTc Int : 422 ms Normal sinus rhythm Incomplete right bundle branch block Abnormal ECG When compared with ECG of 04-JUL-2022 00:03, Aberrant conduction is no longer Present Vent. rate has decreased BY 38 BPM Incomplete right bundle branch block is now Present Confirmed by Reddy Henry ([id number]) on 07/05/2022 10:39:07 AM Referred By: REFERRED SELF Confirmed By:Dangelo Henry
[2022-07-05] MEDS: MAGNESIUM SULFATE / D5W 1 GM/100 ML BAG IV SCH ×3 (11:16→14:54)
--- NOTE | 2022-07-05 13:05 | Cardiology Progress Note ---
Date of Service July 05, 2022 Assessment & Plan (1) Demand ischemia: (2) Multi-vessel coronary artery stenosis: (3) Status post aorto-coronary artery bypass graft: (4) Epigastric pain: Plan Patient is a 76-year-old female with known severe fixed ischemic heart disease with last cardiac catheterization demonstrating complete proximal occlusion of all soboba vessels including left main, patent SHANE graft and saphenous vein graft in 2020 performed after stress testing demonstrated large area of reversible ischemia. No targets amenable for intervention and patient managed on medical therapy. Patient had recent exacerbation of myocardial ischemia and angina post op surgical intervention She presents now with epigastric and abdominal pain. Transient ischemia noted in the ER in association with chest pain and dynamic EKG changes secondary to acute demand issues including severe pain, hypertension, tachycardia and anemia Patient appropriately anticoagulated with heparin with no overt bleeding. Troponins mildly elevated as expected Echocardiogram not appreciably changed from prior study with elevated heart rate during exam We will increase cardiac medications with goals reducing myocardial demand issues. Will increase beta-soni with additional dose of metoprolol tartrate today. Increase topical nitrates currently. Plan continue IV heparin 24 to 48 hours if no bleeding issues develop Follow blood counts closely with low threshold for transfusion given ischemic heart disease 07/05/2022 Clinically improved this morning. Tolerating medication changes Heart rate and blood pressure better controlled, no anginal symptoms. No bleeding difficulties. No further GI upset Plan: Discontinue topical nitrates, begin isosorbide mononitrate 60 mg/day Continue increased dose of metoprolol tartrate Increase amlodipine to 2.5 mg twice per Discontinue IV heparin Admission and Anticipated Discharge Date Admission Date: July 04, 2022 Subjective Patient seen and examined, chart, medications, telemetry reviewed. Overall feeling improved no chest pain shortness of breath or anginal symptoms. Still with chronic low back pain and discomfort. No fevers chills no bleeding difficulties. Indigestion and heartburn improved Review of Systems Review of Systems: All systems reviewed & are unremarkable except as noted in Subjective Physical Exam Constitutional: + obese; no acute distress Eyes: PERRL, conjunctivae normal, anicteric sclerae ENMT: external ear and nose normal, oropharynx normal Neck: trachea midline, no thyromegaly Respiratory: normal respiratory effort, lungs clear to auscultation Cardiovascular: Vessels: no JVD and no femoral bruit Extremities: no edema Gastrointestinal (Abdomen): Inspection/Auscultation: + abdomen distended Percussion/Palpation: abdomen soft Results & Data Vital Signs (Past 12 Hours) Vital Signs Temp Pulse Pulse Resp BP Pulse Ox O2 Del Method 07/05/22 12:25 36.7 C 67 18 139/85 97 Room Air 07/05/22 08:00 36.8 C 86 18 151/66 H 96 Room Air 07/05/22 07:35 82 07/05/22 03:00 82 18 158/67 H 96 Room Air Laboratory Results Laboratory Results - last 24 hr 07/04/22 07/04/22 07/04/22 12:47 14:36 16:24 WBC RBC Hgb Hct MCV MCH MCHC RDW Std Deviation RDW Coeff of Jeri Plt Count MPV APTT 41.8 H* PTT Ratio 1.5 Sodium Potassium Chloride Carbon Dioxide Anion Gap BUN Creatinine Est Cr Clr Drug Dosing Est GFR ( Amer) Est GFR (Non-Af Amer) BUN/Creatinine Ratio Glucose POC Glucose 256 H Calcium Phosphorus Magnesium Troponin I High Sens 216.6 H* D 07/04/22 07/05/22 07/05/22 20:05 05:53 05:58 WBC 9.42 RBC 3.13 L Hgb 9.0 L Hct 28.0 L MCV 89.5 MCH 28.8 MCHC 32.1 RDW Std Deviation 45.2 RDW Coeff of Jeri 14.1 Plt Count 369 MPV 11.9 APTT 42.7 H* PTT Ratio 1.5 Sodium Potassium Chloride Carbon Dioxide Anion Gap BUN Creatinine Est Cr Clr Drug Dosing Est GFR ( Amer) Est GFR (Non-Af Amer) BUN/Creatinine Ratio Glucose POC Glucose 182 H Calcium Phosphorus Magnesium Troponin I High Sens 07/05/22 07/05/22 05:58 08:20 WBC RBC Hgb Hct MCV MCH MCHC RDW Std Deviation RDW Coeff of Jeri Plt Count MPV APTT PTT Ratio Sodium 138 Potassium 3.8 Chloride 102 Carbon Dioxide 28 Anion Gap 8 BUN 12 Creatinine 0.84 Est Cr Clr Drug Dosing 58.4 Est GFR ( Amer) 77.2 Est GFR (Non-Af Amer) 66.6 BUN/Creatinine Ratio 14.3 Glucose 173 H POC Glucose 189 H Calcium 9.0 Phosphorus 3.9 Magnesium 1.6 L Troponin I High Sens 97.2 H* D
--- NOTE | 2022-07-05 13:06 | Pharmacy Report ---
Pharmacy Glycemic Short Note 2 - Date of Service July 05, 2022 - Glycemic Short BSG Results (Last 24 hours): 07/04/22 07/04/22 07/05/22 16:24 20:05 05:58 Glucose 173 H POC Glucose 256 H 182 H 07/05/22 08:20 Glucose POC Glucose 189 H OUTPATIENT ANTIDIABETIC REGIMEN: * Lantus 18 units SC HS * Novolog 7 units SC TIDM HbA1c: 6.9% (07/04/22) ASSESSMENT: 07/05: * Patient received total 31 units of insulin yesterday; 15 units basal and 16 units bolus. * BSGs yesterday were elevated. Fasting BSG today was 189 mg/dl. * Heparin drip in dextrose base solution was ongoing which may have contributed to the elevated BSGs. Heparin drip is now discontinued. * She was NPO this morning again but now diet resumed with lunch. * Basal 5 units x1 was given this AM and 15 units daily ordered with dinner. Would like to move daily basal dose to HS starting tomorrow to match home regimen. * Novolog parameters tightened. 07/04/22: * PM is a 76 year old female who presented to ED overnight with acute epigastric abdominal pain and chest pain * Heparin gtt (mixed in dextrose) infusing * Known to pharmacy glycemic service due to recent surgery/hospitalization ellis walker this month * POD #13 s/p decompression/fusion - received ongoing IV dexamethasone at that time * BSGs uncontrolled thus far > 200 mg/dL * Originally NPO, now ordered a diet - will order one-time dose of Lantus in addition to weight-based stress of 2 Novolog PLAN FOR INPATIENT GLYCEMIC CONTROL: * Basal insulin * Lantus 5 units x 1 this AM then 15 units SC with dinner today, then HS tomorrow * Bolus insulin * NovoLog per scale ACHS or Q6hrs while NPO * Goal Range: Low 110 mg/dL - High 140 mg/dL * Correction Factor: 20 mg/dL/unit * Nutritional / Prandial insulin per carb ratio of 1 unit per 6 grams CHO consumed
[2022-07-05] MEDS: ISOSORBIDE MONO EXTENDED REL 60 MG TABCR PO SCH (13:55)
--- NOTE | 2022-07-05 13:56 | Hospitalist Progress Note ---
Date of Service July 05, 2022 Assessment & Plan (1) Epigastric pain: Plan: Acute onset epigastric pain x few days. h/o PUD. No change in BMs or other GI symptoms such as vomiting are present. Persistent nausea. Cont Protonix 40mg BID and Pepcid also added. Maalox PRN pain. She is improved today with pain but still with nausea present. Cont carafate and PPI BID. Outpatient EGD recommended. Clear diet ordered-OK to advance as tolerated. (2) Demand ischemia: Plan: Known h/o CAD and cardiology has evaluated her this morning. Trop trend is likely related to elevated HR and BP on arrival in setting of post-operative anemia and other known chronic diseases. Cardiology updated medications including adding Imdur, increase amlodipine to BID. Heparin was stopped. (3) CAD (coronary artery disease): Plan: chronic, plan as above. (4) Diabetes mellitus, type 2: Plan: chronic, at goal. Cont basal bolus insulin while admitted. (5) Postoperative anemia: Plan: chronic, around her baseline. No overt blood loss. (6) HTN (hypertension): Plan: chronic, at goal. Cont current medical therapy including amlodipine, Lasix and losartan. DVT prophylaxis: Lovenox Full Code Dispo-uncertain, pending PT/OT recommendations Nery Castillo DO [facility] Hospitalist Admission and Anticipated Discharge Date Admission Date: July 04, 2022 Subjective 76 yo F with h/o CABG in 2011 and a h/o peptic ulcer disease presented with epigastric abdominal pain. She was asleep when I walked in today and appears comfortable Epigastric pain has resolved on carafate but she still has some residual nausea Seen by GI-outpatient EGD considered Back pain improved wtih oxycodone. Denies cheset pain, SOB or other symptoms. Review of Systems Review of Systems: All systems were reviewed and negative except as indicated on HPI above., Physical Exam Physical Exam: CONSTITUTIONAL: WNWD, vitals as above, generally well-appearing, NAD EYES: normal conjunctivae, no scleral icterus ENT: external ear and nose normal, oropharynx clear, MMM NECK: trachea midline RESPIRATORY: clear to auscultation bilaterally, no crackles, rales or wheezes, normal respiratory effort CARDIOVASCULAR: regular rate and rhythm, S1 and 2 heard without murmurs, gallops or rubs, no JVD, no peripheral edema GASTROINTESTINAL: normal bowel sounds, soft, nontender,ND, no guarding MUSCULOSKELETAL: strength 5/5 throughout, head is normocephalic and atraumatic SKIN: warm and dry, posterior vertical incision closed and healing well. NEUROLOGIC: CN 2-12 grossly intact, no sensory deficit, normal cognition, normal speech, no tremor PSYCHIATRIC: alert cooperative and oriented to person, place and time. Euthymic mood, makes good eye contact, language grossly intact, recent and remote memory grossly intact. Results & Data Results & Data Vital Signs (Past 12 Hours) Vital Signs Temp Pulse Pulse Resp BP Pulse Ox O2 Del Method 07/05/22 12:25 36.7 C 67 18 139/85 97 Room Air 07/05/22 08:00 36.8 C 86 18 151/66 H 96 Room Air 07/05/22 07:35 82 07/05/22 03:00 82 18 158/67 H 96 Room Air Laboratory Results Short CBC 07/05/22 Range/Units 05:58 WBC 9.42 (4.8-10.8) K/ul Hgb 9.0 L (12.0-16.0) g/dl Hct 28.0 L (37.0-47.0) % Plt Count 369 (130-400) K/uL BMP 07/05/22 05:58 Sodium 138 Potassium 3.8 Chloride 102 Carbon Dioxide 28 BUN 12 Creatinine 0.84 Glucose 173 H Calcium 9.0 Medications Administered Current Inpatient Medications Acetaminophen (Acetaminophen 325 Mg Tab) 650 mg PO Q4H PRN PRN Reason: Pain or Fever Stop: 08/03/22 04:06 Last Admin: 07/04/22 07:50 Dose: 650 mg Acetaminophen (Acetaminophen 500 Mg Tab) 1,000 mg PO Q8 LETTY Stop: 08/03/22 05:59 Last Admin: 07/05/22 05:31 Dose: 1,000 mg Al Hydrox/Mg Hydrox/Simethicone (Aluminum/Magnesium Susp 30 Ml Udc) 30 ml PO Q6H PRN PRN Reason: upset stomach Stop: 08/03/22 11:51 Allopurinol (Allopurinol 100 Mg Tab) 200 mg PO DAILY LETTY Stop: 08/03/22 08:59 Last Admin: 07/05/22 08:47 Dose: 200 mg Amlodipine Besylate (Amlodipine Besylate 5 Mg Tab) 2.5 mg PO BID LETTY Stop: 08/04/22 20:59 Aspirin (Aspirin 81 Mg Ectab) 81 mg PO DAILY LETTY Stop: 08/03/22 08:59 Last Admin: 07/05/22 08:47 Dose: 81 mg Atorvastatin Calcium (Atorvastatin 40 Mg Tab) 40 mg PO QAM LETTY Stop: 08/03/22 08:59 Last Admin: 07/05/22 08:48 Dose: 40 mg Baclofen (Baclofen 10 Mg Tab) 5 mg PO TID PRN PRN Reason: Pain Stop: 08/03/22 04:06 Last Admin: 07/05/22 05:19 Dose: 5 mg Dextrose (Dextrose 50% 50 Ml Syringe) 25 - 50 ml IV UD PRN; Protocol PRN Reason: Hypoglycemia Protocol Stop: 08/03/22 04:06 Docusate Sodium (Docusate Sodium 100 Mg Cap) 100 mg PO BID LETTY Stop: 08/03/22 08:59 Last Admin: 07/05/22 08:44 Dose: 100 mg Furosemide (Furosemide 20 Mg Tab) 20 mg PO DAILY LETTY Stop: 08/03/22 08:59 Last Admin: 07/05/22 08:47 Dose: 20 mg Glucagon (Glucagon For Inj 1 Mg Vial) 1 mg SQ UD PRN; Protocol PRN Reason: Hypoglycemia Protocol Stop: 08/03/22 04:06 Glucose (Glucose 10 Tab/Tube) 4 - 8 tab PO UD PRN; Protocol PRN Reason: Hypoglycemia Treatment Stop: 08/03/22 04:06 Glucose (Glucose 40% Gel 15 Gm Tube) 15 - 30 gm PO UD PRN; Protocol PRN Reason: Hypoglycemia Protocol Stop: 08/03/22 04:06 Famotidine 20 mg/ Syringe 5 mls @ 2.5 mls/min IV Q12 LETTY Stop: 08/03/22 08:59 Last Admin: 07/05/22 08:58 Dose: 2.5 mls/min Magnesium Sulfate/Dextrose (Magnesium Sulfate / D5w) 1 gm in 100 mls @ 50 mls/hr IV Q2H LETTY Stop: 07/05/22 16:59 Last Admin: 07/05/22 12:42 Dose: 50 mls/hr Insulin Aspart (Insulin Aspart Per Unit Charge) 0 units SC ACHS LETTY Stop: 08/03/22 05:59 Last Admin: 07/05/22 12:44 Dose: 7 units Insulin Glargine (Lantus Per Unit Charge) 15 units SQ 1630 [facility] Stop: 07/05/22 20:00 Insulin Glargine (Lantus Per Unit Charge) 15 units SC HS [facility] Stop: 08/05/22 20:59 Isosorbide Mononitrate (Isosorbide [place] Extended Rel 60 Mg Tabcr) 60 mg PO QAM [facility] Stop: 08/04/22 12:44 Levothyroxine Sodium (Levothyroxine Sodium 125 Mcg Tablet) 125 mcg PO DAILYBB [facility] Stop: 08/03/22 06:29 Last Admin: 07/05/22 05:14 Dose: 125 mcg Lidocaine (Lidocaine 5% 1 Patch) 1 patch TD DAILY [facility] Stop: 08/03/22 08:59 Last Admin: 07/05/22 08:45 Dose: 1 patch Losartan Potassium (Losartan Potassium 50 Mg Tab) 50 mg PO DAILY [facility] Stop: 08/03/22 08:59 Last Admin: 07/05/22 08:47 Dose: 50 mg Metoprolol Tartrate (Metoprolol Tartrate 25 Mg Tab) 75 mg PO Q12 [facility] Stop: 08/03/22 20:59 Last Admin: 07/05/22 08:48 Dose: 75 mg Miscellaneous (Remove Lidoderm Patch) 1 each N/A DAILY@2100 [facility] Stop: 08/03/22 20:59 Last Admin: 07/04/22 20:40 Dose: 1 each Miscellaneous (Carbohydrates For Hypoglycemia ) 15 - 30 gm PO UD PRN PRN Reason: Hypoglycemia Protocol Stop: 08/03/22 04:06 Miscellaneous Information (Pharmacy Glycemic Mgmt Consult) 1 each N/A UD PRN PRN Reason: Consult Stop: 08/03/22 04:06 Morphine Sulfate (Morphine Sulfate 4 Mg/Ml 1 Ml Carp\Vial) 3 mg IV Q4H PRN PRN Reason: Severe Pain (Scale 7, 8, 9,10) Stop: 07/18/22 04:06 Nitroglycerin (Nitroglycerin Sl 0.4 Mg/Tab Tab) 0.4 mg SL Q5M PRN PRN Reason: Chest Pain Stop: 08/03/22 04:06 Ondansetron HCl (Ondansetron Inj 2 Mg/Ml 2 Ml Vial) 4 mg IV Q8H PRN PRN Reason: Nausea And Vomiting Stop: 08/03/22 14:32 Last Admin: 07/04/22 14:54 Dose: 4 mg Oxycodone HCl (Oxycodone Hcl Ir 5 Mg Tab (Immediate Release)) 5 mg PO Q4 PRN PRN Reason: .pain 4-6 Stop: 07/18/22 04:06 Last Admin: 07/05/22 08:56 Dose: 5 mg Pantoprazole Sodium (Pantoprazole 40 Mg Tab) 40 mg PO BID [facility] Stop: 08/03/22 08:59 Last Admin: 07/05/22 08:48 Dose: 40 mg Polyethylene Glycol (Polyethylene (Miralax) 17 Gm Pack) 17 gm PO DAILY PRN PRN Reason: Constipation Stop: 08/03/22 04:06 Potassium Chloride (Potassium Chloride 10 Meq Tabcr) 10 meq PO DAILY [facility] Stop: 08/03/22 08:59 Last Admin: 07/05/22 08:47 Dose: 10 meq Promethazine HCl (Promethazine Hcl 25 Mg Tab) 25 mg PO Q6H PRN PRN Reason: Nausea And Vomiting Stop: 08/03/22 17:22 Last Admin: 07/05/22 09:56 Dose: 25 mg Senna/Docusate Sodium (Docusate Sodium/Senna 50/8.6mg Tab) 2 tab PO [facility] Stop: 08/03/22 20:59 Last Admin: 07/04/22 20:38 Dose: 2 tab Sucralfate (Sucralfate 1 Gm/10 Ml Udc) 1 gm PO QID [facility] Stop: 08/03/22 20:59 Last Admin: 07/05/22 08:48 Dose: 1 gm Trazodone HCl (Trazodone Hcl 50 Mg Tab) 25 mg PO HS [facility] Stop: 08/03/22 20:59 Last Admin: 07/04/22 20:38 Dose: 25 mg
[2022-07-05] MEDS: ENOXAPARIN INJ 40 MG/0.4 ML SYR SQ SCH (15:11)
[2022-07-05] MEDS ORDERED: LANTUS PER UNIT CHARGE SQ SCH (16:30)
[2022-07-05] MEDS: DOCUSATE SODIUM/SENNA 50/8.6MG TAB PO SCH (20:16)
[2022-07-05] MEDS: traZODone HCL 50 MG TAB PO SCH (20:21)
[2022-07-05] MEDS: PANTOprazole 40 MG in SYRINGE 0 ML IV SCH (20:22)
[2022-07-06] MEDS: INSULIN ASPART PER UNIT CHARGE SC SCH ×3 (00:35→12:47)
[2022-07-06] MEDS: LEVOTHYROXINE SODIUM 125 MCG TABLET PO SCH (06:03)
[2022-07-06] MEDS: ACETAMINOPHEN 500 MG TAB PO SCH ×2 (06:03→12:49)
[2022-07-06] MEDS: DOCUSATE SODIUM 100 MG CAP PO SCH (06:04)
[2022-07-06 06:07] LABS: Hematocrit (blood only) 26.5 % (37.0-47.0); Hemoglobin 8.6 g/dl (12.0-16.0); Mean Corpuscular Hgb Conc 32.5 g/dL (32.0-36.0); Mean Corpuscular Volume 89.2 fL (80.0-100.0); Mean Platelet Volume 10.9 fL (9.4-12.4); Platelet Count 345 K/uL (130-400); RDW Coefficient of Variation 14.5 % (11.5-14.5); RDW Standard Deviation 46.3 fL (36.4-46.3); Red Blood Count 2.97 M/uL (4.20-5.40); White Blood Count 7.59 K/ul (4.8-10.8)
[2022-07-06 06:22] LABS: BUN Creatinine Ratio 13.6 (10-20); Calcium 8.8 mg/dl (8.6-10.3); Creatinine Clr Calc Pharmacy 60.5 ml/min; Est GFR (African American) 80.6 ml/min; Est GFR (Non-African American) 69.6 ml/min; Potassium 3.6 mmol/L (3.5-5.1)
[2022-07-06] MEDS: PANTOprazole 40 MG in SYRINGE 0 ML IV SCH (07:23)
[2022-07-06] MEDS: METOPROLOL TARTRATE 25 MG TAB PO SCH (07:24)
[2022-07-06] MEDS: SUCRALFATE 1 GM/10 ML UDC PO SCH ×2 (07:24→12:46)
[2022-07-06] MEDS: LIDOCAINE 5% 1 PATCH TD SCH (07:24)
[2022-07-06] MEDS: ISOSORBIDE MONO EXTENDED REL 60 MG TABCR PO SCH (07:25)
[2022-07-06] MEDS: POTASSIUM CHLORIDE 10 MEQ TABCR PO SCH (07:25)
[2022-07-06] MEDS: FUROSEMIDE 20 MG TAB PO SCH (07:25)
[2022-07-06] MEDS: LOSARTAN POTASSIUM 50 MG TAB PO SCH (07:25)
[2022-07-06] MEDS: allopurinoL 100 MG TAB PO SCH (07:26)
[2022-07-06] MEDS: ASPIRIN 81 MG ECTAB PO SCH (07:26)
[2022-07-06] MEDS: ATORVASTATIN 40 MG TAB PO SCH (07:26)
[2022-07-06] MEDS: amLODIPine BESYLATE 5 MG TAB PO SCH (07:28)
--- NOTE | 2022-07-06 11:33 | Cardiology Progress Note ---
Date of Service July 06, 2022 Assessment & Plan (1) Demand ischemia: (2) Multi-vessel coronary artery stenosis: (3) Status post aorto-coronary artery bypass graft: (4) Epigastric pain: Plan Patient is a 76-year-old female with known severe fixed ischemic heart disease with last cardiac catheterization demonstrating complete proximal occlusion of all [place] vessels including left main, patent SHANE graft and saphenous vein graft in 2020 performed after stress testing demonstrated large area of reversible ischemia. No targets amenable for intervention and patient managed on medical therapy. Patient had recent exacerbation of myocardial ischemia and angina post op surgical intervention She presents now with epigastric and abdominal pain. Transient ischemia noted in the ER in association with chest pain and dynamic EKG changes secondary to acute demand issues including severe pain, hypertension, tachycardia and anemia Patient appropriately anticoagulated with heparin with no overt bleeding. Troponins mildly elevated as expected Echocardiogram not appreciably changed from prior study with elevated heart rate during exam We will increase cardiac medications with goals reducing myocardial demand issues. Will increase beta-soni with additional dose of metoprolol tartrate today. Increase topical nitrates currently. Plan continue IV heparin 24 to 48 hours if no bleeding issues develop Follow blood counts closely with low threshold for transfusion given ischemic heart disease 07/05/2022 Clinically improved this morning. Tolerating medication changes Heart rate and blood pressure better controlled, no anginal symptoms. No bleeding difficulties. No further GI upset Plan: Discontinue topical nitrates, begin isosorbide mononitrate 60 mg/day Continue increased dose of metoprolol tartrate Increase amlodipine to 2.5 mg twice per Discontinue IV heparin 07/06/2022 Plan as above. Medications now adjusted to good medical regimen with heart rate and blood pressure well controlled. No anginal symptoms. Patient follows with [facility] Admission and Anticipated Discharge Date Admission Date: July 04, 2022 Subjective Patient seen and examined, chart, medications, telemetry reviewed. Feels better back pain better controlled slowly getting stronger. No chest pain or discomfort blood pressures and heart rate well controlled and tolerating medications well Review of Systems Review of Systems: All systems reviewed & are unremarkable except as noted in Subjective Physical Exam Constitutional: + obese; no acute distress Eyes: PERRL, conjunctivae normal, anicteric sclerae ENMT: external ear and nose normal, oropharynx normal Neck: trachea midline, no thyromegaly Respiratory: normal respiratory effort, lungs clear to auscultation Cardiovascular: Vessels: no JVD and no femoral bruit Extremities: no edema Gastrointestinal (Abdomen): Inspection/Auscultation: + abdomen distended Percussion/Palpation: abdomen soft Results & Data Vital Signs (Past 12 Hours) Vital Signs Temp Pulse Resp BP Pulse Ox O2 Del Method 07/06/22 10:07 80 121/61 95 Room Air 07/06/22 07:03 36.7 C 76 16 112/63 97 Room Air Diagnostic Findings Laboratory Results - last 24 hr 07/05/22 07/05/22 07/06/22 17:07 20:31 05:28 WBC 7.59 RBC 2.97 L Hgb 8.6 L Hct 26.5 L MCV 89.2 MCH 29.0 MCHC 32.5 RDW Std Deviation 46.3 RDW Coeff of Jeri 14.5 Plt Count 345 MPV 10.9 Sodium Potassium Chloride Carbon Dioxide Anion Gap BUN Creatinine Est Cr Clr Drug Dosing Est GFR ( Amer) Est GFR (Non-Af Amer) BUN/Creatinine Ratio Glucose POC Glucose 167 H 164 H Calcium 07/06/22 07/06/22 05:28 08:03 WBC RBC Hgb Hct MCV MCH MCHC RDW Std Deviation RDW Coeff of Jeri Plt Count MPV Sodium 139 Potassium 3.6 Chloride 103 Carbon Dioxide 30 Anion Gap 6 BUN 11 Creatinine 0.81 Est Cr Clr Drug Dosing 60.5 Est GFR ( Amer) 80.6 Est GFR (Non-Af Amer) 69.6 BUN/Creatinine Ratio 13.6 Glucose 116 H POC Glucose 135 H Calcium 8.8
--- NOTE | 2022-07-06 14:50 | Discharge Summary ---
Date of Service July 06, 2022 Admission HPI Per Admitting Provider This is a 76-year-old female with past medical history significant for multivessel coronary artery disease, status post CABG in 2011, hypertension, hyperlipidemia, diabetes, hypothyroidism, GERD, who presents with abdominal pain. The patient recently had a back surgery in the first week of June and was discharged to [facility]. During the last admission, she had an episode of chest pain at rest. Seen by cardiology. At that time, troponin peaked up to 1400 and trended down. Echo showed preserved LV systolic function with small basal lateral wall motion abnormality. The event felt to be from demand ischemia from post op, , volume overload, and grief reaction of her 's . At that time, volume overload improved with IV Lasix. Medical management was recommended and she was discharged to [facility], seems to be on 06/28/2022. The patient says she is ambulating with a walker. Since yesterday, she is having significant abdominal tenderness in the epigastric region. She has a history of gastric ulcers with the use of steroids 5 years ago for her knee. She was worried about ulcers and came to the hospital; with IV Protonix it did not improve much, with the Toradol it seemed to improve. She is also having constipation because of the pain medications, but says she had some bowel movement at the rehab. While she went for CAT scan of abdomen and pelvis, she developed chest pain, severe in nature, was diaphoretic, nauseous. She was very short of breath during the episode. With Nitro the pain resolved. Currently asymptomatic. Currently, the pain is completely resolved. Denies any fevers. No cough. Appetite is poor. No difficulty swallowing. Denies any headache. No dizziness, no blurred visions, no runny nose, no sore throat, no cough. Denies any blood in the stools. Normal bladder movements. Currently, resting comfortably and hemodynamically stable. Admission Exam Per Admitting Provider GENERAL: The patient is of moderate build, not in acute distress. VITAL SIGNS: Temperature 36.5, pulse 91, respiratory rate 18, blood pressure 108/56, oxygen 98% on 2 liters. HEENT: Pupils equal, round and reactive to light. Oral mucosa moist. NECK: No JVD. No neck masses. CARDIOVASCULAR: S1 and S2 heard. Regular rate and rhythm. No murmur, no gallop. RESPIRATORY SYSTEM: Normal AP diameter. No accessory muscle use. No wheezing, no crackles. ABDOMEN: Soft, bowel sounds present. Tenderness in the epigastric region. No guarding, no distention. CENTRAL NERVOUS SYSTEM: Cranial nerves II-XII grossly intact, nonfocal. EXTREMITIES: No erythema. Lower extremity pedal edema present. Principal Diagnosis CAD with unstable angina, HTN, epigastric pain Discharge Exam General: Lying comfortably in bed, not in distress, on room air HEENT: EOMI, VIDYA, MMM Chest: Clear breath sounds bilaterally, no wheezes or crackles CVS: Regular rate and rhythm, normal heart sounds, no murmur Abdomen: Soft, non tender, not distended, normal bowel sounds Neuro: Awake, alert, oriented, conversing well, non focal Extremities: No cyanosis, clubbing or edema MSK: Back incision clean dry intact well approximated with suture- no infection Discharge Data Allergies Allergy/AdvReac Type Severity Reaction Status Date / Time latex Allergy Intermediate skin Verified 07/03/22 23:00 irritation and peels skin off prednisone AdvReac Severe STROKE Verified 07/03/22 23:00 fentanyl AdvReac Intermediate "opiate Verified 07/04/22 02:49 agonists cause severe N&V, increased heart rate, "sk hydromorphone AdvReac Intermediate "opiate Verified 07/04/22 02:49 agonists cause severe N&V, increased heart rate, "sk methadone AdvReac Intermediate "opiate Verified 07/04/22 02:49 agonists cause severe N&V, increased heart rate, "sk morphine AdvReac Intermediate "opiate Verified 07/04/22 02:49 agonists cause severe N&V, increased heart rate, "sk oxycodone AdvReac Intermediate "opiate Verified 07/04/22 02:49 agonists cause severe N&V, increased heart rate, "sk meclizine AdvReac Mild Severe N&V Verified 07/03/22 23:00 tetracycline AdvReac Mild Severe N&V Verified 07/03/22 23:00 tramadol AdvReac Blurry Verified 07/03/22 23:00 Vision Consultations 07/04/22 00:06 ED Decision to Admit Stat 07/04/22 08:00 Consult Cardiology Routine 07/04/22 19:29 Consult Gastroenterology Routine Ordered Studies 07/03/22 23:06 CT Abd and Pelvis [CT abd pelvis IV con only] Stat Laboratory Results WBC 7.59 K/ul (4.8-10.8) 07/06/22 05:28 RBC 2.97 M/uL (4.20-5.40) L 07/06/22 05:28 Hgb 8.6 g/dl (12.0-16.0) L 07/06/22 05:28 Hct 26.5 % (37.0-47.0) L 07/06/22 05:28 MCV 89.2 fL (80.0-100.0) 07/06/22 05:28 MCH 29.0 pg (25.0-34.0) 07/06/22 05:28 MCHC 32.5 g/dL (32.0-36.0) 07/06/22 05:28 RDW Std Deviation 46.3 fL (36.4-46.3) 07/06/22 05:28 RDW Coeff of Jeri 14.5 % (11.5-14.5) 07/06/22 05:28 Plt Count 345 K/uL (130-400) 07/06/22 05:28 MPV 10.9 fL (9.4-12.4) 07/06/22 05:28 Immature Gran % (Auto) 0.5 % 07/04/22 05:28 Neut % (Auto) 77.8 % 07/04/22 05:28 Lymph % (Auto) 15.0 % 07/04/22 05:28 [place] % (Auto) 5.2 % 07/04/22 05:28 Eos % (Auto) 1.3 % 07/04/22 05:28 Baso % (Auto) 0.2 % 07/04/22 05:28 Neut # (Auto) 7.39 K/uL (1.40-6.50) H 07/04/22 05:28 Lymph # (Auto) 1.42 K/uL (1.2-3.4) 07/04/22 05:28 [place] # (Auto) 0.49 K/uL (0.11-0.59) 07/04/22 05:28 Eos # (Auto) 0.12 K/uL (0-0.50) 07/04/22 05:28 Baso # (Auto) 0.02 K/uL (0-0.2) 07/04/22 05:28 Immature Gran # (Auto) 0.05 K/uL (0.01-0.20) 07/04/22 05:28 APTT 42.7 Seconds (21.0-31.0) H* 07/05/22 05:53 PTT Ratio 1.5 07/05/22 05:53 Sodium 139 mmol/L (136-145) 07/06/22 05:28 Potassium 3.6 mmol/L (3.5-5.1) 07/06/22 05:28 Chloride 103 mmol/L (98-107) 07/06/22 05:28 Carbon Dioxide 30 mmol/L (21-32) 07/06/22 05:28 Anion Gap 6 (3-11) 07/06/22 05:28 BUN 11 mg/dl (6-23) 07/06/22 05:28 Creatinine 0.81 mg/dl (0.6-1.2) 07/06/22 05:28 Est Cr Clr Drug Dosing 60.5 ml/min 07/06/22 05:28 Est GFR ( Amer) 80.6 ml/min 07/06/22 05:28 Est GFR (Non-Af Amer) 69.6 ml/min 07/06/22 05:28 BUN/Creatinine Ratio 13.6 (10-20) 07/06/22 05:28 Glucose 116 mg/dl (70-99(Fasting)) H 07/06/22 05:28 POC Glucose 237 mg/dl (70-99) H 07/06/22 12:12 Estimat Average Glucose 151 mg/dl 07/04/22 05:28 Hemoglobin A1c 6.9 % (4.5-5.6) H 07/04/22 05:28 Calcium 8.8 mg/dl (8.6-10.3) 07/06/22 05:28 Phosphorus 3.9 mg/dl (2.5-4.9) 07/05/22 05:58 Magnesium 1.6 mg/dl (1.7-2.4) L 07/05/22 05:58 Total Bilirubin 0.5 mg/dl (0.2-1.0) 07/03/22 21:18 AST 27 U/L (13-39) 07/03/22 21:18 ALT 20 U/L (7-52) 07/03/22 21:18 Alkaline Phosphatase 126 U/L (34-104) H 07/03/22 21:18 Troponin I High Sens 97.2 pg/ml (0-14) H* D 07/05/22 05:58 Total Protein 6.4 gm/dl (6.0-8.3) 07/03/22 21:18 Albumin 3.4 gm/dl (3.4-5.0) 07/03/22 21:18 Globulin 3.0 gm/dl (2.5-4.0) 07/03/22 21:18 Albumin/Globulin Ratio 1.1 (0.9-2) 07/03/22 21:18 Lipase 14 U/L (11-82) 07/03/22 21:18 SARS-CoV-2, RNA, NAAT NEGATIVE (NEGATIVE) 07/04/22 02:21 Impressions Abdomen/Pelvis CT 07/03/22 23:06 Exam(s): CT ABDOMEN + PELVIS With Contrast IV Amt: 86 ml optiray 320 EXAM: CT Abdomen and Pelvis With Intravenous Contrast CLINICAL HISTORY: Reason for exam: eval epigastric pain. TECHNIQUE: Axial computed tomography images of the abdomen and pelvis with intravenous contrast. CTDI is 20.72 mGy and DLP is 1042.09 mGy-cm. Automated exposure control was utilized for the study. A dose lowering technique was utilized adhering to the principles of ALARA. CONTRAST: Patient received 86 ml optiray 320 of IV contrast COMPARISON: No relevant prior studies available. FINDINGS: Lung bases: Unremarkable. No mass. No consolidation. Mediastinum: Small hiatal hernia. ABDOMEN: Liver: Unremarkable. No mass. Gallbladder and bile ducts: Cholecystectomy. No ductal dilation. Pancreas: Unremarkable. No mass. No ductal dilation. Spleen: Mild splenomegaly measuring up to 13.4 cm. Adrenals: Unremarkable. No mass. Kidneys and ureters: Unremarkable. No solid mass. No hydronephrosis. Stomach and bowel: Diverticulosis, without acute diverticulitis. No small bowel obstruction. No free air. Mild fecal retention, correlate with constipation. No small bowel obstruction. PELVIS: Appendix: Suspected appendectomy. Bladder: Decompressed urinary bladder. Reproductive: Unremarkable as visualized. ABDOMEN and PELVIS: Intraperitoneal space: See above. Bones/joints: Posterior thoracolumbar fusion at multiple levels including L4 and L5 laminectomy/posterior decompression. Degenerative changes of the spine. No dislocation. Soft tissues: Unremarkable. Vasculature: Atherosclerotic changes of the aorta. No abdominal aortic aneurysm. Lymph nodes: Unremarkable. No enlarged lymph nodes. IMPRESSION: 1. Diverticulosis, without acute diverticulitis. No small bowel obstruction. No free air. 2. Small hiatal hernia. 3. Cholecystectomy. 4. Mild splenomegaly measuring up to 13.4 cm. 5. Mild fecal retention, correlate with constipation. No small bowel obstruction. 6. Suspected appendectomy. Electronically signed by: Cyril Alonso MD 07/03/22 23:54 PM Chest X-Ray 07/04/22 04:07 XR chest 1V portable HISTORY: 76 years-old Female sob acute shortness of breath COMPARISON: 06/18/2022 TECHNIQUE: AP view of the chest FINDINGS: Cardiac silhouette is enlarged prior median sternotomy with CABG. Dense calcifications of the mitral annulus. Right hilar nodular focus measuring 2.3 cm again noted likely secondary to pulmonary vasculature. Pulmonary vascular congestion. No pneumothorax. Trace pleural effusions with blunting of the costophrenic angles. Left shoulder rotator cuff calcific tendinosis. Degenerative changes of the shoulders and spine. IMPRESSION: 1. Cardiomegaly with pulmonary vascular congestion. 2. Mild bibasilar atelectasis. ACT 112: Negative or not required by law. The above report was generated using voice recognition software. It may contain grammatical, syntax or spelling errors. Electronically signed by: Cruzito Jeff M.D. 07/04/2022 6:41 AM Hospital Course (1) Epigastric pain: Resolved. Seen by GI- continue PPI bid; added carafate. Plan for OP EGD noted. (2) Demand ischemia: CAD with unstable angina. EKG, echo and tele reviewed. Seen by cardio- medications adjustment done with no further chest pain. S/p heparin drip and nitro paste Meds adjusted as below per cardio - Added imdur 60 mg daily - Increased metoprolol to 75 bid from 50 bid - Increased norvasc to 2.5 bid from 2.5 once daily F/u with her [facility] at [place] upon discharge (3) CAD (coronary artery disease): plan as above. (4) Diabetes mellitus, type 2: continue home insulin (5) HTN (hypertension): BP stable. Meds adjusted as above. Plan No further chest pain or abd pain. No SOB, lightheadedness, dizziness. Did well with PT and cleared for discharge home with home health services. She is comfortable and stable for discharge home. Total Time Total Time Spent Total Time Spent (In Minutes): 40 Discharge Plan Discharge Items Patient Disposition: Home - Home Health Services Reason For Visit: ABDOMINAL PAIN, CHEST PAIN Discharge Diagnosis: CAD with unstable angina, demand ischemia, epigastric pain Activity: Resume your previous activity Non-emergency contact: Primary Care Provider, Educational Speech Language Clinician and Junior Project Coordinator Call non-emergency contact if: you have any medication questions, your symptoms worsen and your pain is concerning for you Follow-up/Referrals: Chaitanya Fernandez MD [Primary Care Provider] - (Date & Time 07/10/2022 1:40 PM Provider Chaitanya Fernandez MD Department [facility] ) Diet: Heart Healthy and Low Sodium (2gm) Addtl Attending Provider Instructions: Your medications have been changed as below - Increase metoprolol to 75 mg twice daily from your current dose of 50 mg twice daily - Increase your amlodipine to twice daily - Start a new medication Imdur once daily - Continue Protonix twice daily for 1 month, then once daily - Carafate four times daily for 10 days Follow up with your cardiology and family doctor Follow up with GI for outpatient EGD Pending Studies at Discharge: No Stand-Alone Forms: My [facility] [employer] Smoking Cessation Medications and DC Order Prescriptions: New sucralfate 100 mg/mL Suspension 1 g PO QID 10 Days Qty: 400 0RF isosorbide mononitrate 60 mg Tablet Extended Release 24 Hr 60 mg PO QAM Qty: 30 0RF Continued losartan 50 mg tablet 50 mg PO DAILY atorvastatin 40 mg tablet 40 mg PO QAM insulin glargine [Lantus U-100 Insulin] 100 unit/mL solution 18 unit SUBCUT HS trazodone 50 mg tablet 25 mg PO HS polyethylene glycol 3350 [Miralax] 17 gram Powder In Packet 17 g PO DAILY PRN (Reason: Constipation) ondansetron HCl 4 mg Tablet 4 mg PO Q4 PRN (Reason: nausea/vomiting) sennosides-docusate sodium [Senokot-S] 8.6-50 mg Tablet 1 tab-cap PO .QLUNCH PRN (Reason: Constipation) sennosides-docusate sodium [Senna with Docusate Sodium] 8.6-50 mg Tablet 2 tab-cap PO HS potassium chloride 10 mEq Tablet Extended Release 10 meq PO DAILY allopurinol 100 mg Tablet 200 mg PO DAILY aspirin [Aspir-Low] 81 mg Tablet,Delayed Release (Dr/Ec) 81 mg PO DAILY acetaminophen [Tylenol Extra Strength] 500 mg Tablet 1,000 mg PO Q8 insulin aspart U-100 100 unit/mL Solution 7 unit SUBCUT TIDWMEAL pantoprazole 40 mg Tablet,Delayed Release (Dr/Ec) 40 mg PO BID lidocaine 5 % Adhesive Patch,Medicated 1 patch TOPICAL DAILY Rx Instructions: leave on most painful area for up to 12 hrs docusate sodium 100 mg Capsule 100 mg PO BID furosemide [Lasix] 20 mg Tablet 20 mg PO DAILY oxycodone 5 mg tablet 10 mg PO Q4 PRN (Reason: .pain 7-10) baclofen 5 mg Tablet 5 mg PO TID PRN (Reason: Pain) levothyroxine 125 mcg tablet 125 mcg PO DAILY Changed amlodipine 2.5 mg tablet 2.5 mg PO BID Qty: 60 0RF metoprolol tartrate 50 mg tablet 75 mg PO Q12 Qty: 90 0RF Discontinued oxycodone 5 mg tablet 5 mg PO Q4 PRN (Reason: .pain 4-6) Discharge Orders: Discharge Order (Routine); Ordered 07/06/22 Ordered By: Petey Whittington Admission Data Admit Date/Time: 07/04/22 02:12 Attending Provider: Petey Whittington Admit Provider: Osbaldo Jeronimo Primary Care Provider: Chaitanya Fernandez Other Providers: Osbaldo Jeronimo ; [facility] ; Sandra Salamanca ; Rj Raya ; Paras Mcdonald ; Ken Tinsley ; Marcellus Reyes ; Fabio Lilly ; Joan Boss ; Elvia Ferro ; Sandra Platt ; Kendrick Leon ; Malvin Bowman ; Yohan Person
[2022-07-06] MEDS: ENOXAPARIN INJ 40 MG/0.4 ML SYR SQ SCH (15:14)
[2022-07-06] MEDS ORDERED: LANTUS PER UNIT CHARGE SC SCH (21:00)
[2022-07-07] MEDS ORDERED: PANTOprazole 40 MG TAB PO SCH (21:00)
== END 2022-07-06 18:00 | disposition home health service (06) | DRG 303 ==
LOC: ED 21:05 → SUATTDRO 07-04 02:12 → 2S 07-04 02:12 → 3E 07-05 16:27

== ENCOUNTER 2024-01-01 19:14 | Inpatient (IN) ==
--- NOTE | 2024-01-01 20:01 | Emergency Department Note ---
Impression & Plan Weakness, Lower back pain, Vomiting, Dizziness, Sinusitis ED Provider Note NAME: SARITHA LIN AGE: 78 SEX: F : 1945 ARRIVES VIA: Walk-In INFORMANT: [Patient] ED PROVIDER(S): [Michael Goodman MD] CHIEF COMPLAINT: Vertigo, leg weakness HISTORY OF PRESENT ILLNESS: The patient is an 78-year-old female who states that for the last week and a half, she has noticed increasing bilateral leg weakness to the point of not really being able to function or do her daily routine. She had back surgery over a year ago and since the surgery, she has had lower back pain. Lately, the back pain has worsened and she has a feeling of bugs crawling on her skin along the left side of her lower back and abdomen. The leg weakness is the newest thing that she has noted. In addition, the patient feels a spinning sensation, she has a history of vertigo and for the last 4 days, has had vertigo. She has been vomiting. The patient went to the [facility] and was referred to our facility as, her back surgeon, Dr. Taveras, works at [facility]. There has been no cough or congestion. No chest pain. No urinary complaints. She has not had fever. PMHx/PSHx/Social Hx: See Below PHYSICAL EXAM: GENERAL: Patient is in no acute distress. HEENT: No acute trauma, normocephalic atraumatic, mucous membranes moist, no nasal congestion. NECK: No stridor, no adenopathy, no meningismus, trachea is midline. LUNGS: Clear to auscultation bilaterally, no wheeze, no rhonchi, breath sounds equal. HEART: Without murmurs gallops or rubs, regular rate and rhythm. ABDOMEN: Soft, nontender, no peritonitis. Obese. EXTREMITIES: No cyanosis, full range of motion of all the joints without pain or difficulty. NEUROLOGIC: Oriented x 3, moves all extremities. SKIN: No jaundice, no diaphoresis. DIFFERENTIAL DIAGNOSIS: Spinal stenosis, hardware loosening, nerve impingement, UTI, dehydration, electrolyte imbalance, stroke, among others. EMERGENCY DEPARTMENT PROCEDURES: MEDICAL DECISION MAKING: There is no leukocytosis or concerning anemia. There is a normal platelet count. No renal failure or significant electrolyte abnormality. No concerning liver enzyme elevation. The patient appears to be in a euthyroid state. ECG shows a sinus rhythm, no acute ST elevation. Cardiac enzyme testing x 1 is not consistent with acute cardiac injury. Urinalysis shows potential infection, urine culture is pending. Chest x-ray shows a poor inspiratory effort, no obvious focal infiltrate. Brain CT shows atrophy, no acute bleed or mass effect. A sinusitis was seen. On exam, the patient was not toxic or febrile. Patient received IV saline for hydration. She was given IV Zofran for nausea, IV Toradol for pain, IV ceftriaxone as antibiotic coverage, IV Tylenol for pain. I did reach out to [facility], they will be seeing the patient tomorrow for an assessment and decision on potential surgical versus medical management for her ongoing back pain and increasing leg weakness. Because of the vomiting, the dizziness, her ongoing pain and failed outpatient management, hospitalization is indicated. I spoke with the patient and case management. The on-call hospitalist has been consulted. I do think the dizziness and vomiting is a separate issue from her back pain complaints and leg weakness. Certainly, the patient may be suffering from vertigo, she has this as part of her past history. The sinusitis on CT imaging may be contributing to her presentation. I do think antibiotics would be warranted. Prior/Outside records/notes reviewed: None ECG per my interpretation: Indication was weakness. The ECG shows a normal sinus rhythm with a rate of 72. There are some T wave inversions laterally. No ST elevation. No PVCs. The QTc is 457. Continuous Cardiac Monitoring per my interpretation: An order was placed for continuous cardiac monitoring. The monitor shows a rate of 68 with normal sinus rhythm. Imaging/x-ray results per my interpretation: Chest x-ray shows a poor inspiratory effort, no obvious focal infiltrate. Chronic Medical/Social conditions affecting care: Advanced age. Care/Management discussed with: Case management, the on-call hospitalist. [facility] spinal surgery-Jackelyn Durand. Level of care consideration(s): After review of the information above and other included data: --I believe the patient requires escalation of care to admission DISPOSITION: Admission Past Med/Surg History Problem List (Updated 01/01/24 @ 23:32 by Michael Goodman MD) Sinusitis (Acute) Dizziness (Acute) Vomiting (Acute) Lower back pain (Acute) Weakness (Acute) Epigastric pain Demand ischemia ACS (acute coronary syndrome) Abdominal pain, acute, epigastric (Acute) Chest pain due to myocardial ischemia (Acute) Dyslipidemia, goal LDL below 70 Status post aorto-coronary artery bypass graft Multi-vessel coronary artery stenosis Postoperative anemia Status post lumbar spine surgery for decompression of spinal cord Chest pain at rest GERD (gastroesophageal reflux disease) controlled Hypothyroidism Diabetes mellitus, type 2 IDDM CAD (coronary artery disease) CABG (2011) 09/19/20 catheterization done after positive stress test showed patent SHANE to LAD and SVG-OM graft, SVG graft to RCA was occluded and RCA territory was supplied by collaterals from left, Degenerative disc disease (Acute) Neuroforaminal stenosis of lumbar spine (Acute) Spinal stenosis (Chronic) HTN (hypertension) (Chronic) Medical History Chronic back pain Stroke ~2019 -> treated at [facility] -> left eye blindness and gastric ulcers at the time. follows with PCP. Motion sickness Nausea and vomiting after administration of anesthetic agent Claustrophobia severe History of COVID-19 PHx 2020 - headache only at the time. Morbid obesity Spinal stenosis Hx of gout Arthritis History of gastric ulcer 2019 History of anemia No known blood transfusions Macular degeneration 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 Hyperlipidemia Left knee DJD Surgical History H/O partial thyroidectomy History of appendectomy History of breast biopsy History of cardiac cath History of cataract surgery History of cholecystectomy History of colonoscopy History of coronary artery bypass graft History of esophagogastroduodenoscopy (EGD) History of hysterectomy History of lumbar surgery History of tooth extraction History of total knee replacement Family History Brother Family history of diabetes mellitus Sister Family history of diabetes mellitus Mother Family history of diabetes mellitus Father Family history of diabetes mellitus Other No family history of adverse response to anesthesia Social History Smoking Status: Never smoker Second Hand Exposure: No; Do You Dip or Chew Tobacco: No; Hx Alcohol Use: No Hx Substance Use: No Preferred Language: Egyptian Communication Ability: Effective Exercise Science Instructor Required: No Beliefs That Will Affect Care: None Current Living Situation: Alone Feels Safe at Home: Yes Assistive Devices: Stair Lift and Walker Allergies Allergies Allergy/AdvReac Type Severity Reaction Status Date / Time latex Allergy Intermediate skin Verified 01/01/24 23:15 irritation and peels skin off prednisone AdvReac Severe STROKE Verified 01/01/24 23:15 fentanyl AdvReac Intermediate "opiate Verified 01/01/24 23:15 agonists cause severe N&V, increased heart rate, "sk hydromorphone AdvReac Intermediate "opiate Verified 01/01/24 23:15 agonists cause severe N&V, increased heart rate, "sk methadone AdvReac Intermediate "opiate Verified 01/01/24 23:15 agonists cause severe N&V, increased heart rate, "sk morphine AdvReac Intermediate "opiate Verified 01/01/24 23:15 agonists cause severe N&V, increased heart rate, " oxycodone AdvReac Intermediate "opiate Verified 01/01/24 23:15 agonists cause severe N&V, increased heart rate, " meclizine AdvReac Mild Severe N&V Verified 01/01/24 23:15 tetracycline AdvReac Mild Severe N&V Verified 01/01/24 23:15 tramadol AdvReac Blurry Verified 01/01/24 23:15 Vision Home Meds Home Medications Medication Instructions Recorded Confirmed allopurinol 100 mg tablet 200 mg PO DAILY 07/03/22 01/01/24 aspirin 81 mg tablet,delayed 81 mg PO DAILY 07/03/22 07/03/22 release atorvastatin 40 mg tablet 40 mg PO QAM 07/03/22 07/03/22 baclofen 5 mg tablet 5 mg PO TID PRN Pain 07/03/22 07/03/22 docusate sodium 100 mg capsule 100 mg PO BID 07/03/22 07/03/22 furosemide 20 mg tablet (Lasix) 20 mg PO DAILY 07/03/22 07/03/22 insulin aspart U-100 100 unit/mL 7 unit subcut TIDWMEAL 07/03/22 07/03/22 subcutaneous solution insulin glargine 100 unit/mL 18 unit subcut HS 07/03/22 07/03/22 subcutaneous solution (Lantus U-100 Insulin) levothyroxine 125 mcg tablet 125 mcg PO DAILY 07/03/22 07/03/22 lidocaine 5 % topical patch 1 patch topical DAILY 07/03/22 07/03/22 losartan 50 mg tablet 50 mg PO DAILY 07/03/22 07/03/22 ondansetron HCl 4 mg tablet 4 mg PO Q4 PRN nausea/vomiting 07/03/22 07/03/22 oxycodone 5 mg tablet 10 mg PO Q4 PRN .pain 7-10 07/03/22 07/03/22 pantoprazole 40 mg tablet,delayed 40 mg PO BID 07/03/22 07/03/22 release polyethylene glycol 3350 17 gram 17 g PO DAILY PRN Constipation 07/03/22 07/03/22 oral powder packet (Miralax) potassium chloride 10 mEq 10 meq PO DAILY 07/03/22 07/03/22 tablet,extended release sennosides 8.6 mg-docusate sodium 2 tab-cap PO HS 07/03/22 07/03/22 50 mg tablet (Senna with Docusate Sodium) sennosides 8.6 mg-docusate sodium 1 tab-cap PO .QLUNCH PRN 07/03/22 07/03/22 50 mg tablet (Senokot-S) Constipation trazodone 50 mg tablet 25 mg PO HS 07/03/22 07/03/22 amlodipine 2.5 mg tablet 5 mg PO DAILY 01/01/24 01/01/24 Previous Rx's Medication Instructions Recorded isosorbide mononitrate 60 mg 60 mg PO QAM #30 tabs 07/06/22 tablet,extended release 24 hr metoprolol tartrate 50 mg tablet 75 mg (1.5 x 50 mg) PO Q12 #90 tabs 07/06/22 Results & Data (ED) Vital Signs Vital Signs - 24 hr 01/01/24 19:21 01/01/24 19:43 01/01/24 19:53 Temperature 36.2 C L Temperature Source Temporal Artery Scan Pulse Rate 68 68 Pulse Rate [Finger] 70 Respiratory Rate 16 16 18 Respiratory Effort / Characteristics Non-Labored Spontaneous Non-Labored Spontaneous Respiratory Depth Normal Normal Respiratory Pattern Regular Regular Blood Pressure 123/71 Blood Pressure [Left Arm] 134/61 Blood Pressure Mean 88 Blood Pressure Mean [Left Arm] 85 Blood Pressure Position [Left Arm] Semi-fowlers Pulse Oximetry 96 96 95 Oxygen Delivery Method Room Air Room Air Room Air Sepsis Recent Fever Within 48 Hours No Sepsis New/Unexplained Change in Mental Status N/A Sepsis Action Taken by Nursing No Action Required 01/01/24 21:28 01/01/24 22:01 01/01/24 22:18 Temperature Temperature Source Pulse Rate 80 Pulse Rate [Finger] 80 77 Respiratory Rate 12 20 Respiratory Effort / Characteristics Non-Labored Spontaneous Non-Labored Spontaneous Respiratory Depth Normal Normal Respiratory Pattern Regular Regular Blood Pressure Blood Pressure [Left Arm] 144/63 H Blood Pressure Mean Blood Pressure Mean [Left Arm] 90 Blood Pressure Position [Left Arm] Lying Pulse Oximetry 94 96 Oxygen Delivery Method Room Air Room Air Sepsis Recent Fever Within 48 Hours Sepsis New/Unexplained Change in Mental Status Sepsis Action Taken by Nursing 01/01/24 22:48 Temperature Temperature Source Pulse Rate Pulse Rate [Finger] 80 Respiratory Rate 16 Respiratory Effort / Characteristics Non-Labored Respiratory Depth Normal Respiratory Pattern Regular Blood Pressure Blood Pressure [Left Arm] 117/73 Blood Pressure Mean Blood Pressure Mean [Left Arm] 87 Blood Pressure Position [Left Arm] Semi-fowlers Pulse Oximetry 96 Oxygen Delivery Method Room Air Sepsis Recent Fever Within 48 Hours Sepsis New/Unexplained Change in Mental Status Sepsis Action Taken by Detention Medications Current Medication List: was personally reviewed by me Laboratory Data Attestation: I reviewed the patient's lab results. 01/01/24 20:00 01/01/24 20:00 Lab Results 01/01/24 01/01/24 01/01/24 Range/Units 20:00 21:00 21:55 WBC 9.06 (4.8-10.8) K/ul RBC 4.86 (4.20-5.40) M/uL Hgb 13.8 (12.0-16.0) g/dl Hct 42.8 (37.0-47.0) % MCV 88.1 (80.0-100.0) fL MCH 28.4 (25.0-34.0) pg MCHC 32.2 (32.0-36.0) g/dL RDW Std Deviation 45.2 (36.4-46.3) fL RDW Coeff of Jeri 14.2 (11.5-14.5) % Plt Count 245 (130-400) K/uL MPV 12.1 (9.4-12.4) fL Immature Gran % (Auto) 0.3 % Neut % (Auto) 65.0 % Lymph % (Auto) 25.2 % Harris % (Auto) 6.6 % Eos % (Auto) 2.2 % Baso % (Auto) 0.7 % Neut # (Auto) 5.89 (1.40-6.50) K/uL Lymph # (Auto) 2.28 (1.20-3.40) K/uL Harris # (Auto) 0.60 H (0.11-0.59) K/uL Eos # (Auto) 0.20 (0.00-0.50) K/uL Baso # (Auto) 0.06 (0.00-0.20) K/uL Immature Gran # (Auto) 0.03 (0.01-0.20) K/uL Sodium 137 (136-145) mmol/L Potassium 4.8 (3.5-5.1) mmol/L Chloride 105 (98-107) mmol/L Carbon Dioxide 25 (21-32) mmol/L Anion Gap 7 (3-11) BUN 19 (6-23) mg/dl Creatinine 0.86 (0.6-1.2) mg/dl Est Cr Clr Drug Dosing 56.1 ml/min eGFR 68.25 BUN/Creatinine Ratio 22.1 H (10-20) Glucose 118 H (70-99(Fasting)) mg/dl POC Glucose (70-99) mg/dl Calcium 9.8 (8.6-10.3) mg/dl Magnesium 2.0 (1.7-2.4) mg/dl Total Bilirubin 0.4 (0.2-1.0) mg/dl AST 19 (13-39) U/L ALT 10 (7-52) U/L Alkaline Phosphatase 136 H (34-104) U/L Troponin I High Sens 7.3 (0-14) pg/ml B-Natriuretic Peptide 142 H (0-100) pg/ml Total Protein 7.2 (6.0-8.3) gm/dl Albumin 4.1 (3.4-5.0) gm/dl Globulin 3.1 (2.5-4.0) gm/dl Albumin/Globulin Ratio 1.3 (0.9-2) TSH 0.880 (0.300-4.500) uIu/ml Urine Color Yellow Urine Appearance Clear (Clear) Urine pH 6.0 (4.5-7.5) Ur Specific Sadler 1.009 (1.000-1.030) Urine Protein Negative (Negative) Urine Glucose (UA) Negative (Negative) Urine Ketones Negative (Negative) Urine Blood Negative (Negative) Urine Nitrite Negative (Negative) Urine Bilirubin Negative (Negative) Urine Urobilinogen Negative (Negative) Ur Leukocyte Esterase 1+ H (Negative) Urine WBC (Auto) 6-10 H (0-5) /hpf Urine RBC (Auto) 0-2 (0-2) /hpf U Hyaline Cast (Auto) 0-2 (0-2) /lpf U Epithel Cells (Auto) 0-2 (0-2) /hpf Urine Bacteria (Auto) None Seen (None Seen) 01/01/24 Range/Units 22:54 WBC (4.8-10.8) K/ul RBC (4.20-5.40) M/uL Hgb (12.0-16.0) g/dl Hct (37.0-47.0) % MCV (80.0-100.0) fL MCH (25.0-34.0) pg MCHC (32.0-36.0) g/dL RDW Std Deviation (36.4-46.3) fL RDW Coeff of Jeri (11.5-14.5) % Plt Count (130-400) K/uL MPV (9.4-12.4) fL Immature Gran % (Auto) % Neut % (Auto) % Lymph % (Auto) % Harris % (Auto) % Eos % (Auto) % Baso % (Auto) % Neut # (Auto) (1.40-6.50) K/uL Lymph # (Auto) (1.20-3.40) K/uL Harris # (Auto) (0.11-0.59) K/uL Eos # (Auto) (0.00-0.50) K/uL Baso # (Auto) (0.00-0.20) K/uL Immature Gran # (Auto) (0.01-0.20) K/uL Sodium (136-145) mmol/L Potassium (3.5-5.1) mmol/L Chloride (98-107) mmol/L Carbon Dioxide (21-32) mmol/L Anion Gap (3-11) BUN (6-23) mg/dl Creatinine (0.6-1.2) mg/dl Est Cr Clr Drug Dosing ml/min eGFR BUN/Creatinine Ratio (10-20) Glucose (70-99(Fasting)) mg/dl POC Glucose 180 H (70-99) mg/dl Calcium (8.6-10.3) mg/dl Magnesium (1.7-2.4) mg/dl Total Bilirubin (0.2-1.0) mg/dl AST (13-39) U/L ALT (7-52) U/L Alkaline Phosphatase (34-104) U/L Troponin I High Sens (0-14) pg/ml B-Natriuretic Peptide (0-100) pg/ml Total Protein (6.0-8.3) gm/dl Albumin (3.4-5.0) gm/dl Globulin (2.5-4.0) gm/dl Albumin/Globulin Ratio (0.9-2) TSH (0.300-4.500) uIu/ml Urine Color Urine Appearance (Clear) Urine pH (4.5-7.5) Ur Specific Sadler (1.000-1.030) Urine Protein (Negative) Urine Glucose (UA) (Negative) Urine Ketones (Negative) Urine Blood (Negative) Urine Nitrite (Negative) Urine Bilirubin (Negative) Urine Urobilinogen (Negative) Ur Leukocyte Esterase (Negative) Urine WBC (Auto) (0-5) /hpf Urine RBC (Auto) (0-2) /hpf U Hyaline Cast (Auto) (0-2) /lpf U Epithel Cells (Auto) (0-2) /hpf Urine Bacteria (Auto) (None Seen) Administered Medications Discontinued Medications Sodium Chloride (Nss) 1,000 mls @ 999 mls/hr IV .Q1H1M ONE Stop: 01/01/24 20:50 Last Infusion: 01/01/24 21:59 Dose: Infused Documented By: Admin: 01/01/24 20:14 Dose: 999 mls/hr Documented By: MIKAYLA Acetaminophen (Ofirmev) 1,000 mg in 100 mls @ 400 mls/hr IV NOW STA Stop: 01/01/24 21:09 Last Infusion: 01/01/24 21:58 Dose: Infused Documented By: Admin: 01/01/24 21:25 Dose: 400 mls/hr Documented By: IVAN Ceftriaxone Sodium (Rocephin) 2,000 mg in 50 mls @ 100 mls/hr IV NOW STA Stop: 01/01/24 22:46 Last Admin: 01/01/24 22:33 Dose: 100 mls/hr Documented By: MIKAYLA Ketorolac Tromethamine (Ketorolac Tromethamine 15 Mg/Ml Vial) 15 mg IV NOW STA Stop: 01/01/24 20:56 Last Admin: 01/01/24 21:24 Dose: 15 mg Documented By: IVAN Ondansetron HCl (Ondansetron Inj 2 Mg/Ml 2 Ml Vial) 4 mg IV NOW STA Stop: 01/01/24 19:51 Last Admin: 01/01/24 20:14 Dose: 4 mg Documented By: MIKAYLA Imaging Data Radiologist's Impression: Chest X-Ray 01/01/24 19:50 Exam(s): XR CXR 1 VIEW EXAM: XR Chest, 1 View CLINICAL HISTORY: Reason for exam: weakness. TECHNIQUE: Frontal view of the chest. COMPARISON: Chest x-ray: 07/04/2022 FINDINGS: Patient's body habitus limits the study. Lungs: Underexpanded lungs. Bilateral perihilar interstitial pattern edema or infiltrates. Bilateral hilar/parahilar nodular opacities, increased in size since prior comparison, probably vascular in nature. Pleural space: Opacification of left costophrenic sulcus. No pneumothorax. Heart: Cardiomegaly. Possibly prior CABG procedure. Median sternotomy. Aortic atherosclerosis. Bones/joints: Diffuse osseous demineralization. Postsurgical thoracolumbar spine. Right shoulder osteoarthropathy. Right calcific tendinopathy. No acute fracture. IMPRESSION: Cardiomegaly and likely pulmonary vascular congestion/CHF mildly worsened since prior comparison. Recommend clinical correlation/follow-up. . Electronically signed by: Catalina Mccann MD, DABR 01/01/24 22:[address] 01/01/24 19:56 Exam(s): CT HEAD Without Contrast EXAM: CT Head Without Intravenous Contrast CLINICAL HISTORY: Reason for exam: dizzy, weak. TECHNIQUE: Axial computed tomography images of the head/brain without intravenous contrast. CTDI is 68.69 mGy and DLP is 961.59 mGy-cm. Automated exposure control was utilized for the study. A dose lowering technique was utilized adhering to the principles of ALARA. COMPARISON: None. FINDINGS: Diagnostic sensitivity of the exam is reduced by motion and beam hardening artifacts. Brain: There is no acute intracranial hemorrhage, mass-effect or midline shift. Senescent focal calcification of the left basal ganglion. There is age-related cerebral atrophy with widening of the extra-axial spaces and ventricular dilatation. There are periventricular/subcortical areas of decreased attenuation, likely from chronic microvascular disease. Bones/joints: Unremarkable. No acute fracture. Soft tissues: Left preseptal/periorbital soft tissue swelling. Sinuses: A completely opacified left maxillary sinus with abnormal soft tissues. No air-fluid levels. Mastoid air cells: No significant mastoid effusion. IMPRESSION: No definite acute intracranial abnormality identified. Chronic involutional and ischemic changes of the brain. Completely opacified left maxillary sinus/severe chronic sinusitis. Left preseptal/periorbital mild soft tissue swelling. Clinical correlation is advised. . Electronically signed by: Catalina Mccann MD, CHANDA 01/01/24 22:22 PM Discharge Plan Visit Data Chief Complaint: Vertigo Stated Complaint: VERTIGO, WEAK LEGS, BACK PAIN ED Provider: Michael Goodman Discharge Problem: Weakness, Lower back pain, Vomiting, Dizziness, Sinusitis Patient Disposition: Admitted As Inpatient Condition: Fair Forms Stand Alone Forms: My [facility] Prescriptions Prescriptions: No Action losartan 50 mg tablet 50 mg PO DAILY atorvastatin 40 mg tablet 40 mg PO QAM insulin glargine [Lantus U-100 Insulin] 100 unit/mL solution 18 unit SUBCUT HS trazodone 50 mg tablet 25 mg PO HS polyethylene glycol 3350 [Miralax] 17 gram Powder In Packet 17 g PO DAILY PRN (Reason: Constipation) ondansetron HCl 4 mg Tablet 4 mg PO Q4 PRN (Reason: nausea/vomiting) sennosides-docusate sodium [Senokot-S] 8.6-50 mg Tablet 1 tab-cap PO .QLUNCH PRN (Reason: Constipation) sennosides-docusate sodium [Senna with Docusate Sodium] 8.6-50 mg Tablet 2 tab-cap PO HS potassium chloride 10 mEq Tablet Extended Release 10 meq PO DAILY allopurinol 100 mg Tablet 200 mg PO DAILY aspirin 81 mg Tablet,Delayed Release (Dr/Ec) 81 mg PO DAILY insulin aspart U-100 100 unit/mL Solution 7 unit SUBCUT TIDWMEAL pantoprazole 40 mg Tablet,Delayed Release (Dr/Ec) 40 mg PO BID lidocaine 5 % Adhesive Patch,Medicated 1 patch TOPICAL DAILY Rx Instructions: leave on most painful area for up to 12 hrs docusate sodium 100 mg Capsule 100 mg PO BID furosemide [Lasix] 20 mg Tablet 20 mg PO DAILY oxycodone 5 mg tablet 10 mg PO Q4 PRN (Reason: .pain 7-10) baclofen 5 mg Tablet 5 mg PO TID PRN (Reason: Pain) levothyroxine 125 mcg tablet 125 mcg PO DAILY isosorbide mononitrate 60 mg Tablet Extended Release 24 Hr 60 mg PO QAM Qty: 30 0RF metoprolol tartrate 50 mg tablet 75 mg PO Q12 Qty: 90 0RF amlodipine 2.5 mg tablet 5 mg PO DAILY Referrals Referrals: Chaitanya Fernandez MD [Primary Care Provider] - Discharge Problem: Lower back pain Qualifiers: Chronicity: unspecified Back pain laterality: midline Sciatica presence: w ithout sciatica Qualified Code(s): M54.50 - Low back pain, unspecified Vomiting Qualifiers: Vomiting type: unspecified Nausea presence: with nausea Qualified Code(s): R 11.2 - Nausea with vomiting, unspecified Sinusitis Qualifiers: Sinusitis location: unspecified location Chronicity: unspecified Qualified Code(s): J32.9 - Chronic sinusitis, unspecified
[2024-01-01] MEDS: SODIUM CHLORIDE 0.9% 1,000 ML IV ONE (20:14)
[2024-01-01] MEDS: ONDANSETRON INJ 2 MG/ML 2 ML VIAL IV STA (20:14)
[2024-01-01 20:20] LABS: Basophils # (auto) 0.06 K/uL (0.00-0.20); Basophils % (auto) 0.7 %; Eosinophils % (auto) 2.2 %; Hematocrit (blood only) 42.8 % (37.0-47.0); Hemoglobin 13.8 g/dl (12.0-16.0); Immature Granulocytes # (auto) 0.03 K/uL (0.01-0.20); Immature Granulocytes % (auto) 0.3 %; Lymphocytes # (auto) 2.28 K/uL (1.20-3.40); Lymphocytes % (auto) 25.2 %; Mean Corpuscular Hemoglobin 28.4 pg (25.0-34.0); Mean Corpuscular Hgb Conc 32.2 g/dL (32.0-36.0); Mean Corpuscular Volume 88.1 fL (80.0-100.0); Mean Platelet Volume 12.1 fL (9.4-12.4); Monocytes % (auto) 6.6 %; Neutrophils # (auto) 5.89 K/uL (1.40-6.50); Platelet Count 245 K/uL (130-400); RDW Coefficient of Variation 14.2 % (11.5-14.5); RDW Standard Deviation 45.2 fL (36.4-46.3); Red Blood Count 4.86 M/uL (4.20-5.40); White Blood Count 9.06 K/ul (4.8-10.8)
[2024-01-01 20:34] LABS: Albumin Globulin Ratio 1.3 (0.9-2); Albumin Level 4.1 gm/dl (3.4-5.0); BUN Creatinine Ratio 22.1 (10-20); Bilirubin,Total 0.4 mg/dl (0.2-1.0); Calcium 9.8 mg/dl (8.6-10.3); Creatinine Clr Calc Pharmacy 56.1 ml/min; Globulin 3.1 gm/dl (2.5-4.0); Potassium 4.8 mmol/L (3.5-5.1); Total Protein 7.2 gm/dl (6.0-8.3)
[2024-01-01 20:41] LABS: Troponin I High Sensitivity 7.3 pg/ml (0-14)
[2024-01-01 20:51] LABS: Thyroid Stimulating Hormone 0.88 uIu/ml (0.300-4.500)
[2024-01-01] MEDS: KETOROLAC TROMETHAMINE 15 MG/ML VIAL IV STA (21:24)
[2024-01-01] MEDS: ACETAMINOPHEN 1,000 MG/100 ML VIAL IV STA (21:25)
[2024-01-01] MEDS ORDERED: MECLIZINE 12.5 MG TAB PO PRN (22:03)
[2024-01-01 22:09] LABS: Appearance Urine Clear (Clear); Bacteria Urine Automated None Seen (None Seen); Bilirubin Urine Negative (Negative); Blood Urine Negative (Negative); Cast Urine Automated 0-2 /lpf (0-2); Color Urine Yellow; Epithelial Cell Urine Auto 0-2 /hpf (0-2); Glucose Urine UA Negative (Negative); Ketones Urine Negative (Negative); Leukocyte Esterase Urine 1+ (Negative); Nitrite Urine Negative (Negative); Protein Urine Negative (Negative); RBC Urine Automated 0-2 /hpf (0-2); Specific Gravity Urine 1.009 (1.000-1.030); Urobilinogen Urine Negative (Negative)
--- NOTE | 2024-01-01 22:23 | CT Scan Report ---
Exam(s): CT HEAD Without Contrast EXAM: CT Head Without Intravenous Contrast CLINICAL HISTORY: Reason for exam: dizzy, weak. TECHNIQUE: Axial computed tomography images of the head/brain without intravenous contrast. CTDI is 68.69 mGy and DLP is 961.59 mGy-cm. Automated exposure control was utilized for the study. A dose lowering technique was utilized adhering to the principles of ALARA. COMPARISON: None. FINDINGS: Diagnostic sensitivity of the exam is reduced by motion and beam hardening artifacts. Brain: There is no acute intracranial hemorrhage, mass-effect or midline shift. Senescent focal calcification of the left basal ganglion. There is age-related cerebral atrophy with widening of the extra-axial spaces and ventricular dilatation. There are periventricular/subcortical areas of decreased attenuation, likely from chronic microvascular disease. Bones/joints: Unremarkable. No acute fracture. Soft tissues: Left preseptal/periorbital soft tissue swelling. Sinuses: A completely opacified left maxillary sinus with abnormal soft tissues. No air-fluid levels. Mastoid air cells: No significant mastoid effusion. IMPRESSION: No definite acute intracranial abnormality identified. Chronic involutional and ischemic changes of the brain. Completely opacified left maxillary sinus/severe chronic sinusitis. Left preseptal/periorbital mild soft tissue swelling. Clinical correlation is advised. . Electronically signed by: Catalina Mccann MD, YOSEFR 01/01/24 22:22 PM
[2024-01-01] MEDS: cefTRIAXone SODIUM 2,000 MG/50 ML BAG IV STA (22:33)
--- NOTE | 2024-01-01 22:38 | History & Physical Report ---
Date of Service January 01, 2024 Assessment & Plan (1) CHF (congestive heart failure): Plan: Mild CHF decompensation presenting as increase in bilateral leg swelling History diastolic dysfunction Lumbar radiculopathy History of back surgery BPPV CAD status post CABG hypertension, stable hyperlipidemia, on statin Rx DM 2 insulin requiring, reasonable control as of recent hemoglobin A1c of 7.4 last August 2023 hypothyroidism, euthyroid as of today TSH Asymptomatic pyuria, contaminated specimen, no sepsis for now PCU Diuretic Rx Strict I/Os, daily weights, CHF education Repeat chest x-ray in a.m. to guide additional diuretic Rx Update TTE May benefit from inpatient cardiology eval Analgesia for back pain Orthopedic spine consult for lumbar radiculopathy (Patient to be evaluated by Dr. Taveras in AM as per ED provider.) Hold home aspirin for now in anticipation of procedure Meclizine as needed vertigo attack, Davion maneuver by PT if still symptomatic once cleared by orthopedics Basal bolus insulin, ISS BG goal 1 10-1 40, carb count coverage Hold off on additional antibiotic Rx for asymptomatic pyuria DVT prophylaxis. SCDs re: possible procedure Full code Patient granddaughter requesting updates providers. Ms. Irma Sharma, contact #[phone]. Text document was generated using [employer] voice recognition software. It may contain grammatical or spelling errors. Kindly contact undersigned for clarification of any documentation item in question. History of Present Illness Chief Complaint: Worsening back pain, bilateral leg weakness Primary Care Provider: Chaitanya Fernandez MD History obtained from patient, family, and records. Medical history significant for chronic diastolic heart failure (65 to 70%, TTE 2022), CAD status post CABG, mild MR, hypertension, hyperlipidemia, DM 2 insulin requiring, hypothyroidism, GERD, chronic back pain, sacroiliitis as per records, history of BPPV, past tobacco abuse. Last confinement June 2022 for unstable angina. Patient noted worsening achy mid/low back pain more than a week ago with increasing bilateral leg weakness. No recollection of recent trauma or exertion. No fever, no chills, no incontinence symptoms. Denies dysuria symptoms. Vertigo attack at home described as spinning which usually responds to home Davion maneuver. Some sinus fullness. Patient unable to do home Davion maneuver properly due to back pain. No chest pain or unusual shortness of breath. Legs more swollen than usual, patient not sure about weight gain. Patient seen at PCPs office last week. Impression was lumbar radiculopathy. Outpatient PT eval and orthopedic spine evaluation contemplated. Outpatient UA negative for infection. Patient directed to ER for worsening symptoms. IV ceftriaxone administered at the ER. 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 Allergies Allergy/AdvReac Type Severity Reaction Status Date / Time latex Allergy Intermediate skin Verified 01/01/24 23:15 irritation and peels skin off prednisone AdvReac Severe STROKE Verified 01/01/24 23:15 fentanyl AdvReac Intermediate "opiate Verified 01/01/24 23:15 agonists cause severe N&V, increased heart rate, " hydromorphone AdvReac Intermediate "opiate Verified 01/01/24 23:15 agonists cause severe N&V, increased heart rate, " methadone AdvReac Intermediate "opiate Verified 01/01/24 23:15 agonists cause severe N&V, increased heart rate, " morphine AdvReac Intermediate "opiate Verified 01/01/24 23:15 agonists cause severe N&V, increased heart rate, " oxycodone AdvReac Intermediate "opiate Verified 01/01/24 23:15 agonists cause severe N&V, increased heart rate, " meclizine AdvReac Mild Severe N&V Verified 01/01/24 23:15 tetracycline AdvReac Mild Severe N&V Verified 01/01/24 23:15 tramadol AdvReac Blurry Verified 01/01/24 23:15 Vision Home Medications Medication Instructions Recorded Confirmed Type allopurinol 100 mg tablet 200 mg PO DAILY 07/03/22 01/01/24 History aspirin 81 mg tablet,delayed 81 mg PO DAILY 07/03/22 07/03/22 History release atorvastatin 40 mg tablet 40 mg PO QAM 07/03/22 07/03/22 History baclofen 5 mg tablet 5 mg PO TID PRN Pain 07/03/22 07/03/22 History docusate sodium 100 mg capsule 100 mg PO BID 07/03/22 07/03/22 History furosemide 20 mg tablet (Lasix) 20 mg PO DAILY 07/03/22 07/03/22 History insulin aspart U-100 100 unit/mL 7 unit subcut TIDWMEAL 07/03/22 07/03/22 History subcutaneous solution insulin glargine 100 unit/mL 18 unit subcut HS 07/03/22 07/03/22 History subcutaneous solution (Lantus U-100 Insulin) levothyroxine 125 mcg tablet 125 mcg PO DAILY 07/03/22 07/03/22 History lidocaine 5 % topical patch 1 patch topical DAILY 07/03/22 07/03/22 History losartan 50 mg tablet 50 mg PO DAILY 07/03/22 07/03/22 History ondansetron HCl 4 mg tablet 4 mg PO Q4 PRN nausea/vomiting 07/03/22 07/03/22 History oxycodone 5 mg tablet 10 mg PO Q4 PRN .pain 7-10 07/03/22 07/03/22 History pantoprazole 40 mg tablet,delayed 40 mg PO BID 07/03/22 07/03/22 History release polyethylene glycol 3350 17 gram 17 g PO DAILY PRN Constipation 07/03/22 07/03/22 History oral powder packet (Miralax) potassium chloride 10 mEq 10 meq PO DAILY 07/03/22 07/03/22 History tablet,extended release sennosides 8.6 mg-docusate sodium 2 tab-cap PO HS 07/03/22 07/03/22 History 50 mg tablet (Senna with Docusate Sodium) sennosides 8.6 mg-docusate sodium 1 tab-cap PO .QLUNCH PRN 07/03/22 07/03/22 History 50 mg tablet (Senokot-S) Constipation trazodone 50 mg tablet 25 mg PO HS 07/03/22 07/03/22 History isosorbide mononitrate 60 mg 60 mg PO QAM #30 tabs 07/06/22 Rx tablet,extended release 24 hr metoprolol tartrate 50 mg tablet 75 mg (1.5 x 50 mg) PO Q12 #90 tabs 07/06/22 Rx amlodipine 2.5 mg tablet 5 mg PO DAILY 01/01/24 01/01/24 History Past Med/Surg History Problem List (Updated 01/01/24 @ 23:43 by Olvin Holder MD) CHF (congestive heart failure) Sinusitis (Acute) Dizziness (Acute) Vomiting (Acute) Lower back pain (Acute) Weakness (Acute) Epigastric pain Demand ischemia ACS (acute coronary syndrome) Abdominal pain, acute, epigastric (Acute) Chest pain due to myocardial ischemia (Acute) Dyslipidemia, goal LDL below 70 Status post aorto-coronary artery bypass graft Multi-vessel coronary artery stenosis Postoperative anemia Status post lumbar spine surgery for decompression of spinal cord Chest pain at rest GERD (gastroesophageal reflux disease) controlled Hypothyroidism Diabetes mellitus, type 2 IDDM CAD (coronary artery disease) CABG (2011) 09/19/20 catheterization done after positive stress test showed patent SHANE to LAD and SVG-OM graft, SVG graft to RCA was occluded and RCA territory was supplied by collaterals from left, Degenerative disc disease (Acute) Neuroforaminal stenosis of lumbar spine (Acute) Spinal stenosis (Chronic) HTN (hypertension) (Chronic) Medical History Chronic back pain Stroke ~2019 -> treated at [facility] -> left eye blindness and gastric ulcers at the time. follows with PCP. Motion sickness Nausea and vomiting after administration of anesthetic agent Claustrophobia severe History of COVID-19 PHx 2020 - headache only at the time. Morbid obesity Spinal stenosis Hx of gout Arthritis History of gastric ulcer 2019 History of anemia No known blood transfusions Macular degeneration 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 Hyperlipidemia Left knee DJD Surgical History H/O partial thyroidectomy History of appendectomy History of breast biopsy History of cardiac cath History of cataract surgery History of cholecystectomy History of colonoscopy History of coronary artery bypass graft History of esophagogastroduodenoscopy (EGD) History of hysterectomy History of lumbar surgery History of tooth extraction History of total knee replacement Family History Brother Family history of diabetes mellitus Sister Family history of diabetes mellitus Mother Family history of diabetes mellitus Father Family history of diabetes mellitus Other No family history of adverse response to anesthesia Social History Smoking Status: Never smoker Second Hand Exposure: No; Do You Dip or Chew Tobacco: No; Hx Alcohol Use: No Hx Substance Use: No Preferred Language: Moroccan Communication Ability: Effective Wire Walker Required: No Beliefs That Will Affect Care: None Current Living Situation: Alone Feels Safe at Home: Yes Assistive Devices: Stair Lift and Walker Review of Systems Review of Systems: As per HPI, all other systems reviewed and negative Physical Exam Physical Exam: GENERAL: Slightly morbidly obese, uncomfortable, no respiratory distress SKIN: Normal color, warm HEENT: [place] palpebral conjunctivae, no ptosis, dry buccal mucosa NECK : Supple, no tenderness CHEST : Decreased breath sounds, no tenderness HEART : RRR, no obvious murmurs ABDOMEN: Some distention, nontender BACK : Low back tenderness, negative straight leg raise test EXTREMITIES : Bilateral LE swelling, no LE tenderness, no other conspicuous deformities noted NEUROLOGIC : Coherent, no facial asymmetry, no other gross focality Results & Data Results & Data Vital Signs (Past 12 Hours) Vital Signs Temp Pulse Pulse Resp BP BP Pulse Ox 01/01/24 22:18 80 01/01/24 22:01 77 20 96 01/01/24 21:28 80 12 144/63 H 94 01/01/24 19:53 68 18 95 01/01/24 19:43 70 16 134/61 96 01/01/24 19:21 36.2 C L 68 16 123/71 96 O2 Del Method 01/01/24 22:18 01/01/24 22:01 Room Air 01/01/24 21:28 Room Air 01/01/24 19:53 Room Air 01/01/24 19:43 Room Air 01/01/24 19:21 Room Air Laboratory Results Laboratory Results WBC 9.06 K/ul (4.8-10.8) 01/01/24 20:00 RBC 4.86 M/uL (4.20-5.40) 01/01/24 20:00 Hgb 13.8 g/dl (12.0-16.0) 01/01/24 20:00 Hct 42.8 % (37.0-47.0) 01/01/24 20:00 MCV 88.1 fL (80.0-100.0) 01/01/24 20:00 MCH 28.4 pg (25.0-34.0) 01/01/24 20:00 MCHC 32.2 g/dL (32.0-36.0) 01/01/24 20:00 RDW Std Deviation 45.2 fL (36.4-46.3) 01/01/24 20:00 RDW Coeff of Jeri 14.2 % (11.5-14.5) 01/01/24 20:00 Plt Count 245 K/uL (130-400) 01/01/24 20:00 MPV 12.1 fL (9.4-12.4) 01/01/24 20:00 Immature Gran % (Auto) 0.3 % 01/01/24 20:00 Neut % (Auto) 65.0 % 01/01/24 20:00 Lymph % (Auto) 25.2 % 01/01/24 20:00 [place] % (Auto) 6.6 % 01/01/24 20:00 Eos % (Auto) 2.2 % 01/01/24 20:00 Baso % (Auto) 0.7 % 01/01/24 20:00 Neut # (Auto) 5.89 K/uL (1.40-6.50) 01/01/24 20:00 Lymph # (Auto) 2.28 K/uL (1.20-3.40) 01/01/24 20:00 [place] # (Auto) 0.60 K/uL (0.11-0.59) H 01/01/24 20:00 Eos # (Auto) 0.20 K/uL (0.00-0.50) 01/01/24 20:00 Baso # (Auto) 0.06 K/uL (0.00-0.20) 01/01/24 20:00 Immature Gran # (Auto) 0.03 K/uL (0.01-0.20) 01/01/24 20:00 Sodium 137 mmol/L (136-145) 01/01/24 20:00 Potassium 4.8 mmol/L (3.5-5.1) 01/01/24 20:00 Chloride 105 mmol/L (98-107) 01/01/24 20:00 Carbon Dioxide 25 mmol/L (21-32) 01/01/24 20:00 Anion Gap 7 (3-11) 01/01/24 20:00 BUN 19 mg/dl (6-23) 01/01/24 20:00 Creatinine 0.86 mg/dl (0.6-1.2) 01/01/24 20:00 Est Cr Clr Drug Dosing 56.1 ml/min 01/01/24 20:00 eGFR 68.25 01/01/24 20:00 BUN/Creatinine Ratio 22.1 (10-20) H 01/01/24 20:00 Glucose 118 mg/dl (70-99(Fasting)) H 01/01/24 20:00 Calcium 9.8 mg/dl (8.6-10.3) 01/01/24 20:00 Magnesium 2.0 mg/dl (1.7-2.4) 01/01/24 20:00 Total Bilirubin 0.4 mg/dl (0.2-1.0) 01/01/24 20:00 AST 19 U/L (13-39) 01/01/24 20:00 ALT 10 U/L (7-52) 01/01/24 20:00 Alkaline Phosphatase 136 U/L (34-104) H 01/01/24 20:00 Troponin I High Sens 7.3 pg/ml (0-14) 01/01/24 20:00 Total Protein 7.2 gm/dl (6.0-8.3) 01/01/24 20:00 Albumin 4.1 gm/dl (3.4-5.0) 01/01/24 20:00 Globulin 3.1 gm/dl (2.5-4.0) 01/01/24 20:00 Albumin/Globulin Ratio 1.3 (0.9-2) 01/01/24 20:00 TSH 0.880 uIu/ml (0.300-4.500) 01/01/24 20:00 Urine Color Yellow 01/01/24 21:55 Urine Appearance Clear (Clear) 01/01/24 21:55 Urine pH 6.0 (4.5-7.5) 01/01/24 21:55 Ur Specific [place] 1.009 (1.000-1.030) 01/01/24 21:55 Urine Protein Negative (Negative) 01/01/24 21:55 Urine Glucose (UA) Negative (Negative) 01/01/24 21:55 Urine Ketones Negative (Negative) 01/01/24 21:55 Urine Blood Negative (Negative) 01/01/24 21: Urine Nitrite Negative (Negative) 01/01/24 21: Urine Bilirubin Negative (Negative) 01/01/24 21:55 Urine Urobilinogen Negative (Negative) 01/01/24 21:55 Ur Leukocyte Esterase 1+ (Negative) H 01/01/24 21:55 Urine WBC (Auto) 6-10 /hpf (0-5) H 01/01/24 21:55 Urine RBC (Auto) 0-2 /hpf (0-2) 01/01/24 21:55 U Hyaline Cast (Auto) 0-2 /lpf (0-2) 01/01/24 21:55 U Epithel Cells (Auto) 0-2 /hpf (0-2) 01/01/24 21:55 Urine Bacteria (Auto) None Seen (None Seen) 01/01/24 21:[address] 01/01/24 19:56 Exam(s): CT HEAD Without Contrast EXAM: CT Head Without Intravenous Contrast CLINICAL HISTORY: Reason for exam: dizzy, weak. TECHNIQUE: Axial computed tomography images of the head/brain without intravenous contrast. CTDI is 68.69 mGy and DLP is 961.59 mGy-cm. Automated exposure control was utilized for the study. A dose lowering technique was utilized adhering to the principles of ALARA. COMPARISON: None. FINDINGS: Diagnostic sensitivity of the exam is reduced by motion and beam hardening artifacts. Brain: There is no acute intracranial hemorrhage, mass-effect or midline shift. Senescent focal calcification of the left basal ganglion. There is age-related cerebral atrophy with widening of the extra-axial spaces and ventricular dilatation. There are periventricular/subcortical areas of decreased attenuation, likely from chronic microvascular disease. Bones/joints: Unremarkable. No acute fracture. Soft tissues: Left preseptal/periorbital soft tissue swelling. Sinuses: A completely opacified left maxillary sinus with abnormal soft tissues. No air-fluid levels. Mastoid air cells: No significant mastoid effusion. IMPRESSION: No definite acute intracranial abnormality identified. Chronic involutional and ischemic changes of the brain. Completely opacified left maxillary sinus/severe chronic sinusitis. Left preseptal/periorbital mild soft tissue swelling. Clinical correlation is advised. . Electronically signed by: Catalina Mccann MD, CHANDA 01/01/24 22:22 PM Diagnostic Findings Chest x-ray as per my interpretation cardiomegaly, congestion EKG as per my interpretation : Rate 75, NSR, LAD, LAFB, T wave inversion lateral leads
--- NOTE | 2024-01-01 22:58 | XRay Report ---
Exam(s): XR CXR 1 VIEW EXAM: XR Chest, 1 View CLINICAL HISTORY: Reason for exam: weakness. TECHNIQUE: Frontal view of the chest. COMPARISON: Chest x-ray: 07/04/2022 FINDINGS: Patient's body habitus limits the study. Lungs: Underexpanded lungs. Bilateral perihilar interstitial pattern edema or infiltrates. Bilateral hilar/parahilar nodular opacities, increased in size since prior comparison, probably vascular in nature. Pleural space: Opacification of left costophrenic sulcus. No pneumothorax. Heart: Cardiomegaly. Possibly prior CABG procedure. Median sternotomy. Aortic atherosclerosis. Bones/joints: Diffuse osseous demineralization. Postsurgical thoracolumbar spine. Right shoulder osteoarthropathy. Right calcific tendinopathy. No acute fracture. IMPRESSION: Cardiomegaly and likely pulmonary vascular congestion/CHF mildly worsened since prior comparison. Recommend clinical correlation/follow-up. . Electronically signed by: Catalina Mccann MD, DABR 01/01/24 22:57 PM
[2024-01-01] MEDS ORDERED: DEXTROSE 50% 50 ML SYRINGE IV PRN (23:56)
[2024-01-01] MEDS ORDERED: GLUCOSE 10 TAB/TUBE PO PRN (23:56)
[2024-01-01] MEDS ORDERED: CARBOHYDRATES FOR HYPOGLYCEMIA PO PRN (23:56)
[2024-01-01] MEDS ORDERED: GLUCOSE 40% GEL 15 GM TUBE PO PRN (23:56)
[2024-01-01] MEDS ORDERED: GLUCAGON FOR INJ 1 MG VIAL SQ PRN (23:56)
[2024-01-02 00:19] LABS: Adenovirus PCR Not Detected (NotDetected); Bordetella parapertussis PCR Not Detected (NotDetected); Bordetella pertussis PCR Not Detected (NotDetected); Chlamydia pneumoniae PCR Not Detected (NotDetected); Coronavirus 229E PCR Not Detected (NotDetected); Coronavirus CoV-2 (COVID19)PCR Not Detected (NotDetected); Coronavirus HKU1 PCR Not Detected (NotDetected); Coronavirus NL63 PCR Not Detected (NotDetected); Coronavirus OC43PCR Not Detected (NotDetected); Human Metapneumovirus PCR Not Detected (NotDetected); Influenza A PCR Not Detected (NotDetected); Influenza B PCR Not Detected (NotDetected); Mycoplasma pneumoniae PCR Not Detected (NotDetected); Parainfluenza Virus 1 PCR Not Detected (NotDetected); Parainfluenza Virus 2 PCR Not Detected (NotDetected); Parainfluenza Virus 3 PCR Not Detected (NotDetected); Parainfluenza Virus 4 PCR Not Detected (NotDetected); Respiratory Syncytial VirusPCR Not Detected (NotDetected); Rhinovirus/Enterovirus PCR Not Detected (NotDetected)
[2024-01-02] MEDS: LIDOCAINE 5% 1 PATCH TD STA (00:20)
[2024-01-02] MEDS: LANTUS PER UNIT CHARGE SQ SCH (00:21)
[2024-01-02] MEDS: FUROSEMIDE INJ 20 MG/2 ML VIAL IV STA (00:21)
[2024-01-02] MEDS: INSULIN ASPART PER UNIT CHARGE SC SCH (00:21)
[2024-01-02] MEDS: traZODone HCL 50 MG TAB PO SCH (00:21)
[2024-01-02] MEDS: oxyCODONE HCL IR 5 MG TAB (IMMEDIATE RELEASE) PO PRN (00:38)
[2024-01-02] MEDS: LEVOTHYROXINE SODIUM 125 MCG TABLET PO SCH (06:30)
[2024-01-02 06:40] LABS: Basophils # (auto) 0.03 K/uL (0.00-0.20); Basophils % (auto) 0.4 %; Eosinophils # (auto) 0.13 K/uL (0.00-0.50); Eosinophils % (auto) 1.8 %; Hematocrit (blood only) 40.3 % (37.0-47.0); Hemoglobin 12.8 g/dl (12.0-16.0); Immature Granulocytes # (auto) 0.02 K/uL (0.01-0.20); Immature Granulocytes % (auto) 0.3 %; Lymphocytes # (auto) 1.99 K/uL (1.20-3.40); Mean Corpuscular Hemoglobin 28.4 pg (25.0-34.0); Mean Corpuscular Hgb Conc 31.8 g/dL (32.0-36.0); Mean Corpuscular Volume 89.6 fL (80.0-100.0); Mean Platelet Volume 12.5 fL (9.4-12.4); Monocytes # (auto) 0.51 K/uL (0.11-0.59); Monocytes % (auto) 6.9 %; Neutrophils # (auto) 4.69 K/uL (1.40-6.50); Neutrophils % (auto) 63.6 %; Platelet Count 210 K/uL (130-400); RDW Coefficient of Variation 14.1 % (11.5-14.5); RDW Standard Deviation 46.1 fL (36.4-46.3); White Blood Count 7.37 K/ul (4.8-10.8)
[2024-01-02 07:01] LABS: Calcium 9.4 mg/dl (8.6-10.3); Potassium 4.4 mmol/L (3.5-5.1)
[2024-01-02 07:07] LABS: BUN Creatinine Ratio 21.1 (10-20); Creatinine Clr Calc Pharmacy 53.3 ml/min
--- NOTE | 2024-01-02 07:33 | Hospitalist Progress Note ---
Date of Service January 02, 2024 Assessment & Plan (1) CHF (congestive heart failure): Plan: Acute on chronic HFpEF Mild CHF decompensation presenting as increase in bilateral leg swelling History diastolic dysfunction. echo from today reviewed. Grade I diastolic dysfunction with LVEF of 70% Diuretic Rx Strict I/Os, daily weights, CHF education, Madsen cath Repeat chest x-ray reviwed by me. Will give additional lasix Lumbar radiculopathy History of back surgery Orthopedic spine consult for lumbar radiculopathy Pt is not ambulating Will need PT eval BPPV CAD status post CABG hypertension, stable hyperlipidemia, on statin Rx DM 2 insulin requiring, reasonable control as of recent hemoglobin A1c of 7.4 last August 2023 Continue SSI Hypothyroidism Euthyroid, TSH ok Asymptomatic pyuria Contaminated specimen, no sepsis for now Urine Culture - Preliminary Pin-point growth present, reincubating. Hold off on additional antibiotic Rx for asymptomatic pyuria DVT prophylaxis. SCDs re: possible procedure Full code Patient granddaughter requesting updates providers. Jomar Irma Choiamol, contact #[phone]. A total of 50 minutes spent in the care and care coordination of this patient. Admission and Anticipated Discharge Date Admission Date: January 01, 2024 Subjective 01/02/24: Pt seen at bedside with nursing. Still with back pain. Was using a walker at home but unable to ambulate at present. Also admitted for HFpEF exacerbation. Would like a Madsen cath instead of the external cath. Not ambulating. Jacqueline CP, DONALD, N, V, D. Has some dyspnea. Echo reviewed. Grade I diastolic dysfunction with LVEF of 70% Review of Systems Review of Systems: As per HPI, all other systems reviewed and negative Physical Exam Physical Exam: General- adult elderly female seen in bed. Some discomfort from her back. Head- atraumatic Eyes- PERRL, EOMI, anicteric ENT- oropharynx clear Neck- supple, no JVD, no adenopathy, no thyromegaly; Lungs- diminished BS in the bases otherwise clear to auscultation and percussion Heart- regular rhythm; no murmur, no gallop, no rub appreciated Abdomen- normal bowel sounds, soft, nontender, no masses or hepatosplenomegaly Extremities- trace edema b/l Neuro- alert, oriented x 3; PERRL, EOMI; no facial palsy; no dysarthria; M/S: tender lumbar paraspinal areas Skin- warm & dry Results & Data Results & Data Vital Signs (Past 12 Hours) Vital Signs Temp Pulse Pulse Resp BP BP BP 01/02/24 07:31 76 17 151/67 H 01/02/24 03:26 36.8 C 67 19 116/66 01/02/24 00:45 01/02/24 00:03 76 01/01/24 23:40 36.6 C 78 18 111/61 01/01/24 23:40 36.6 C 78 18 111/61 01/01/24 23:39 76 16 124/75 01/01/24 22:48 80 16 117/73 01/01/24 22:18 80 01/01/24 22:01 77 20 01/01/24 21:28 80 12 144/63 H 01/01/24 19:53 68 18 01/01/24 19:43 70 16 134/61 Pulse Ox O2 Del Method 01/02/24 07:31 97 Room Air 01/02/24 03:26 95 Room Air 01/02/24 00:45 Room Air 01/02/24 00:03 01/01/24 23:40 95 Room Air 01/01/24 23:40 95 Room Air 01/01/24 23:39 92 Room Air 01/01/24 22:48 96 Room Air 01/01/24 22:18 01/01/24 22:01 96 Room Air 01/01/24 21:28 94 Room Air 01/01/24 19:53 95 Room Air 01/01/24 19:43 96 Room Air Diagnostic Findings Laboratory Results WBC 7.37 K/ul (4.8-10.8) 01/02/24 05:52 RBC 4.50 M/uL (4.20-5.40) 01/02/24 05:52 Hgb 12.8 g/dl (12.0-16.0) 01/02/24 05:52 Hct 40.3 % (37.0-47.0) 01/02/24 05:52 MCV 89.6 fL (80.0-100.0) 01/02/24 05:52 MCH 28.4 pg (25.0-34.0) 01/02/24 05:52 MCHC 31.8 g/dL (32.0-36.0) L 01/02/24 05:52 RDW Std Deviation 46.1 fL (36.4-46.3) 01/02/24 05:52 RDW Coeff of Jeri 14.1 % (11.5-14.5) 01/02/24 05:52 Plt Count 210 K/uL (130-400) 01/02/24 05:52 MPV 12.5 fL (9.4-12.4) H 01/02/24 05:52 Immature Gran % (Auto) 0.3 % 01/02/24 05:52 Neut % (Auto) 63.6 % 01/02/24 05:52 Lymph % (Auto) 27.0 % 01/02/24 05:52 Coffey % (Auto) 6.9 % 01/02/24 05:52 Eos % (Auto) 1.8 % 01/02/24 05:52 Baso % (Auto) 0.4 % 01/02/24 05:52 Neut # (Auto) 4.69 K/uL (1.40-6.50) 01/02/24 05:52 Lymph # (Auto) 1.99 K/uL (1.20-3.40) 01/02/24 05:52 Coffey # (Auto) 0.51 K/uL (0.11-0.59) 01/02/24 05:52 Eos # (Auto) 0.13 K/uL (0.00-0.50) 01/02/24 05:52 Baso # (Auto) 0.03 K/uL (0.00-0.20) 01/02/24 05:52 Immature Gran # (Auto) 0.02 K/uL (0.01-0.20) 01/02/24 05:52 Sodium 137 mmol/L (136-145) 01/02/24 05:52 Potassium 4.4 mmol/L (3.5-5.1) 01/02/24 05:52 Chloride 105 mmol/L (98-107) 01/02/24 05:52 Carbon Dioxide 24 mmol/L (21-32) 01/02/24 05:52 Anion Gap 8 (3-11) 01/02/24 05:52 BUN 19 mg/dl (6-23) 01/02/24 05:52 Creatinine 0.90 mg/dl (0.6-1.2) 01/02/24 05:52 Est Cr Clr Drug Dosing 53.3 ml/min 01/02/24 05:52 eGFR 64.63 01/02/24 05:52 BUN/Creatinine Ratio 21.1 (10-20) H 01/02/24 05:52 Glucose 206 mg/dl (70-99(Fasting)) H 01/02/24 05:52 POC Glucose 233 mg/dl (70-99) H 01/02/24 11:10 Calcium 9.4 mg/dl (8.6-10.3) 01/02/24 05:52 Magnesium 2.0 mg/dl (1.7-2.4) 01/01/24 20:00 Total Bilirubin 0.4 mg/dl (0.2-1.0) 01/01/24 20:00 AST 19 U/L (13-39) 01/01/24 20:00 ALT 10 U/L (7-52) 01/01/24 20:00 Alkaline Phosphatase 136 U/L (34-104) H 01/01/24 20:00 Troponin I High Sens 7.3 pg/ml (0-14) 01/01/24 20:00 B-Natriuretic Peptide 142 pg/ml (0-100) H 01/01/24 21:00 Total Protein 7.2 gm/dl (6.0-8.3) 01/01/24 20:00 Albumin 4.1 gm/dl (3.4-5.0) 01/01/24 20:00 Globulin 3.1 gm/dl (2.5-4.0) 01/01/24 20:00 Albumin/Globulin Ratio 1.3 (0.9-2) 01/01/24 20:00 TSH 0.880 uIu/ml (0.300-4.500) 01/01/24 20:00 Urine Color Yellow 01/01/24 21:55 Urine Appearance Clear (Clear) 01/01/24 21:55 Urine pH 6.0 (4.5-7.5) 01/01/24 21:55 Ur Specific [place] 1.009 (1.000-1.030) 01/01/24 21:55 Urine Protein Negative (Negative) 01/01/24 21:55 Urine Glucose (UA) Negative (Negative) 01/01/24 21:55 Urine Ketones Negative (Negative) 01/01/24 21:55 Urine Blood Negative (Negative) 01/01/24 21:55 Urine Nitrite Negative (Negative) 01/01/24 21:55 Urine Bilirubin Negative (Negative) 01/01/24 21:55 Urine Urobilinogen Negative (Negative) 01/01/24 21:55 Ur Leukocyte Esterase 1+ (Negative) H 01/01/24 21:55 Urine WBC (Auto) 6-10 /hpf (0-5) H 01/01/24 21:55 Urine RBC (Auto) 0-2 /hpf (0-2) 01/01/24 21:55 U Hyaline Cast (Auto) 0-2 /lpf (0-2) 01/01/24 21:55 U Epithel Cells (Auto) 0-2 /hpf (0-2) 01/01/24 21:55 Urine Bacteria (Auto) None Seen (None Seen) 01/01/24 21:55 Adenovirus (PCR) Not Detected (NotDetected) 01/01/24 23:10 B. pertussis DNA (PCR) Not Detected (NotDetected) 01/01/24 23:10 B.parapertussis DNA PCR Not Detected (NotDetected) 01/01/24 23:10 C. pneumoniae DNA (PCR) Not Detected (NotDetected) 01/01/24 23:10 Coronavirus OC43 (PCR) Not Detected (NotDetected) 01/01/24 23:10 Coronavirus HKU1 (PCR) Not Detected (NotDetected) 01/01/24 23:10 Coronavirus 229E (PCR) Not Detected (NotDetected) 01/01/24 23:10 SARS-CoV-2 (PCR) Not Detected (NotDetected) 01/01/24 23:10 Coronavirus NL63 (PCR) Not Detected (NotDetected) 01/01/24 23:10 Human Metapneumovir PCR Not Detected (NotDetected) 01/01/24 23:10 Influenza Type A (PCR) Not Detected (NotDetected) 01/01/24 23:10 Influenza Type B (PCR) Not Detected (NotDetected) 01/01/24 23:10 M. pneumoniae (PCR) Not Detected (NotDetected) 01/01/24 23:10 Parainfluenza 1 (PCR) Not Detected (NotDetected) 01/01/24 23:10 Parainfluenza 2 (PCR) Not Detected (NotDetected) 01/01/24 23:10 Parainfluenza 3 (PCR) Not Detected (NotDetected) 01/01/24 23:10 Parainfluenza 4 (PCR) Not Detected (NotDetected) 01/01/24 23:10 RSV (PCR) Not Detected (NotDetected) 01/01/24 23:10 Entero/Rhino (PCR) Not Detected (NotDetected) 01/01/24 23:[address] 01/01/24 19:56 Exam(s): CT HEAD Without Contrast EXAM: CT Head Without Intravenous Contrast CLINICAL HISTORY: Reason for exam: dizzy, weak. TECHNIQUE: Axial computed tomography images of the head/brain without intravenous contrast. CTDI is 68.69 mGy and DLP is 961.59 mGy-cm. Automated exposure control was utilized for the study. A dose lowering technique was utilized adhering to the principles of ALARA. COMPARISON: None. FINDINGS: Diagnostic sensitivity of the exam is reduced by motion and beam hardening artifacts. Brain: There is no acute intracranial hemorrhage, mass-effect or midline shift. Senescent focal calcification of the left basal ganglion. There is age-related cerebral atrophy with widening of the extra-axial spaces and ventricular dilatation. There are periventricular/subcortical areas of decreased attenuation, likely from chronic microvascular disease. Bones/joints: Unremarkable. No acute fracture. Soft tissues: Left preseptal/periorbital soft tissue swelling. Sinuses: A completely opacified left maxillary sinus with abnormal soft tissues. No air-fluid levels. Mastoid air cells: No significant mastoid effusion. IMPRESSION: No definite acute intracranial abnormality identified. Chronic involutional and ischemic changes of the brain. Completely opacified left maxillary sinus/severe chronic sinusitis. Left preseptal/periorbital mild soft tissue swelling. Clinical correlation is advised. . Electronically signed by: Catalina Mccann MD, YOSEFR 01/01/24 22:22 PM Chest X-Ray 01/02/24 07:00 EXAM: XR chest 1V portable CLINICAL HISTORY: CHF [facility] TECHNIQUE: X-ray examination of the chest AP view. COMPARISON: 07/04/2022. FINDINGS: Both lungs are clear. Prominent bilateral hilar vascular markings suggesting pulmonary congestion. Cardiac size is increased. Prominent aortic shadow. No pleural effusion seen. No pneumothorax. Intact bony thorax. Sternotomy sutures seen. Thoracic spine prior fixation seen. IMPRESSION: 1. Cardiomegaly with pulmonary congestion suggesting congestive heart failure. 2. No interval changes since last study. Electronically signed by Marco A Venegas 01-02-2024 07:32 AM Medications Administered Current Inpatient Medications Acetaminophen (Acetaminophen 325 Mg Tab) 650 mg PO QID PRN PRN Reason: pain/fever Stop: 01/31/24 22:02 Last Admin: 01/02/24 08:49 Dose: 650 mg Allopurinol (Allopurinol 100 Mg Tab) 200 mg PO DAILY LETTY Stop: 02/01/24 08:59 Last Admin: 01/02/24 08:37 Dose: 200 mg Atorvastatin Calcium (Atorvastatin 40 Mg Tab) 40 mg PO QAM LETTY Stop: 02/01/24 08:59 Last Admin: 01/02/24 08:38 Dose: 40 mg Baclofen (Baclofen 10 Mg Tab) 5 mg PO TID PRN PRN Reason: Pain Stop: 01/31/24 23:30 Dextrose (Dextrose 50% 50 Ml Syringe) 25 - 50 ml IV UD PRN; Protocol PRN Reason: Hypoglycemia Protocol Stop: 01/31/24 23:55 Docusate Sodium (Docusate Sodium 100 Mg Cap) 100 mg PO BID LETTY Stop: 02/01/24 08:59 Last Admin: 01/02/24 08:49 Dose: 100 mg Furosemide (Furosemide 20 Mg Tab) 20 mg PO DAILY LETTY Stop: 02/01/24 08:59 Last Admin: 01/02/24 08:40 Dose: 20 mg Glucagon (Glucagon For Inj 1 Mg Vial) 1 mg SQ UD PRN; Protocol PRN Reason: Hypoglycemia Protocol Stop: 01/31/24 23:55 Glucose (Glucose 40% Gel 15 Gm Tube) 15 - 30 gm PO UD PRN; Protocol PRN Reason: Hypoglycemia Protocol Stop: 01/31/24 23:55 Glucose (Glucose 10 Tab/Tube) 4 - 8 tab PO UD PRN; Protocol PRN Reason: Hypoglycemia Protocol Stop: 01/31/24 23:55 Promethazine HCl (Phenergan) 6.25 mg in 50.25 mls @ 201 mls/hr IV Q6H PRN PRN Reason: Nausea And Vomiting Stop: 01/31/24 22:02 Insulin Aspart (Insulin Aspart Per Unit Charge) 0 units SC ACHS LETTY Stop: 01/31/24 23:55 Last Admin: 01/02/24 13:05 Dose: 4 units Insulin Glargine (Lantus Per Unit Charge) 5 units SQ BID LETTY Stop: 01/31/24 23:44 Last Admin: 01/02/24 08:50 Dose: 5 units Isosorbide Mononitrate (Isosorbide Coffey Extended Rel 60 Mg Tabcr) 60 mg PO QAM LETTY Stop: 02/01/24 08:59 Last Admin: 01/02/24 08:41 Dose: 60 mg Levothyroxine Sodium (Levothyroxine Sodium 125 Mcg Tablet) 125 mcg PO DAILYBB [facility] Stop: 02/01/24 06:29 Last Admin: 01/02/24 06:30 Dose: 125 mcg Lidocaine (Lidocaine 5% 1 Patch) 1 patch TD HS [facility] Stop: 02/01/24 20:59 Losartan Potassium (Losartan Potassium 50 Mg Tab) 50 mg PO DAILY LETTY Stop: 02/01/24 08:59 Last Admin: 01/02/24 08:41 Dose: 50 mg Meclizine HCl (Meclizine 12.5 Mg Tab) 12.5 mg PO QID PRN PRN Reason: Dizziness or Vertigo Stop: 01/31/24 22:02 Metoprolol Tartrate (Metoprolol Tartrate 25 Mg Tab) 25 mg PO BID LETTY Stop: 02/01/24 08:59 Last Admin: 01/02/24 08:38 Dose: 25 mg Miscellaneous (Remove Lidoderm Patch) 1 each N/A QAM LETTY Stop: 02/01/24 08:59 Last Admin: 01/02/24 08:50 Dose: 1 each Miscellaneous (Carbohydrates For Hypoglycemia ) 15 - 30 gm PO UD PRN PRN Reason: Hypoglycemia Protocol Stop: 01/31/24 23:55 Oxycodone HCl (Oxycodone Hcl Ir 5 Mg Tab (Immediate Release)) 5 - 10 mg PO QID PRN PRN Reason: Pain Stop: 01/15/24 22:02 Last Admin: 01/02/24 00:38 Dose: 5 mg Pantoprazole Sodium (Pantoprazole 40 Mg Tab) 40 mg PO BID LETTY Stop: 02/01/24 08:59 Last Admin: 01/02/24 08:41 Dose: 40 mg Polyethylene Glycol (Polyethylene (Miralax) 17 Gm Pack) 17 gm PO DAILY PRN PRN Reason: Constipation Stop: 01/31/24 23:30 Senna/Docusate Sodium (Docusate Sodium/Senna 50/8.6mg Tab) 2 tab PO HS LETTY Stop: 02/01/24 20:59 Trazodone HCl (Trazodone Hcl 50 Mg Tab) 25 mg PO HS LETTY Stop: 01/31/24 23:34 Last Admin: 01/02/24 00:21 Dose: 25 mg
[2024-01-02] MEDS: allopurinoL 100 MG TAB PO SCH (08:37)
[2024-01-02] MEDS: METOPROLOL TARTRATE 25 MG TAB PO SCH (08:38)
[2024-01-02] MEDS: ATORVASTATIN 40 MG TAB PO SCH (08:38)
[2024-01-02] MEDS: FUROSEMIDE 20 MG TAB PO SCH (08:40)
[2024-01-02] MEDS: LOSARTAN POTASSIUM 50 MG TAB PO SCH (08:41)
[2024-01-02] MEDS: ISOSORBIDE MONO EXTENDED REL 60 MG TABCR PO SCH (08:41)
[2024-01-02] MEDS: PANTOprazole 40 MG TAB PO SCH (08:41)
[2024-01-02] MEDS: DOCUSATE SODIUM 100 MG CAP PO SCH (08:49)
[2024-01-02] MEDS: ACETAMINOPHEN 325 MG TAB PO PRN (08:49)
[2024-01-02] MEDS ORDERED: LANTUS PER UNIT CHARGE SQ SCH (09:00)
--- NOTE | 2024-01-02 10:20 | Consultation ---
Date of Consultation January 02, 2024 Assessment & Plan (1) Lower back pain: At this point in time she states she is unable to lie flat for about 30 minutes for an MRI. Will therefore pursue a CT scan of the thoracic spine and x-rays of the thoracic and lumbar spine to evaluate hardware and for adjacent level issues. Again she seems to be a very high risk surgical candidate if needed. Will make further conditions once more updated imaging has been performed and reviewed. History of Present Illness Reason for Consultation: Increased thoracolumbar pain and bilateral lower extremity weakness Attending Physician: Jaylan Mcwilliams, History of Present Illness This is a pleasant 78-year-old female well-known to us. She had a prior thoracolumbar fusion by Dr. Taveras about a year and a half ago. Her last follow-up in our office was in the summer 2022. She states for the past week she has noticed bilateral lower extremity weakness and her legs are buckling. Also notes some tingling in her feet which is new. She has a 4 to 5-month history of pain on the left thoracolumbar region. She and was with a walker or in a wheelchair. She is essentially homebound with the exception of going out for appointments. She sleeps in a reclined position on the couch. Denies perineum numbness. Denies bowel or bladder dysfunction. She has been taken Tylenol at home for pain control. 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 She was told she was a poor surgical candidate when considering a left total knee arthroplasty recently. Allergies Allergy/AdvReac Type Severity Reaction Status Date / Time latex Allergy Intermediate skin Verified 01/01/24 23:15 irritation and peels skin off prednisone AdvReac Severe STROKE Verified 01/01/24 23:15 fentanyl AdvReac Intermediate "opiate Verified 01/01/24 23:15 agonists cause severe N&V, increased heart rate, "sk hydromorphone AdvReac Intermediate "opiate Verified 01/01/24 23:15 agonists cause severe N&V, increased heart rate, "sk methadone AdvReac Intermediate "opiate Verified 01/01/24 23:15 agonists cause severe N&V, increased heart rate, "sk morphine AdvReac Intermediate "opiate Verified 01/01/24 23:15 agonists cause severe N&V, increased heart rate, "sk oxycodone AdvReac Intermediate "opiate Verified 01/01/24 23:15 agonists cause severe N&V, increased heart rate, "sk meclizine AdvReac Mild Severe N&V Verified 01/01/24 23:15 tetracycline AdvReac Mild Severe N&V Verified 01/01/24 23:15 tramadol AdvReac Blurry Verified 01/01/24 23:15 Vision Home Medications Medication Instructions Recorded Confirmed Type allopurinol 100 mg tablet 200 mg PO DAILY 07/03/22 01/01/24 History aspirin 81 mg tablet,delayed 81 mg PO DAILY 07/03/22 07/03/22 History release atorvastatin 40 mg tablet 40 mg PO QAM 07/03/22 07/03/22 History baclofen 5 mg tablet 5 mg PO TID PRN Pain 07/03/22 07/03/22 History docusate sodium 100 mg capsule 100 mg PO BID 07/03/22 07/03/22 History furosemide 20 mg tablet (Lasix) 20 mg PO DAILY 07/03/22 07/03/22 History insulin aspart U-100 100 unit/mL 7 unit subcut TIDWMEAL 07/03/22 07/03/22 History subcutaneous solution insulin glargine 100 unit/mL 18 unit subcut HS 07/03/22 07/03/22 History subcutaneous solution (Lantus U-100 Insulin) levothyroxine 125 mcg tablet 125 mcg PO DAILY 07/03/22 07/03/22 History lidocaine 5 % topical patch 1 patch topical DAILY 07/03/22 07/03/22 History losartan 50 mg tablet 50 mg PO DAILY 07/03/22 07/03/22 History ondansetron HCl 4 mg tablet 4 mg PO Q4 PRN nausea/vomiting 07/03/22 07/03/22 History oxycodone 5 mg tablet 10 mg PO Q4 PRN .pain 7-10 07/03/22 07/03/22 History pantoprazole 40 mg tablet,delayed 40 mg PO BID 07/03/22 07/03/22 History release polyethylene glycol 3350 17 gram 17 g PO DAILY PRN Constipation 07/03/22 07/03/22 History oral powder packet (Miralax) potassium chloride 10 mEq 10 meq PO DAILY 07/03/22 07/03/22 History tablet,extended release sennosides 8.6 mg-docusate sodium 2 tab-cap PO HS 07/03/22 07/03/22 History 50 mg tablet (Senna with Docusate Sodium) sennosides 8.6 mg-docusate sodium 1 tab-cap PO .QLUNCH PRN 07/03/22 07/03/22 History 50 mg tablet (Senokot-S) Constipation trazodone 50 mg tablet 25 mg PO HS 07/03/22 07/03/22 History isosorbide mononitrate 60 mg 60 mg PO QAM #30 tabs 07/06/22 Rx tablet,extended release 24 hr metoprolol tartrate 50 mg tablet 75 mg (1.5 x 50 mg) PO Q12 #90 tabs 07/06/22 Rx amlodipine 2.5 mg tablet 5 mg PO DAILY 01/01/24 01/01/24 History Patient History Medical History Chronic back pain Stroke ~2018 -> treated at [facility] -> left eye blindness and gastric ulcers at the time. follows with PCP. Motion sickness Nausea and vomiting after administration of anesthetic agent Claustrophobia severe History of COVID-19 PHx 2020 - headache only at the time. Morbid obesity Spinal stenosis Hx of gout Arthritis History of gastric ulcer 2020 History of anemia No known blood transfusions Macular degeneration 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 Hyperlipidemia Left knee DJD Surgical History History of breast biopsy x3 History of lumbar surgery x2 (+ hardware) History of total knee replacement Right History of esophagogastroduodenoscopy (EGD) History of colonoscopy History of hysterectomy History of appendectomy History of cholecystectomy H/O partial thyroidectomy Benign lump removal History of tooth extraction History of cataract surgery R/L History of cardiac cath 09/19/20 > no stents History of coronary artery bypass graft CABG (2011) x2 vessels. follows with [facility] Cardiology Family History Brother Family history of diabetes mellitus Sister Family history of diabetes mellitus Mother Family history of diabetes mellitus Father Family history of diabetes mellitus Other No family history of adverse response to anesthesia Social History Smoking Status: Former smoker Second Hand Exposure: No; Do You Dip or Chew Tobacco: No; Hx Alcohol Use: No Hx Substance Use: No Preferred Language: Colombian Communication Ability: Effective Yarn Inspector Required: No Beliefs That Will Affect Care: None Current Living Situation: Family Current Living Situation Comment: lives with Shakeel Other Information That Helps Us Care for You: No Feels Safe at Home: Yes Safety Concerns: Feels Safe At This Time Assistive Devices: Denture - Upper, Denture - Lower, Glasses and Walker Review of Systems Review of Systems: All systems reviewed & are unremarkable except as noted in HPI & below Physical Exam Physical Exam: She sitting in a reclined chair in no acute distress She is alert and oriented x 3 She is well-healed thoracic and lumbar incision midline. Nontender to palpation in this region. She is some edema bilateral lower extremities She has 3+ to 4/5 right quadricep. Otherwise strength is intact bilaterally Results & Data Vital Signs (Past 12 Hours) Vital Signs Temp Pulse Pulse Resp BP BP BP 01/02/24 07:31 76 17 151/67 H 01/02/24 03:26 36.8 C 67 19 116/66 01/02/24 00:45 01/02/24 00:03 76 01/01/24 23:40 36.6 C 78 18 111/61 01/01/24 23:40 36.6 C 78 18 111/61 01/01/24 23:39 76 16 124/75 01/01/24 22:48 80 16 117/73 01/01/24 22:18 80 Pulse Ox O2 Del Method 01/02/24 07:31 97 Room Air 01/02/24 03:26 95 Room Air 01/02/24 00:45 Room Air 01/02/24 00:03 01/01/24 23:40 95 Room Air 01/01/24 23:40 95 Room Air 01/01/24 23:39 92 Room Air 01/01/24 22:48 96 Room Air 01/01/24 22:18 (1) Lower back pain Back pain laterality: midline Chronicity: unspecified Sciatica presence: without sciatica Qualified Code(s): M54.50 - Low back pain, unspecified
--- OUTSIDE RECORDS SUMMARY | 2024-01-02 11:59 | External Medical Summary | Summary of Care ---
Author Name Unknown Organization [facility] Address [address] [place] [address] Phone [phone] Care Team Providers Care Inspector Firearms Name Role Phone Chaitanya Fernandez MD Primary Care Provider [phone] Reason for Referral * Evaluate & Treat - Unlimited Visits (Within 10 days (routine)) - Authorized Specialty Diagnoses / Procedures Referred By Contac t Referred To Contact Physical Therapy / Physical Medicine And Rehab Diagnoses Lumbar radiculopathy Spinal stenosis of lumbar region without neurogenic claudication Chaitanya Fernandez MD [address] [place] [address] Referral ID Status Reason Start Date Expiration Date Visits Requested Visits Authorized [id number] Authorized Specialty Services Required 12/24/[phone] Question Answer Referral Priority Within 10 days (routine) Where should this appointment be scheduled? [facility] Reason for Visit * Reason Comments Acute Patient is here with complaints of leg weakness that started last Saturday and has not gotten better since. Patient is having an unusual feeling on the L side mid back that radiates around to her front abdomen. She feels like it is "electricity" but not painful. She brought a urine sample along in case needed. Encounter Details Date Type Department Care Team (Late st Contact Info) Description 12/24/2023 10:00 AM EST [facility] [address] [facility] [place] [address] Chaitanya Fernandez MD [address] [facility] [place] [address] Lumbar radiculopathy*; SPINAL STENOSIS-LUMBAR, S/P SURGERY 03/29; Chronic kidney disease, stage 3a ([facility]); Dysuria Allergies Active Allergy Reactions Criticality Noted Date Comments Adhesive Tape 05/11/2003 skin peels Codeine 07/30/2016 Doxycycline 09/01/2003 vomiting Fentanyl High 07/04/2022 Other Reaction(s): "opiate agonists cause severe N&V, increased heart rate, " Gabapentin Nausea/vomiting 04/17/2022 Hydrocodone 05/10/2022 Hydromorphone High 07/04/2022 Other Reaction(s): "opiate agonists cause severe N&V, increased heart rate, "sk Latex Low 06/08/2011 Skin peeling Lisinopril Cough 11/06/2013 Meclizine Low 10/27/2020 Other Reaction(s): Severe N&V Meperidine And Related 05/11/2003 Heart racing and palpitations Methadone High 07/04/2022 Other Reaction(s): "opiate agonists cause severe N&V, increased heart rate, " Morphine 05/11/2003 Heart racing and lightheadedness Other Allergy (See Comments) 04/29/2019 Narcotics - gets dizzy, light headed, heart races and spacey feeling Oxycodone High 05/10/2022 Other Reaction(s): "opiate agonists cause severe N&V, increased heart rate, "sk Prednisone Other (Please comment) High 08/17/2019 Heart issues, chest pain, eye issues, sudden elevated BG Tramadol 06/08/2022 Other Reaction(s): Blurry Vision documented as of this encounter (statuses as of 12/24/2023) Medications Medication Sig Dispensed Refills Start Date End Date Status MARTINATOPAUL VELASQUEZ LANCMARCO MISCIndications:Type II or unspecified type diabetes mellitus with neurological manifestations, not stated as uncontrolled(250.60) ([facility]) test blood sugar 4 times per day 1 Box 5 08/18/2013 Active ASPIRIN 81 MG PO CHEWIndications:HTN, goal below 140/80,ASCVD (arteriosclerotic cardiovascular disease) take 1 tablet daily 100 Tab 3 11/12/2013 Active Bonfaire Ultra 2 w/Device KitIndications:Type II or unspecified type diabetes mellitus with neurological manifestations, not stated as uncontrolled(250.60) (HCC) Use to test blood sugar daily per diabetes clinic E11.9 1 Kit 02/29/2020 Active amLODIPine Besylate 2.5 MG Oral Tablet (Norvasc)Indications: HTN, goal below 140/80 TAKE 2 TABLETS BY MOUTH IN THE MORNING 180 Tablet 3 01/09/2023 Active Levothyroxine Sodium 125 MCG Oral Tablet (Levoxyl)Indications: Acquired hypothyroidism Take 1 Tablet by mouth in the morning. (at least 30 min prior to breakfast or other meds). 90 Tablet 3 04/02/2023 Active Allopurinol 100 MG Oral Tablet (Zyloprim)Indications :Gout TAKE 2 TABLETS BY MOUTH IN THE MORNING 180 Tablet 1 04/18/2023 Active Polyethylene Glycol 3350 17 GM Oral Packet (Miralax) Take 1 Packet by mouth as needed. Active Losartan Potassium 50 MG Oral Tablet (Cozaar) TAKE 1 TABLET BY MOUTH DAILY IN THE MORNING 90 Tablet 2 06/11/2023 Active Bonfaire Ultra In Vitro Strip (Glucose Blood) USE TO TEST BLOOD SUGAR 3 TIMES DAILY; E11.9 400 Strip 2 06/18/2023 Active Furosemide 20 MG Oral Tablet (Lasix)Indications:Le g swelling TAKE 1 TABLET BY MOUTH DAILY NEEDED FOR SWELLING 90 Tablet 2 08/07/2023 Active Insulin Glargine Solostar 100 UNIT/ML Subcutaneous Solution Pen-injector (Lantus SoloStar)Indications: Type 2 diabetes mellitus with hemoglobin A1c goal of less than 7.0% ([facility]) Inject 25 units once daily 30 mL 4 08/27/2023 Active Insulin Lispro (1 Unit Dial) 100 UNIT/ML Subcutaneous Solution Pen-injector (HumaLOG KwikPen)Indications:T ype 2 diabetes mellitus with hemoglobin A1c goal of less than 7.0% (HCC) Inject 10 Units under the skin in the morning and 10 Units at noon and 10 Units in the evening. Inject with meals. 30 mL 4 08/27/2023 Active Dexcom G7 Sensor Use as directed every 10 days. Receiving from [facility] Active Comfort EZ Pen [place] 32G X 6 MM (NOVOFINE 32G PEN NEEDLE)Indications:Di abetes mellitus with background retinopathy (HCC) Use to inject insulin 4 times daily. E 11.9 PLEASE SEND CHANELL, the 12 MM size is too big for pt. Thank you 400 Each 4 09/13/2023 Active Nitroglycerin 0.4 MG Sublingual Tablet Sublingual (Nitrostat)Indication s:Coronary artery disease involving [place] heart without angina pectoris, unspecified vessel or lesion type,Chronic gastritis without bleeding Place 1 Tablet under the tongue as needed for Pain, Chest. May repeat 3 times. If chest pain continues, call 911. 25 Tablet 6 09/19/2023 Active Metoprolol Tartrate 50 MG Oral Tablet (Lopressor)Indication s:HTN, goal below 140/80 TAKE 1 AND 1/2 TABLETS BY MOUTH IN THE MORNING AND 1 AND 1/2 TABLETS BEFORE BEDTIME 270 Tablet 3 09/24/2023 Active Atorvastatin Calcium 80 MG Oral Tablet (Lipitor)Indications: ASCVD (arteriosclerotic cardiovascular disease),S/P CABG (coronary artery bypass graft),Dyslipidemia, goal LDL below 100 Take 1 Tablet by mouth in the morning. 90 Tablet 30 09/26/2023 Active Pantoprazole Sodium 40 MG Oral Tablet Delayed Release (Protonix)Indications :Dark stools TAKE 1 TABLET BY MOUTH IN THE MORNING AND 1 TABLET BEFORE BEDTIME 180 Tablet 3 11/30/2023 Active Isosorbide Mononitrate ER 60 MG Oral Tablet Extended Release 24 Hour (Imdur) TAKE 1 TABLET BY MOUTH IN THE MORNING 90 Tablet 12/02/2023 Active documented as of this encounter (statuses as of 12/24/2023) Active Problems Problem Noted Date Diagnosed Date Body mass index (BMI) of 40.0 to 44.9 in adult 0 09/13/2023 NSVT (nonsustained ventricular tachycardia) 02/19 Spinal stenosis 03/21/2022 Type 2 diabetes mellitus wit h stage 3a chronic kidney disease, with long-term current use of insulin 01/12/2022 Morbid obesity due to excess calories 01/12/2022 Plantar fasciitis of left foot 10/04/2020 Chronic kidney disease, stage 3a 08/02/2020 Overview: Per CKD protocol Type 2 diabetes mellitus wit h stage 3a chronic kidney disease and hypertension 06/28/2020 Overview: Per CKD protocol Primary osteoarthritis of left hand 11/03/2019 Atherosclerosis of aorta 10/01/2019 Primary osteoarthritis of left knee 10/01/2019 Chronic gastritis without bleeding 10/01/2019 Venous insufficiency 10/01/2019 Central retinal artery occlusion of left eye 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 04/29/2019 B12 deficiency 04/29/2019 Arthritis of knee, left 04/29/2019 History of total right knee replacement 04/29/19 BMI 38.0-38.9,adult 04/27/2019 Overview: Per Obesity protocol - Basal cell carcinoma (BCC) of lateral side wall of nose 05/28/2018 Raynaud's phenomenon without gangrene 03/20/2018 Coronary artery disease invo lving [place] coronary artery of [place] heart without angina pectoris 04/03/2016 Lumbar radiculopathy 11/15/2015 DDD (degenerative disc disease), lumbar 06/08/19 16 Lichenoid keratosis 08/05/2013 Status post aorto-coronary artery bypass graft 0 08/07/2012 Acquired hypothyroidism 05/01/2011 Diabetes mellitus with background retinopathy Female stress incontinence 02/23/2009 Dyslipidemia, goal LDL below 70 01/06/2009 SPINAL STENOSIS-LUMBAR, S/P SURGERY 03/29 009 Chronic seasonal allergic rhinitis due to pollen 04/28/2002 Type 2 diabetes mellitus wit h hemoglobin A1c goal of less than 7.0% Overview: ICD-10 update of inactive term HTN, goal below 140/80 documented as of this encounter (statuses as of 12/24/2023) Resolved Problems Problem Noted Date Diagnosed Date Resolved Date Hypertensive heart disease with heart failure 10/01/1908/25/2020 Encounter for long-term (current) insulin use 11/29/19 19 04/29/2019 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 in stage 3 inventory checker franchesca 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 diabetes mellitus 05/27/2018 06/30/2020 Overview: Per CKD protocol CKD (chronic kidney disease) stage 3, GFR 30-59 ml/min 05/28/2017 10/29/2019 Overview: Per CKD protocol #1 BMI 39.0-39.9,adult 11/19/2016 04/30/19 20 Overview: Per Obesity protocol #1 Shakiness 10/06/2013 11/06/2013 Back pain 06/02/2013 11/06/2013 Acute conjunctivitis 01/12/2013 014 Cough 01/12/2013 11/06/2013 Viral infection 01/08/2013 11/06/2013 Acute URI 01/08/2013 10/23/2013 Chronic pansinusitis 01/08/2013 020 Abdominal pain 11/11/2012 11/06/2013 Abdominal bloating 11/11/2012 4 Need for shingles vaccine 11/21/2011 Type 2 diabetes mellitus wit h diabetic polyneuropathy, with long-term current use of insulin 08/15/2011 04/29/2019 Acute coronary syndrome 06/13/20112 Acute coronary syndrome 06/07/201107/20 DM type 2 causing neurologic al disease, not at goal 05/01/2011 11/21/2011 Vertigo 05/01/2011 04/29/2019 Morbid obesity due to excess calories 01/29/2011 04/29/2019 Overview: BMI= 40.15 01/29/11 Recurrent major depressive d isorder, in partial remission 01/29/2011 04/29/2019 DM type 2 causing eye disease, not at goal 01/29/2011 03/20/2013 Vaccination not carried out because of patient refusal 01/29/2011 11/05/2017 OBSTIPATION 08/11/2010 11/06/2013 DIARRHEA- OVERFLOW 08/11/2010 7 Severe obesity with body mas s index (BMI) of 35.0 to 39.9 with serious comorbidity 05/16/2009 Overview: Per Obesity Taxonomy ICD-10 update of inactive diagnosis Dyslipidemia, goal LDL below 100 02/02/2009 04/03/2010 Overview: Per Lipid Taxonomy. Routine medical exam 12/30/2007 014 Spinal stenosis of lumbar re gion without neurogenic claudication 10/22/2007 07/14/2008 Pain in limb 10/13/2007 11/06/2013 DM type 2, not at goal 07/30/200701/29 DM type 2 causing neurological disease 07/17/2007 05/01/2011 DM type 2 causing eye disease 01/27/2007 01/29/2011 Primary osteoarthritis of both knees 01/27/2007 04/29/2019 DJD, RIGHT KNEE 03/13/2005 01/27/2007 LINGUA GEOGRAPHICAL 02/01/2005 11/15/19 06 Morbid obesity, BMI not known 11/03/2004 05/16/2009 Overview: Per Obesity Taxonomy SPINAL STENOSIS-LUMBAR 11/03/200411/14 ADVANCE DIRECTIVE INFORMATION 09/07/2004 04/29/2019 Overview: No, Advance Directive brochure given to patient at prior appointment. DYSFUNCT EUSTACHIAN TUBE 09/06/200406/2013 Polyp of nasal cavity 09/06/20042005 BACKACHE - FACET ARTHROPATHY, LUMBAR 02/02/2004 11/14/2005 SACROILIITIS, RIGHT 02/02/2004 11/15/19 06 Cough 08/16/2003 11/14/2005 ACUTE SINUSITIS/SINOBRONCHITIS 08/16/2003 01/27/2007 ACUTE URI NOS 08/16/2003 01/27/2007 OBESITY, UNSPECIFIED 03/12/2003 007 TSH DEFICIENCY, MILD 09/23/2002 012 GENERAL OSTEOARTHROSIS 06/15/200204/28 PURE HYPERCHOLESTEROLEM 07/06/199901/18 Overview: Per Lipid Taxonomy. Vertigo 07/06/1999 05/01/2011 Type 2 diabetes mellitus wit h hemoglobin A1c goal of less than 7.0% 09/15/1998 01/29/2011 Overview: ICD-10 update of inactive term Hypothyroidism 09/15/1998 05/01/2011 HTN, goal below 140/90 09/15/199808/11 Other allergic rhinitis 09/15/199801/18 Overview: ICD-10 update of inactive term Menopause 09/15/1998 08/14/2011 Diabetes mellitus with background retinopathy 01/29/2011 Overview: ICD-10 update of inactive term HTN, goal below 130/80 10/10 ASCVD (arteriosclerotic card iovascular disease) 11/05/2017 Type 2 diabetes mellitus wit h hemoglobin A1c goal of 7.0%-8.0% 03/20/2013 Overview: ICD-10 update of inactive term documented as of this encounter (statuses as of 12/24/2023) Immunizations Name Administration Dates Next Due COVID-19 mRNA, LNP-s, No Pre serve, 2-Dose Series (Pfizer) 06/09/2020,05/19/2020 Pneumococcal Conjugate Vacc, 13 Valent (Prevnar) 06/07/2015 Pneumococcal Polysaccharide PPV23 (Pneumovax) ,12/07/2004 TD - Tetanus/Diptheria (ADULT) 04/13/2003 0 04/13/2013 TDAP (age 10 and older)(Boostrix) 12/01/2013 documented as of this encounter Social History Tobacco Use Types Packs/Day Years Used Date Smoking Tobacco: Former Cigarettes 1 9 0 02/19/1964 - 02/18/1973 Smokeless Tobacco: Never Alcohol Use Standard Drinks/Week Comments No 0 (1 standard drink = 0.6 oz pur e alcohol) PHQ-2 Answer Date Recorded PHQ Adult Total Score 0 08/11/2021 Hunger Vital Sign Answer Date Recorded Within the past 12 months, y ou worried that your food would run out before you got the money to buy more. Never true 07/10/19 23 Within the past 12 months, t he food you bought just didn't last and you didn't have money to get more. Never true 07/09/2022 Utilities Answer Date Recorded Do you have trouble paying y our heating, water, or electric bill? (Adult - for ages 18 years and over) Not on file 2023 Is your family able to pay t he heat, water, or electric bill? (Household - for ages 0-17 years) Not on file 2023 Does your family have access to good internet? (Household - for ages 0-17 years) Not on file 2023 Social Connections Answer Date Recorded How often do you feel lonely or isolated from those around you? (Adult - for ages 18 years and over) Not on file 2023 Sex and Gender Information Value Date Recorded Sex Assigned at Female 11/28/2018 9:48 AM EDT Gender Identity Female 11/28/2018 9:48 AM EDT Sexual Orientation Straight 11/28/2018 9: 48 AM EDT Job Start Date Occupation Industry Not on file Not on file Not on file documented as of this encounter Last Filed Vital Signs Vital Sign Reading Time Taken Comments Blood Pressure 118/70 12/24/2023 9:48 AM EST Pulse 82 12/24/2023 9:48 AM EST Temperature 36.1 C (96.9 F) 12/24/2023 9:48 AM ES T Respiratory Rate 17 12/24/2023 9:48 AM EST Oxygen Saturation 96% 12/24/2023 9:48 AM EST Inhaled Oxygen Concentration - - Weight - - Height - - Body Mass Index - - documented in this encounter Functional Status Functional Status Response Date of Assess ment Are you deaf or do you have serious difficulty h earing? No 08/07/2019 Are you blind or do you have serious difficulty seeing, even when wearing glasses? L Eye 08/07/2019 Do you have serious difficul ty walking or climbing stairs? (5 years old or older) No 08/07/2019 Do you have difficulty dress ing or bathing? (5 years old or older) No 08/07/2019 Because of a physical, menta l, or emotional condition, do you have difficulty doing errands alone such as visiting a doctor s office or shopping? (15 years old or older) No 08/07/19 20 Cognitive Status Response Date of Assessm ent Because of a physical, menta l, or emotional condition, do you have serious difficulty concentrating, remembering, or making decisions? (5 years old or older) No 08/07/2019 documented as of this encounter Progress Notes * Chaitanya Fernandez MD - 12/24/2023 10:06 AM EST Images from the original note were not included. Assessment and Plan Lower extremity weakness 4+ out of 5 with hip flexion and knee extension without recent injury. Unfortunately I suspect this is related to her multiple surgeries and lumbar degenerative disc disease.At this point I recommend physical therapy referral along with evaluation by Orthopedics. Patient has allergies listed to steroids and therefore we will hold on a trial of prednisone or Medrol. Pain d oes not seem to be any worse than prior and therefore pain meds do not seem appropriate. Rule out UTI with UA in office. Otherwise I do not believe lab work will assist. 1. Lumbar radiculopathy - PHYSICAL THERAPY REFERRAL OP 2. SPINAL STENOSIS-LUMBAR, S/P SURGERY 03/29 - PHYSICAL THERAPY REFERRAL OP 3. Chronic kidney disease, stage 3a (HCC) 4. Dysuria - URINALYSIS, POINT OF CARE (ENTER/EDIT) Wrap-Up Follow up as needed. History of Present Illness The patient is an 78 year old female with past medical history of dyslipidemia, hypothyroidism, CKD3a, HTN, CAD, obesity, DDD, lumbar spinal stenosis who presents for acute. 78-year-old female presents due to back pain and lower extremity weakness. She has a history of lumbar degenerative disc disease with multiple surgeries in 2005, 2007, [address] Taveras. She notessince her most recent surgery in 2022 she was had left-sided back pain that radiates around to the mid abdomen. She notes over the last week she was had some weakness of the lower extremities. She was some pain in the left knee which she states requires a replacement along with some mild weakness of the right lower extremity. Denies saddle anesthesia or urinary/fecal incontinence. She denies any injury specifically. She has been using a cane and a walker at home more frequently due to the mild weakness in the legs. She does have follow up with Orthopedics scheduled in 2 weeks. She presents today to ensure that she was not have a UTI and for evaluation of the lower extremity weakness. Physical Exam Vitals: 12/24/23 0948 Temp: 36.1 C (96.9 F) Pulse: 82 Resp: 17 SpO2: 96% BP: 118/70 Physical Exam Physical Exam Vitals reviewed. Constitutional: General: She is not in acute distress. Comments: Using wheelchair for mobility. Pulmonary: Effort: Pulmonary effort is normal. No respiratory distress. Abdominal: Tenderness: There is no right CVA tenderness or left CVA tenderness. Musculoskeletal: Comments: 4+ out of 5 strength with hip flexion, knee extension. She does have some mild pain to palpation of the left knee. No lower extremity edema. Neurological: Mental Status: She is alert. This note has been completed in part utilizing [employer] Speech Voice Recognition Software. Due to technical limitations of the software, grammatical errors, random word insertions, prounoun errors, and incomplete sentences may occur. Any formal questions or concerns about the content, text, or information contained within the body of this dictation should be directly addressed to the provider for clarification. documented in this encounter Plan of Treatment Upcoming Encounters Date Type Department Care Team (Late st Contact Info) Description 01/01/2024 6:20 PM EST Office Visit [facility] [address] [place] [address] JuneChaitanya MD [address] [place] [address] 03/18/2024 8:20 AM EST Office Visit [facility] [address] [place] [address] Chaitanya Fernandez MD [address] [place] [address] Scheduled Procedures Name Priority Associated Diagnoses Date/Ti me COLONOSCOPY FLEXIBLE PROXIMA L DIAGNOSTIC Recall Family history of colonic polyps Scheduled Referrals Name Type Priority Associated Diagnoses Orde r Schedule PHYSICAL THERAPY REFERRAL OP Referral Within 10 days (routine) Lumbar radiculopathy SPINAL STENOSIS-LUMBAR, S/P SURGERY 03/29 Ordered: 12/24/2023 Health Maintenance Due Date Last Done Comments Zoster Vaccines (1 of 2) 08/05/1993 Adult Wellness Visit 08/05/2009 DXA Scan 08/14/2020 08/14/2013 Albumin/Creatinine Ratio 08/03/2022 022, 07/09/2019, 01/24/2018, Additional history exists Depression Screening 08/11/2022 08/11/2021 Diabetic Foot Exam 08/11/2022 08/11/2021, 0 04/29/2019, 05/01/2018, Additional history exists Colonoscopy 11/26/2022 11/26/2017, 1010/2017, 10/18/2010 COVID-19 Vaccine ( - season) 2023 06/09/2020, 05/19/2020 Influenza Vaccine (FLU shot) (#1) 2023 DTap/Tdap Vaccines (2 - Td or Tdap) 12/02/2023 12/01/2013, 04/13/2003 CKD PHOS USE SMARTSET 78980 03/12/202402/19, 09/19/2020, 08/11/2019, Additional history exists TSH 03/12/2024 03/12/2023, 04/19, 05/10/2022, Additional history exists GFR 03/15/2024 09/13/2023, 02/19, 06/28/2022, Additional history exists HbA1c 03/15/2024 09/13/2023, 02/19, 05/10/2022, Additional history exists CKD HGB USE SMARTSET 24129 09/12/202409/12, 03/12/2023, 06/28/2022, Additional history exists Diabetic Eye Exam 11/04/2024 11/05/2023, , 08/12/2023, Additional history exists Pneumococcal Vaccine: 65+ Years Completed 06/07/2015, 02/05/2013, 12/07/2004 RETIRED - COLONOSCOPY-EVERY 5 YRS AGES 18-100 Discontinued 11/26/2017, 11/26/2017, 10/18/2010 HPV (Gardasil) Vaccine Aged Out No lo nger eligible based on patient's age to complete this topic Hepatitis B Vaccine Aged Out No longe r eligible based on patient's age to complete this topic MENINGOCOCCAL (MENACTRA/MENVEO) Aged Out No longer eligible based on patient's age to complete this topic documented as of this encounter Medical Devices Implanted Type Area Loom Operator Apprentice Device Identifier Shelf Expiration Date Model / Serial / Lot Sut Johan 6 [id number] - [id number] [place]ed:Qty: 6 on 06/08/2011 [place] [facility] [place] Chest DO NOT USE [id number] / / [id number] documented as of this encounter Procedures Procedure Name Priority Date/Time Associated Diagnosis Comments URINALYSIS, POINT OF CARE (ENTER/EDIT) Routine 12/24/2023 10:39 AM EST Dysuria documented in this encounter Results * URINALYSIS, POINT OF CARE (ENTER/EDIT) (12/24/2023 10:39 AM EST) Color, Urine Yellow Yellow or Light Yellow Clarity, Urine Clear Clear Glucose, Urine Negative Negative mg/dL Bilirubin, Urine Negative Negative Ketone, Urine Negative Negative mg/dL Specific [place], Urine 1.010 1.003 - 1.030 Blood, Urine Trace-intact Negative pH, Urine 6.0 5.0 - 7.5 units Protein, Urine Negative Negative mg/dL Urobilinogen, Urine 0.2 0.2 - 1.0 mg/dL Nitrite, Urine Negative Negative Esterase, Urine Negative Negative Urine 12/24/2023 10:3 9 AM EST Chaitanya Fernandez MD LAB POINT OF CARE [facility] ENTER/EDIT ORDERABLES documented in this encounter Visit Diagnoses Diagnosis Lumbar radiculopathy- Primary Thoracic or lumbosacral neuritis or radiculitis, unspecified SPINAL STENOSIS-LUMBAR, S/P SURGERY 03/29 Spinal stenosis, lumbar region, without neurogenic claudication Chronic kidney disease, stage 3a (HCC) Dysuria documented in this encounter Advance Directives * No Code (Latest Code Status on File) Date Activated Date Inactivated Comments 08/07/2019 4:55 PM 08/11/2019 2:38 PM This order r eflects the patients wishes and were consensually agreed upon. Question Answer Comments Discussion of Advance Directives occurred with: Patient Does the patient have a Living Will? No Does the patient have Health Care Power of Attor scott? No * Full Code Date Activated Date Inactivated Comments 02/01/2017 12:03 PM 02/01/2017 11:17 PM This ord er reflects the patients wishes and were consensually agreed upon. Question Answer Comments Discussion of Advance Directives occurred with: Not Discussed Does the patient have a Living Will? No Does the patient have Health Care Power of Attor scott? No * Full Code Date Activated Date Inactivated Comments 06/08/2011 10:42 AM 06/12/2011 8:58 PM This order reflects the patients wishes and were consensually agreed upon. * Full Code Date Activated Date Inactivated Comments 06/07/2011 1:03 PM 06/08/2011 10:41 AM This order reflects the patients wishes and were consensually agreed upon. Question Answer Comments Discussion of Advance Directives occurred with: Patient Does the patient have a Living Will? No Does the patient have Health Care Power of Attor scott? No Care Teams Inspector Firearms Relationship Specialty Start Date End Date June, Chaitanya Wild MD [address] [facility] [place] [address] PCP - General Family Medicine 06/01/22 documented as of this encounter
--- OUTSIDE RECORDS SUMMARY | 2024-01-02 12:00 | External Medical Summary | Summary of Care ---
Author Name Unknown Organization [facility] Address [address] [place] [address] Phone [phone] Care Team Providers Care Camp Attendant Name Role Phone Alfred Tinajero MD Primary Care Provider [phone] Reason for Visit * Reason Onset Date Comments Advice 11/14/2023 Peer to peer Encounter Details Date Type Department Care Team (Late st Contact Info) Description 11/14/2023 Telephone [facility] [address] [place] [address] Alfred Tinajero MD [address] [place] [address] Advice (Peer to peer ) Allergies Active Allergy Reactions Criticality Noted Date [...] cause severe N&V, increased heart rate, "sk Morphine 05/11/2003 Heart racing and lightheadedness Other [...] as of this encounter (statuses as of 11/28/2023) Medications Medication Sig Dispensed Refills Start Date End Date Status ONEPAUL CASTELLON MISCIndications:Type II or unspecified type diabetes mellitus with neurological manifestations, not stated as uncontrolled(250.60) ([facility]) test blood sugar 4 times per day 1 Box 5 08/18/2013 Active ASPIRIN 81 MG PO CHEWIndications:HTN, goal below 140/80,ASCVD (arteriosclerotic cardiovascular disease) take 1 tablet daily 100 Tab 3 11/12/2013 Active MediCardTouch Ultra 2 w/Device KitIndications:Type II or unspecified type diabetes mellitus with neurological manifestations, not stated as uncontrolled(250.60) ([facility]) Use to test blood sugar daily per diabetes clinic E11.9 1 Kit 02/29/2020 Active Pantoprazole Sodium 40 MG Oral Tablet Delayed Release (Protonix)Indications :Dark stools TAKE 1 TABLET BY MOUTH IN THE MORNING AND 1 TABLET BY MOUTH BEFORE BEDTIME 180 Tablet 2 11/08/2022 Active amLODIPine Besylate 2.5 MG Oral Tablet [...] 1 Packet by mouth as needed. Active Isosorbide Mononitrate ER 30 MG Oral Tablet Extended Release 24 Hour (Imdur) Take 3 Tablets by mouth in the morning. 90 Tablet 11 04/29/2023 Active Losartan Potassium 50 MG Oral Tablet (Cozaar) TAKE 1 TABLET BY MOUTH DAILY IN THE MORNING 90 Tablet 2 06/11/2023 Active OneTouch Ultra In Vitro Strip (Glucose Blood) USE [...] goal of less than 7.0% (HCC) Inject 25 units once daily 30 mL [...] as directed every 10 days. [facility] EZ Pen [place] 32G X 6 MM (NOVOFINE 32G PEN NEEDLE)Indications:Di abetes mellitus with background retinopathy (HCC) Use to inject insulin 4 times daily. E 11.9 PLEASE SEND CHANELL, the 12 MM size is too big for pt. Thank you 400 Each 4 09/13/2023 Active Nitroglycerin 0.4 MG Sublingual Tablet Sublingual (Nitrostat)Indication s:Coronary artery disease involving sitka heart without angina pectoris, unspecified vessel or [...] the morning. 90 Tablet 30 09/26/2023 Active documented as of this encounter (statuses as of 11/28/2023) Active Problems Problem Noted Date Diagnosed Date [...] History of total right knee replacement 04/29/19 20 BMI 38.0-38.9,adult 04/27/2019 Overview: Per Obesity protocol - Basal cell carcinoma (BCC) of lateral side wall of nose 05/28/2018 Raynaud's phenomenon without gangrene 03/20/2018 Coronary artery disease invo lving sitka coronary artery of sitka heart without angina pectoris 04/03/2016 Lumbar radiculopathy [...] as of this encounter (statuses as of 11/28/2023) Resolved Problems Problem Noted Date Diagnosed Date Resolved Date Hypertensive heart disease with heart failure 10/01/1908/25/2020 Encounter for long-term (current) insulin use 11/29/1904/29/2019 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 in stage 3 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 [...] of insulin 08/15/2011 04/29/2019 Acute coronary syndrome 06/13/201107/20 Acute coronary syndrome 06/07/2011 062 DM type 2 causing neurologic al disease, [...] as of this encounter (statuses as of 11/28/2023) Immunizations Name Administration Dates Next Due COVID-19 [...] on file documented as of this encounter Functional Status Functional Status Response [...] No 08/07/2019 documented as of this encounter Miscellaneous Notes * Telephone Encounter - Edna Freitas OSA - 11/28/2023 1:[address] Gonzalez at [facility] is calling to make sure patient had lab work and doppler study. I verified that she did. SHe wanted a copy of the test results. I faxed the results to her - fax [phone] * Result Encounter Note - Alfred Tinajero MD - 11/25/2023 5:14 PM EDT Reassuring imaging of the carotid arteries. Less than 50% stenosis noted. Alfred Tinajero MD * Telephone Encounter - Korin Garcia OSA - 11/18/2023 3:53 PM EDT Patient is scheduled for US and she is going to have the lab work done at the [facility] this week * Addendum Note - Alfred Tinajero MD - 11/15/2023 3:42 PM EDTAddended by: ALFRED TINAJERO on: 11/15/2023 03:42 PM Modules accepted: Orders * Telephone Encounter - Alfred Tinajero MD - 11/15/2023 3:42 PM EDT Orders placed. Can we please assist patient with scheduling ultrasound. Can obtain lab work as walkin at earliest convenience. Alfred Tinajero MD * Telephone Encounter - Siddhartha Gray OSA - 11/14/2023 1:[address] Gonzalez was transferred to al asking to speak with Dr. Tinajero. He is currently out of the office. She is requesting that urgent blood work (CRP) (ECR) and a chordoid U/S be placed. Dr. Gonzalez is requesting that once orders are placed that the patient gets a phone call so she knows when to get it done. * Telephone Encounter - Annamarie Davies OSA - 11/14/2023 1:41 PM EDT Reason for call: Dr. Gonzalez from [facility] requesting to speak with Dr. Alfred Tinajero Caller was transferred to [facility] at the clinic. documented in this encounter Plan of Treatment Upcoming Encounters Date Type Department Care Team (Late st Contact Info) Description 12/27/2023 10:45 AM EST Cardiac Studies Cardiac Studies, [place] [id number] [place] [address] 03/18/2024 8:20 AM EST Office Visit [facility] [address] [place] [address] Alfred Tinajero MD [address] [place] [address] Scheduled Procedures Name Priority Associated Diagnoses Date/Ti me COLONOSCOPY FLEXIBLE PROXIMA L DIAGNOSTIC Recall Family history of colonic polyps Health Maintenance Due Date Last Done Comments Zoster Vaccines (1 of 2) 08/05/1993 Adult Wellness Visit 08/05/2009 DXA Scan 08/14/2020 08/14/2013 Albumin/Creatinine Ratio 08/03/2022 022, 07/09/2019, 01/24/2018, Additional history exists Depression Screening 08/11/2022 08/11/2021 Diabetic Foot Exam 08/11/2022 08/11/2021, 0 04/29/2019, 05/01/2018, Additional history exists Colonoscopy 11/26/2022 11/26/2017, 100 10/2017, 10/18/2010 COVID-19 Vaccine ( - 2023- season) 2023 06/09/2020, 05/19/2020 Influenza Vaccine (FLU shot) (#1) 2023 DTap/Tdap Vaccines (2 - Td or Tdap) 12/02/2023 12/01/2013, 04/13/2003 CKD PHOS USE SMARTSET 23071 03/12/202402/19, 09/19/2020, 08/11/2019, Additional history exists TSH 03/12/2024 03/12/2023, 04/19, 05/10/2022, Additional history exists GFR 03/15/2024 09/13/2023, 02/19, 06/28/2022, Additional history exists HbA1c 03/15/2024 09/13/2023, 02/19, 05/10/2022, Additional history exists CKD HGB USE SMARTSET 12428 09/12/202409/12, 03/12/2023, 06/28/2022, Additional history exists Diabetic [...] this encounter Medical Devices Implanted Type Area Elevator Adjuster Device Identifier Shelf Expiration Date Model / Serial / Lot Hira Shepard [id number] - [id number] Implanted:Qty: 6 on 06/08/2011 [place] [facility] [place]: Chest DO NOT USE [id number] / / [id number] documented as of this encounter Procedures Procedure Name Priority Date/Time Associated Diagnosis Comments VASC DUPLEX CAROTID BILAT Routine 11/25/2023 12:50 PM EDT Central retinal artery occlusion of left eye documented in this encounter Results * VASC DUPLEX CAROTID BILAT (11/25/2023 12:50 PM EDT) Anatomical Region Laterality Modality Neck, Vascular Ultrasound Narrative 11/25/2023 2:23 PM EDT VASCULAR LAB RESULTS DATE OF EXAM: 11/25/23 PRESENTING CONDITIONS: per ophthalmology This is an interpretation of an exam performed at [facility]. PHYSICIAN REPORT Carotid Artery Duplex Examination Immediately before proceeding with the vascular lab procedure reported below, the identity of the patient, the correct exam and the correct procedural site were verified. Noel scale and color flow Doppler imaging was performed for evaluation of the right carotid artery. Duplex examination of the right carotid artery identifies atherosclerotic plaque at the carotid bifurcation. The plaque is echogenic and appears to have an irregular surface. Color Doppler imaging was performed for evaluation of the right carotid bifurcation. Spectral analysis of the right internal carotid artery demonstrates peak systolic velocities of 63.6 cm/sec. Maximum end diastolic velocities are 12.6 cm/sec.. Peak right common carotid velocity is 78.3 cm/sec. The right internal carotid to common carotid ratio is 0.8. The right external carotid artery has a peak velocity of 76.5 centimeters per second. Noel scale and color flow Doppler imaging was performed for the evaluation of the left carotid artery. Duplex examination of the left carotid artery identifies atherosclerotic plaque at the carotid bifurcation. The plaque is echogenic and appears to have an irregular surface. Color Doppler imaging was performed for the evaluation of the left carotid bifurcation. Spectral analysis of the left internal carotid artery demonstrates peak systolic velocities of 64.8 cm/sec. Maximum end diastolic velocities are 12.9 cm/sec. Peak left common carotid velocity is 96.1 cm/sec. The left internal carotid to common carotid ratio is 0.7. The left external carotid artery has a peak velocity of 86.5 centimeters per second. The right vertebral artery could not be identified. The right subclavian artery demonstrates antegrade flow. The left vertebral artery demonstrates antegrade flow. Impression: Right carotid artery duplex examination indicates evidence of less than 50% stenosis of the internal carotid artery. Left carotid artery duplex examination indicates evidence of less than 50% stenosis of the internal carotid artery. Alfred Tinajero MD RAD VASCULAR * (ABNORMAL) CRP (INFLAMMATORY MARKER) (11/22/2023 10:31 AM EDT) CRP (Inflammatory Marker) 6(H) <=5 mg/L 11/23/2023 4:34 AM EDT LABORATORY [facility] Blood Venous blood specimen / Unknown Venipuncture / Unknown 11/22/2023 10:31 AM EDT 11/22/2023 10:31 AM EDT Alfred Tinajero MD LAB BLOOD ORDERABLES Performing Organization Address City/[facility]/ZIP Co de Phone Number LABORATORY [address] [address] * ERYTHROCYTE SEDIMENTATION RATE (ESR) (11/22/2023 10:31 AM EDT) Pathologist [facility] ESR 16 <30 mm/hour 11/22/2023 2:31 PM EDT LABORATORY [facility] Blood Venous blood specimen / Unknown Venipuncture / Unknown 11/22/2023 10:31 AM EDT 11/22/2023 10:31 AM EDT Alfred Tinajero MD LAB BLOOD ORDERABLES Performing Organization Address City/[facility]/ZIP Co de Phone Number LABORATORY [facility] [address] [place] [address] documented in this encounter Visit Diagnoses Diagnosis Central retinal artery occlusion of left eye- Primary Central artery occlusion of retina documented in this encounter Advance Directives * [...] Power of Attor scott? No Care Teams Camp Attendant Relationship Specialty Start Date End Date June, Alfred Wild MD [address] [place] [address] PCP - General Family Medicine 06/01/22 documented as of this encounter
--- OUTSIDE RECORDS SUMMARY | 2024-01-02 12:00 | External Medical Summary | Summary of Care ---
Author Name Unknown Organization [facility] Address [address] [place] [address] Phone [phone] Care Team Providers Care Pharmaceutical Process Engineer Name Role Phone hCaitanya Fernandez MD Primary Care Provider [phone] Reason for Visit * Reason Comments Outpatient Testing Encounter Details Date Type Department Care Team (Late st Contact Info) Description 11/22/2023 10:30 AM EDT Laboratory Laboratory, [place] [address] [place] [address] [place], [facility] [address] [place] [address] Central retinal artery occlusion of left eye Allergies Active Allergy Reactions Criticality Noted Date Comments Adhesive Tape 05/11/2003 skin peels Codeine 07/30/2016 Doxycycline 09/01/2003 vomiting Fentanyl High 07/04/2022 Other Reaction(s): "opiate agonists cause severe N&V, increased heart rate, " Gabapentin Nausea/vomiting 04/17/2022 Hydrocodone 05/10/2022 Hydromorphone High 07/04/2022 Other Reaction(s): "opiate agonists cause severe N&V, increased heart rate, " Latex Low 06/08/2011 Skin peeling Lisinopril Cough [...] as of this encounter (statuses as of 11/27/2023) Medications Medication Sig Dispensed Refills Start Date End Date Status ONETOUCH EVA CASTELLON MISCIndications:Type II or unspecified type diabetes mellitus with neurological manifestations, not stated as uncontrolled(250.60) ([facility]) test blood sugar 4 times per day 1 Box 5 08/18/2013 Active ASPIRIN 81 MG PO CHEWIndications:HTN, goal below 140/80,ASCVD (arteriosclerotic cardiovascular disease) take 1 tablet daily 100 Tab 3 11/12/2013 Active OneTouch Ultra 2 w/Device KitIndications:Type II or unspecified type diabetes mellitus with neurological manifestations, not stated as uncontrolled(250.60) ([facility]) Use to test blood sugar daily per [...] as directed every 10 days. Receiving from [facility] Active Comfort EZ Pen [place] 32G X 6 MM (NOVOFINE 32G PEN NEEDLE)Indications:Di abetes mellitus with background retinopathy (HCC) Use to inject insulin 4 times daily. E 11.9 PLEASE SEND CHANELL, the 12 MM size is too big for pt. Thank you 400 Each 4 09/13/2023 Active Nitroglycerin 0.4 MG Sublingual Tablet Sublingual (Nitrostat)Indication s:Coronary artery disease involving craig heart without angina pectoris, unspecified vessel or [...] as of this encounter (statuses as of 11/27/2023) Active Problems Problem Noted Date Diagnosed Date [...] gangrene 03/20/2018 Coronary artery disease invo lving craig coronary artery of craig heart without angina pectoris 04/03/2016 Lumbar radiculopathy [...] as of this encounter (statuses as of 11/27/2023) Resolved Problems Problem Noted Date Diagnosed Date Resolved Date Hypertensive heart disease with heart failure 10/01/1908/25/2020 Encounter for long-term (current) insulin use 11/29/1904/29/2019 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 in stage 3 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 diabetes mellitus 05/27/2018 06/30/2020 Overview: Per CKD protocol CKD (chronic kidney disease) stage 3, GFR 30-59 ml/min 05/28/2017 10/29/2019 Overview: Per CKD protocol #1 BMI 39.0-39.9,adult 11/19/2016 04/30/19 Overview: Per Obesity protocol #1 Shakiness 10/06/2013 11/06/2013 Back pain 06/02/2013 11/06/2013 Acute conjunctivitis 01/12/2013 014 Cough 01/12/2013 11/06/2013 Viral infection 01/08/2013 11/06/2013 Acute URI 01/08/2013 10/23/2013 Chronic pansinusitis 01/08/2013 020 Abdominal pain 11/11/2012 11/06/2013 Abdominal bloating 11/11/2012 4 Need for shingles vaccine 11/21/2011 Type 2 diabetes mellitus wit h diabetic polyneuropathy, with long-term current use of insulin 08/15/2011 04/29/2019 Acute coronary syndrome 06/13/2011/2 Acute coronary syndrome 06/07/20112 DM type 2 causing neurologic al disease, [...] as of this encounter (statuses as of 11/27/2023) Immunizations Name Administration Dates Next Due COVID-19 mRNA, LNP-s, No Pre serve, 2-Dose Series (Pfizer) 06/09/2020,05/19/2020 Pneumococcal Conjugate Vacc, 13 Valent (Prevnar) 06/07/2015 Pneumococcal Polysaccharide PPV23 (Pneumovax) TDAP (age 10 and older)(Boostrix) 12/01/2013 documented [...] as of this encounter Miscellaneous Notes * Result Encounter Note - Chaitanya Fernandez MD - 11/24/2023 8:44 PM EDT Reassuring lab work. Await results of ultrasound. Chaitanya Fernandez MD documented in this encounter Plan of Treatment Upcoming Encounters Date Type Department Care Team (Late st Contact Info) Description 12/27/2023 10:45 AM EST Cardiac Studies Cardiac Studies, [place] [address] [place] [address] 03/18/2024 8:20 AM EST Office Visit [facility] [address] [place] [address] Chaitanya Fernandez MD [address] [place] [address] Scheduled Procedures Name Priority Associated Diagnoses Date/Ti [...] 11/26/2022 11/26/2017, 1010/2017, 10/18/2010 COVID-19 Vaccine ( season) 2023 06/09/2020, 05/19/2020 Influenza Vaccine (FLU shot) (#1) 2023 DTap/Tdap Vaccines (2 - Td or Tdap) 12/02/2023 12/01/2013, 04/13/2003 CKD PHOS USE SMARTSET 79589 03/12/202402/19, 09/19/2020, 08/11/2019, Additional history exists TSH 03/12/2024 03/12/2023, 04/19, 05/10/2022, Additional history exists GFR 03/15/2024 09/13/2023, 02/19, 06/28/2022, Additional history exists HbA1c 03/15/2024 09/13/2023, 02/19, 05/10/2022, Additional history exists CKD HGB USE SMARTSET 63983 09/12/202409/12, 03/12/2023, 06/28/2022, Additional history exists Diabetic [...] this encounter Medical Devices Implanted Type Area Licensed Nurse Practitioner Device Identifier Shelf Expiration Date Model / Serial / Lot Sut Steel 6 [id number] - [id number] Implanted:Q[place] 6 [place] 06/08/2011 [place] [facility] [place] Chest DO NOT USE [id number] / / [id number] documented as of this encounter Procedures Procedure Name Priority Date/Time Associated Diagnosis Comments CRP (INFLAMMATORY MARKER) Routine 11/22/2023 10:31 AM EDT Central retinal artery occlusion of left eye ERYTHROCYTE SEDIMENTATION RATE (ESR) Routine 11/22/2023 10:31 AM EDT Central retinal artery occlusion of left eye documented in this encounter Results * (ABNORMAL) CRP (INFLAMMATORY MARKER) (11/22/2023 10:31 AM EDT) CRP (Inflammatory Marker) 6(H) <=5 mg/L 11/23/2023 4:34 AM EDT LABORATORY [facility] Blood Venous blood specimen / Unknown Venipuncture / Unknown 11/22/2023 10:31 AM EDT 11/22/2023 10:31 AM EDT Chaitanya Fernandez MD LAB BLOOD ORDERABLES Performing Organization Address City/[facility]/ZIP Co de Phone Number LABORATORY [facility] [address] [place] [address] * ERYTHROCYTE SEDIMENTATION RATE (ESR) (11/22/2023 10:31 AM EDT) Pathologist [facility] ESR 16 <30 mm/hour 11/22/2023 2:31 PM EDT LAB[facility]ATORY [facility] Blood Venous blood specimen / Unknown Venipuncture / Unknown 11/22/2023 10:31 AM EDT 11/22/2023 10:31 AM EDT Chaitanya Fernandez MD LAB BLOOD ORDERABLES Performing Organization Address City/[facility]/ZIP Co de Phone Number LABORATORY [facility] [address] [place] [address] documented in this encounter Visit Diagnoses Diagnosis Central retinal artery occlusion of left eye Central artery occlusion of retina documented in [...] Power of Attor scott? No Care Teams Pharmaceutical Process Engineer Relationship Specialty Start Date End Date June, Chaitanya Wild MD [address] [place] [address] PCP - General Family Medicine 06/01/22 documented as of this encounter
--- OUTSIDE RECORDS SUMMARY | 2024-01-02 12:00 | External Medical Summary | Summary of Care ---
Author Name Unknown Organization [facility] Address [address] [place] [address] Phone [phone] Care Team Providers Care Attendant Lodging Facilities Name Role Phone Chaitanya Fernandez MD Primary Care Provider [phone] Reason for Visit * Reason Comments eRx-Medication Refill Encounter Details Date Type Department Care Team (Late st Contact Info) Description 11/29/2023 Refill Cardiology [facility] [address], [place] [id number] Glenn Millard MD [address] [place] [address] Allergies Active Allergy Reactions Criticality Noted Date Comments Adhesive Tape 05/11/2003 skin peels Codeine 07/30/2016 Doxycycline 09/01/2003 vomiting Fentanyl High 07/04/2022 Other Reaction(s): "opiate agonists cause severe N&V, increased heart rate, "sk Gabapentin Nausea/vomiting 04/17/2022 Hydrocodone 05/10/2022 Hydromorphone High [...] as of this encounter (statuses as of 12/05/2023) Medications Medication Sig Dispensed Refills Start Date End Date Status ONEPAUL CASTELLON MISCIndications:Type II or unspecified type diabetes mellitus with neurological manifestations, not stated as uncontrolled(250.60) ([facility]) test blood sugar 4 times per day 1 Box 5 08/18/2013 Active ASPIRIN 81 MG PO CHEWIndications:HTN, goal below 140/80,ASCVD (arteriosclerotic cardiovascular disease) take 1 tablet daily 100 Tab 3 11/12/2013 Active LiveBidTouch Ultra 2 w/Device KitIndications:Type II or unspecified type diabetes mellitus with neurological manifestations, not stated as uncontrolled(250.60) ([facility]) Use to test blood sugar daily per diabetes clinic E11.9 1 Kit 02/29/2020 Active amLODIPine Besylate 2.5 MG Oral Tablet (Norvasc)Indications :HTN, goal below 140/80 TAKE 2 TABLETS BY MOUTH IN THE MORNING 180 Tablet 3 01/09/2023 Active Levothyroxine Sodium 125 MCG Oral Tablet (Levoxyl)Indications :Acquired hypothyroidism Take 1 Tablet by mouth in the morning. (at least 30 min prior to breakfast or other meds). 90 Tablet 3 04/02/2023 Active Allopurinol 100 MG Oral Tablet (Zyloprim)Indication s:Gout TAKE 2 TABLETS BY MOUTH IN THE [...] 06/18/2023 Active Furosemide 20 MG Oral Tablet (Lasix)Indications:L eg swelling TAKE 1 TABLET BY MOUTH DAILY NEEDED FOR SWELLING 90 Tablet 2 08/07/2023 Active Insulin Glargine Solostar 100 UNIT/ML Subcutaneous Solution Pen-injector (Lantus SoloStar)Indications :Type 2 diabetes mellitus with hemoglobin A1c goal of less than 7.0% (HCC) Inject 25 units once daily 30 mL 4 08/27/2023 Active Insulin Lispro (1 Unit Dial) 100 UNIT/ML Subcutaneous Solution Pen-injector (HumaLOG KwikPen)Indications: Type 2 diabetes mellitus with hemoglobin A1c goal of less than 7.0% (HCC) Inject 10 Units under the skin in the morning and 10 Units at noon and 10 Units in the evening. Inject with meals. 30 mL 4 08/27/2023 Active Dexcom G7 Sensor Use as directed every 10 days. 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 E 11.9 PLEASE SEND CHANELL, the 12 MM size is too big for pt. Thank you 400 Each 4 09/13/2023 Active Nitroglycerin 0.4 MG Sublingual Tablet Sublingual (Nitrostat)Indicatio ns:Coronary artery disease involving [place] heart without angina pectoris, unspecified vessel or lesion type,Chronic gastritis without bleeding Place 1 Tablet under the tongue as needed for Pain, Chest. May repeat 3 times. If chest pain continues, call 911. 25 Tablet 6 09/19/2023 Active Metoprolol Tartrate 50 MG Oral Tablet (Lopressor)Indicatio ns:HTN, goal below 140/80 TAKE 1 AND 1/2 TABLETS BY MOUTH IN THE MORNING AND 1 AND 1/2 TABLETS BEFORE BEDTIME 270 Tablet 3 09/24/2023 Active Atorvastatin Calcium 80 MG Oral Tablet (Lipitor)Indications :ASCVD (arteriosclerotic cardiovascular disease),S/P CABG (coronary artery bypass graft),Dyslipidemia, goal LDL below 100 Take 1 Tablet by mouth in the morning. 90 Tablet 30 09/26/2023 Active Pantoprazole Sodium 40 MG Oral Tablet Delayed Release (Protonix)Indication s:Dark stools TAKE 1 TABLET BY MOUTH IN THE MORNING AND 1 TABLET BEFORE BEDTIME 180 Tablet 3 11/30/2023 Active Isosorbide Mononitrate ER 60 MG Oral Tablet Extended Release 24 Hour (Imdur) TAKE 1 TABLET BY MOUTH IN THE MORNING 90 Tablet 12/02/2023 Active Isosorbide Mononitrate ER 30 MG Oral Tablet Extended Release 24 Hour (Imdur) Take 3 Tablets by mouth in the morning. 90 Tablet 11 04/29/2023 4 Discontinue d(Medicatio n/Dose Changed) documented as of this encounter (statuses as of 12/05/2023) Active Problems Problem Noted Date Diagnosed Date [...] gangrene 03/20/2018 Coronary artery disease invo lving [place] coronary artery of [place] heart without angina pectoris 04/03/2016 Lumbar radiculopathy [...] as of this encounter (statuses as of 12/05/2023) Resolved Problems Problem Noted Date Diagnosed Date Resolved Date Hypertensive heart disease with heart failure 10/01/1908/25/2020 Encounter for long-term (current) insulin use 11/29/1904/29/2019 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 in stage 3 zinc plater franchesca kidney disease due to type [...] Acute coronary syndrome 06/13/201107/20 Acute coronary syndrome 06/07/201107/20 DM type 2 [...] as of this encounter (statuses as of 12/05/2023) Immunizations Name Administration Dates Next Due COVID-19 mRNA, LNP-s, No Pre serve, 2-Dose Series (Greenext) 06/09/2020,05/19/2020 Pneumococcal Conjugate Vacc, 13 Valent (Prevnar) [...] encounter Miscellaneous Notes * Telephone Encounter - Casey Adhikari - 12/05/2023 8:30 AM EDT Received message from [facility] regarding patient needing an appointment. Patient was notified. Successfully contacted patient and provided [facility] message. * Telephone Encounter - Justin Baumann [facility] - 12/02/2023 3:52 PM EDTSigned Prescriptions: Disp Refills Isosorbide Mononitrate ER 60 MG Oral Table*90 Tab*0 Sig: TAKE 1 TABLET BY MOUTH IN THE MORNING Authorizing Provider: GLENN MILLARD Ordering User: JUSTIN BAUMANN * Telephone Encounter - Justin Baumann [facility] - 12/02/2023 3:44 PM EDT Please contact patient so that an appointment can be scheduled with her CARDIOLOGY provider. Refillauthorized to hold patient over in the mean time. Pt was to follow up in 6 months from last appt. Last Visit: 04/29/2023 (in office), 07/27/2022 (telemedicine) Next Visit: Visit date not found Pt's dose of Imdur was increased to 90mg once daily at last cardio appt on 04/29/23. This is the active rx on file. TE on 05/22/23 stated to decrease dose back to 60mg once daily due to blood pressure dropping. There was another TE on 09/26/23 that stated she could increase Imdur to 120mg daily due to chest pain she was having. I spoke with pt and confirmed she is taking Imdur 60mg once daily and is tolerating well at this time with no issues. Justin Baumann, Pharm.D. Clinical Pharmacist [facility] 12/02/2023, 3:48 PM [phone] documented in this encounter Plan of Treatment Upcoming Encounters Date Type Department Care Team (Late st Contact Info) Description 12/27/2023 10:45 AM EST Cardiac Studies Cardiac Studies, [place] [address] [place] [address] 03/18/2024 8:20 AM EST Office Visit [facility], [place] [address] [place] [phone] June, Chaitanya Wild MD [address] [place] [address] Scheduled Procedures Name Priority Associated Diagnoses Date/Ti [...] 11/26/2022 11/26/2017, 100 10/2017, 10/18/2010 COVID-19 Vaccine (2023-25 season) 2023 06/09/2020, 05/19/2020 Influenza Vaccine (FLU shot) (#1) 2023 DTap/Tdap Vaccines (2 - Td or Tdap) 12/02/2023 12/01/2013, 04/13/2003 CKD PHOS USE SMARTSET 00409 03/12/202402/19, 09/19/2020, 08/11/2019, Additional history exists TSH 03/12/2024 03/12/2023, 04/19, 05/10/2022, Additional history exists GFR 03/15/2024 09/13/2023, 02/19, 06/28/2022, Additional history exists HbA1c 03/15/2024 09/13/2023, 02/19, 05/10/2022, Additional history exists CKD HGB USE SMARTSET 67474 09/12/202409/12, 03/12/2023, 06/28/2022, Additional history exists Diabetic [...] this encounter Medical Devices Implanted Type Area Electric Motor Repairman Device Identifier Shelf Expiration Date Model / Serial / Lot Hira Prado 6 [id number] - [id number] Implanted:Qty: 6 on 06/08/2011 at OR [facility] [place] N/A: Chest DO NOT USE [id number] / / [id number] documented as of this encounter Advance Directives * No Code [...] Power of Attor scott? No Care Teams Attendant Lodging Facilities Relationship Specialty Start Date End Date June, Chaitanya Wild MD [address] [place] [address] PCP - General Family Medicine 06/01/22 documented as of this encounter
--- OUTSIDE RECORDS SUMMARY | 2024-01-02 12:00 | External Medical Summary | Summary of Care ---
Author Name Unknown Organization [facility] Address [address] [place] [address] Phone [phone] Care Team Providers Care Sales Applications Engineer Name Role Phone Chaitanya Fernandez MD Primary Care Provider [phone] Reason for Visit * Reason Onset Date Comments Advice 12/19/2023 Encounter Details Date Type Department Care Team (Late st Contact Info) Description 12/19/2023 Telephone Cardiology, [place] [address] [facility] [place] [id number] Sandra Salamanca CRNP [address] [place], [place] [id number] Advice Allergies Active Allergy Reactions Criticality Noted Date [...] as of this encounter (statuses as of 12/19/2023) Medications Medication Sig Dispensed Refills Start Date End Date Status ONETOPAUL CASTELLON MISCIndications:Type II or unspecified type diabetes mellitus with neurological manifestations, not stated as uncontrolled(250.60) ([facility]) test blood sugar 4 times per day 1 Box 5 08/18/2013 Active ASPIRIN 81 MG PO CHEWIndications:HTN, goal below 140/80,ASCVD (arteriosclerotic cardiovascular disease) take 1 tablet daily 100 Tab 3 11/12/2013 Active EzLikeTouch Ultra 2 w/Device KitIndications:Type II or unspecified type diabetes mellitus with neurological manifestations, not stated as uncontrolled(250.60) ([facility]) Use to test blood sugar daily [...] as directed every 10 days. Receiving from [employer] Active Comfort EZ Pen [place] 32G X 6 MM (NOVOFINE 32G PEN NEEDLE)Indications:Di abetes mellitus with background retinopathy (HCC) Use to inject insulin 4 times daily. E 11.9 PLEASE SEND CHANELL, the 12 MM size is too big for pt. Thank you 400 Each 4 09/13/2023 Active Nitroglycerin 0.4 MG Sublingual Tablet Sublingual (Nitrostat)Indication s:Coronary artery disease involving [place] heart without angina pectoris, unspecified vessel or [...] as of this encounter (statuses as of 12/19/2023) Active Problems Problem Noted Date Diagnosed Date [...] gangrene 03/20/2018 Coronary artery disease invo lving [place] coronary artery of [place] heart without angina pectoris 04/03/2016 Lumbar radiculopathy [...] as of this encounter (statuses as of 12/19/2023) Resolved Problems Problem Noted Date Diagnosed Date Resolved Date Hypertensive heart disease with heart failure 10/01/1908/25/2020 Encounter for long-term (current) insulin use 11/29/1904/29/2019 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 in stage 3 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 Agree with recommendation given. Thank You CARRINGTON Preston * Telephone Encounter - Benoit Kee RN - 12/19/2023 9:36 AM EDT Called and spoke to the patient and she stated that yesterday she lost control of her legs and fellto the floor. She was able to gt herself back up. She did not call 911 or call her PCP. I explainedthat this problem does not sound cardiac. She stated she didn't thinks so either. She stated she had back surgery in 2022. I advise she go to the ER. She stated she didn't have a ride and doesn't want to use [facility]. I explained to call 911 and she agreed to do so. * Telephone Encounter - Camila Cai OSA - 12/19/2023 9:16 AM EDT Person calling: Carie Relationship to patient: self Phone/Fax to return call: [phone] Reason for call(brief): advice Pharmacy: na Provider Name:Jadyn Detailed message to office:pt calling in stating yesterday she lost all control of her legs and nowtoday her legs are weak and she is now nauseated. She isnt sure what its coming from and asking fora call back. Pt denies any other symptoms. Please advise. documented in this encounter Plan of Treatment Upcoming Encounters Date Type Department Care Team (Late st Contact Info) Description 12/27/2023 10:45 AM EST Cardiac Studies [facility] [place] [address] [facility] [address] 03/18/2024 8:20 AM EST Office Visit [facility], [place] [address] [facility] [phone] June, Chaitanya Wild MD [address] [facility] [address] Scheduled Procedures Name Priority Associated Diagnoses Date/Ti [...] 12/02/2023 12/01/2013, 04/13/2003 CKD PHOS USE SMARTSET 43517 03/12/202402/19, 09/19/2020, 08/11/2019, Additional history exists TSH 03/12/2024 03/12/2023, 04/19, 05/10/2022, Additional history exists GFR 03/15/2024 09/13/2023, 02/19, 06/28/2022, Additional history exists HbA1c 03/15/2024 09/13/2023, 02/19, 05/10/2022, Additional history exists CKD HGB USE SMARTSET 61828 09/12/202409/12, 03/12/2023, 06/28/2022, Additional history exists Diabetic [...] this encounter Medical Devices Implanted Type Area Bundler Device Identifier Shelf Expiration Date Model / Serial / Lot Sut Steel 6 [id number] - [id number] Implanted:Qty: 6 on 06/08/2011 at OR [facility] [place] N/A: Chest DO NOT USE [id number] / / [id number] documented as of this encounter Advance Directives [...] Power of Attor scott? No Care Teams Sales Applications Engineer Relationship Specialty Start Date End Date June, Chaitanya Wild MD [address] [facility] [place] [address] PCP - General Family Medicine 06/01/22 documented as of this encounter
--- OUTSIDE RECORDS SUMMARY | 2024-01-02 12:00 | External Medical Summary | Summary of Care ---
Author Name Unknown Organization [facility] Address [address] [place] [address] Phone [phone] Care Team Providers Care Assistant Customer Service Manager Name Role Phone Chaitanya Fernandez MD Primary Care Provider [phone] Reason for Referral * Evaluate & Treat - Unlimited Visits (Within 10 days (routine)) - Authorized Specialty Diagnoses / Procedures Referred By Contac t Referred To Contact Physical Therapy / Physical Medicine And Rehab Diagnoses Lumbar radiculopathy Spinal stenosis of lumbar region without neurogenic claudication Chaitanya Fernandez MD [address] [place] [address] Referral ID Status Reason Start Date Expiration Date Visits Requested Visits Authorized [id number] Authorized Specialty Services Required 12/24/2023 999 999 [...] Description 12/24/2023 10:00 AM EST [facility] [address] [place] [place] [address] Chaitanya Fernandez MD [address] [facility] [place] [address] Lumbar radiculopathy*; SPINAL STENOSIS-LUMBAR, S/P SURGERY 03/29; Chronic kidney disease, stage 3a ([facility]); Dysuria Allergies Active Allergy Reactions Criticality Noted [...] with neurological manifestations, not stated as uncontrolled(250.60) ([facility]) test blood sugar 4 times per day 1 Box 5 08/18/2013 Active ASPIRIN 81 MG PO CHEWIndications:HTN, goal below 140/80,ASCVD (arteriosclerotic cardiovascular disease) take 1 tablet daily 100 Tab 3 11/12/2013 Active [employer] Ultra 2 w/Device KitIndications:Type II or unspecified [...] THE MORNING 90 Tablet 2 06/11/2023 Active [employer] Ultra In Vitro Strip (Glucose Blood) USE [...] hemoglobin A1c goal of less than 7.0% ([facility]) Inject 25 units once daily 30 mL [...] as directed every 10 days. Receiving from [facility] Active Comfort EZ Pen [place] 32G X 6 MM (NOVOFINE 32G PEN NEEDLE)Indications:Di abetes mellitus with background retinopathy (HCC) Use to inject insulin 4 times daily. E 11.9 PLEASE SEND CHANELL, the 12 MM size is too big for pt. Thank you 400 Each 4 09/13/2023 Active Nitroglycerin 0.4 MG Sublingual Tablet Sublingual (Nitrostat)Indication s:Coronary artery disease involving [place] heart without angina pectoris, unspecified vessel or [...] gangrene 03/20/2018 Coronary artery disease invo lving [place] coronary artery of [place] heart without angina pectoris 04/03/2016 Lumbar radiculopathy [...] 11/29/19 19 04/29/2019 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 in stage [address] franchesca 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 [...] note has been completed in part utilizing [employer] Speech Voice Recognition Software. Due to technical [...] Description 01/01/2024 6:20 PM EST Office Visit [facility] [address] [place] [phone] JuneChaitanya MD [address] [place] [address] 03/18/2024 8:20 AM EST Office Visit [facility] [address] [place] [address] Chaitanya Fernandez MD [address] [place] [address] Scheduled Procedures Name Priority Associated Diagnoses Date/Ti [...] 12/02/2023 12/01/2013, 04/13/2003 CKD PHOS USE SMARTSET 65422 03/12/202402/19, 09/19/2020, 08/11/2019, Additional history exists TSH 03/12/2024 03/12/2023, 04/19, 05/10/2022, Additional history exists GFR 03/15/2024 09/13/2023, 02/19, 06/28/2022, Additional history exists HbA1c 03/15/2024 09/13/2023, 02/19, 05/10/2022, Additional history exists CKD HGB USE SMARTSET 52253 09/12/202409/12, 03/12/2023, 06/28/2022, Additional history exists Diabetic [...] this encounter Medical Devices Implanted Type Area Information Systems Operator Device Identifier Shelf Expiration Date Model / Serial / Lot Sut Johan 6 [id number] - [id number] Implanted:Qty: 6 on 06/08/2011 at OR [facility] [place] N/A: Chest DO NOT USE [id number] / / [id number] documented as of this encounter Procedures Procedure [...] Negative Ketone, Urine Negative Negative mg/dL Specific [place], Urine 1.010 1.003 - 1.030 Blood, Urine Trace-intact Negative pH, Urine 6.0 5.0 - 7.5 units Protein, Urine Negative Negative mg/dL Urobilinogen, Urine 0.2 0.2 - 1.0 mg/dL Nitrite, Urine Negative Negative Esterase, Urine Negative Negative Urine 12/24/2023 10:3 9 AM EST Chaitanya Fernandez MD LAB POINT OF CARE [facility] ENTER/EDIT ORDERABLES documented in this encounter Visit [...] Power of Attor scott? No Care Teams Assistant Customer Service Manager Relationship Specialty Start Date End Date June, Chaitanya Wild MD [address] [facility] [place] [address] PCP - General Family Medicine 06/01/22 documented as of this encounter
--- OUTSIDE RECORDS SUMMARY | 2024-01-02 12:00 | External Medical Summary | Summary of Care ---
Author Name Unknown Organization [facility] Address [address] [place] [address] Phone [phone] Care Team Providers Care Staff Field Engineer Name Role Phone Alfred Tinajero MD Primary Care Provider [phone] Reason for Visit * Reason Comments eRx-Medication Refill Encounter Details Date Type Department Care Team (Late st Contact Info) Description 11/29/2023 Refill [facility] [address] [place] [address] JuneAlfred MD [address] [place] [address] Dark stools Allergies Active Allergy Reactions Criticality Noted Date [...] as of this encounter (statuses as of 11/30/2023) Medications Medication Sig Dispensed Refills Start Date End Date Status ONETOPAUL CASTELLON MISCIndications:Typ e II or unspecified type diabetes mellitus with neurological manifestations, not stated as uncontrolled(250.60 ) ([facility]) test blood sugar 4 times per day 1 Box 5 08/18/2013 Active ASPIRIN 81 MG PO CHEWIndications:HTN , goal below 140/80,ASCVD (arteriosclerotic cardiovascular disease) take 1 tablet daily 100 Tab 3 11/12/2013 Active Motif BioSciencesTouch Ultra 2 w/Device KitIndications:Type II or unspecified type diabetes mellitus with neurological manifestations, not stated as uncontrolled(250.60 ) ([facility]) Use to test blood sugar daily per diabetes clinic E11.9 1 Kit 02/29/2020 Active amLODIPine Besylate 2.5 MG Oral Tablet (Norvasc)Indication s:HTN, goal below 140/80 TAKE 2 TABLETS BY MOUTH IN THE MORNING 180 Tablet 3 01/09/2023 Active Levothyroxine Sodium 125 MCG Oral Tablet (Levoxyl)Indication s:Acquired hypothyroidism Take 1 Tablet by mouth in the morning. (at least 30 min prior to breakfast or other meds). 90 Tablet 3 04/02/2023 Active Allopurinol 100 MG Oral Tablet (Zyloprim)Indicatio ns:Gout TAKE 2 TABLETS BY MOUTH IN THE [...] 06/18/2023 Active Furosemide 20 MG Oral Tablet (Lasix)Indications: Leg swelling TAKE 1 TABLET BY MOUTH DAILY NEEDED FOR SWELLING 90 Tablet 2 08/07/2023 Active Insulin Glargine Solostar 100 UNIT/ML Subcutaneous Solution Pen-injector (Lantus SoloStar)Indication s:Type 2 diabetes mellitus with hemoglobin A1c goal of less than 7.0% (HCC) Inject 25 units once daily 30 mL 4 08/27/2023 Active Insulin Lispro (1 Unit Dial) 100 UNIT/ML Subcutaneous Solution Pen-injector (HumaLOG KwikPen)Indications :Type 2 diabetes mellitus with hemoglobin A1c goal of less than 7.0% (HCC) Inject 10 Units under the skin in the morning and 10 Units at noon and 10 Units in the evening. Inject with meals. 30 mL 4 08/27/2023 Active Dexcom G7 Sensor Use as directed every 10 days. Receiving from [employer] Active Comfort EZ Pen [place] 32G X 6 MM (NOVOFINE 32G PEN NEEDLE)Indications: Diabetes mellitus with background retinopathy (HCC) Use to inject insulin 4 times daily. E 11.9 PLEASE SEND CHANELL, the 12 MM size is too big for pt. Thank you 400 Each 4 09/13/2023 Active Nitroglycerin 0.4 MG Sublingual Tablet Sublingual (Nitrostat)Indicati ons:Coronary artery disease involving [place] heart without angina pectoris, unspecified vessel or lesion type,Chronic gastritis without bleeding Place 1 Tablet under the tongue as needed for Pain, Chest. May repeat 3 times. If chest pain continues, call 911. 25 Tablet 6 09/19/2023 Active Metoprolol Tartrate 50 MG Oral Tablet (Lopressor)Indicati ons:HTN, goal below 140/80 TAKE 1 AND 1/2 TABLETS BY MOUTH IN THE MORNING AND 1 AND 1/2 TABLETS BEFORE BEDTIME 270 Tablet 3 09/24/2023 Active Atorvastatin Calcium 80 MG Oral Tablet (Lipitor)Indication s:ASCVD (arteriosclerotic cardiovascular disease),S/P CABG (coronary artery bypass graft),Dyslipidemia , goal LDL below 100 Take 1 Tablet by mouth in the morning. 90 Tablet 30 09/26/2023 Active Pantoprazole Sodium 40 MG Oral Tablet Delayed Release (Protonix)Indicatio ns:Dark stools TAKE 1 TABLET BY MOUTH IN THE MORNING AND 1 TABLET BEFORE BEDTIME 180 Tablet 3 11/30/2023 Active Pantoprazole Sodium 40 MG Oral Tablet Delayed Release (Protonix)Indicatio ns:Dark stools TAKE 1 TABLET BY MOUTH IN THE MORNING AND 1 TABLET BY MOUTH BEFORE BEDTIME 180 Tablet 2 11/08/2022 11/30/19 24 Discontinued documented as of this encounter (statuses as of 11/30/2023) Active Problems Problem Noted Date Diagnosed Date [...] gangrene 03/20/2018 Coronary artery disease invo lving [place] coronary artery of [place] heart without angina pectoris 04/03/2016 Lumbar radiculopathy [...] as of this encounter (statuses as of 11/30/2023) Resolved Problems Problem Noted Date Diagnosed Date Resolved Date Hypertensive heart disease with heart failure 10/01/1908/25/2020 Encounter for long-term (current) insulin use 11/29/1904/29/2019 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 in stage 3 smoke chaser franchesca 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 [...] as of this encounter (statuses as of 11/30/2023) Immunizations Name Administration Dates Next Due COVID-19 [...] encounter Miscellaneous Notes * Telephone Encounter - Delmy Rock [facility] - 11/30/2023 10:06 AM EDT Signed Prescriptions: Disp Refills Pantoprazole Sodium 40 MG Oral Tablet Jazmine*180 Ta*3 Sig: TAKE 1 TABLET BY MOUTH IN THE MORNING AND 1 TABLET BEFORE BEDTIMEAuthorizing Provider: ALFRED TINAJEROOrdermaikol User: DELMY ROCK documented in this encounter Plan of Treatment Upcoming Encounters Date Type Department Care Team (Late st Contact Info) Description 12/27/2023 10:45 AM EST Cardiac Studies Cardiac Studies, [place] [address] [place] [address] 03/18/2024 8:20 AM EST Office Visit [facility] [place] [address] [place] [phone] Alfred Tinajero MD [address] [place] [address] Scheduled Procedures Name Priority Associated Diagnoses Date/Ti [...] 12/02/2023 12/01/2013, 04/13/2003 CKD PHOS USE SMARTSET 87014 03/12/202402/19, 09/19/2020, 08/11/2019, Additional history exists TSH 03/12/2024 03/12/2023, 04/19, 05/10/2022, Additional history exists GFR 03/15/2024 09/13/2023, 02/19, 06/28/2022, Additional history exists HbA1c 03/15/2024 09/13/2023, 02/19, 05/10/2022, Additional history exists CKD HGB USE SMARTSET 13966 09/12/202409/12, 03/12/2023, 06/28/2022, Additional history exists Diabetic [...] this encounter Medical Devices Implanted Type Area Business Law Teacher Device Identifier Shelf Expiration Date Model / Serial / Lot Hira Shepard [id number] - [id number] Implanted:Qty: 6 on 06/08/2011 at OR [facility] [place] N/A: Chest DO NOT USE [id number] / / [id number] documented as of this encounter Visit Diagnoses Diagnosis Dark stools Nonspecific abnormal finding in stool contents documented in this encounter Advance Directives * [...] Power of Attor scott? No Care Teams Staff Field Engineer Relationship Specialty Start Date End Date June, Alfred Wild MD [address] [place] [address] PCP - General Family Medicine 06/01/22 documented as of this encounter
--- OUTSIDE RECORDS SUMMARY | 2024-01-02 12:01 | External Medical Summary ---
Author Name Unknown Address Unknown Organization K01:[facility] [place] - [address] [place] [address] Laboratory Report Ordering Provider Test Date Status 11/22/2023 10:31:27 Final Observation Date Value Abnormality Reference (Units ) Status CRP, low-sensitivity 11/22/2023 10:31:27 6 Above high normal <=5 (mg/L) Final Performing Location LABORATORY C - [address] [place] [address]
--- OUTSIDE RECORDS SUMMARY | 2024-01-02 12:01 | External Medical Summary | Summary of Care ---
Author Name Unknown Organization [facility] Address [address] [place] [address] Phone [phone] Care Team Providers Care Farm Mortgage Agent Name Role Phone Chaitanya Fernandez MD Primary Care Provider [phone] Reason for Visit * Reason Onset Date Comments Advice 11/18/2023 Encounter Details Date Type Department Care Team (Late st Contact Info) Description 11/18/2023 Telephone [facility], [facility] [address] [place] [address] [place] [address] [facility] [address] [place] [address] Advice Allergies Active Allergy Reactions Criticality Noted [...] as of this encounter (statuses as of 11/18/2023) Medications Medication Sig Dispensed Refills Start Date End Date Status ONETOPAUL CASTELLON MISCIndications:Type II or unspecified type diabetes mellitus with neurological manifestations, not stated as uncontrolled(250.60) ([facility]) test blood sugar 4 times per day 1 Box 5 08/18/2013 Active ASPIRIN 81 MG PO CHEWIndications:HTN, goal below 140/80,ASCVD (arteriosclerotic cardiovascular disease) take 1 tablet daily 100 Tab 3 11/12/2013 Active MatternetTouch Ultra 2 w/Device KitIndications:Type II or unspecified type diabetes mellitus with neurological manifestations, not stated as uncontrolled(250.60) ([facility]) Use to test blood sugar daily per [...] as directed every 10 days. [facility] Active Comfort EZ Pen [place] 32G X 6 MM (NOVOFINE 32G PEN NEEDLE)Indications:Di abetes mellitus with background retinopathy (HCC) Use to inject insulin 4 times daily. E 11.9 PLEASE SEND CHANELL, the 12 MM size is too big for pt. Thank you 400 Each 4 09/13/2023 Active Nitroglycerin 0.4 MG Sublingual Tablet Sublingual (Nitrostat)Indication s:Coronary artery disease involving [place] heart without angina pectoris, unspecified vessel or [...] as of this encounter (statuses as of 11/18/2023) Active Problems Problem Noted Date Diagnosed Date [...] gangrene 03/20/2018 Coronary artery disease invo lving [place] coronary artery of [place] heart without angina pectoris 04/03/2016 Lumbar radiculopathy [...] as of this encounter (statuses as of 11/18/2023) Resolved Problems Problem Noted Date Diagnosed Date Resolved Date Hypertensive heart disease with heart failure 10/01/1908/25/2020 Encounter for long-term (current) insulin use 11/29/1904/29/2019 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 in stage 3 chronic condition nurse franchesca 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 Contacts Contact Date/Time Type Contact Phone/Fax 11/18/2023 08:38 AM EDT Phone (Incoming) Carie Rodney (Self) [phone] (M) 11/18/2023 11:21 AM EDT Phone (Outgoing) Carie Rodney (Self) [phone] (M) Spoke to Patient Patient states that it does not seem to be a sensor issue. States that her reader does not turn on despite using chronic condition nurse. Patient also states that she received the reader not that long ago (~2 months) and was working fine until now. Tried to troubleshoot with the patient, but no solutions. Gave herthe Dexcom technical support number to call for further assistance. Latosha Brown PharmD Clinical Pharmacist 11/18/2023 11:48 AM * Telephone Encounter - Darcy Berman PHARM Tech - 11/18/2023 8:38 AM EDT Caller's name: Carie Luna call back number(OFFICE NUMBER FOR ): [phone] Reason for call: Patient called in, she said her Dexcom won't read her blood sugar readings. She isn't sure what to do and asked for advice. Please advise. Thank you, Darcy Berman Shipwright I [facility] ([facility]) 11/18/2023, 8:38 AM documented in this encounter Plan of Treatment Upcoming Encounters Date Type Department Care Team (Late st Contact Info) Description 12/27/2023 10:45 AM EST Cardiac Studies Cardiac Studies, [place] [address] [place] [address] 03/18/2024 8:20 AM EST Office Visit [facility] [place] [address] [place] [phone] JuneChaitanya MD [address] [place] [address] Scheduled Procedures Name Priority Associated Diagnoses Date/Ti [...] 05/01/2018, Additional history exists Colonoscopy 11/26/2022 11/26/2017, 10/0 10/2017, 10/18/2010 COVID-19 Vaccine ( season) 2023 06/09/2020, 05/19/2020 Influenza Vaccine (FLU shot) (#1) 2023 DTap/Tdap Vaccines (2 - Td or Tdap) 12/02/2023 12/01/2013, 04/13/2003 CKD PHOS USE SMARTSET 44526 03/12/202402/19, 09/19/2020, 08/11/2019, Additional history exists TSH 03/12/2024 03/12/2023, 04/19, 05/10/2022, Additional history exists GFR 03/15/2024 09/13/2023, 02/19, 06/28/2022, Additional history exists HbA1c 03/15/2024 09/13/2023, 02/19, 05/10/2022, Additional history exists CKD HGB USE SMARTSET 27820 09/12/202409/12, 03/12/2023, 06/28/2022, Additional history exists Diabetic [...] this encounter Medical Devices Implanted Type Area Landscape Maintenance Internship Device Identifier Shelf Expiration Date Model / Serial / Lot Sut Steel 6 [id number] - [id number] Implanted:Qty: 6 on 06/08/2011 at [place] [facility] [place] N/A: Chest DO NOT USE [id number] / / [id number] documented as of this encounter Advance Directives [...] Power of Attor scott? No Care Teams Farm Mortgage Agent Relationship Specialty Start Date End Date June, Chaitanya Wild MD [address] [place] [address] PCP - General Family Medicine 06/01/22 documented as of this encounter
--- OUTSIDE RECORDS SUMMARY | 2024-01-02 12:01 | External Medical Summary | Summary of Care ---
Author Name Unknown Organization [facility] Address [address] [place] [address] Phone [phone] Care Team Providers Care Hide Trimmer Name Role Phone Chaitanya Fernandez MD Primary Care Provider [phone] Reason for Visit * Reason Comments Outpatient Testing Encounter Details Date Type Department Care Team (Late st Contact Info) Description 11/22/2023 10:30 AM EDT Laboratory Laboratory, [place] [address] [place] [address] [place], [facility] [address] [place] [address] Central retinal artery occlusion of [...] as of this encounter (statuses as of 11/22/2023) Medications Medication Sig Dispensed Refills Start Date End Date Status ONETOUCH EVA CASTELLON MISCIndications:Type II or unspecified type diabetes mellitus with neurological manifestations, not stated as uncontrolled(250.60) ([facility]) test blood sugar 4 times per day 1 Box 5 08/18/2013 Active ASPIRIN 81 MG PO CHEWIndications:HTN, goal below 140/80,ASCVD (arteriosclerotic cardiovascular disease) take 1 tablet daily 100 Tab 3 11/12/2013 Active OneTouch Ultra 2 w/Device KitIndications:Type II or unspecified type diabetes mellitus with neurological manifestations, not stated as uncontrolled(250.60) ([facility]) Use to test blood sugar daily per [...] as directed every 10 days. Receiving from [employer] [facility] Active Comfort EZ Pen [place] 32G X 6 MM (NOVOFINE 32G PEN NEEDLE)Indications:Di abetes mellitus with background retinopathy (HCC) Use to inject insulin 4 times daily. E 11.9 PLEASE SEND CHANELL, the 12 MM size is too big for pt. Thank you 400 Each 4 09/13/2023 Active Nitroglycerin 0.4 MG Sublingual Tablet Sublingual (Nitrostat)Indication s:Coronary artery disease involving [place] heart without angina pectoris, unspecified vessel or [...] as of this encounter (statuses as of 11/22/2023) Active Problems Problem Noted Date Diagnosed Date [...] gangrene 03/20/2018 Coronary artery disease invo lving [place] coronary artery of [place] heart without angina pectoris 04/03/2016 Lumbar radiculopathy [...] as of this encounter (statuses as of 11/22/2023) Resolved Problems Problem Noted Date Diagnosed Date Resolved Date Hypertensive heart disease with heart failure 10/01/1908/25/2020 Encounter for long-term (current) insulin use 11/29/1904/29/2019 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 in stage 3 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 [...] as of this encounter (statuses as of 11/22/2023) Immunizations Name Administration Dates Next Due COVID-19 mRNA, LNP-s, No Pre serve, 2-Dose Series ([facility]) 06/09/2020,05/19/2020 Pneumococcal Conjugate Vacc, 13 Valent (Prevnar) [...] No 08/07/2019 documented as of this encounter Plan of Treatment Upcoming Encounters Date Type Department Care Team (Late st Contact Info) Description 11/25/2023 10:30 AM EDT Imaging Vascular Lab, [facility] 2nd Floor, [address] [place] [address] 12/27/2023 10:45 AM EST Cardiac Studies Card[facility] Studies[facility] [place] [address] [facility] [facility] [address] 03/18/2024 8:20 AM EST Office Visit Family [facility], [place] [address] [place] [facility] [place] [phone] JuneChaitanya MD [address] [place] [address] Pending Results Name Type Priority Associated Diagnoses Date /Time ERYTHROCYTE SEDIMENTATION RATE (ESR) Lab Routine Central retinal artery occlusion of left eye 11/22/2023 10:31 AM EDT CRP (INFLAMMATORY MARKER) Lab Routine Central retinal artery occlusion of left eye 11/22/2023 10:31 AM EDT Scheduled Procedures Name Priority Associated Diagnoses Date/Ti [...] 11/26/2017, 100 10/2017, 10/18/2010 COVID-19 Vaccine ( season) 2023 06/09/2020, 05/19/2020 Influenza Vaccine (FLU shot) (#1) 2023 DTap/Tdap Vaccines (2 - Td or Tdap) 12/02/2023 12/01/2013, 04/13/2003 CKD PHOS USE SMARTSET 72774 03/12/202402/19, 09/19/2020, 08/11/2019, Additional history exists TSH 03/12/2024 03/12/2023, 04/19, 05/10/2022, Additional history exists GFR 03/15/2024 09/13/2023, 02/19, 06/28/2022, Additional history exists HbA1c 03/15/2024 09/13/2023, 02/19, 05/10/2022, Additional history exists CKD HGB USE SMARTSET 67815 09/12/202409/12, 03/12/2023, 06/28/2022, Additional history exists Diabetic [...] this encounter Medical Devices Implanted Type Area Lock And Dam Equipment Repairer Device Identifier Shelf Expiration Date Model / Serial / Lot Sut Johan 6 [id number] - [id number] Implanted:Qty: 6 on 06/08/2011 at [place] [facility] [place]/A: Chest DO NOT USE M654G / / [id number] documented as of this encounter Visit Diagnoses Diagnosis Central retinal [...] Power of Attor scott? No Care Teams Hide Trimmer Relationship Specialty Start Date End Date June, Chaitanya Wild MD [address] [place] [address] PCP - General Family Medicine 06/01/22 documented as of this encounter
--- OUTSIDE RECORDS SUMMARY | 2024-01-02 12:01 | External Medical Summary ---
Author Name Unknown Address Unknown Organization K01:[facility] [address] [place] [place] [address] Laboratory Report Ordering Provider Test Date Status 11/22/2023 10:31:27 Final Observation Date Value Abnormality Reference (Units ) Status Erythrocyte sedimentation rate by Photometric method 11/22/2023 10:31:27 16 <30 (mm/hour) Final Performing Location [facility] [place] [address] [place] [place] [address]
--- OUTSIDE RECORDS SUMMARY | 2024-01-02 12:01 | External Medical Summary | Summary of Care ---
Author Name Unknown Organization [facility] Address [address] [place] [address] Phone [phone] Care Team Providers Care Flea Market Seller Name Role Phone Alfred Tinajero MD Primary Care Provider [phone] Reason for Visit * Reason Onset Date Comments Advice 11/14/2023 Peer to peer Encounter Details Date Type Department Care Team (Late st Contact Info) Description 11/14/2023 Telephone [facility] [address] [place] [address] JuneAlfred MD [address] [place] [address] Advice (Peer to peer ) [...] manifestations, not stated as uncontrolled(250.60) ([facility]) test blood sugar 4 times per day 1 Box 5 08/18/2013 Active ASPIRIN 81 MG PO CHEWIndications:HTN, goal below 140/80,ASCVD (arteriosclerotic cardiovascular disease) take 1 tablet daily 100 Tab 3 11/12/2013 Active Trellis Earth ProductsTouch Ultra 2 w/Device KitIndications:Type II or unspecified type diabetes mellitus with neurological manifestations, not stated as uncontrolled(250.60) ([facility]) Use to test blood sugar daily [...] as directed every 10 days. [facility] Active Comfort EZ Pen [place] 32G X 6 MM (NOVOFINE 32G PEN NEEDLE)Indications:Di abetes mellitus with background retinopathy (HCC) Use to inject insulin 4 times daily. E 11.9 PLEASE SEND CHANELL, the 12 MM size is too big for pt. 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 Gonzalez was transferred to vt asking to speak with Dr. Tinajero. He [...] EDT Reason for call: Dr. Gonzalez from [facility] requesting to speak with Dr. Alfred Tinajero Caller was transferred to [facility] at the clinic. documented in this encounter Plan of Treatment Upcoming Encounters Date Type Department Care Team (Late st Contact Info) Description 11/25/2023 10:30 AM EDT Imaging Vascular Lab, [facility] 2nd Floor, [address] [place] [address] 12/27/2023 10:45 AM EST Cardiac Studies Cardiac Studies, [place] [address] [place] [address] 03/18/2024 8:20 AM EST Office Visit Family Practice, [place] [address] [place] [facility] [place] [phone] Alfred Tinajero MD [address] [place] [address] Scheduled Orders Name Type Priority Associated Diagnoses Orde r Schedule ERYTHROCYTE SEDIMENTATION RATE (ESR) Lab Routine Central retinal artery occlusion of left eye Expected: 11/15/2023 (Approximate), Expires: 11/14/2024 CRP (INFLAMMATORY MARKER) Lab Routine Central retinal artery occlusion of left eye Expected: 11/15/2023 (Approximate), Expires: 11/14/2024 VASC DUPLEX CAROTID BILAT Medical Imaging Routine Central retinal artery occlusion of left eye Ordered: 11/15/2023 Scheduled Procedures Name Priority Associated Diagnoses Date/Ti [...] 12/02/2023 12/01/2013, 04/13/2003 CKD PHOS USE SMARTSET 66393 03/12/202402/19, 09/19/2020, 08/11/2019, Additional history exists TSH 03/12/2024 03/12/2023, 04/19, 05/10/2022, Additional history exists GFR 03/15/2024 09/13/2023, 02/19, 06/28/2022, Additional history exists HbA1c 03/15/2024 09/13/2023, 02/19, 05/10/2022, Additional history exists CKD HGB USE SMARTSET 81701 09/12/202409/12, 03/12/2023, 06/28/2022, Additional history exists Diabetic [...] this encounter Medical Devices Implanted Type Area Ski Lift Operator Device Identifier Shelf Expiration Date Model / Serial / Lot Hira Prado 6 M654g - [id number] Implanted:Qty: 6 on 06/08/2011 at [place] [facility] [place] N/A: Chest DO NOT USE [id number] / / [id number] documented as of this encounter Visit Diagnoses [...] Power of Attor scott? No Care Teams Flea Market Seller Relationship Specialty Start Date End Date June, Alfred Wild MD [address] [facility] [place] [address] PCP - General Family Medicine 06/01/22 documented as of this encounter
--- OUTSIDE RECORDS SUMMARY | 2024-01-02 12:02 | External Medical Summary | Summary of Care ---
Author Name Unknown Organization [facility] Address [address] [place] [address] Phone [phone] Care Team Providers Care Principal Systems Architect Name Role Phone Chaitanya Fernandez MD Primary Care Provider [phone] Reason for Visit * Reason Onset Date Comments Advice 11/14/2023 Peer to peer Encounter Details Date Type Department Care Team (Late st Contact Info) Description 11/14/2023 Telephone [facility] [address] [place] [address] JuneChaitanya MD [address] [place] [address] Advice (Peer to peer ) [...] as of this encounter (statuses as of 11/14/2023) Medications Medication Sig Dispensed Refills Start Date End Date Status ONEPAUL CASTELLON MISCIndications:Type II or unspecified type diabetes mellitus with neurological manifestations, not stated as uncontrolled(250.60) ([facility]) test blood sugar 4 times per day 1 Box 5 08/18/2013 Active ASPIRIN 81 MG PO CHEWIndications:HTN, goal below 140/80,ASCVD (arteriosclerotic cardiovascular disease) take 1 tablet daily 100 Tab 3 11/12/2013 Active link birdTouch Ultra 2 w/Device KitIndications:Type II or unspecified type diabetes mellitus with neurological manifestations, not stated as uncontrolled(250.60) ([facility]) Use to test blood sugar daily [...] as directed every 10 days. [email or web address] Comfort EZ Pen [place] 32G X 6 MM (NOVOFINE 32G PEN NEEDLE)Indications:Di abetes mellitus with background retinopathy (HCC) Use to inject insulin 4 times daily. E 11.9 PLEASE SEND CHANELL, the 12 MM size is too big for pt. Thank you 400 Each 4 09/13/2023 Active Nitroglycerin 0.4 MG Sublingual Tablet Sublingual (Nitrostat)Indication s:Coronary artery disease involving [place] heart without angina pectoris, unspecified vessel or [...] as of this encounter (statuses as of 11/14/2023) Active Problems Problem Noted Date Diagnosed Date [...] gangrene 03/20/2018 Coronary artery disease invo lving [place] coronary artery of [place] heart without angina pectoris 04/03/2016 Lumbar radiculopathy [...] as of this encounter (statuses as of 11/14/2023) Resolved Problems Problem Noted Date Diagnosed Date Resolved Date Hypertensive heart disease with heart failure 10/01/1908/25/2020 Encounter for long-term (current) insulin use 11/29/1904/29/2019 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 in stage 3 molding 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 Gonzalez was transferred to in asking to speak with Dr. Fernandez. He is currently out of the office. [...] EDT Reason for call: Dr. Gonzalez from [facility] requesting to speak with Dr. Chaitanya Fernandez Caller was transferred to Siddhartha at the clinic. documented in this encounter Plan of Treatment Upcoming Encounters Date Type Department Care Team (Late st Contact Info) Description 12/27/2023 10:45 AM EST Cardiac Studies Cardiac Studies, [place] [address] [place] [facility] [place] [address] 03/18/2024 8:20 AM EST Office [facility] [place] [address] [facility] [place] [phone] Chaitanya Fernandez MD [address] [place] [facility] [place] [address] Scheduled Procedures Name Priority Associated Diagnoses Date/Ti in COLONOSCOPY FLEXIBLE PROXIMA L DIAGNOSTIC Recall Family [...] 12/02/2023 12/01/2013, 04/13/2003 CKD PHOS USE SMARTSET 02795 03/12/202402/19, 09/19/2020, 08/11/2019, Additional history exists TSH 03/12/2024 03/12/2023, 04/19, 05/10/2022, Additional history exists GFR 03/15/2024 09/13/2023, 02/19, 06/28/2022, Additional history exists HbA1c 03/15/2024 09/13/2023, 02/19, 05/10/2022, Additional history exists CKD HGB USE SMARTSET 51379 09/12/202409/12, 03/12/2023, 06/28/2022, Additional history exists Diabetic [...] this encounter Medical Devices Implanted Type Area Tearoom Hostess Device Identifier Shelf Expiration Date Model / Serial / Lot Hira Prado 6 [id number] - [id number] Implanted:Qty: 6 on 06/08/2011 at OR [facility] [place] N/A: Chest DO NOT USE [id number] / / [id number] documented as of this encounter Advance Directives [...] Power of Attor scott? No Care Teams Principal Systems Architect Relationship Specialty Start Date End Date June, Chaitanya Wild MD [address] [place] [address] PCP - General Family Medicine 06/01/22 documented as of this encounter
--- OUTSIDE RECORDS SUMMARY | 2024-01-02 12:02 | External Medical Summary | Summary of Care ---
Author Name Unknown Organization [facility] Address [address] [facility] [place] [address] Phone [phone] Care Team Providers Care Pacu Rn Name Role Phone Chaitanya Fernandez MD Primary Care Provider Encounter Details Date Type Department Care Team (Late st Contact Info) Description 11/18/2023 Orders Only PATIENT PORTAL DO NOT DELETE THIS DEPT USED BY [place] [id number] Allergies Active Allergy Reactions Criticality Noted Date [...] with neurological manifestations, not stated as uncontrolled(250.60) ([facility]) test blood sugar 4 times per day 1 Box 5 08/18/2013 Active ASPIRIN 81 MG PO CHEWIndications:HTN, goal below 140/80,ASCVD (arteriosclerotic cardiovascular disease) take 1 tablet daily 100 Tab 3 11/12/2013 Active [employer]inks Media Ultra 2 w/Device KitIndications:Type II or unspecified type diabetes mellitus with neurological manifestations, not stated as uncontrolled(250.60) ([facility]) Use to test blood sugar daily [...] as directed every 10 days. 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 E 11.9 PLEASE SEND CHANELL, the 12 MM size is too big for pt. 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 [...] 10:45 AM EST Cardiac Studies [facility] [address] [facility] [place] [address] 03/18/2024 8:20 AM EST Office Visit [facility] [place] [address] [facility] [place] [phone] Chaitanya Fernandez MD [address] [facility] [place] [address] Scheduled Procedures Name Priority Associated Diagnoses Date/Ti [...] 12/02/2023 12/01/2013, 04/13/2003 CKD PHOS USE SMARTSET 72350 03/12/202402/19, 09/19/2020, 08/11/2019, Additional history exists TSH 03/12/2024 03/12/2023, 04/19, 05/10/2022, Additional history exists GFR 03/15/2024 09/13/2023, 02/19, 06/28/2022, Additional history exists HbA1c 03/15/2024 09/13/2023, 02/19, 05/10/2022, Additional history exists CKD HGB USE SMARTSET 95900 09/12/202409/12, 03/12/2023, 06/28/2022, Additional history exists Diabetic [...] this encounter Medical Devices Implanted Type Area Track Subway Repair Supervisor Device Identifier Shelf Expiration Date Model / Serial / Lot Sut Steel 6 [id number] - [id number] Implanted:Qty: 6 on 06/08/2011 at [place] [facility] [place] N/A: Chest DO NOT USE M654G / / [id number] documented as of this encounter Advance Directives [...] Power of Attor scott? No Care Teams Pacu Rn Relationship Specialty Start Date End Date June, Chaitanya Wild MD [address] [place] [address] PCP - General Family Medicine 06/01/22 documented as of this encounter
--- OUTSIDE RECORDS SUMMARY | 2024-01-02 12:02 | External Medical Summary | Summary of Care ---
Author Name Unknown Organization [facility] Address [address] [place] [address] Phone [phone] Care Team Providers Care Alarm Adjuster Name Role Phone Chaitanya Fernandez MD Primary Care Provider [phone] Reason for Visit * Reason Onset Date Comments Advice 11/14/2023 Peer to peer Encounter Details Date Type Department Care Team (Late st Contact Info) Description 11/14/2023 Telephone [facility] [address] [place] [address] JuneChaitanya MD [address] [place] [address] Advice (Peer to peer ) [...] with neurological manifestations, not stated as uncontrolled(250.60) ([facility]) test blood sugar 4 times per day 1 Box 5 08/18/2013 Active ASPIRIN 81 MG PO CHEWIndications:HTN, goal below 140/80,ASCVD (arteriosclerotic cardiovascular disease) take 1 tablet daily 100 Tab 3 11/12/2013 Active CardiioTouch Ultra 2 w/Device KitIndications:Type II or unspecified type diabetes mellitus with neurological manifestations, not stated as uncontrolled(250.60) ([facility]) Use to test blood sugar [...] as directed every 10 days. [facility] Active Comfort EZ Pen [place] 32G X 6 MM (NOVOFINE 32G PEN NEEDLE)Indications:Di abetes mellitus with background retinopathy (HCC) Use to inject insulin 4 times daily. E 11.9 PLEASE SEND CHANELL, the 12 MM size is too big for pt. 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 Gonzalez was transferred to [place] asking to speak with Dr. Frenandez. He is currently out of the office. [...] EDT Reason for call: Dr. Gonzalez from [facility] requesting to speak with Dr. Chaitanya Fernandez Caller was transferred to Siddhartha at the clinic. documented in this encounter Plan of Treatment Upcoming Encounters Date Type Department Care Team (Late st Contact Info) Description 12/27/2023 10:45 AM EST Cardiac Studies Cardiac Studies, [place] [address] [place] [facility] [place] [id number] 03/18/2024 8:20 AM EST Office Visit [facility] [place] [address] [facility] [phone] Chaitanya Fernandez MD [address] [place] [facility] [place] [id number] Scheduled Procedures Name Priority Associated Diagnoses Date/Ti de COLONOSCOPY FLEXIBLE PROXIMA L DIAGNOSTIC Recall Family [...] 12/02/2023 12/01/2013, 04/13/2003 CKD PHOS USE SMARTSET 74540 03/12/202402/19, 09/19/2020, 08/11/2019, Additional history exists TSH 03/12/2024 03/12/2023, 04/19, 05/10/2022, Additional history exists GFR 03/15/2024 09/13/2023, 02/19, 06/28/2022, Additional history exists HbA1c 03/15/2024 09/13/2023, 02/19, 05/10/2022, Additional history exists CKD HGB USE SMARTSET 88959 09/12/202409/12, 03/12/2023, 06/28/2022, Additional history exists Diabetic [...] this encounter Medical Devices Implanted Type Area Geoscience Laboratory Technician Device Identifier Shelf Expiration Date Model / Serial / Lot Hira Prado 6 [id number] - [id number] Implanted:Qty: 6 on 06/08/2011 at [place] [facility] [place] N/A: Chest DO NOT USE M654G / / [id number] documented as of this encounter Advance Directives [...] Power of Attor scott? No Care Teams Alarm Adjuster Relationship Specialty Start Date End Date June, Chaitanya Wild MD [address] [place] [address] PCP - General Family Medicine 06/01/22 documented as of this encounter
--- OUTSIDE RECORDS SUMMARY | 2024-01-02 12:02 | External Medical Summary | Summary of Care ---
Author Name Unknown Organization [facility] Address [address] [place] [address] Phone [phone] Care Team Providers Care Front End Developer Designer Name Role Phone Chaitanya Tinajero MD Primary Care Provider [phone] Reason for Visit * Reason Onset Date Comments Advice 11/14/2023 Peer to peer Encounter Details Date Type Department Care Team (Late st Contact Info) Description 11/14/2023 Telephone [facility] [address] [place] [address] JuneChaitanya MD [address] [place] [address] Advice (Peer to peer ) [...] as of this encounter (statuses as of 11/15/2023) Medications Medication Sig Dispensed Refills Start Date End Date Status ONEPAUL CASTELLON MISCIndications:Type II or unspecified type diabetes mellitus with neurological manifestations, not stated as uncontrolled(250.60) ([facility]) test blood sugar 4 times per day 1 Box 5 08/18/2013 Active ASPIRIN 81 MG PO CHEWIndications:HTN, goal below 140/80,ASCVD (arteriosclerotic cardiovascular disease) take 1 tablet daily 100 Tab 3 11/12/2013 Active Kite PharmaTouch Ultra 2 w/Device KitIndications:Type II or unspecified type diabetes mellitus with neurological manifestations, not stated as uncontrolled(250.60) ([facility]) Use to test blood sugar daily per [...] as directed every 10 days. [facility] Active Comfort EZ Pen [place] 32G X 6 MM (NOVOFINE 32G PEN NEEDLE)Indications:Di abetes mellitus with background retinopathy (HCC) Use to inject insulin 4 times daily. E 11.9 PLEASE SEND CHANELL, the 12 MM size is too big for pt. Thank you 400 Each 4 09/13/2023 Active Nitroglycerin 0.4 MG Sublingual Tablet Sublingual (Nitrostat)Indication s:Coronary artery disease involving [place] heart without angina pectoris, unspecified vessel or [...] as of this encounter (statuses as of 11/15/2023) Active Problems Problem Noted Date Diagnosed Date [...] gangrene 03/20/2018 Coronary artery disease invo lving [place] coronary artery of [place] heart without angina pectoris 04/03/2016 Lumbar radiculopathy [...] as of this encounter (statuses as of 11/15/2023) Resolved Problems Problem Noted Date Diagnosed Date Resolved Date Hypertensive heart disease with heart failure 10/01/1908/25/2020 Encounter for long-term (current) insulin use 11/29/1904/29/2019 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 in stage 3 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 Can we please assist patient with scheduling ultrasound. Can obtain lab work as walkin at earliest convenience. Chaitanya Tinajero MD * Telephone Encounter - Siddhartha Gray OSA - 11/14/2023 1:[address] Gonzalez was transferred to or asking to speak with Dr. Tinajero. He [...] EDT Reason for call: Dr. Gonzalez from [facility] requesting to speak with Dr. Chaitanya Tinajero Caller was transferred to [facility] at the clinic. documented in this encounter Plan of Treatment Upcoming Encounters Date Type Department Care Team (Late st Contact Info) Description 12/27/2023 10:45 AM EST Cardiac Studies [facility] [place] [address] [facility] [address] 03/18/2024 8:20 AM EST Office Visit [facility] [place] [address] [facility] [phone] JuneChaitanya [facility] [address] [facility] [address] Scheduled Orders Name Type Priority Associated Diagnoses [...] 12/02/2023 12/01/2013, 04/13/2003 CKD PHOS USE SMARTSET 93848 03/12/202402/19, 09/19/2020, 08/11/2019, Additional history exists TSH 03/12/2024 03/12/2023, 04/19, 05/10/2022, Additional history exists GFR 03/15/2024 09/13/2023, 02/19, 06/28/2022, Additional history exists HbA1c 03/15/2024 09/13/2023, 02/19, 05/10/2022, Additional history exists CKD HGB USE SMARTSET 39517 09/12/202409/12, 03/12/2023, 06/28/2022, Additional history exists Diabetic [...] this encounter Medical Devices Implanted Type Area Linen Folder Device Identifier Shelf Expiration Date Model / Serial / Lot Hira Prado 6 [id number] - [id number] Implanted:Qty: 6 on 06/08/2011 at [place] [facility] [place] N/A: Chest DO NOT USE M654G / / [id number] documented as of this encounter Visit Diagnoses [...] Power of Attor scott? No Care Teams Front End Developer Designer Relationship Specialty Start Date End Date June, Chaitanya Wild MD [address] [place] [address] PCP - General Family Medicine 06/01/22 documented as of this encounter
--- OUTSIDE RECORDS SUMMARY | 2024-01-02 12:02 | External Medical Summary | Summary of Care ---
Author Name Unknown Organization [facility] Address [address] [place] [address] Phone [phone] Care Team Providers Care Field Machinist Name Role Phone Chaitanya Fernandez MD Primary Care Provider [phone] Reason for Visit * Reason Onset Date Comments Encounter Created in Error 11/14/2023 Encounter Details Date Type Department Care Team (Late st Contact Info) Description 11/14/2023 Telephone [facility] [address] [place] [address] JuneChaitanya MD [address] [place] [address] Encounter Created in Error Allergies Active Allergy Reactions Criticality Noted Date [...] with neurological manifestations, not stated as uncontrolled(250.60) ([facility]) test blood sugar 4 times per day 1 Box 5 08/18/2013 Active ASPIRIN 81 MG PO CHEWIndications:HTN, goal below 140/80,ASCVD (arteriosclerotic cardiovascular disease) take 1 tablet daily 100 Tab 3 11/12/2013 Active [employer] Ultra 2 w/Device KitIndications:Type II or unspecified type diabetes mellitus with neurological manifestations, not stated as uncontrolled(250.60) ([facility]) Use to test blood sugar [...] as directed every 10 days. Receiving from [facility] Active Comfort EZ Pen [place] 32G X 6 MM (NOVOFINE 32G PEN NEEDLE)Indications:Di abetes mellitus with background retinopathy (HCC) Use to inject insulin 4 times daily. E 11.9 PLEASE SEND CHANELL, the 12 MM size is too big for pt. 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 [...] 10:45 AM EST Cardiac Studies [facility] [place] [address] [facility] [address] 03/18/2024 8:20 AM EST Office Visit Family [facility] [place] [address] [facility] [place] [phone] JuneChaitanya MD [address] [place] [facility] [place] [address] Scheduled Procedures Name Priority Associated Diagnoses Date/Ti [...] 12/02/2023 12/01/2013, 04/13/2003 CKD PHOS USE SMARTSET 35853 03/12/2024/2 04/2023, 09/19/2020, 08/11/2019, Additional history exists TSH 03/12/2024 03/12/2023, 04/19, 05/10/2022, Additional history exists GFR 03/15/2024 09/13/2023, 02/19, 06/28/2022, Additional history exists HbA1c 03/15/2024 09/13/2023, 02/19, 05/10/2022, Additional history exists CKD HGB USE SMARTSET 19015 09/12/202409/12, 03/12/2023, 06/28/2022, Additional history exists Diabetic [...] this encounter Medical Devices Implanted Type Area Stem Threshing Machine Operator Device Identifier Shelf Expiration Date Model / Serial / Lot Hira Prado 6 [id number] - [id number] Implanted:Qty: 6 on 06/08/2011 at [place] [facility] [place] N/A: Chest DO NOT USE M654G / / [id number] documented as of this encounter Advance Directives [...] Power of Attor scott? No Care Teams Field Machinist Relationship Specialty Start Date End Date June, Chaitanya Wild MD [address] [place] [address] PCP - General Family Medicine 06/01/22 documented as of this encounter
--- OUTSIDE RECORDS SUMMARY | 2024-01-02 12:02 | External Medical Summary | Summary of Care ---
Author Name Unknown Organization [facility] Address [address] [place] [address] Phone [phone] Care Team Providers Care Bi Report Developer Name Role Phone Chaitanya Tinajero MD Primary Care Provider [phone] Reason for Visit * Reason Onset Date Comments Advice 11/14/2023 Peer to peer Encounter Details Date Type Department Care Team (Late st Contact Info) Description 11/14/2023 Telephone [facility] [address] [place] [address] JuneChaitanya MD [address] [place] [address] Advice (Peer to peer ) [...] as of this encounter (statuses as of 11/16/2023) Medications Medication Sig Dispensed Refills Start Date End Date Status ONEPAUL CASTELLON MISCIndications:Type II or unspecified type diabetes mellitus with neurological manifestations, not stated as uncontrolled(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 [facility] Active Comfort EZ Pen [place] 32G X 6 MM (NOVOFINE 32G PEN NEEDLE)Indications:Di abetes mellitus with background retinopathy (HCC) Use to inject insulin 4 times daily. E 11.9 PLEASE SEND CHANELL, the 12 MM size is too big for pt. Thank you 400 Each 4 09/13/2023 Active Nitroglycerin 0.4 MG Sublingual Tablet Sublingual (Nitrostat)Indication s:Coronary artery disease involving [place] heart without angina pectoris, unspecified vessel or [...] as of this encounter (statuses as of 11/16/2023) Active Problems Problem Noted Date Diagnosed Date [...] 03/20/2018 Coronary artery disease invo lving [place] coronary artery of [place] heart without angina pectoris 04/03/2016 Lumbar radiculopathy [...] as of this encounter (statuses as of 11/16/2023) Resolved Problems Problem Noted Date Diagnosed Date Resolved Date Hypertensive heart disease with heart failure 10/01/1908/25/2020 Encounter for long-term (current) insulin use 11/29/1904/29/2019 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 in stage 3 distributor publications 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 Gonzalez was transferred to [place] asking to speak with Dr. Tinajero. He [...] EDT Reason for call: Dr. Gonzalez from [facility] requesting to speak with Dr. Chaitanya Tinajero Caller was transferred to [facility] at the clinic. documented in this encounter Plan of Treatment Upcoming Encounters Date Type Department Care Team (Late st Contact Info) Description 12/27/2023 10:45 AM EST Cardiac Studies [facility] [place] [address] [facility] [address] 03/18/2024 8:20 AM EST Office Visit Family [facility], [place] [address] [facility] [phone] JuneChaitanya MD [address] [facility] [address] Scheduled Orders Name Type Priority Associated Diagnoses [...] 12/02/2023 12/01/2013, 04/13/2003 CKD PHOS USE SMARTSET 48032 03/12/202402/19, 09/19/2020, 08/11/2019, Additional history exists TSH 03/12/2024 03/12/2023, 04/19, 05/10/2022, Additional history exists GFR 03/15/2024 09/13/2023, 02/19, 06/28/2022, Additional history exists HbA1c 03/15/2024 09/13/2023, 02/19, 05/10/2022, Additional history exists CKD HGB USE SMARTSET 57945 09/12/202409/12, 03/12/2023, 06/28/2022, Additional history exists Diabetic [...] this encounter Medical Devices Implanted Type Area Associate Sales Representative Device Identifier Shelf Expiration Date Model / Serial / Lot Hira Prado 6 [id number] - [id number] Implanted:Qty: 6 on 06/08/2011 at [place] [facility] [place]A: Chest DO NOT USE [id number] / / [id number] documented as of this encounter Visit Diagnoses [...] Power of Attor scott? No Care Teams Bi Report Developer Relationship Specialty Start Date End Date June, Chaitanya Wild MD [address] [facility] [place] [address] PCP - General Family Medicine 06/01/22 documented as of this encounter
--- OUTSIDE RECORDS SUMMARY | 2024-01-02 12:03 | External Medical Summary | Summary of Care ---
Author Name Unknown Organization [facility] Address [address] [place] [address] Phone [phone] Care Team Providers Care Machine Setter Name Role Phone Chaitanya Fernandez MD Primary Care Provider [phone] Reason for Visit * Reason Onset Date Comments Encounter Created in Error 07/16/2023 Encounter Details Date Type Department Care Team (Late st Contact Info) Description 07/16/2023 Telephone [facility] [address] [place] [address] Chaitanya Fernandez MD [address] [place] [address] Encounter Created in Error Allergies [...] as of this encounter (statuses as of 10/15/2023) Medications Medication Sig Dispensed Refills Start Date End Date Status ONEPAUL CASTELLON MISCIndications:Type II or unspecified type diabetes mellitus with neurological manifestations, not stated as uncontrolled(250.60) ([facility]) test blood sugar 4 times per day 1 Box 5 08/18/2013 Active ASPIRIN 81 MG PO CHEWIndications:HTN, goal below 140/80,ASCVD (arteriosclerotic cardiovascular disease) take 1 tablet daily 100 Tab 3 11/12/2013 Active Impres Medicaluch Ultra 2 w/Device KitIndications:Type II or unspecified type diabetes mellitus with neurological manifestations, not stated as uncontrolled(250.60) ([facility]) Use to test blood sugar [...] DAILY; E11.9 400 Strip 2 06/18/2023 Active documented as of this encounter (statuses as of 10/15/2023) Active Problems Problem Noted Date Diagnosed Date [...] gangrene 03/20/2018 Coronary artery disease invo lving [place] coronary artery of [place] heart without angina pectoris 04/03/2016 Lumbar radiculopathy [...] as of this encounter (statuses as of 10/15/2023) Resolved Problems Problem Noted Date Diagnosed Date Resolved Date Hypertensive heart disease with heart failure 10/01/1908/25/2020 Encounter for long-term (current) insulin use 11/29/1904/29/2019 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 in stage 3 epic [facility] franchesca 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 [...] as of this encounter (statuses as of 10/15/2023) Immunizations Name Administration Dates Next Due COVID-19 mRNA, LNP-s, No Pre serve, 2-Dose Series (SayNow) 06/09/2020,05/19/2020 Pneumococcal Conjugate Vacc, 13 Valent (Prevnar) [...] encounter Miscellaneous Notes * Telephone Encounter - Shona Jaffe OSA - 07/16/2023 1:57 PM EDT Made in error documented in this encounter Plan of Treatment Upcoming Encounters Date Type Department Care Team (Late st Contact Info) Description 10/29/2023 9:00 AM EDT Office Visit Pharmacy, [place] [address] [facility] [place] [address] [facility] [address] [place] [address] 11/01/2023 2:00 PM EDT Cardiac Studies Cardiac Studies, [place] [address] [place] [address] 03/18/2024 8:20 AM EST Office Visit [facility] [address] [place] [facility] [place] [facility] [place] [phone] JuneChaitanya MD [address] [place] [address] Scheduled Procedures Name Priority Associated Diagnoses Date/Ti [...] 08/11/2021, 0 04/29/2019, 05/01/2018, Additional history exists COVID-19 Vaccine (3 - season) 2022 06/09/2020, 05/19/2020 Colonoscopy 11/26/2022 11/26/2017, 1010/2017, 10/18/2010 Influenza Vaccine (FLU shot) (#1) 2023 DTap/Tdap Vaccines (2 - Td or Tdap) 12/02/2023 12/01/2013, 04/13/2003 CKD PHOS USE SMARTSET 47550 03/12/202402/19, 09/19/2020, 08/11/2019, Additional history exists TSH 03/12/2024 03/12/2023, 04/19, 05/10/2022, Additional history exists GFR 03/15/2024 09/13/2023, 02/19, 06/28/2022, Additional history exists HbA1c 03/15/2024 09/13/2023, 02/19, 05/10/2022, Additional history exists Diabetic Eye Exam 08/11/2024 08/12/2023, , 07/31/2023, Additional history exists CKD HGB USE SMARTSET 87626 09/12/202409/12, 03/12/2023, 06/28/2022, Additional history exists Pneumococcal Vaccine: 65+ Years [...] this encounter Medical Devices Implanted Type Area Brewery Technician Device Identifier Shelf Expiration Date Model / Serial / Lot Sut Johan 6 [id number] - [id number] Implanted:Qty: 6 on 06/08/2011 at [place] [facility] [place] N/A: Chest DO NOT USE [id number] / / [id number] documented as of this encounter Advance Directives [...] Power of Attor scott? No Care Teams Machine Setter Relationship Specialty Start Date End Date June, Chaitanya Wild MD [address] [place] [address] PCP - General Family Medicine 06/01/22 documented as of this encounter
--- OUTSIDE RECORDS SUMMARY | 2024-01-02 12:03 | External Medical Summary | Summary of Care ---
Author Name Unknown Organization [facility] Address [address] [place] [address] Phone [phone] Care Team Providers Care Fur Drummer Name Role Phone Chaitanya Fernandez MD Primary Care Provider [phone] Reason for Visit * Reason Comments Appointment MTDM Discharge Diabe amber Encounter Details Date Type Department Care Team (Late st Contact Info) Description 11/12/2023 6:10 PM EDT Pharmacy Pharmacy, [place] [address] [place] [address] [facility] [address] [place] [address] Diabetes mellitus with background retinopathy (HCC)* Allergies Active Allergy Reactions Criticality Noted Date [...] as of this encounter (statuses as of 11/12/2023) Medications Medication Sig Dispensed Refills Start Date End Date Status ONEUCH EVA CASTELLON MISCIndications:Type II or unspecified type diabetes mellitus with neurological manifestations, not stated as uncontrolled(250.60) ([facility]) test blood sugar 4 times per day 1 Box 5 08/18/2013 Active ASPIRIN 81 MG PO CHEWIndications:HTN, goal below 140/80,ASCVD (arteriosclerotic cardiovascular disease) take 1 tablet daily 100 Tab 3 11/12/2013 Active IntermediaTouch Ultra 2 w/Device KitIndications:Type II or unspecified type diabetes mellitus with neurological manifestations, not stated as uncontrolled(250.60) ([facility]) Use to test blood sugar daily per [...] hemoglobin A1c goal of less than 7.0% ([facility]) Inject 25 units once daily 30 mL 4 08/27/2023 Active Insulin Lispro (1 Unit Dial) 100 UNIT/ML Subcutaneous Solution Pen-injector (HumaLOG KwikPen)Indications:T ype 2 diabetes mellitus with hemoglobin A1c goal of less than 7.0% ([facility]) Inject 10 Units under the skin in the morning and 10 Units at noon and 10 Units in the evening. Inject with meals. 30 mL 4 08/27/2023 Active Dexcom G7 Sensor Use as directed every 10 days. Receiving from [facility] Active Comfort EZ Pen [place] 32G X 6 MM (NOVOFINE 32G PEN NEEDLE)Indications:Di abetes mellitus with background retinopathy (HCC) Use to inject insulin 4 times daily. E 11.9 PLEASE SEND CHANELL, the 12 MM size is too big for pt. Thank you 400 Each 4 09/13/2023 Active Nitroglycerin 0.4 MG Sublingual Tablet Sublingual (Nitrostat)Indication s:Coronary artery disease involving [place] heart without angina pectoris, unspecified vessel or [...] as of this encounter (statuses as of 11/12/2023) Active Problems Problem Noted Date Diagnosed Date [...] gangrene 03/20/2018 Coronary artery disease invo lving [place] coronary artery of [place] heart without angina pectoris 04/03/2016 Lumbar radiculopathy [...] as of this encounter (statuses as of 11/12/2023) Resolved Problems Problem Noted Date Diagnosed Date Resolved Date Hypertensive heart disease with heart failure 10/01/1908/25/2020 Encounter for long-term (current) insulin use 11/29/1904/29/2019 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 in stage 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 Patient is discharged from Medication Therapy Disease Management service at this time and has been made aware to contact the clinic if she changes her mind. Will discharge patient at this time. Thank you, Cindy Mariscal CPhT Sulfonation Equipment Operator II [facility] 11/12/2023,10:54 AM documented in this encounter Plan of Treatment Upcoming Encounters Date Type Department Care Team (Late st Contact Info) Description 12/27/2023 10:45 AM EST Cardiac Studies Cardiac Studies, [address] [place] [address] 03/18/2024 8:20 AM EST Office Visit [place] [address] [place] [facility] [place] [address] Chaitanya Fernandez MD [address] [place] [address] Scheduled Procedures Name Priority Associated Diagnoses Date/Ti [...] 12/02/2023 12/01/2013, 04/13/2003 CKD PHOS USE SMARTSET 29092 03/12/202402/19, 09/19/2020, 08/11/2019, Additional history exists TSH 03/12/2024 03/12/2023, 04/19, 05/10/2022, Additional history exists GFR 03/15/2024 09/13/2023, 02/19, 06/28/2022, Additional history exists HbA1c 03/15/2024 09/13/2023, 02/19, 05/10/2022, Additional history exists CKD HGB USE SMARTSET 06444 09/12/202409/12, 03/12/2023, 06/28/2022, Additional history exists Diabetic [...] this encounter Medical Devices Implanted Type Area Beef Cattle Farmer Device Identifier Shelf Expiration Date Model / Serial / Lot Hira Prado 6 [id number] - [id number] Implanted:Qty: 6 on 06/08/2011 at [place] [facility] [place] N/A: Chest DO NOT USE M654G / / [id number] documented as of this encounter Visit Diagnoses Diagnosis Diabetes mellitus with background retinopathy (HCC)- Primary documented in this encounter Advance Directives * [...] Power of Attor scott? No Care Teams Fur Drummer Relationship Specialty Start Date End Date June, Chaitanya Wild MD [address] [place] [address] PCP - General Family Medicine 06/01/22 documented as of this encounter
--- OUTSIDE RECORDS SUMMARY | 2024-01-02 12:03 | External Medical Summary | Summary of Care ---
Author Name Unknown Organization [facility] Address [address] [place] [address] Phone [phone] Care Team Providers Care Photoengraving Machine Operator/Tender Name Role Phone Chaitanya Fernandez MD Primary Care Provider [phone] Encounter Details Date Type Department Care Team (Late st Contact Info) Description 11/07/2023 Orders Only [place] [address] [place] [address] JuneChaitanya MD [address] [place] [address] Allergies Active Allergy Reactions Criticality Noted Date [...] as of this encounter (statuses as of 11/07/2023) Medications Medication Sig Dispensed Refills Start Date End Date Status ONEPAUL CASTELLON MISCIndications:Type II or unspecified type diabetes mellitus with neurological manifestations, not stated as uncontrolled(250.60) ([facility]) test blood sugar 4 times per day 1 Box 5 08/18/2013 Active ASPIRIN 81 MG PO CHEWIndications:HTN, goal below 140/80,ASCVD (arteriosclerotic cardiovascular disease) take 1 tablet daily 100 Tab 3 11/12/2013 Active Foruforeveruch Ultra 2 w/Device KitIndications:Type II or unspecified type diabetes mellitus with neurological manifestations, not stated as uncontrolled(250.60) ([facility]) Use to test blood sugar daily per [...] as directed every 10 days. Receiving from [facility] Active Comfort EZ Pen [place] 32G X 6 MM (NOVOFINE 32G PEN NEEDLE)Indications:Di abetes mellitus with background retinopathy (HCC) Use to inject insulin 4 times daily. E 11.9 PLEASE SEND CHANELL, the 12 MM size is too big for pt. Thank you 400 Each 4 09/13/2023 Active Nitroglycerin 0.4 MG Sublingual Tablet Sublingual (Nitrostat)Indication s:Coronary artery disease involving [place] heart without angina pectoris, unspecified vessel or [...] as of this encounter (statuses as of 11/07/2023) Active Problems Problem Noted Date Diagnosed Date [...] gangrene 03/20/2018 Coronary artery disease invo lving [place] coronary artery of [place] heart without angina pectoris 04/03/2016 Lumbar radiculopathy [...] as of this encounter (statuses as of 11/07/2023) Resolved Problems Problem Noted Date Diagnosed Date Resolved Date Hypertensive heart disease with heart failure 10/01/1908/25/2020 Encounter for long-term (current) insulin use 11/29/1904/29/2019 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 in stage 3 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 [...] as of this encounter (statuses as of 11/07/2023) Immunizations Name Administration Dates Next Due COVID-19 [...] Description 11/12/2023 6:10 PM EDT Pharmacy Pharmacy, [place] [address] [place] [address] [facility] [address] [facility] [address] 03/18/2024 8:20 AM EST [facility] [place] [address] [facility] [phone] JuneChaitanya MD [address] [facility] [place] [phone] Scheduled Procedures Name Priority Associated Diagnoses Date/Ti [...] 12/02/2023 12/01/2013, 04/13/2003 CKD PHOS USE SMARTSET 15397 03/12/202402/19, 09/19/2020, 08/11/2019, Additional history exists TSH 03/12/2024 03/12/2023, 04/19, 05/10/2022, Additional history exists GFR 03/15/2024 09/13/2023, 02/19, 06/28/2022, Additional history exists HbA1c 03/15/2024 09/13/2023, 02/19, 05/10/2022, Additional history exists Diabetic Eye Exam 08/11/2024 11/05/2023, , 08/02/2023, Additional history exists CKD HGB USE SMARTSET 88527 09/12/202409/12, 03/12/2023, 06/28/2022, Additional history exists Pneumococcal [...] this encounter Medical Devices Implanted Type Area Brazing Machine Setter Device Identifier Shelf Expiration Date Model / Serial / Lot Hira Prado 6 [id number] - [id number] Implanted:Qty: 6 on 06/08/2011 [place] [facility] [place]A: Chest DO NOT USE M654G / / [id number] documented as of this encounter Procedures Procedure Name Priority Date/Time Associated Diagnosis Comments DIABETIC EYE EXAM Routine 11/05/2023 documented in this encounter Results * DIABETIC EYE EXAM (11/05/2023) 11/05/2023 Marcellus Welch MD OTHER OUTSIDE LAB (SEE SCANNED REPORT) documented in this encounter Advance Directives * [...] Power of Attor scott? No Care Teams Photoengraving Machine Operator/Tender Relationship Specialty Start Date End Date June, Chaitanay Wild MD [address] [place] [address] PCP - General Family Medicine 06/01/22 documented as of this encounter
--- OUTSIDE RECORDS SUMMARY | 2024-01-02 12:03 | External Medical Summary | Summary of Care ---
Author Name Unknown Organization [facility] Address [address] [place] [address] Phone [phone] Care Team Providers Care Piano Mechanic Name Role Phone Chaitanya Fernandez MD Primary Care Provider [phone] Encounter Details Date Type Department Care Team (Late st Contact Info) Description 10/08/2023 Orders Only [place] [address] [place] [address] JuneChaitanya MD [address] [place] [address] Allergies Active Allergy Reactions Criticality [...] as of this encounter (statuses as of 10/08/2023) Medications Medication Sig Dispensed Refills Start Date End Date Status ONEPAUL CASTELLON MISCIndications:Type II or unspecified type diabetes mellitus with neurological manifestations, not stated as uncontrolled(250.60) ([facility]) test blood sugar 4 times per day 1 Box 5 08/18/2013 Active ASPIRIN 81 MG PO CHEWIndications:HTN, goal below 140/80,ASCVD (arteriosclerotic cardiovascular disease) take 1 tablet daily 100 Tab 3 11/12/2013 Active Medivouch Ultra 2 w/Device KitIndications:Type II or unspecified type diabetes mellitus with neurological manifestations, not stated as uncontrolled(250.60) ([facility]) Use to test blood sugar [...] as directed every 10 days. Receiving from [facility] Active Comfort EZ Pen [place] 32G X 6 MM (NOVOFINE 32G PEN NEEDLE)Indications:Di abetes mellitus with background retinopathy (HCC) Use to inject insulin 4 times daily. E 11.9 PLEASE SEND CHANELL, the 12 MM size is too big for pt. 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 [place] heart without angina pectoris 04/03/2016 Lumbar radiculopathy [...] as of this encounter (statuses as of 10/08/2023) Resolved Problems Problem Noted Date Diagnosed Date Resolved Date Hypertensive heart disease with heart failure 10/01/1908/25/2020 Encounter for long-term (current) insulin use 11/29/1904/29/2019 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 [...] as of this encounter (statuses as of 10/08/2023) Immunizations Name Administration Dates Next Due COVID-19 [...] 10/29/2023 9:00 AM EDT [facility] [place] [address] [facility] [address] [facility] [address] [facility] [address] 11/01/2023 2:00 PM EDT Cardiac Studies [facility] [place] [address] [facility] [address] 03/18/2024 8:20 AM EST Office Visit [facility] [place] [address] [facility] [phone] JuneChaitanya [facility] [address] [facility] [address] Scheduled Procedures Name Priority Associated Diagnoses Date/Ti me COLONOSCOPY FLEXIBLE PROXIMA L DIAGNOSTIC Recall Family history of colonic polyps Health Maintenance Due Date Last Done Comments Zoster Vaccines (1 of 2) 08/05/1993 Adult Wellness Visit 08/05/2009 DXA Scan 08/14/2020 08/14/2013 Albumin/Creatinine Ratio 08/03/20222 022, 07/09/2019, 01/24/2018, Additional history exists Depression Screening 08/11/2022 08/11/2021 Diabetic Foot Exam 08/11/2022 08/11/2021, 0 04/29/2019, 05/01/2018, Additional history exists COVID-19 Vaccine ( season) 2022 06/09/2020, 05/19/2020 Colonoscopy 11/26/2022 11/26/2017, 10/0 10/2017, 10/18/2010 Influenza Vaccine (FLU shot) (#1) 2023 DTaP,Tdap,and Td Vaccines (2 - Td or Tdap) 12/02/2023 12/01/2013, 04/13/2003 CKD PHOS USE SMARTSET 34873 03/12/202402/19, 09/19/2020, 08/11/2019, Additional history exists TSH 03/12/2024 03/12/2023, 04/19, 05/10/2022, Additional history exists GFR 03/15/2024 09/13/2023, 02/19, 06/28/2022, Additional history exists HbA1c 03/15/2024 09/13/2023, 02/19, 05/10/2022, Additional history exists Diabetic Eye Exam 08/11/2024 08/12/2023, , 07/31/2023, Additional history exists CKD HGB USE SMARTSET 79348 09/12/202409/12, 03/12/2023, 06/28/2022, Additional history exists Pneumococcal [...] this encounter Medical Devices Implanted Type Area Aircraft Engine Dismantler Device Identifier Shelf Expiration Date Model / Serial / Lot Sut Steel 6 [id number] - [id number] Implanted:Qty: 6 on 06/08/2011 [place] [facility] [place]A: Chest DO NOT USE M654G / / [id number] documented as of this encounter Procedures Procedure Name Priority Date/Time Associated Diagnosis Comments MAMMOGRAM SCREENING BILATERAL Routine 10/04/2023 documented in this encounter Results * MAMMOGRAM SCREENING BILATERAL (10/04/2023) Anatomical Region Laterality Modality Breast Bilateral Other 10/04/2023 Chaitanya Fernandez MD RAD MAMMOGRAPHY documented in this encounter Advance Directives * [...] Power of Attor scott? No Care Teams Piano Mechanic Relationship Specialty Start Date End Date June, Chaitanya Wild MD [address] [place] [address] PCP - General Family Medicine 06/01/22 documented as of this encounter
--- OUTSIDE RECORDS SUMMARY | 2024-01-02 12:03 | External Medical Summary | Summary of Care ---
Author Name Unknown Organization [facility] Address [address] [place] [address] Phone [phone] Care Team Providers Care Manager Medicare Marketing Name Role Phone JuneChaitanya MD Primary Care Provider [phone] Reason for Visit * Reason Onset Date Comments Cardiology Study 11/01/2023 Encounter Details Date Type Department Care Team (Late st Contact Info) Description 11/01/2023 Telephone Cardiac Studies, [place] [address], [place] [id number] Claudia Patino, [facility] Cardiology Study Allergies Active Allergy Reactions Criticality Noted Date [...] as of this encounter (statuses as of 11/01/2023) Medications Medication Sig Dispensed Refills Start Date End Date Status ONEPAUL CASTELLON MISCIndications:Type II or unspecified type diabetes mellitus with neurological manifestations, not stated as uncontrolled(250.60) ([facility]) test blood sugar 4 times per day 1 Box 5 08/18/2013 Active ASPIRIN 81 MG PO CHEWIndications:HTN, goal below 140/80,ASCVD (arteriosclerotic cardiovascular disease) take 1 tablet daily 100 Tab 3 11/12/2013 Active Clicko Ultra 2 w/Device KitIndications:Type II or unspecified type diabetes mellitus with neurological manifestations, not stated as uncontrolled(250.60) ([facility]) Use to test blood sugar daily [...] as directed every 10 days. Receiving from [facility] Active Comfort EZ Pen [place] 32G X 6 MM (NOVOFINE 32G PEN NEEDLE)Indications:Di abetes mellitus with background retinopathy (HCC) Use to inject insulin 4 times daily. E 11.9 PLEASE SEND CHANELL, the 12 MM size is too big for pt. Thank you 400 Each 4 09/13/2023 Active Nitroglycerin 0.4 MG Sublingual Tablet Sublingual (Nitrostat)Indication s:Coronary artery disease involving jamul heart without angina pectoris, unspecified vessel or [...] as of this encounter (statuses as of 11/01/2023) Active Problems Problem Noted Date Diagnosed Date [...] gangrene 03/20/2018 Coronary artery disease invo lving jamul coronary artery of jamul heart without angina pectoris 04/03/2016 Lumbar radiculopathy [...] as of this encounter (statuses as of 11/01/2023) Resolved Problems Problem Noted Date Diagnosed Date Resolved Date Hypertensive heart disease with heart failure 10/01/1908/25/2020 Encounter for long-term (current) insulin use 11/29/1904/29/2019 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 documented in this encounter Plan of Treatment Upcoming Encounters Date Type Department Care Team (Late st Contact Info) Description 11/01/2023 2:00 PM EDT Cardiac Studies Cardiac Studies, [place] [address] [place] [address] 11/12/2023 6:10 PM EDT Pharmacy Pharmacy, [place] [address] [place] [address] [facility] [address] [place] [address] 03/18/2024 8:20 AM EST Office Visit [facility], [place] [address] [facility] [place] [phone] JuneChaitanya MD [address] [place] [address] Scheduled Procedures Name Priority Associated Diagnoses Date/Ti [...] 12/02/2023 12/01/2013, 04/13/2003 CKD PHOS USE SMARTSET 91311 03/12/202402/19, 09/19/2020, 08/11/2019, Additional history exists TSH 03/12/2024 03/12/2023, 04/19, 05/10/2022, Additional history exists GFR 03/15/2024 09/13/2023, 02/19, 06/28/2022, Additional history exists HbA1c 03/15/2024 09/13/2023, 02/19, 05/10/2022, Additional history exists Diabetic Eye Exam 08/11/2024 08/12/2023, , 07/31/2023, Additional history exists CKD HGB USE SMARTSET 56842 09/12/202409/12, 03/12/2023, 06/28/2022, Additional history exists Pneumococcal [...] this encounter Medical Devices Implanted Type Area Lugger Device Identifier Shelf Expiration Date Model / Serial / Lot Hira Prado 6 [id number] - [id number] Implanted:Qty: 6 on 06/08/2011 [place] [facility] [place] Chest DO NOT USE [id number] / / [id number] documented as of this encounter Advance Directives [...] Power of Attor scott? No Care Teams Manager Medicare Marketing Relationship Specialty Start Date End Date June, Chaitanya Wild MD [address] [place] [address] PCP - General Family Medicine 06/01/22 documented as of this encounter
--- NOTE | 2024-01-02 17:13 | Electrocardiogram Report ---
Test Reason : Blood Pressure : */* mmHG Vent. Rate : 72 BPM Atrial Rate : 72 BPM P-R Int : 162 ms QRS Dur : 98 ms QT Int : 418 ms P-R-T Axes : 68 -28 103 degrees QTcB Int : 457 ms Normal sinus rhythm Chronic T-wave inversion in Lateral leads Incomplete right bundle branch block Abnormal ECG When compared with ECG of 05-Jul-2022 05:46, No significant change Confirmed by Ameya Snyder ([id number]) on 01/02/2024 5:13:08 PM Referred By: REFERRED SELF Confirmed By: Ameya Snyder
[2024-01-02] MEDS: FUROSEMIDE INJ 20 MG/2 ML VIAL IV ONE (17:39)
[2024-01-02] MEDS: LORazepam 1 MG TAB PO STA (19:07)
[2024-01-02] MEDS: LIDOCAINE 5% 1 PATCH TD SCH (21:14)
[2024-01-02] MEDS: DOCUSATE SODIUM/SENNA 50/8.6MG TAB PO SCH (21:14)
[2024-01-03 06:17] LABS: Mean Corpuscular Hemoglobin 28.7 pg (25.0-34.0); Mean Corpuscular Hgb Conc 32.4 g/dL (32.0-36.0); Mean Corpuscular Volume 88.5 fL (80.0-100.0); Mean Platelet Volume 12.6 fL (9.4-12.4); Platelet Count 193 K/uL (130-400); RDW Coefficient of Variation 14.4 % (11.5-14.5); RDW Standard Deviation 46.3 fL (36.4-46.3); Red Blood Count 4.18 M/uL (4.20-5.40); White Blood Count 6.23 K/ul (4.8-10.8)
[2024-01-03 06:30] LABS: Anion Gap 7 (3-11); BUN Creatinine Ratio 23.8 (10-20); Blood Urea Nitrogen 20 mg/dl (6-23); Calcium 9.1 mg/dl (8.6-10.3); Carbon Dioxide 27 mmol/L (21-32); Chloride 104 mmol/L (98-107); Creatinine Clr Calc Pharmacy 57.1 ml/min; Glucose 147 mg/dl (70-99(Fasting)); Magnesium 1.9 mg/dl (1.7-2.4); Sodium 138 mmol/L (136-145)
[2024-01-03] MEDS ORDERED: Nursing to Pharmacy Communication SCH ×2 (11:00→13:45)
[2024-01-03] MEDS: INSULIN ASPART PER UNIT CHARGE SC SCH ×2 (12:11→17:08)
--- NOTE | 2024-01-03 14:31 | Orthopedic Progress Note ---
Date of Service January 03, 2024 Assessment & Plan (1) Weakness: Plan: I discussed with the patient our plan to obtain an MRI thoracic spine. She will require a sedated scan. Will wait till she is medically stable and this can be arranged. In the meantime we will consult occupational therapy and physical therapy for their assessment and input regarding possible rehab placement. Admission and Anticipated Discharge Date Admission Date: January 01, 2024 Subjective Patient is complaining of some left-sided mid thoracic back pain. She states she is just a touch of tingling in the feet. It has improved since last week. She is currently very comfortable in her chair. Physical Exam Physical Exam: Patient is in the chair at the bedside. She is comfortable. Incision is well- healed. She has sensory intact to testing lower extremities. Plantarflexion dorsiflexion quadriceps are 4/5 bilaterally. Results & Data Vital Signs (Past 12 Hours) Vital Signs Temp Pulse Pulse Resp BP BP Pulse Ox 01/03/24 10:38 36.3 C L 78 17 122/79 95 01/03/24 08:07 01/03/24 08:00 01/03/24 07:23 72 01/03/24 07:22 36.8 C 88 17 132/78 96 Pulse Ox O2 Del Method O2 Del Method 01/03/24 10:38 Room Air 01/03/24 08:07 Room Air 01/03/24 08:00 96 Room Air 01/03/24 07:23 01/03/24 07:22 Room Air
--- NOTE | 2024-01-03 16:16 | Hospitalist Progress Note ---
Date of Service January 03, 2024 Assessment & Plan (1) CHF (congestive heart failure): Plan: Acute on chronic HFpEF Mild CHF decompensation presenting as increase in bilateral leg swelling. Patient appears to be euvolemic on today's exam. History diastolic dysfunction. echo from today reviewed. Grade I diastolic dysfunction with LVEF of 70% Continue oral furosemide Strict I/Os, daily weights, CHF education, Madsen cath. Remove Madsen cath when able. She is still nonambulatory. Lumbar radiculopathy History of back surgery Appreciate orthopedic spine consult for lumbar radiculopathy Pt is not ambulating Will need PT eval. Suspect she will need rehab BPPV CAD status post CABG hypertension, stable hyperlipidemia, on statin Rx DM 2 insulin requiring, reasonable control as of recent hemoglobin A1c of 7.4 last August 2023 Continue SSI Hypothyroidism Euthyroid, TSH ok Asymptomatic pyuria Contaminated specimen, no sepsis for now Urine Culture -strep agalactiae and Gardnerella like species. Antibiotics not indicated Hold off on additional antibiotic Rx for asymptomatic pyuria DVT prophylaxis. SCDs Full code Patient granddaughter requesting updates providers. I updated Ms. Sharma with with her grandmother's condition. A total of 53 minutes spent in the care and care coordination of this patient. Admission and Anticipated Discharge Date Admission Date: January 01, 2024 Subjective Patient seen at chair side. Still with back pain. Less SOB. Edema has improved. No CP. Anesthesia unable to do sedation at present. Discussed case with orthopedics. Goal will be for PT OT and consider rehab until MRI can be done at a later date under sedation. Her legs feel very weak. She feels that if she stands she will collapse. Review of Systems Review of Systems: As per HPI, all other systems reviewed and negative Physical Exam Physical Exam: General- adult elderly female seen in chair. Some discomfort from her back. Eyes- PERRL, EOMI, Neck- supple, no JVD, Lungs- diminished BS in the bases otherwise clear to auscultation and percussion Heart- regular rhythm; no murmur, no gallop, no rub appreciated Abdomen- normal bowel sounds, soft, nontender, no masses or hepatosplenomegaly Extremities- trace edema b/l Neuro- alert, oriented x 3; PERRL, EOMI; no facial palsy; no dysarthria; Skin- warm & dry Results & Data Results & Data Vital Signs (Past 12 Hours) Vital Signs Temp Pulse Pulse Resp BP BP Pulse Ox 01/03/24 14:51 82 19 114/75 96 01/03/24 10:38 36.3 C L 78 17 122/79 95 01/03/24 08:07 01/03/24 08:00 01/03/24 07:23 72 01/03/24 07:22 36.8 C 88 17 132/78 96 Pulse Ox O2 Del Method O2 Del Method 01/03/24 14:51 Room Air 01/03/24 10:38 Room Air 01/03/24 08:07 Room Air 01/03/24 08:00 96 Room Air 01/03/24 07:23 01/03/24 07:22 Room Air Diagnostic Findings Laboratory Results WBC 6.23 K/ul (4.8-10.8) 01/03/24 05:29 RBC 4.18 M/uL (4.20-5.40) L 01/03/24 05:29 Hgb 12.0 g/dl (12.0-16.0) 01/03/24 05:29 Hct 37.0 % (37.0-47.0) 01/03/24 05:29 MCV 88.5 fL (80.0-100.0) 01/03/24 05:29 MCH 28.7 pg (25.0-34.0) 01/03/24 05:29 MCHC 32.4 g/dL (32.0-36.0) 01/03/24 05:29 RDW Std Deviation 46.3 fL (36.4-46.3) 01/03/24 05:29 RDW Coeff of Jeri 14.4 % (11.5-14.5) 01/03/24 05:29 Plt Count 193 K/uL (130-400) 01/03/24 05:29 MPV 12.6 fL (9.4-12.4) H 01/03/24 05:29 Immature Gran % (Auto) 0.3 % 01/02/24 05:52 Neut % (Auto) 63.6 % 01/02/24 05:52 Lymph % (Auto) 27.0 % 01/02/24 05:52 [place] % (Auto) 6.9 % 01/02/24 05:52 Eos % (Auto) 1.8 % 01/02/24 05:52 Baso % (Auto) 0.4 % 01/02/24 05:52 Neut # (Auto) 4.69 K/uL (1.40-6.50) 01/02/24 05:52 Lymph # (Auto) 1.99 K/uL (1.20-3.40) 01/02/24 05:52 [place] # (Auto) 0.51 K/uL (0.11-0.59) 01/02/24 05:52 Eos # (Auto) 0.13 K/uL (0.00-0.50) 01/02/24 05:52 Baso # (Auto) 0.03 K/uL (0.00-0.20) 01/02/24 05:52 Immature Gran # (Auto) 0.02 K/uL (0.01-0.20) 01/02/24 05:52 Sodium 138 mmol/L (136-145) 01/03/24 05:29 Potassium 4.1 mmol/L (3.5-5.1) 01/03/24 06:50 Chloride 104 mmol/L (98-107) 01/03/24 05:29 Carbon Dioxide 27 mmol/L (21-32) 01/03/24 05:29 Anion Gap 7 (3-11) 01/03/24 05:29 BUN 20 mg/dl (6-23) 01/03/24 05:29 Creatinine 0.84 mg/dl (0.6-1.2) 01/03/24 05:29 Est Cr Clr Drug Dosing 57.1 ml/min 01/03/24 05:29 eGFR 70.20 01/03/24 05:29 BUN/Creatinine Ratio 23.8 (10-20) H 01/03/24 05:29 Glucose 147 mg/dl (70-99(Fasting)) H 01/03/24 05:29 POC Glucose 211 mg/dl (70-99) H 01/03/24 16:04 Calcium 9.1 mg/dl (8.6-10.3) 01/03/24 05:29 Magnesium 1.9 mg/dl (1.7-2.4) 01/03/24 05:29 Total Bilirubin 0.4 mg/dl (0.2-1.0) 01/01/24 20:00 AST 19 U/L (13-39) 01/01/24 20:00 ALT 10 U/L (7-52) 01/01/24 20:00 Alkaline Phosphatase 136 U/L (34-104) H 01/01/24 20:00 Troponin I High Sens 7.3 pg/ml (0-14) 01/01/24 20:00 B-Natriuretic Peptide 142 pg/ml (0-100) H 01/01/24 21:00 Total Protein 7.2 gm/dl (6.0-8.3) 01/01/24 20:00 Albumin 4.1 gm/dl (3.4-5.0) 01/01/24 20:00 Globulin 3.1 gm/dl (2.5-4.0) 01/01/24 20:00 Albumin/Globulin Ratio 1.3 (0.9-2) 01/01/24 20:00 TSH 0.880 uIu/ml (0.300-4.500) 01/01/24 20:00 Urine Color Yellow 01/01/24 21:55 Urine Appearance Clear (Clear) 01/01/24 21:55 Urine pH 6.0 (4.5-7.5) 01/01/24 21:55 Ur Specific [place] 1.009 (1.000-1.030) 01/01/24 21:55 Urine Protein Negative (Negative) 01/01/24 21:55 Urine Glucose (UA) Negative (Negative) 01/01/24 21:55 Urine Ketones Negative (Negative) 01/01/24 21:55 Urine Blood Negative (Negative) 01/01/24 21:55 Urine Nitrite Negative (Negative) 01/01/24 21:55 Urine Bilirubin Negative (Negative) 01/01/24 21:55 Urine Urobilinogen Negative (Negative) 01/01/24 21:55 Ur Leukocyte Esterase 1+ (Negative) H 01/01/24 21:55 Urine WBC (Auto) 6-10 /hpf (0-5) H 01/01/24 21:55 Urine RBC (Auto) 0-2 /hpf (0-2) 01/01/24 21:55 U Hyaline Cast (Auto) 0-2 /lpf (0-2) 01/01/24 21:55 U Epithel Cells (Auto) 0-2 /hpf (0-2) 01/01/24 21:55 Urine Bacteria (Auto) None Seen (None Seen) 01/01/24 21:55 Adenovirus (PCR) Not Detected (NotDetected) 01/01/24 23:10 B. pertussis DNA (PCR) Not Detected (NotDetected) 01/01/24 23:10 B.parapertussis DNA PCR Not Detected (NotDetected) 01/01/24 23:10 C. pneumoniae DNA (PCR) Not Detected (NotDetected) 01/01/24 23:10 Coronavirus OC43 (PCR) Not Detected (NotDetected) 01/01/24 23:10 Coronavirus HKU1 (PCR) Not Detected (NotDetected) 01/01/24 23:10 Coronavirus 229E (PCR) Not Detected (NotDetected) 01/01/24 23:10 SARS-CoV-2 (PCR) Not Detected (NotDetected) 01/01/24 23:10 Coronavirus NL63 (PCR) Not Detected (NotDetected) 01/01/24 23:10 Human Metapneumovir PCR Not Detected (NotDetected) 01/01/24 23:10 Influenza Type A (PCR) Not Detected (NotDetected) 01/01/24 23:10 Influenza Type B (PCR) Not Detected (NotDetected) 01/01/24 23:10 M. pneumoniae (PCR) Not Detected (NotDetected) 01/01/24 23:10 Parainfluenza 1 (PCR) Not Detected (NotDetected) 01/01/24 23:10 Parainfluenza 2 (PCR) Not Detected (NotDetected) 01/01/24 23:10 Parainfluenza 3 (PCR) Not Detected (NotDetected) 01/01/24 23:10 Parainfluenza 4 (PCR) Not Detected (NotDetected) 01/01/24 23:10 RSV (PCR) Not Detected (NotDetected) 01/01/24 23:10 Entero/Rhino (PCR) Not Detected (NotDetected) 01/01/24 23:[address] 01/01/24 19:56 Exam(s): CT HEAD Without Contrast EXAM: CT Head Without Intravenous Contrast CLINICAL HISTORY: Reason for exam: dizzy, weak. TECHNIQUE: Axial computed tomography images of the head/brain without intravenous contrast. CTDI is 68.69 mGy and DLP is 961.59 mGy-cm. Automated exposure control was utilized for the study. A dose lowering technique was utilized adhering to the principles of ALARA. COMPARISON: None. FINDINGS: Diagnostic sensitivity of the exam is reduced by motion and beam hardening artifacts. Brain: There is no acute intracranial hemorrhage, mass-effect or midline shift. Senescent focal calcification of the left basal ganglion. There is age-related cerebral atrophy with widening of the extra-axial spaces and ventricular dilatation. There are periventricular/subcortical areas of decreased attenuation, likely from chronic microvascular disease. Bones/joints: Unremarkable. No acute fracture. Soft tissues: Left preseptal/periorbital soft tissue swelling. Sinuses: A completely opacified left maxillary sinus with abnormal soft tissues. No air-fluid levels. Mastoid air cells: No significant mastoid effusion. IMPRESSION: No definite acute intracranial abnormality identified. Chronic involutional and ischemic changes of the brain. Completely opacified left maxillary sinus/severe chronic sinusitis. Left preseptal/periorbital mild soft tissue swelling. Clinical correlation is advised. . Electronically signed by: Catalina Mccann MD, DABR 01/01/24 22:22 PM Chest X-Ray 01/02/24 07:00 EXAM: XR chest 1V portable CLINICAL HISTORY: CHF KAB [facility] TECHNIQUE: X-ray examination of the chest AP view. COMPARISON: 07/04/2022. FINDINGS: Both lungs are clear. Prominent bilateral hilar vascular markings suggesting pulmonary congestion. Cardiac size is increased. Prominent aortic shadow. No pleural effusion seen. No pneumothorax. Intact bony thorax. Sternotomy sutures seen. Thoracic spine prior fixation seen. IMPRESSION: 1. Cardiomegaly with pulmonary congestion suggesting congestive heart failure. 2. No interval changes since last study. Electronically signed by Marco A Venegas 01-02-2024 07:32 AM
[2024-01-03] MEDS: MELATONIN 3 MG TAB PO PRN (23:21)
[2024-01-04 06:49] LABS: Hematocrit (blood only) 37.3 % (37.0-47.0); Mean Corpuscular Hemoglobin 28.2 pg (25.0-34.0); Mean Corpuscular Hgb Conc 32.2 g/dL (32.0-36.0); Mean Corpuscular Volume 87.6 fL (80.0-100.0); Mean Platelet Volume 12.5 fL (9.4-12.4); Platelet Count 206 K/uL (130-400); RDW Coefficient of Variation 14.2 % (11.5-14.5); RDW Standard Deviation 45.8 fL (36.4-46.3); Red Blood Count 4.26 M/uL (4.20-5.40); White Blood Count 7.06 K/ul (4.8-10.8)
[2024-01-04 07:14] LABS: BUN Creatinine Ratio 27.9 (10-20); Calcium 9.3 mg/dl (8.6-10.3); Magnesium 1.9 mg/dl (1.7-2.4); Potassium 4.2 mmol/L (3.5-5.1)
[2024-01-04] MEDS: POLYETHYLENE (MIRALAX) 17 GM PACK PO PRN (07:59)
--- NOTE | 2024-01-04 09:14 | XRay Report ---
KUB HISTORY: Acute transabdominal pain with reported constipation ro obstruction/constipation COMPARISON: CT abdomen and pelvis 07/03/2022 FINDINGS: Cardiomegaly with median sternotomy. Nonobstructive bowel gas pattern with moderate to exte nsive colonic fecal retention. No renal calculi. No ureteral calculi. No pneumoperitoneum or pneumat osis. Degenerative and postoperative changes of the spine. Evidence of hardware loosening involving t he L4 pedicle screws. No fracture. IMPRESSION: 1. Nonobstructive bowel gas pattern. 2. Moderate to extensive colonic fecal retention. 3. Evidence of hardware loosening involving the L4 pedicle screws. ACT 112: Negative or not required by law. The above report was generated using voice recognition software. It may contain grammatical, syntax o r spelling errors. Electronically signed by: Curzito Jeff M.D. 01/04/2024 9:13 AM
[2024-01-04] MEDS: bisacodyL 10 MG SUPP PR STA (09:29)
[2024-01-04] MEDS: MINERAL OIL ENEMA 133 ML BTL PR ONE (11:55)
--- NOTE | 2024-01-04 13:35 | Hospitalist Progress Note ---
Date of Service January 04, 2024 Assessment & Plan (1) CHF (congestive heart failure): Plan: Acute on chronic HFpEF Mild CHF decompensation presenting as increase in bilateral leg swelling. Patient appears to be euvolemic on today's exam. History diastolic dysfunction. echo from 01/01 reviewed. Grade I diastolic dysfunction with LVEF of 70% Continue oral furosemide home dose. f/w FR 1800 ml. Strict I/Os, daily weights, CHF education, Madsen cath. Remove Madsen cath when able. She is still nonambulatory. Lumbar radiculopathy History of back surgery Appreciate orthopedic spine consult for lumbar radiculopathy Pt is not ambulating Will need PT eval. Suspect she will need rehab, CM arranging placement. Pain Mx and bowel regimen. Asymptomatic pyuria: Contaminated specimen, no sepsis for now. Urine Culture - strep agalactiae and Gardnerella like species. Antibiotics not indicated. BPPV, stable CAD status post CABG, stable. hypertension, stable hyperlipidemia, on statin Rx DM 2 insulin requiring, reasonable control as of recent hemoglobin A1c of 7.4 last August 2023 . Continue SSI Hypothyroidism: Euthyroid, TSH ok DVT prophylaxis. SCDs Full code Patient granddaughter requesting updates providers. I updated Ms. Sharma with with her grandmother's condition on 12/24, grand dtr feels pt is in good spirits today. A total of 54 minutes spent in the care and care coordination of this patient. Admission and Anticipated Discharge Date Admission Date: January 01, 2024 Subjective Patient was seen and examined at bedside. Patient was lying in bed, on room air, NAD, reports ongoing b/l leg pain and bilateral feet tingling. Patient reports eating at her baseline, has not moved bowels since last few days but received Dulcolax MO and had a large bowel movement later on in the morning. X-ray KUB done for constipation revealed hardware loosening involving the L4 pedicle screws, updated orthospine. Physical Exam Physical Exam: General- adult elderly female seen in bed. Some discomfort from her back. Eyes- PERRL, EOMI, Neck- supple, no JVD, Lungs- diminished BS in the bases otherwise clear to auscultation and percussion Heart- regular rhythm; no murmur, no gallop, no rub appreciated Abdomen- normal bowel sounds, soft, nontender, no masses or hepatosplenomegaly Extremities- trace edema b/l Neuro- alert, oriented x 3; PERRL, EOMI; no facial palsy; no dysarthria; Skin- warm & dry Results & Data Results & Data Vital Signs (Past 12 Hours) Vital Signs Temp Pulse Pulse Resp BP BP Pulse Ox 01/04/24 10:43 51 L 17 149/83 H 95 01/04/24 08:06 01/04/24 08:00 01/04/24 07:40 36.4 C L 60 18 156/65 H 94 01/04/24 07:18 57 L 01/04/24 03:32 36.5 C 80 18 132/75 96 Pulse Ox O2 Del Method O2 Del Method 01/04/24 10:43 Room Air 01/04/24 08:06 Room Air 01/04/24 08:00 96 Room Air 01/04/24 07:40 Room Air 01/04/24 07:18 01/04/24 03:32 Room Air
[2024-01-05 06:13] LABS: BUN Creatinine Ratio 29.1 (10-20); Calcium 9.3 mg/dl (8.6-10.3); Creatinine Clr Calc Pharmacy 60.6 ml/min; Magnesium 1.7 mg/dl (1.7-2.4); Potassium 4.2 mmol/L (3.5-5.1)
--- NOTE | 2024-01-05 13:53 | Hospitalist Progress Note ---
Date of Service January 05, 2024 Assessment & Plan (1) CHF (congestive heart failure): Plan: Acute on chronic HFpEF,stable now Mild CHF decompensation presenting as increase in bilateral leg swelling. Patient appears to be euvolemic on today's exam. History diastolic dysfunction. echo from 01/01 reviewed. Grade I diastolic dysfunction with LVEF of 70% Continue oral furosemide home dose. f/w FR 1800 ml. Strict I/Os, daily weights, CHF education, Madsen cath. Remove Madsen cath when able. She is still nonambulatory. Lumbar radiculopathy History of back surgery Appreciate orthopedic spine consult for lumbar radiculopathy Pt is not ambulating Will need PT eval. Suspect she will need rehab, CM arranging placement. Pain Mx and bowel regimen. Asymptomatic pyuria: Contaminated specimen, no sepsis for now. Urine Culture - strep agalactiae and Gardnerella like species. Antibiotics not indicated. BPPV, stable CAD status post CABG, stable. hypertension, stable hyperlipidemia, on statin Rx DM 2 insulin requiring, reasonable control as of recent hemoglobin A1c of 7.4 last August 2023 . Continue SSI Hypothyroidism: Euthyroid, TSH ok DVT prophylaxis. SCDs Full code Patient granddaughter requesting updates providers. I updated Ms. Sharma with with her grandmother's condition on 12/24, grand dtr feels pt is in good spirits today. A total of 52 minutes spent in the care and care coordination of this patient. Dispo: to med/surg until placement happens. Admission and Anticipated Discharge Date Admission Date: January 01, 2024 Subjective Patient was seen and examined at bedside. Patient was lying in bed, on room air, NAD, reports ongoing b/l leg pain and bilateral feet tingling. Patient reports eating at her baseline, moved bowel yesterday, c/w bowel regimen w/ pain meds. Physical Exam Physical Exam: General- adult elderly female seen in bed. Some discomfort from her back. Eyes- PERRL, EOMI, Neck- supple, no JVD, Lungs- diminished BS in the bases otherwise clear to auscultation and percussion Heart- regular rhythm; no murmur, no gallop, no rub appreciated Abdomen- normal bowel sounds, soft, nontender, no masses or hepatosplenomegaly Extremities- trace edema b/l Neuro- alert, oriented x 3; PERRL, EOMI; no facial palsy; no dysarthria; Skin- warm & dry Results & Data Results & Data Vital Signs (Past 12 Hours) Vital Signs Temp Pulse Pulse Resp BP BP Pulse Ox 01/05/24 10:30 88 17 111/55 L 97 01/05/24 08:47 63 01/05/24 08:00 01/05/24 07:51 36.7 C 76 16 113/65 91 01/05/24 07:32 83 01/05/24 07:32 01/05/24 04:04 36.6 C 57 L 16 120/56 L 94 Pulse Ox O2 Del Method O2 Del Method 01/05/24 10:30 Room Air 01/05/24 08:47 01/05/24 08:00 96 Room Air 01/05/24 07:51 Room Air 01/05/24 07:32 01/05/24 07:32 Room Air 01/05/24 04:04 Room Air
[2024-01-06 07:16] LABS: BUN Creatinine Ratio 29.5 (10-20); Calcium 9.6 mg/dl (8.6-10.3); Creatinine Clr Calc Pharmacy 61.4 ml/min; Magnesium 1.9 mg/dl (1.7-2.4); Potassium 4.2 mmol/L (3.5-5.1)
[2024-01-06] MEDS: BACLOFEN 10 MG TAB PO PRN (13:55)
--- NOTE | 2024-01-06 15:21 | Hospitalist Progress Note ---
Date of Service January 06, 2024 Assessment & Plan (1) CHF (congestive heart failure): Plan: Acute on chronic HFpEF,stable now Mild CHF decompensation presenting as increase in bilateral leg swelling. Patient appears to be euvolemic on today's exam. History diastolic dysfunction. echo from 01/01 reviewed. Grade I diastolic dysfunction with LVEF of 70% Continue oral furosemide home dose. f/w FR 1800 ml. Strict I/Os, daily weights, CHF education, Madsen cath. Remove Madsen cath when able. She is still nonambulatory. Lumbar radiculopathy History of back surgery Appreciate orthopedic spine consult for lumbar radiculopathy Pt is not ambulating Will need PT eval. Suspect she will need rehab, CM arranging placement. Pain Mx and bowel regimen. Asymptomatic pyuria: Contaminated specimen, no sepsis for now. Urine Culture - strep agalactiae and Gardnerella like species. Antibiotics not indicated. BPPV, stable CAD status post CABG, stable. hypertension, stable hyperlipidemia, on statin Rx DM 2 insulin requiring, reasonable control as of recent hemoglobin A1c of 7.4 last August 2023 . Continue SSI Hypothyroidism: Euthyroid, TSH ok DVT prophylaxis. SCDs Full code I updated Ms. Sharma with with her grandmother's condition on 12/24, grand dtr feels pt is in good spirits today. Dispo: to med/surg until placement happens. Admission and Anticipated Discharge Date Admission Date: January 01, 2024 Subjective Patient was seen and examined at bedside. Patient was lying in bed, on room air, NAD, reports ongoing b/l leg pain and bilateral feet tingling. Patient reports eating at her baseline, moving bowels ok, c/w bowel regimen when on pain meds. Physical Exam Physical Exam: General- adult elderly female seen in bed. Some discomfort from her back. Eyes- PERRL, EOMI, Neck- supple, no JVD, Lungs- diminished BS in the bases otherwise clear to auscultation and percussion Heart- regular rhythm; no murmur, no gallop, no rub appreciated Abdomen- normal bowel sounds, soft, nontender, no masses or hepatosplenomegaly Extremities- trace edema b/l Neuro- alert, oriented x 3; PERRL, EOMI; no facial palsy; no dysarthria; Skin- warm & dry Results & Data Results & Data Vital Signs (Past 12 Hours) Vital Signs Temp Pulse Resp BP Pulse Ox O2 Del Method 01/06/24 07:00 36.3 C L 63 18 107/61 96 Room Air
[2024-01-06] MEDS: PROMETHAZINE 6.25 MG/50.25 ML BAG IV PRN (17:46)
--- NOTE | 2024-01-06 21:25 | Electrocardiogram Report ---
Test Reason : Blood Pressure : */* mmHG Vent. Rate : 76 BPM Atrial Rate : 76 BPM P-R Int : 148 ms QRS Dur : 106 ms QT Int : 422 ms P-R-T Axes : 51 -30 131 degrees QTcB Int : 474 ms Sinus rhythm with frequent Premature ventricular complexes Left axis deviation Cannot rule out Anterior infarct , age undetermined Abnormal ECG When compared with ECG of 01-Jan-2024 19:58, Premature ventricular complexes are now Present Confirmed by Carlos Enrique Butler ([id number]) on 01/06/2024 9:25:19 PM Referred By: REFERRED SELF Confirmed By: Carlos Enrique Butler
--- NOTE | 2024-01-07 16:35 | Hospitalist Progress Note ---
Date of Service January 07, 2024 Assessment & Plan (1) CHF (congestive heart failure): Plan: Acute on chronic HFpEF,stable now Mild CHF decompensation presenting as increase in bilateral leg swelling. Patient appears to be euvolemic on today's exam. History diastolic dysfunction. echo from 01/01 reviewed. Grade I diastolic dysfunction with LVEF of 70% Continue oral furosemide home dose. f/w FR 1800 ml. Strict I/Os, daily weights, CHF education, Madsen cath. Remove Madsen cath when able. She is still not much ambulatory. Lumbar radiculopathy History of back surgery Appreciate orthopedic spine consult for lumbar radiculopathy Pt is not ambulating Pain Mx and bowel regimen. PT evaled, will need placement. d/w orthopsine, plan to do sedated MRI and CT scan of thorax and lumber spine. d/w anesthesia who recommended reaching out to [place] community health consultant to schedule sedated imaging for tomorrow. d/w [facility] community health consultant - Pt's scan is scheduled for 1215 hrs [place] am. Anesthesia notified per them. NPO midnight. Asymptomatic pyuria: Contaminated specimen, no sepsis for now. Urine Culture - strep agalactiae and Gardnerella like species. Antibiotics not indicated. BPPV, stable CAD status post CABG, stable. hypertension, stable hyperlipidemia, on statin Rx DM 2 insulin requiring, reasonable control as of recent hemoglobin A1c of 7.4 last August 2023 . Continue SSI Hypothyroidism: Euthyroid, TSH ok DVT prophylaxis. SCDs Full code I updated Ms. Sharma with with her grandmother's condition on 01/06, grand dtr feels pt is doing fair. She was made aware of sedated MRI slated for 1215 hrs on 01/07. Dispo: to med/surg until placement happens. Time spent: 53 min. Admission and Anticipated Discharge Date Admission Date: January 01, 2024 Subjective Patient was seen and examined at bedside. Patient was sitting up in chair, on room air, NAD, reports ongoing b/l leg pain and bilateral feet tingling. Patient reports eating at her baseline, moving bowels ok, c/w bowel regimen when on pain meds. Pt now working more w/ PT/OT. Physical Exam Physical Exam: General- adult elderly female seen in bed. Some discomfort from her back. Eyes- PERRL, EOMI, Neck- supple, no JVD, Lungs- diminished BS in the bases otherwise clear to auscultation and percussion Heart- regular rhythm; no murmur, no gallop, no rub appreciated Abdomen- normal bowel sounds, soft, nontender, no masses or hepatosplenomegaly Extremities- trace edema b/l Neuro- alert, oriented x 3; PERRL, EOMI; no facial palsy; no dysarthria; Skin- warm & dry Results & Data Results & Data Vital Signs (Past 12 Hours) Vital Signs Temp Pulse Resp BP Pulse Ox O2 Del Method 01/07/24 14:57 37.1 C 79 16 111/65 96 Room Air 01/07/24 07:14 36.7 C 70 18 115/65 98 Room Air
--- NOTE | 2024-01-07 17:19 | Anesthesiology Consultation ---
Date of Service January 07, 2024 Assessment & Plan Chart Review Chart Review: Acceptable Risk for Surgery and Patient NOT seen in Pre Admission Testing Consults Requested none ASA ASA4 Proposed Anesthesia Anesthesia Type: MAC History Surgery Operation Date: 01/08/24 12:15 Proposed Procedures p MRI Thoracic & Lumbar Spine, No Contrast, with Anesthesia Sedation - Chleo Sutherland MD Height/Weight Height: 5 ft 1 in Weight: 97.38 kg Allergies Allergy/AdvReac Type Severity Reaction Status Date / Time latex Allergy Intermediate skin Verified 01/01/24 23:15 irritation and peels skin off prednisone AdvReac Severe STROKE Verified 01/01/24 23:15 fentanyl AdvReac Intermediate "opiate Verified 01/01/24 23:15 agonists cause severe N&V, increased heart rate, " hydromorphone AdvReac Intermediate "opiate Verified 01/01/24 23:15 agonists cause severe N&V, increased heart rate, " methadone AdvReac Intermediate "opiate Verified 01/01/24 23:15 agonists cause severe N&V, increased heart rate, " morphine AdvReac Intermediate "opiate Verified 01/01/24 23:15 agonists cause severe N&V, increased heart rate, " oxycodone AdvReac Intermediate "opiate Verified 01/01/24 23:15 agonists cause severe N&V, increased heart rate, " meclizine AdvReac Mild Severe N&V Verified 01/01/24 23:15 tetracycline AdvReac Mild Severe N&V Verified 01/01/24 23:15 tramadol AdvReac Blurry Verified 01/01/24 23:15 Vision Medications Home Medications Medication Instructions Recorded Confirmed Last Taken allopurinol 100 mg tablet 200 mg PO DAILY 07/03/22 01/01/24 Unknown aspirin 81 mg tablet,delayed 81 mg PO DAILY 07/03/22 07/03/22 Unknown release atorvastatin 40 mg tablet 40 mg PO QAM 07/03/22 07/03/22 Unknown baclofen 5 mg tablet 5 mg PO TID PRN Pain 07/03/22 07/03/22 Unknown docusate sodium 100 mg capsule 100 mg PO BID 07/03/22 07/03/22 Unknown furosemide 20 mg tablet (Lasix) 20 mg PO DAILY 07/03/22 07/03/22 Unknown insulin aspart U-100 100 unit/mL 7 unit subcut TIDWMEAL 07/03/22 07/03/22 Unknown subcutaneous solution insulin glargine 100 unit/mL 18 unit subcut HS 07/03/22 07/03/22 Unknown subcutaneous solution (Lantus U-100 Insulin) levothyroxine 125 mcg tablet 125 mcg PO DAILY 07/03/22 07/03/22 Unknown lidocaine 5 % topical patch 1 patch topical DAILY 07/03/22 07/03/22 Unknown losartan 50 mg tablet 50 mg PO DAILY 07/03/22 07/03/22 Unknown ondansetron HCl 4 mg tablet 4 mg PO Q4 PRN nausea/vomiting 07/03/22 07/03/22 Unknown oxycodone 5 mg tablet 10 mg PO Q4 PRN .pain 7-10 07/03/22 07/03/22 Unknown pantoprazole 40 mg tablet,delayed 40 mg PO BID 07/03/22 07/03/22 Unknown release polyethylene glycol 3350 17 gram 17 g PO DAILY PRN Constipation 07/03/22 07/03/22 Unknown oral powder packet (Miralax) potassium chloride 10 mEq 10 meq PO DAILY 07/03/22 07/03/22 Unknown tablet,extended release sennosides 8.6 mg-docusate sodium 2 tab-cap PO HS 07/03/22 07/03/22 Unknown 50 mg tablet (Senna with Docusate Sodium) sennosides 8.6 mg-docusate sodium 1 tab-cap PO .QLUNCH PRN 07/03/22 07/03/22 Unknown 50 mg tablet (Senokot-S) Constipation trazodone 50 mg tablet 25 mg PO HS 07/03/22 07/03/22 Unknown isosorbide mononitrate 60 mg 60 mg PO QAM #30 tabs 07/06/22 Unknown tablet,extended release 24 hr metoprolol tartrate 50 mg tablet 75 mg (1.5 x 50 mg) PO Q12 #90 tabs 07/06/22 Unknown amlodipine 2.5 mg tablet 5 mg PO DAILY 01/01/24 01/01/24 Unknown Active Medications Generic Name Dose Route Start Last Admin Trade Name Freq PRN Reason Stop Dose Admin Acetaminophen 650 mg 01/01/24 22:03 01/07/24 09:30 Acetaminophen 325 Mg Tab PO 01/31/24 22:02 650 mg QID PRN Administration pain/fever Allopurinol 200 mg 01/02/24 09:00 01/07/24 07:47 Allopurinol 100 Mg Tab PO 02/01/24 08:59 200 mg DAILY LETTY Administration Atorvastatin Calcium 40 mg 01/02/24 09:00 01/07/24 07:45 Atorvastatin 40 Mg Tab PO 02/01/24 08:59 40 mg QAM LETTY Administration Baclofen 5 mg 01/01/24 23:31 01/06/24 13:55 Baclofen 10 Mg Tab PO 01/31/24 23:30 5 mg TID PRN Administration Pain Docusate Sodium 100 mg 01/02/24 09:00 01/07/24 07:53 Docusate Sodium 100 Mg Cap PO 02/01/24 08:59 100 mg BID LETTY Administration Furosemide 20 mg 01/02/24 09:00 01/07/24 07:45 Furosemide 20 Mg Tab PO 02/01/24 08:59 20 mg DAILY LETTY Administration Promethazine HCl 6.25 mg in 50.25 mls @ 201 mls/hr 01/01/24 22:03 01/06/24 18:19 Phenergan IV 01/31/24 22:02 Infused Q6H PRN Infusion Nausea And Vomiting Insulin Aspart 0 units 01/03/24 16:30 01/07/24 12:27 Insulin Aspart Per Unit Charge SC 02/02/24 16:29 7 units ACHS LETTY Administration Insulin Glargine 5 units 01/01/24 23:45 01/07/24 09:25 Lantus Per Unit Charge SQ 01/31/24 23:44 5 units BID LETTY Administration Isosorbide Mononitrate 60 mg 01/02/24 09:00 01/07/24 07:44 Isosorbide [place] Extended Rel 60 Mg Tabcr PO 02/01/24 08:59 60 mg QAM LETTY Administration Levothyroxine Sodium 125 mcg 01/02/24 06:30 01/07/24 05:28 Levothyroxine Sodium 125 Mcg Tablet PO 02/01/24 06:29 125 mcg DAILYBB LETTY Administration Lidocaine 1 patch 01/02/24 21:00 01/06/24 19:51 Lidocaine 5% 1 Patch TD 02/01/24 20:59 1 patch HS LETTY Administration Losartan Potassium 50 mg 01/02/24 09:00 01/07/24 07:46 Losartan Potassium 50 Mg Tab PO 02/01/24 08:59 50 mg DAILY LETTY Administration Melatonin 9 mg 01/03/24 17:57 01/05/24 21:37 Melatonin 3 Mg Tab PO 02/02/24 17:56 9 mg HS PRN Administration Sleep Metoprolol Tartrate 25 mg 01/02/24 09:00 01/07/24 07:47 Metoprolol Tartrate 25 Mg Tab PO 02/01/24 08:59 25 mg BID LETTY Administration Miscellaneous 1 each 01/02/24 09:00 01/07/24 07:48 Remove Lidoderm Patch N/A 02/01/24 08:59 Not Given QAM LETTY Oxycodone HCl 5 - 10 mg 01/01/24 22:03 01/06/24 18:14 Oxycodone Hcl Ir 5 Mg Tab (Immediate Release) PO 01/15/24 22:02 10 mg QID PRN Administration Pain Pantoprazole Sodium 40 mg 01/02/24 09:00 01/07/24 07:46 Pantoprazole 40 Mg Tab PO 02/01/24 08:59 40 mg BID LETTY Administration Polyethylene Glycol 17 gm 01/01/24 23:31 01/04/24 07:59 Polyethylene (Miralax) 17 Gm Pack PO 01/31/24 23:30 17 gm DAILY PRN Administration Constipation Senna/Docusate Sodium 2 tab 01/02/24 21:00 01/06/24 19:50 Docusate Sodium/Senna 50/8.6mg Tab PO 02/01/24 20:59 2 tab HS LETTY Administration Trazodone HCl 25 mg 01/01/24 23:35 01/06/24 19:50 Trazodone Hcl 50 Mg Tab PO 01/31/24 23:34 25 mg HS LETTY Administration Past Medical History Medical History Chronic back pain Stroke ~2019 -> treated at [facility] -> left eye blindness and gastric ulcers at the time. follows with PCP. Motion sickness Nausea and vomiting after administration of anesthetic agent Claustrophobia severe History of COVID-19 PHx 2020 - headache only at the time. Morbid obesity Spinal stenosis Hx of gout Arthritis History of gastric ulcer 2020 History of anemia No known blood transfusions Macular degeneration 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 Hyperlipidemia Left knee DJD Exercise / Class Metabolic Activity III < 4 Walking/Shop/Light housework Past Family History Family History Brother Family history of diabetes mellitus Sister Family history of diabetes mellitus Mother Family history of diabetes mellitus Father Family history of diabetes mellitus Other No family history of adverse response to anesthesia Past Surgical History Surgical History History of breast biopsy x3 History of lumbar surgery x2 (+ hardware) History of total knee replacement Right History of esophagogastroduodenoscopy (EGD) History of colonoscopy History of hysterectomy History of appendectomy History of cholecystectomy H/O partial thyroidectomy Benign lump removal History of tooth extraction History of cataract surgery R/L History of cardiac cath 09/19/20 > no stents History of coronary artery bypass graft CABG (2011) x2 vessels. follows with [facility] Cardiology Past Anesthesia History No Hx of Anesthesia Complications and No Family Hx of Anesthesia Complications History of PONV No Hx of PONV and No Hx of Motion Sickness Social History Smoking Status: Former smoker tobacco type: cigarettes Do You Dip or Chew Tobacco: No Hx Alcohol Use: No Hx Substance Use: No substance use type: does not use Physical Exam Vital Signs Last Vital Signs Temp 37.1 C 01/07/24 14:57 Pulse 79 01/07/24 14:57 Resp 16 01/07/24 14:57 BP 111/65 01/07/24 14:57 Pulse Ox 96 01/07/24 14:57 O2 Del Method Room Air 01/07/24 14:57 Testing Laboratory Results 01/04/24 05:49 01/06/24 06:21 Urine Color Yellow 01/01/24 21:55 Urine Appearance Clear (Clear) 01/01/24 21:55 Urine pH 6.0 (4.5-7.5) 01/01/24 21:55 Ur Specific [place] 1.009 (1.000-1.030) 01/01/24 21:55 Urine Protein Negative (Negative) 01/01/24 21:55 Urine Glucose (UA) Negative (Negative) 01/01/24 21:55 Urine Ketones Negative (Negative) 01/01/24 21:55 Urine Nitrite Negative (Negative) 01/01/24 21:55 Ur Leukocyte Esterase 1+ (Negative) H 01/01/24 21:55 Urine WBC (Auto) 6-10 /hpf (0-5) H 01/01/24 21:55 Urine RBC (Auto) 0-2 /hpf (0-2) 01/01/24 21:55 U Hyaline Cast (Auto) 0-2 /lpf (0-2) 01/01/24 21:55 U Epithel Cells (Auto) 0-2 /hpf (0-2) 01/01/24 21:55 Urine Bacteria (Auto) None Seen (None Seen) 01/01/24 21:55 01/01/24 21:55 Urine Culture - Final Urine,Clean Catch Strep agalactiae (group B) Gardnerella-like bacilli 01/07/24 01/07/24 01/07/24 16:45 11:28 07:42 POC Glucose 185 H 230 H 186 H Electrocardiogram Date: 01/03/24 Findings: + NSR @ (@ 74 w/ frequent PVC's;LAD;StT & T wave abnormality;? anterior infarct ,age ?) Chest X-Ray Date: 01/02/24 Findings: + cardiomegaly and + pulmonary vascular congestion Echocardiogram Date: 01/02/24 EF: > 70% RWMA: + none Other Findings: + LVH (mod.) and + diastolic dysfunction (Grade 1) Valvular Disease: + MR (mild)
[2024-01-08 07:27] LABS: BUN Creatinine Ratio 32.6 (10-20); Calcium 9.5 mg/dl (8.6-10.3); Creatinine Clr Calc Pharmacy 55.7 ml/min; Magnesium 1.8 mg/dl (1.7-2.4); Phosphorus 4.1 mg/dl (2.5-4.9); Potassium 4.2 mmol/L (3.5-5.1)
[2024-01-08 07:41] LABS: Hematocrit (blood only) 39.6 % (37.0-47.0); Hemoglobin 12.8 g/dl (12.0-16.0); Mean Corpuscular Hgb Conc 32.3 g/dL (32.0-36.0); Mean Corpuscular Volume 86.7 fL (80.0-100.0); Platelet Count 158 K/uL (130-400); RDW Coefficient of Variation 14.1 % (11.5-14.5); RDW Standard Deviation 44.8 fL (36.4-46.3); Red Blood Count 4.57 M/uL (4.20-5.40); White Blood Count 6.97 K/ul (4.8-10.8)
[2024-01-08] MEDS ORDERED: DexMEDEtomidine HCL IV 100 MCG/ML VIAL IV ONE (11:37)
[2024-01-08] MEDS ORDERED: GLYCOPYRROLATE 0.2 MG/ML VIAL ONE (11:37)
[2024-01-08] MEDS ORDERED: MIDAZOLAM HCL 1 MG/ML 2ML VIAL ONE (11:37)
[2024-01-08] MEDS ORDERED: LIDOCAINE 2% 2 ML VIAL/AMP(20MG/ML) INFIL ONE (11:37)
[2024-01-08] MEDS ORDERED: PROPOFOL IV EMULSION 10 MG/ML 20 ML VIAL IV ONE (11:37)
[2024-01-08] MEDS: LACTATED RINGER'S 1,000 ML IV SCH (11:38)
[2024-01-08] MEDS ORDERED: KETAMINE HCL 10MG/ML SYR ONE (11:38)
[2024-01-08] MEDS ORDERED: fentaNYL citrate PF 100 MCG/2 ML VIAL ONE (11:58)
[2024-01-08] MEDS ORDERED: ePHEDrine sulfate 50 MG/ML AMP IV PRN (11:58)
[2024-01-08] MEDS ORDERED: fentaNYL citrate PF 100 MCG/2 ML VIAL IV PRN (11:58)
[2024-01-08] MEDS ORDERED: ATROPINE SULFATE 0.1 MG/ML 10ML SYR IV PRN (11:58)
[2024-01-08] MEDS: ONDANSETRON INJ 2 MG/ML 2 ML VIAL IV PRN (13:36)
--- NOTE | 2024-01-08 13:52 | Anesthesiology Progress Note ---
Date of Service January 08, 2024 Anesthesia Post Procedure Vital Signs Vital Signs: Temp Pulse Pulse Resp BP Pulse Ox O2 Del Method 01/08/24 13:25 36.5 C 86 20 122/53 L 99 Oxymask 01/08/24 11:34 36.6 C 64 18 136/76 95 Room Air 01/08/24 07:55 36.6 C 63 20 137/84 96 Room Air 01/07/24 19:45 Room Air 01/07/24 19:25 36.8 C 88 16 146/75 H 95 Room Air 01/07/24 14:57 37.1 C 79 16 111/65 96 Room Air O2 Flow Rate 01/08/24 13:25 5 01/08/24 11:34 01/08/24 07:55 01/07/24 19:45 01/07/24 19:25 01/07/24 14:57 Pain Intensity Medial Back: Pain Intensity: 10 Transfer of Care Handoff Completed per policy Notes Mental Status: alert / awake / arousable Patient Amnestic to Procedure: Yes Nausea / Vomiting: adequately controlled Pain: adequately controlled Airway Patency, RR, SpO2: stable & adequate BP & HR: stable & adequate Hydration State: stable & adequate Anesthetic Complications: no major complications apparent and Pt Satisfied with anesthetic care
--- NOTE | 2024-01-08 14:31 | Magnetic Resonance Report ---
MR thoracic spine wo con, MR lumbar spine wo con HISTORY: 78 years-old Female ro toe osteomyelitis Chronic mid-to-low back pain with prior surgery. COMPARISON: MRI thoracic and lumbar spine studies 06/08/22. TECHNIQUE: Multiplanar and multisequence MRI of the thoracic and lumbar spine were obtained without I V contrast. FINDINGS: MRI THORACIC SPINE: Study is motion degraded. Median sternotomy wires are noted along with cardiomega ly. Posterior fusion hardware extends from T10-L4. There is pronounced marrow edema involving the T9 vertebral body with extension into the pedicles and posterior elements. Additionally, there is a line ar focus of decreased T1 and T2 marrow signal within the mid vertebral body on image 9 series 7, comp atible with fracture. No fracture extension to the posterior elements is definitively seen on this ex am. Additional mild marrow edema at T10. Fluid signal within the T9-T10 and T10-T11 disc spaces with small T9-T10 facet effusions. Mild associated paravertebral edema. No epidural fluid collections. Flu id signal within the thoracic spinal cord is within normal limits considering limitations of the stud y. There is moderate multilevel and vertebral disc space narrowing, spondylotic spurring and facet arthr osis. There is posterior annular disc bulge at T7-T8 without high-grade central canal or foraminal na rrowing. T8-T9: Severe intervertebral disc space narrowing with circumferential disc osteophyte complex and ad vanced facet arthrosis. Minimal central canal stenosis with AP dimension of the thecal sac measuring 9 mm. Moderate bilateral foraminal narrowing. T9-T10: Additional findings as above with posterior annular disc bulge, ligamentum flavum thickening and advanced facet arthrosis. AP dimension of the central canal measures 4 mm with deformity upon the thoracic spinal cord. Severe central canal stenosis with [id number] right and severe left fo raminal narrowing. T10-T11: Not well evaluated secondary to artifact related to the hardware. There is suggestion of mil d central canal stenosis with moderate bilateral foraminal narrowing. MRI LUMBAR SPINE: Ash Collector localizer images demonstrate no gross extraspinal abnormality. Posterior inte rbody lisbeth and screw fusion hardware is noted extending from T10 through L4. Discectomy changes at T12 -L1, L3-L4, L4-L5 and L5-S1. Trace fluid signal is noted within the L2-L3, L4-L5 and L5-S1 disc spaces, which is likely on a degen erative basis. No acute fracture, subluxation, endplate erosions or marrow replacing process. The ne dy is motion degraded. Moderate multilevel spondylotic spurring with [id number]-if-oxamzc facet arthros is. No epidural fluid collections. Conus medullaris terminates at L1-L2. L1-L2: No central canal or foraminal narrowing is identified. L2-L3: Severe intervertebral disc space narrowing with circumferential disc osteophyte complex and ad vanced facet arthrosis. Minimal central canal stenosis. Gojt-tv-qidbttsb right with moderate left for aminal narrowing is unchanged. L3-L4: Small posterior disc osteophyte complex with advanced facet arthrosis. Ltjt-bm-[id number] centra l canal stenosis with AP dimension of the thecal sac measuring 8 mm. Severe right with sitg-pk-czqbaw te left foraminal stenosis is unchanged. L4-L5: Small left paracentral/left lateral recess disc osteophyte complex with advanced facet arthros is. Mild central canal stenosis with moderate left lateral recess narrowing. Severe right with mild l eft foraminal stenosis is unchanged. L5-S1: Central canal is patent. Unchanged mild bilateral foraminal narrowing. IMPRESSION: 1. Limited study as above. 2. Acute-appearing T9 vertebral body fracture without significant intervertebral body height loss. Th ere is reactive marrow and adjacent paravertebral edema. 3. Fluid signal within the T9-T10 and T10-T11 disc spaces is likely on a degenerative basis. Acute di scitis/osteomyelitis could appear similarly. 4. Severe central canal stenosis at T9-T10. 5. Degenerative and postoperative changes of the lumbar spine as above. ACT 112: Negative or not required by law. The above report was generated using voice recognition software. It may contain grammatical, syntax o r spelling errors. Dictated: 01/08/2024 1:45 PM Transcribed: 01/08/2024 2:19 PM Pavel [id number] [email or web address] Electronically signed by: Cruzito Jeff M.D. 01/08/2024 2:29 PM
--- NOTE | 2024-01-08 14:31 | Magnetic Resonance Report ---
MR thoracic spine wo con, MR lumbar spine wo con HISTORY: 78 years-old Female ro toe osteomyelitis Chronic mid-to-low back pain with prior surgery. COMPARISON: MRI thoracic and lumbar spine studies 06/08/22. TECHNIQUE: Multiplanar and multisequence MRI of the thoracic and lumbar spine were obtained without I V contrast. FINDINGS: MRI THORACIC SPINE: Study is motion degraded. Median sternotomy wires are noted along with cardiomega ly. Posterior fusion hardware extends from T10-L4. There is pronounced marrow edema involving the T9 vertebral body with extension into the pedicles and posterior elements. Additionally, there is a line ar focus of decreased T1 and T2 marrow signal within the mid vertebral body on image 9 series 7, comp atible with fracture. No fracture extension to the posterior elements is definitively seen on this ex am. Additional mild marrow edema at T10. Fluid signal within the T9-T10 and T10-T11 disc spaces with small T9-T10 facet effusions. Mild associated paravertebral edema. No epidural fluid collections. Flu id signal within the thoracic spinal cord is within normal limits considering limitations of the stud y. There is moderate multilevel and vertebral disc space narrowing, spondylotic spurring and facet arthr osis. There is posterior annular disc bulge at T7-T8 without high-grade central canal or foraminal na rrowing. T8-T9: Severe intervertebral disc space narrowing with circumferential disc osteophyte complex and ad vanced facet arthrosis. Minimal central canal stenosis with AP dimension of the thecal sac measuring 9 mm. Moderate bilateral foraminal narrowing. T9-T10: Additional findings as above with posterior annular disc bulge, ligamentum flavum thickening and advanced facet arthrosis. AP dimension of the central canal measures 4 mm with deformity upon the thoracic spinal cord. Severe central canal stenosis with ifqztcyl-zh-hsgkaw right and severe left fo raminal narrowing. T10-T11: Not well evaluated secondary to artifact related to the hardware. There is suggestion of mil d central canal stenosis with moderate bilateral foraminal narrowing. MRI LUMBAR SPINE: Upholstery Repairer localizer images demonstrate no gross extraspinal abnormality. Posterior inte rbody lisbeth and screw fusion hardware is noted extending from T10 through L4. Discectomy changes at T12 -L1, L3-L4, L4-L5 and L5-S1. Trace fluid signal is noted within the L2-L3, L4-L5 and L5-S1 disc spaces, which is likely on a degen erative basis. No acute fracture, subluxation, endplate erosions or marrow replacing process. The ne dy is motion degraded. Moderate multilevel spondylotic spurring with wrtwfdvg-wh-jopyzy facet arthros is. No epidural fluid collections. Conus medullaris terminates at L1-L2. L1-L2: No central canal or foraminal narrowing is identified. L2-L3: Severe intervertebral disc space narrowing with circumferential disc osteophyte complex and ad vanced facet arthrosis. Minimal central canal stenosis. Sjww-th-zcelrnky right with moderate left for aminal narrowing is unchanged. L3-L4: Small posterior disc osteophyte complex with advanced facet arthrosis. Twbh-he-iwozmazj centra l canal stenosis with AP dimension of the thecal sac measuring 8 mm. Severe right with mnnc-sg-iofasv te left foraminal stenosis is unchanged. L4-L5: Small left paracentral/left lateral recess disc osteophyte complex with advanced facet arthros is. Mild central canal stenosis with moderate left lateral recess narrowing. Severe right with mild l eft foraminal stenosis is unchanged. L5-S1: Central canal is patent. Unchanged mild bilateral foraminal narrowing. IMPRESSION: 1. Limited study as above. 2. Acute-appearing T9 vertebral body fracture without significant intervertebral body height loss. Th ere is reactive marrow and adjacent paravertebral edema. 3. Fluid signal within the T9-T10 and T10-T11 disc spaces is likely on a degenerative basis. Acute di scitis/osteomyelitis could appear similarly. 4. Severe central canal stenosis at T9-T10. 5. Degenerative and postoperative changes of the lumbar spine as above. ACT 112: Negative or not required by law. The above report was generated using voice recognition software. It may contain grammatical, syntax o r spelling errors. Dictated: 01/08/2024 1:45 PM Transcribed: 01/08/2024 2:19 PM Pavel [id number] [email or web address] Electronically signed by: Cruzito Jeff M.D. 01/08/2024 2:29 PM
--- NOTE | 2024-01-08 14:32 | Hospitalist Progress Note ---
Date of Service January 08, 2024 Assessment & Plan (1) CHF (congestive heart failure): Plan: Acute on chronic HFpEF,stable now Mild CHF decompensation presenting as increase in bilateral leg swelling. History diastolic dysfunction. echo from 01/01 reviewed. Grade I diastolic dysfunction with LVEF of 70% Continue oral furosemide home dose. f/w FR 1800 ml. Strict I/Os, daily weights, CHF education, Remove Madsen Lumbar radiculopathy History of back surgery Appreciate orthopedic spine consult for lumbar radiculopathy Pt is not ambulating Pain Mx and bowel regimen. PT evaled, will need placement. Plan to do sedated MRI and CT scan of thorax and lumber spine today. will appreciate orthospine reccs after MRI. Asymptomatic pyuria: Contaminated specimen, no sepsis for now. Urine Culture - strep agalactiae and Gardnerella like species. Antibiotics not indicated. BPPV, stable CAD status post CABG, stable. hypertension, stable hyperlipidemia, on statin Rx DM 2 insulin requiring, reasonable control as of recent hemoglobin A1c of 7.4 last August 2023 . Continue SSI Hypothyroidism: Euthyroid, TSH ok DVT prophylaxis. heparin Full code Please note the above document was generated using voice recognition software. It may contain grammatical, syntax or spelling errors. Any formal questions or concerns about the content, text or information contained within the body of this dictation should be directly addressed to the provider for clarification Admission and Anticipated Discharge Date Admission Date: January 01, 2024 Subjective Patient seen and examined at bedside. She is sitting up on a chair at the side of the bed. She is comfortable; reports numbness on dorsal aspect of her bilateral feet. No significant events overnight Madsen catheter in place draining clear urine Review of Systems Review of Systems: All systems reviewed & are unremarkable except as noted in Subjective Physical Exam Physical Exam: General- adult elderly female seen in bed. Eyes- PERRL, EOMI, Neck- supple, no JVD, Lungs- diminished BS in the bases otherwise clear to auscultation and percussion Heart- regular rhythm; no murmur, no gallop, no rub appreciated Abdomen- normal bowel sounds, soft, nontender, no masses or hepatosplenomegaly Extremities- trace edema b/l Neuro- alert, oriented x 3; PERRL, EOMI; no facial palsy; no dysarthria; Skin- warm & dry Results & Data Results & Data Vital Signs (Past 12 Hours) Vital Signs Temp Pulse Pulse Resp BP Pulse Ox O2 Del Method 01/08/24 14:19 36.3 C L 83 18 113/73 92 Room Air 01/08/24 14:05 82 17 114/44 L 94 Room Air 01/08/24 13:55 36.4 C L 84 24 116/51 L 91 Room Air 01/08/24 13:45 86 17 102/63 94 Room Air 01/08/24 13:35 88 21 111/58 L 99 Oxymask 01/08/24 13:25 36.5 C 86 20 122/53 L 99 Oxymask 01/08/24 11:34 36.6 C 64 18 136/76 95 Room Air 01/08/24 07:55 36.6 C 63 20 137/84 96 Room Air O2 Flow Rate 01/08/24 14:19 01/08/24 14:05 01/08/24 13:55 01/08/24 13:45 01/08/24 13:35 5 01/08/24 13:25 5 01/08/24 11:34 01/08/24 07:55
[2024-01-08] MEDS: HEPARIN SOD 5,000 UNIT/0.5 ML VIAL SQ SCH (21:18)
[2024-01-09 08:30] LABS: Basophils # (auto) 0.05 K/uL (0.00-0.20); Basophils % (auto) 0.6 %; Eosinophils # (auto) 0.17 K/uL (0.00-0.50); Eosinophils % (auto) 2.2 %; Hematocrit (blood only) 40.1 % (37.0-47.0); Hemoglobin 12.9 g/dl (12.0-16.0); Immature Granulocytes # (auto) 0.02 K/uL (0.01-0.20); Immature Granulocytes % (auto) 0.3 %; Lymphocytes # (auto) 1.48 K/uL (1.20-3.40); Lymphocytes % (auto) 18.8 %; Mean Corpuscular Hemoglobin 28.1 pg (25.0-34.0); Mean Corpuscular Hgb Conc 32.2 g/dL (32.0-36.0); Mean Corpuscular Volume 87.4 fL (80.0-100.0); Mean Platelet Volume 12.5 fL (9.4-12.4); Monocytes # (auto) 0.63 K/uL (0.11-0.59); Neutrophils # (auto) 5.54 K/uL (1.40-6.50); Neutrophils % (auto) 70.1 %; Platelet Count 215 K/uL (130-400); RDW Coefficient of Variation 14.1 % (11.5-14.5); RDW Standard Deviation 45.2 fL (36.4-46.3); Red Blood Count 4.59 M/uL (4.20-5.40); White Blood Count 7.89 K/ul (4.8-10.8)
[2024-01-09] MEDS: NITROGLYCERIN SL 0.4 MG/TAB TAB SL STA (08:31)
[2024-01-09 08:44] LABS: BUN Creatinine Ratio 32.5 (10-20); Calcium 9.6 mg/dl (8.6-10.3); Creatinine Clr Calc Pharmacy 62.2 ml/min; Potassium 4.3 mmol/L (3.5-5.1)
[2024-01-09 08:53] LABS: Troponin I High Sensitivity 7.2 pg/ml (0-14)
--- NOTE | 2024-01-09 09:46 | Hospitalist Progress Note ---
Date of Service January 09, 2024 Assessment & Plan (1) CHF (congestive heart failure): Plan: Lumbar radiculopathy Acute T9 vertebral body fracture Myelopathy concurrent with and due to spinal stenosis of thoracic region Presented with back pain and increasing bilateral leg weakness. History of back surgery with Dr. Taveras in the past Thoracic and lumbar MRI shows acute appearing T9 vertebral body fracture, severe central canal stenosis at T9-10 Plan for T7-T10 thoracic decompression and fusion by orthospine tomorrow morning. Patient is at slightly higher risk of perioperative and postoperative complication due to her age, comorbidities and obesity. Hold losartan. Pain control Muscle relaxants Acute on chronic HFpEF- resolved Mild CHF decompensation presenting as increase in bilateral leg swelling. History diastolic dysfunction. echo from 01/01 reviewed. Grade I diastolic dysfunction with LVEF of 70% Continue oral furosemide home dose. f/w FR 1800 ml. Strict I/Os, daily weights, CHF education, Asymptomatic pyuria: Contaminated specimen, no sepsis for now. Urine Culture - strep agalactiae and Gardnerella like species. Antibiotics not indicated. BPPV, stable CAD status post CABG, stable. hypertension, stable hyperlipidemia, on statin Rx DM 2 insulin requiring, reasonable control as of recent hemoglobin A1c of 7.4 last August 2023 . Continue SSI Hypothyroidism: Euthyroid, TSH ok DVT prophylaxis. heparin, to be on hold after tonight's dose Full code Updated patient's granddaughter over the phone. Answer questions/queries Time spent evaluating patient, direct bedside care, chart review, placing orders, interpretation of diagnostic studies, discussion with consultants, patient, and family members, as well as other required patient management activities is 60 minutes Please note the above document was generated using voice recognition software. It may contain grammatical, syntax or spelling errors. Any formal questions or concerns about the content, text or information contained within the body of this dictation should be directly addressed to the provider for clarification Admission and Anticipated Discharge Date Admission Date: January 01, 2024 Subjective Patient seen and examined at bedside. She continues to report severe back pain. She also reports some numbness on her feet. She reported chest pain on right side. EKG obtained and nitroglycerin given. high sentivity troponin is negative Review of Systems Review of Systems: All systems reviewed & are unremarkable except as noted in Subjective Physical Exam Physical Exam: General- adult elderly female seen in bed. Eyes- PERRL, EOMI, Neck- supple, no JVD, Lungs- diminished BS in the bases otherwise clear to auscultation and percussion Heart- regular rhythm; no murmur, no gallop, no rub appreciated Abdomen- normal bowel sounds, soft, nontender, no masses or hepatosplenomegaly Extremities- trace edema b/l Neuro- alert, oriented x 3; PERRL, EOMI; no facial palsy; no dysarthria; Skin- warm & dry Results & Data Results & Data Vital Signs (Past 12 Hours) Vital Signs Temp Pulse Resp BP Pulse Ox O2 Del Method 01/09/24 08:00 36.3 C L 71 16 130/77 97 Room Air 01/09/24 02:21 36.6 C 74 12 125/74 94 Room Air 01/08/24 22:05 36.6 C 73 16 117/71 95 Room Air
--- NOTE | 2024-01-09 11:51 | Orthopedic Progress Note ---
Date of Service January 09, 2024 Assessment & Plan (1) Myelopathy concurrent with and due to spinal stenosis of thoracic region: Plan: MRI of the thoracic spine available for review. It does demonstrate evidence of adjacent level stenosis and evidence of instability at T9-T10. This is clearly the etiology of her leg symptom complex. I had a discussion with the patient and her granddaughter reviewing the scans and treatment options. At this point I would recommend extending the fusion from T7-T9. This would allow us to decompress the canal and stabilize this region. Risk-benefit pros cons alternatives were all in detail. Will plan for surgery as soon as she is cleared medically an OR time available. Admission and Anticipated Discharge Date Admission Date: January 01, 2024 Subjective Patient continues to have bilateral leg weakness and inability to ambulate. Physical Exam Physical Exam: Patient is currently in chair. She has reasonable motor strength of plantarflexion dorsiflexion bilaterally sensory is intact. She is however unable to lay supine without significant discomfort leg numbness and tingling. Results & Data Vital Signs (Past 12 Hours) Vital Signs Temp Pulse Resp BP Pulse Ox O2 Del Method 01/09/24 08:00 36.3 C L 71 16 130/77 97 Room Air 01/09/24 02:21 36.6 C 74 12 125/74 94 Room Air
[2024-01-10] MEDS ORDERED: Nursing to Pharmacy Communication SCH ×2 (00:45→17:15)
[2024-01-10] MEDS: INSULIN ASPART PER UNIT CHARGE SC SCH ×2 (00:54→20:52)
--- NOTE | 2024-01-10 05:35 | Electrocardiogram Report ---
Test Reason : Blood Pressure : */* mmHG Vent. Rate : 83 BPM Atrial Rate : 83 BPM P-R Int : 144 ms QRS Dur : 102 ms QT Int : 412 ms P-R-T Axes : 46 -29 139 degrees QTcB Int : 484 ms Sinus rhythm with frequent Premature ventricular complexes in a pattern of bigeminy Possible Left atrial enlargement Prolonged QT Abnormal ECG When compared with ECG of 03-Jan-2024 09:13, No significant change was found Confirmed by Carlos Enrique Butler ([id number]) on 01/10/2024 5:35:05 AM Referred By: REFERRED SELF Confirmed By: Carlos Enrique Butler
[2024-01-10 07:15] LABS: Basophils # (auto) 0.04 K/uL (0.00-0.20); Basophils % (auto) 0.6 %; Eosinophils # (auto) 0.24 K/uL (0.00-0.50); Eosinophils % (auto) 3.5 %; Hematocrit (blood only) 37.6 % (37.0-47.0); Hemoglobin 12.1 g/dl (12.0-16.0); Immature Granulocytes # (auto) 0.02 K/uL (0.01-0.20); Immature Granulocytes % (auto) 0.3 %; Lymphocytes # (auto) 1.66 K/uL (1.20-3.40); Lymphocytes % (auto) 24.2 %; Mean Corpuscular Hemoglobin 27.8 pg (25.0-34.0); Mean Corpuscular Hgb Conc 32.2 g/dL (32.0-36.0); Mean Corpuscular Volume 86.4 fL (80.0-100.0); Mean Platelet Volume 12.3 fL (9.4-12.4); Monocytes # (auto) 0.51 K/uL (0.11-0.59); Monocytes % (auto) 7.4 %; Neutrophils # (auto) 4.38 K/uL (1.40-6.50); Platelet Count 192 K/uL (130-400); RDW Coefficient of Variation 13.8 % (11.5-14.5); RDW Standard Deviation 43.9 fL (36.4-46.3); Red Blood Count 4.35 M/uL (4.20-5.40); White Blood Count 6.85 K/ul (4.8-10.8)
[2024-01-10 07:36] LABS: BUN Creatinine Ratio 36.8 (10-20); Calcium 9.3 mg/dl (8.6-10.3); Potassium 4.4 mmol/L (3.5-5.1)
[2024-01-10] MEDS ORDERED: SUGAMMADEX SODIUM 200 MG/2 ML VIAL IV ONE (09:58)
--- NOTE | 2024-01-10 10:25 | Hospitalist Progress Note ---
Date of Service January 10, 2024 Assessment & Plan (1) CHF (congestive heart failure): Plan: Lumbar radiculopathy Acute T9 vertebral body fracture Myelopathy concurrent with and due to spinal stenosis of thoracic region Presented with back pain and increasing bilateral leg weakness. History of back surgery with Dr. Taveras in the past Thoracic and lumbar MRI shows acute appearing T9 vertebral body fracture, severe central canal stenosis at T9-10 Plan for T7-T10 thoracic decompression and fusion by orthospine today Pain control PT/OT and possibly rehab Muscle relaxants Acute on chronic HFpEF- resolved Mild CHF decompensation presenting as increase in bilateral leg swelling. History diastolic dysfunction. echo from 01/01 reviewed. Grade I diastolic dysfunction with LVEF of 70% Continue oral furosemide home dose. f/w FR 1800 ml. Strict I/Os, daily weights, CHF education, Asymptomatic pyuria: Contaminated specimen, no sepsis for now. Urine Culture - strep agalactiae and Gardnerella like species. Antibiotics not indicated. BPPV, stable CAD status post CABG, stable. hypertension, stable hyperlipidemia, on statin Rx DM 2 insulin requiring, reasonable control as of recent hemoglobin A1c of 7.4 last August 2023 . Continue SSI Hypothyroidism: Euthyroid, TSH ok DVT prophylaxis. heparin on hold Full code Discussed with daughter and son-in-law at bedside. Answer questions/queriess Time spent evaluating patient, direct bedside care, chart review, placing orders, interpretation of diagnostic studies, discussion with consultants, patient, and family members, as well as other required patient management activities is 60 minutes Please note the above document was generated using voice recognition software. It may contain grammatical, syntax or spelling errors. Any formal questions or concerns about the content, text or information contained within the body of this dictation should be directly addressed to the provider for clarification Admission and Anticipated Discharge Date Admission Date: January 01, 2024 Subjective Patient seen and examined at bedside She reports of back pain/discomfort along with weakness of bilateral lower extremity Vital signs are stable and she is saturating well on room air. Review of Systems Review of Systems: All systems reviewed & are unremarkable except as noted in Subjective Physical Exam Physical Exam: General- adult elderly female seen in bed. Eyes- PERRL, EOMI, Neck- supple, no JVD, Lungs- diminished BS in the bases otherwise clear to auscultation and percussion Heart- regular rhythm; no murmur, no gallop, no rub appreciated Abdomen- normal bowel sounds, soft, nontender, no masses or hepatosplenomegaly Extremities- trace edema b/l Neuro- alert, oriented x 3; PERRL, EOMI; no facial palsy; no dysarthria; Strength of bilateral lower extremity of 4/5; sensation intact Skin- warm & dry Results & Data Results & Data Vital Signs (Past 12 Hours) Vital Signs Temp Pulse Resp BP Pulse Ox O2 Del Method 01/10/24 07:13 36.7 C 43 L 16 143/56 H 95 Room Air
[2024-01-10] MEDS ORDERED: LIDOCAINE 2% 2 ML VIAL/AMP(20MG/ML) INFIL ONE ×2 (10:54)
[2024-01-10] MEDS ORDERED: ROCURONIUM BROMIDE 10 MG/ML 5 ML VIAL IV ONE ×4 (10:55→14:13)
[2024-01-10] MEDS ORDERED: PROPOFOL IV EMULSION 10 MG/ML 20 ML VIAL IV ONE (10:55)
[2024-01-10] MEDS ORDERED: MIDAZOLAM HCL 1 MG/ML 2ML VIAL ONE (10:56)
[2024-01-10] MEDS: LACTATED RINGER'S 1,000 ML IV SCH (11:42)
--- NOTE | 2024-01-10 12:11 | History & Physical Bridge Note ---
Date of Service January 10, 2024 History & Physical Bridge Note I have examined the patient, reviewed the History & Physical and in the interval since the performance of the History & Physical I have noted the following changes of clinical significance: no changes noted Thoracic decompression fusion T7-T10
--- NOTE | 2024-01-10 12:36 | Anesthesiology Consultation ---
Date of Service January 10, 2024 Assessment & Plan (1) Encounter for pre-operative examination: Chart Review Chart Review: Acceptable Risk for Surgery and Patient NOT seen in Pre Admission Testing Consults Requested none History Surgery Operation Date: 01/08/24 12:15 Proposed Procedures p MRI Thoracic & Lumbar Spine, No Contrast, with Anesthesia Sedation - Chloe Sutherland MD Operation Date: 01/10/24 12:25 Proposed Procedures p T7-T10 Thoracic Decompression and Fusion, Spinal Cord Monitoring - Benoit Taveras DO Height/Weight Height: 5 ft 1 in Weight: 97.38 kg Allergies Allergy/AdvReac Type Severity Reaction Status Date / Time latex Allergy Intermediate skin Verified 01/08/24 11:33 irritation and peels skin off prednisone AdvReac Severe STROKE Verified 01/08/24 11:33 fentanyl AdvReac Intermediate "opiate Verified 01/08/24 11:33 agonists cause severe N&V, increased heart rate, "sk hydromorphone AdvReac Intermediate "opiate Verified 01/08/24 11:33 agonists cause severe N&V, increased heart rate, "sk methadone AdvReac Intermediate "opiate Verified 01/08/24 11:33 agonists cause severe N&V, increased heart rate, "sk morphine AdvReac Intermediate "opiate Verified 01/08/24 11:33 agonists cause severe N&V, increased heart rate, " oxycodone AdvReac Intermediate "opiate Verified 01/08/24 11:33 agonists cause severe N&V, increased heart rate, " meclizine AdvReac Mild Severe N&V Verified 01/08/24 11:33 tetracycline AdvReac Mild Severe N&V Verified 01/08/24 11:33 tramadol AdvReac Blurry Verified 01/08/24 11:33 Vision Medications Home Medications Medication Instructions Recorded Confirmed Last Taken allopurinol 100 mg tablet 200 mg PO DAILY 07/03/22 01/01/24 Unknown aspirin 81 mg tablet,delayed 81 mg PO DAILY 07/03/22 07/03/22 Unknown release atorvastatin 40 mg tablet 40 mg PO QAM 07/03/22 07/03/22 Unknown baclofen 5 mg tablet 5 mg PO TID PRN Pain 07/03/22 07/03/22 Unknown docusate sodium 100 mg capsule 100 mg PO BID 07/03/22 07/03/22 Unknown furosemide 20 mg tablet (Lasix) 20 mg PO DAILY 07/03/22 07/03/22 Unknown insulin aspart U-100 100 unit/mL 7 unit subcut TIDWMEAL 07/03/22 07/03/22 Unknown subcutaneous solution insulin glargine 100 unit/mL 18 unit subcut HS 07/03/22 07/03/22 Unknown subcutaneous solution (Lantus U-100 Insulin) levothyroxine 125 mcg tablet 125 mcg PO DAILY 07/03/22 07/03/22 Unknown lidocaine 5 % topical patch 1 patch topical DAILY 07/03/22 07/03/22 Unknown losartan 50 mg tablet 50 mg PO DAILY 07/03/22 07/03/22 Unknown ondansetron HCl 4 mg tablet 4 mg PO Q4 PRN nausea/vomiting 07/03/22 07/03/22 Unknown oxycodone 5 mg tablet 10 mg PO Q4 PRN .pain 7-10 07/03/22 07/03/22 Unknown pantoprazole 40 mg tablet,delayed 40 mg PO BID 07/03/22 07/03/22 Unknown release polyethylene glycol 3350 17 gram 17 g PO DAILY PRN Constipation 07/03/22 07/03/22 Unknown oral powder packet (Miralax) potassium chloride 10 mEq 10 meq PO DAILY 07/03/22 07/03/22 Unknown tablet,extended release sennosides 8.6 mg-docusate sodium 2 tab-cap PO HS 07/03/22 07/03/22 Unknown 50 mg tablet (Senna with Docusate Sodium) sennosides 8.6 mg-docusate sodium 1 tab-cap PO .QLUNCH PRN 07/03/22 07/03/22 Unknown 50 mg tablet (Senokot-S) Constipation trazodone 50 mg tablet 25 mg PO HS 07/03/22 07/03/22 Unknown isosorbide mononitrate 60 mg 60 mg PO QAM #30 tabs 07/06/22 Unknown tablet,extended release 24 hr metoprolol tartrate 50 mg tablet 75 mg (1.5 x 50 mg) PO Q12 #90 tabs 07/06/22 Unknown amlodipine 2.5 mg tablet 5 mg PO DAILY 01/01/24 01/01/24 Unknown Active Medications Generic Name Dose Route Start Last Admin Trade Name Freq PRN Reason Stop Dose Admin Acetaminophen 650 mg 01/01/24 22:03 01/09/24 13:41 Acetaminophen 325 Mg Tab PO 01/31/24 22:02 650 mg QID PRN Administration pain/fever Allopurinol 200 mg 01/02/24 09:00 01/10/24 08:21 Allopurinol 100 Mg Tab PO 02/01/24 08:59 200 mg DAILY LETTY Administration Atorvastatin Calcium 40 mg 01/02/24 09:00 01/10/24 08:22 Atorvastatin 40 Mg Tab PO 02/01/24 08:59 40 mg QAM LETTY Administration Baclofen 5 mg 01/01/24 23:31 01/06/24 13:55 Baclofen 10 Mg Tab PO 01/31/24 23:30 5 mg TID PRN Administration Pain Docusate Sodium 100 mg 01/02/24 09:00 01/10/24 08:26 Docusate Sodium 100 Mg Cap PO 02/01/24 08:59 100 mg BID LETTY Administration Furosemide 20 mg 01/02/24 09:00 01/10/24 08:20 Furosemide 20 Mg Tab PO 02/01/24 08:59 20 mg DAILY LETTY Administration Promethazine HCl 6.25 mg in 50.25 mls @ 201 mls/hr 01/01/24 22:03 01/06/24 18:19 Phenergan IV 01/31/24 22:02 Infused Q6H PRN Infusion Nausea And Vomiting Lactated Ringer's 1,000 mls @ 15 mls/hr 01/10/24 11:45 01/10/24 11:42 Lr IV 01/11/24 11:44 0 mls/hr .Q24H LETTY Infusion Insulin Aspart 0 units 01/10/24 00:45 01/10/24 06:01 Insulin Aspart Per Unit Charge SC 02/09/24 00:44 2 units Q6 LETTY Administration Insulin Glargine 5 units 01/01/24 23:45 01/10/24 08:51 Lantus Per Unit Charge SQ 01/31/24 23:44 5 units BID LETTY Administration Isosorbide Mononitrate 60 mg 01/02/24 09:00 01/10/24 08:20 Isosorbide [place] Extended Rel 60 Mg Tabcr PO 02/01/24 08:59 60 mg QAM LETTY Administration Levothyroxine Sodium 125 mcg 01/02/24 06:30 01/10/24 06:02 Levothyroxine Sodium 125 Mcg Tablet PO 02/01/24 06:29 125 mcg DAILYBB LETTY Administration Lidocaine 1 patch 01/02/24 21:00 01/09/24 21:27 Lidocaine 5% 1 Patch TD 02/01/24 20:59 1 patch HS LETTY Administration Losartan Potassium 50 mg 01/02/24 09:00 01/09/24 08:46 Losartan Potassium 50 Mg Tab PO 02/01/24 08:59 50 mg DAILY LETTY Administration Melatonin 9 mg 01/03/24 17:57 01/05/24 21:37 Melatonin 3 Mg Tab PO 02/02/24 17:56 9 mg HS PRN Administration Sleep Metoprolol Tartrate 25 mg 01/02/24 09:00 01/10/24 08:21 Metoprolol Tartrate 25 Mg Tab PO 02/01/24 08:59 Not Given BID LETTY Miscellaneous 1 each 01/02/24 09:00 01/10/24 08:22 Remove Lidoderm Patch N/A 02/01/24 08:59 1 each QAM LETTY Administration Oxycodone HCl 5 - 10 mg 01/01/24 22:03 01/09/24 07:15 Oxycodone Hcl Ir 5 Mg Tab (Immediate Release) PO 01/15/24 22:02 5 mg QID PRN Administration Pain Pantoprazole Sodium 40 mg 01/02/24 09:00 01/10/24 08:19 Pantoprazole 40 Mg Tab PO 02/01/24 08:59 40 mg BID LETTY Administration Polyethylene Glycol 17 gm 01/01/24 23:31 01/07/24 19:32 Polyethylene (Miralax) 17 Gm Pack PO 01/31/24 23:30 17 gm DAILY PRN Administration Constipation Senna/Docusate Sodium 2 tab 01/02/24 21:00 01/09/24 21:21 Docusate Sodium/Senna 50/8.6mg Tab PO 02/01/24 20:59 2 tab HS LETTY Administration Trazodone HCl 25 mg 01/01/24 23:35 01/09/24 21:21 Trazodone Hcl 50 Mg Tab PO 01/31/24 23:34 25 mg HS LETTY Administration NPO Date Last Intake of Fluids: 01/09/24 Time Last Intake of Fluids: 23:59 Date Last Intake of Solids: 01/09/24 Time Last Intake of Solids: 18:00 Past Medical History Medical History (Updated 01/10/24 @ 12:37 by Edgar Mckenzie MD) Encounter for pre-operative examination Chronic back pain Stroke ~2019 -> treated at [facility] -> left eye blindness and gastric ulcers at the time. follows with PCP. Motion sickness Nausea and vomiting after administration of anesthetic agent Claustrophobia severe History of COVID-19 PHx 2020 - headache only at the time. Morbid obesity Spinal stenosis Hx of gout Arthritis History of gastric ulcer 2019 History of anemia No known blood transfusions Macular degeneration 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 Hyperlipidemia Left knee DJD Past Family History Family History Brother Family history of diabetes mellitus Sister Family history of diabetes mellitus Mother Family history of diabetes mellitus Father Family history of diabetes mellitus Other No family history of adverse response to anesthesia Past Surgical History Surgical History History of breast biopsy x3 History of lumbar surgery x2 (+ hardware) History of total knee replacement Right History of esophagogastroduodenoscopy (EGD) History of colonoscopy History of hysterectomy History of appendectomy History of cholecystectomy H/O partial thyroidectomy Benign lump removal History of tooth extraction History of cataract surgery R/L History of cardiac cath 09/19/20 > no stents History of coronary artery bypass graft CABG (2011) x2 vessels. follows with [facility] Cardiology Social History Smoking Status: Former smoker tobacco type: cigarettes Do You Dip or Chew Tobacco: No Hx Alcohol Use: No Hx Substance Use: No substance use type: does not use Physical Exam Vital Signs Last Vital Signs Temp 36.7 C 01/10/24 11:31 Pulse 102 H 01/10/24 11:31 Resp 20 01/10/24 11:31 BP 166/94 H 01/10/24 11:31 Pulse Ox 95 01/10/24 11:31 O2 Del Method Room Air 01/10/24 11:31 O2 Flow Rate 5 01/08/24 13:35 Testing Laboratory Results 01/10/24 06:55 01/10/24 06:55 Urine Color Yellow 01/01/24 21:55 Urine Appearance Clear (Clear) 01/01/24 21:55 Urine pH 6.0 (4.5-7.5) 01/01/24 21:55 Ur Specific [place] 1.009 (1.000-1.030) 01/01/24 21:55 Urine Protein Negative (Negative) 01/01/24 21:55 Urine Glucose (UA) Negative (Negative) 01/01/24 21:55 Urine Ketones Negative (Negative) 01/01/24 21:55 Urine Nitrite Negative (Negative) 01/01/24 21:55 Ur Leukocyte Esterase 1+ (Negative) H 01/01/24 21:55 Urine WBC (Auto) 6-10 /hpf (0-5) H 01/01/24 21:55 Urine RBC (Auto) 0-2 /hpf (0-2) 01/01/24 21:55 U Hyaline Cast (Auto) 0-2 /lpf (0-2) 01/01/24 21:55 U Epithel Cells (Auto) 0-2 /hpf (0-2) 01/01/24 21:55 Urine Bacteria (Auto) None Seen (None Seen) 01/01/24 21:55 Blood Type O Positive 01/09/24 14:42 Antibody Screen NEGATIVE 01/09/24 14:42 01/01/24 21:55 Urine Culture - Final Urine,Clean Catch Strep agalactiae (group B) Gardnerella-like bacilli 01/10/24 01/10/24 01/10/24 11:38 05:52 00:51 POC Glucose 180 H 182 H 139 H Electrocardiogram Date: 01/03/24 Findings: + NSR @ (@ 74 w/ frequent PVC's;LAD;StT & T wave abnormality;? anterior infarct ,age ?) Chest X-Ray Date: 01/02/24 Findings: + cardiomegaly and + pulmonary vascular congestion Echocardiogram Date: 01/02/24 EF: > 70% RWMA: + none Other Findings: + LVH (mod.) and + diastolic dysfunction (Grade 1) Valvular Disease: + MR (mild)
[2024-01-10] MEDS ORDERED: fentaNYL citrate PF 100 MCG/2 ML VIAL ONE ×2 (12:48→15:05)
[2024-01-10] MEDS: ceFAZolin 2000MG 2,000 MG/15 ML SYR IV ONE (12:48)
[2024-01-10] MEDS ORDERED: KETAMINE HCL 10MG/ML SYR ONE (13:11)
[2024-01-10] MEDS: BUPIVACAINE/EPINEPHRINE 0.25% 1:200,000 30 ML VIAL ONE (13:14)
[2024-01-10] MEDS: ceFAZolin 330 MG/ML 1 GM VIAL ONE (13:14)
[2024-01-10] MEDS ORDERED: DEXAMETHASONE SOD INJ 4 MG/ML VIAL ONE (13:41)
[2024-01-10] MEDS ORDERED: ONDANSETRON INJ 2 MG/ML 2 ML VIAL ONE (13:41)
[2024-01-10] MEDS ORDERED: KETOROLAC 30 MG/ML VIAL ONE (13:42)
[2024-01-10] MEDS ORDERED: ACETAMINOPHEN 1000 MG/100 ML IV IV ONE (13:50)
[2024-01-10] MEDS ORDERED: PROMETHAZINE HCL 6.25 MG in SODIUM CHLORIDE 0.9% 50 ML IV PRN (14:41)
[2024-01-10] MEDS ORDERED: ONDANSETRON INJ 2 MG/ML 2 ML VIAL IV PRN (14:41)
[2024-01-10] MEDS ORDERED: ATROPINE SULFATE 0.1 MG/ML 10ML SYR IV PRN (14:41)
[2024-01-10] MEDS ORDERED: ePHEDrine sulfate 50 MG/ML AMP IV PRN (14:41)
[2024-01-10] MEDS: FLOSEAL HEMOSTATIC MATRIX 10ML TOP ONE (14:50)
--- NOTE | 2024-01-10 15:00 | Operative Report ---
Post Operative Report Pre & Post Diagnosis Operation Date: 01/10/24 12:25 Pre-Op Diagnosis: Myelopathy concurrent with and due to spinal stenosis of thoracic region Post-Op Diagnosis: Myelopathy concurrent with and due to spinal stenosis of thoracic region I identified the patient and participated in the time-out.: Yes Procedure Operation Date: 01/10/24 12:25 Actual Procedures #1 removal of posterior hardware T10 and proximal aspect of the lisbeth. #2 expiration fusion T10-T11. #3 decompression with bilateral medial facetectomies T9-T10. #4 posterior spinal fusion T7-T11. #5 placed posterior segmental instrumentation T7-T10 with connectors at T11-T12. #6 placement locally harvested morselized autograft posterior gutters. #7 placement infuse collagen sponge combined with Koros in the posterior lateral gutters T7-T11. Surgeon Benoit Taveras, DO Ceramic Sprayer Marcellus Bright Estimated Blood Loss 250 Findings See Below The patient is 5 foot 1 weighing over 97 kg with BMI in excess of 40. Patient's body habitus did contribute to significant technical difficulty with positioning exposure and the procedure itself and at least 50% increased operative time. I am recommending a modifier 22. Specimens None Indications This is an 78-year-old female well-known to me the presents with marked blind st atus of the past several weeks. Imaging demonstrates evidence of T9-T10 instability with myelomalacia and myelopathy. Subsequent she is here for decompression and stabilization. Description of Procedure Patient was met with identified informed consent obtained. Patient was then taken to the operative suite underwent intubation placed in a prone position on the Rad table atop the Mika frame. All bony promises well-padded eyes inspected to ensure no external pressure placed upon the. This point the thoracolumbar spine was prepped and draped no sterile fashion. Sharp dissection with the assistance of Bovie cautery performed down to and exposing the lamina transverse processes of T7-T8-T9 and instrumentation at T10-T11 bilaterally. The T10 pedicle screw was obviously loose. Subsequently I cut the proximal aspect of the rods just distal to the T10 pedicle screw. Pedicle screw was loose and removed without difficulty. I then placed connectors to the T11-T12 segment of the lisbeth. I then performed a decompression with bilateral medial facetectomies at T9-T10 addressing severe spinal stenosis. Pedicle screws then placed in T7-T8-T9 and reinserted in T10 and to a different plane to obtain adequate purchase. Appropriate size rods were then placed from T8 7 to the connectors at T8 11 T12. Were locked into position. This did include cross- link. The transverse processes of T7-T8 T9-T10-T11 burred to subcortical bone. Infuse collagen sponge combined with Koros bone graft placed in the posterior gutters. 15 round NANDO drain inserted. The incision was then closed with 1 Vicryl the fascia 2-0 Vicryl subcutaneously and 4 Monocryl for fascial closure. Steri-Strips sterile dressing placed. Patient awakened taken the PACU stable condition. Please note spinal cord monitoring was utilized after procedure no changes noted. Marcellus Bright was present at the entire procedure and all the patient positioning complex portion of the surgery and final skin closure. I attest to the content of the Intraoperative Record and any orders documented therein. Any exceptions are noted below.
--- NOTE | 2024-01-10 15:07 | Fluoroscopy Report ---
[place] thoracic spine 2V CLINICAL HISTORY: T7-T10 D/F COMPARISON STUDY: Thoracic spine MRI January 08, 2024. FLUOROSCOPY TIME: 52 seconds. Ka, r: 15.92 mGy FLUOROSCOPIC IMAGES: 3 FINDINGS: Fluoroscopy was provided during hardware removal with subsequent multilevel decompression a nd fusion. Exact localization is not possible given partial visualization of the thoracolumbar spine. Visualized portions of the hardware are intact. IMPRESSION: Fluoroscopy provided during hardware removal and subsequent multilevel decompression and fusion. ACT 112: Negative or not required by law. Electronically signed by: Fortino Monaco M.D. 01/10/2024 3:05 PM
[2024-01-10] MEDS: fentaNYL citrate PF 100 MCG/2 ML VIAL IV PRN (15:40)
[2024-01-10] MEDS ORDERED: LORazepam 0.5 MG TAB PO PRN (16:31)
[2024-01-10] MEDS ORDERED: diphenhydrAMINE Capsule 25 MG CAP PO PRN (16:31)
[2024-01-10] MEDS ORDERED: NALOXONE HCL 0.4 MG/1 ML VIAL/CARP IV PRN (16:31)
[2024-01-10] MEDS ORDERED: DO NOT ADMINISTER FLU VACCINE PRN (16:31)
[2024-01-10] MEDS ORDERED: hydrOXYzine HCl 25 MG TAB PO PRN (16:31)
[2024-01-10] MEDS ORDERED: DO NOT ADMINISTER PNEUMOCOCCAL VACCINE PRN (16:31)
[2024-01-10] MEDS ORDERED: LORazepam 2 MG/1 ML VIAL IV PRN (16:31)
[2024-01-10] MEDS ORDERED: ALUMINUM/MAGNESIUM SUSP 30 ML UDC PO PRN (16:31)
[2024-01-10] MEDS ORDERED: PROMETHAZINE 12.5 MG/50.5 ML BAG IV PRN (16:31)
--- NOTE | 2024-01-10 16:37 | Anesthesiology Progress Note ---
Date of Service January 10, 2024 Anesthesia Post Procedure Vital Signs Vital Signs: Temp Pulse Pulse Resp BP BP Pulse Ox 01/10/24 16:30 36.2 C L 99 H 18 118/58 L 94 01/10/24 16:15 36.4 C L 91 H 20 125/62 100 01/10/24 16:05 36.4 C L 89 20 130/67 100 01/10/24 15:55 90 20 127/53 L 99 01/10/24 15:45 92 H 17 146/62 H 94 01/10/24 15:35 90 17 161/80 H 94 01/10/24 15:27 36.1 C L 97 H 16 174/90 H 94 01/10/24 11:31 36.7 C 102 H 20 166/94 H 95 01/10/24 07:13 36.7 C 43 L 16 143/56 H 95 01/09/24 20:05 36.5 C 54 L 18 111/74 93 O2 Del Method O2 Flow Rate 01/10/24 16:30 Room Air 01/10/24 16:15 Room Air 01/10/24 16:05 Room Air 01/10/24 15:55 Oxymask 3 01/10/24 15:45 Oxymask 6 01/10/24 15:35 Oxymask 6 01/10/24 15:27 Oxymask 6 01/10/24 11:31 Room Air 01/10/24 07:13 Room Air 01/09/24 20:05 Room Air Pain Intensity Medial Back: Pain Intensity: 10 Left Leg: Pain Intensity: 8 Transfer of Care Handoff Completed per policy Notes Mental Status: alert / awake / arousable Patient Amnestic to Procedure: Yes Nausea / Vomiting: adequately controlled Pain: adequately controlled Airway Patency, RR, SpO2: stable & adequate BP & HR: stable & adequate Hydration State: stable & adequate Anesthetic Complications: no major complications apparent
[2024-01-10] MEDS: FAMOTIDINE/PF 20 MG/2 ML VIAL IV ONE (16:41)
[2024-01-10] MEDS: ONDANSETRON INJ 2 MG/ML 2 ML VIAL IV PRN (17:31)
[2024-01-10] MEDS: HYDROmorphone INJ 1 MG/ML SYRINGE IV PRN (17:31)
[2024-01-10] MEDS: dexAMETHasone 6 MG in SYRINGE 0 ML IV SCH (18:06)
[2024-01-10] MEDS: DOCUSATE SODIUM/SENNA 50/8.6MG TAB PO SCH (20:11)
[2024-01-10] MEDS: ceFAZolin 2000MG 2,000 MG/15 ML SYR IV SCH (20:53)
[2024-01-10] MEDS: ACETAMINOPHEN 1,000 MG/100 ML VIAL IV PRN (23:10)
[2024-01-11] MEDS: oxyCODONE HCL IR 5 MG TAB (IMMEDIATE RELEASE) PO PRN (05:20)
[2024-01-11] MEDS: POLYETHYLENE (MIRALAX) 17 GM PACK PO SCH (05:21)
[2024-01-11] MEDS: METOCLOPRAMIDE HCL INJ 5 MG/ML 2 ML VIAL IV PRN (08:27)
[2024-01-11 08:36] LABS: Basophils # (auto) 0.01 K/uL (0.00-0.20); Basophils % (auto) 0.1 %; Hematocrit (blood only) 35.3 % (37.0-47.0); Hemoglobin 11.5 g/dl (12.0-16.0); Immature Granulocytes # (auto) 0.04 K/uL (0.01-0.20); Immature Granulocytes % (auto) 0.4 %; Lymphocytes % (auto) 4.5 %; Mean Corpuscular Hgb Conc 32.6 g/dL (32.0-36.0); Mean Corpuscular Volume 86.1 fL (80.0-100.0); Mean Platelet Volume 12.5 fL (9.4-12.4); Monocytes # (auto) 0.58 K/uL (0.11-0.59); Monocytes % (auto) 5.2 %; Neutrophils # (auto) 10.04 K/uL (1.40-6.50); Neutrophils % (auto) 89.8 %; Platelet Count 219 K/uL (130-400); RDW Coefficient of Variation 13.7 % (11.5-14.5); RDW Standard Deviation 42.8 fL (36.4-46.3); White Blood Count 11.17 K/ul (4.8-10.8)
[2024-01-11 09:16] LABS: BUN Creatinine Ratio 28.2 (10-20); Calcium 9.2 mg/dl (8.6-10.3); Creatinine Clr Calc Pharmacy 46.5 ml/min; Potassium 4.6 mmol/L (3.5-5.1)
--- NOTE | 2024-01-11 09:26 | Orthopedic Progress Note ---
Date of Service January 11, 2024 Assessment & Plan (1) Myelopathy concurrent with and due to spinal stenosis of thoracic region: Plan: At this time initiate physical therapy and Occupational Therapy. Will assess her progress over the course of the next few days and she may be a candidate for rehab. Admission and Anticipated Discharge Date Admission Date: January 01, 2024 Subjective Patient's back pain is controlled. Leg symptoms are improved. Physical Exam Physical Exam: Patient is up in bed. Appears comfortable. Discussed when to testing lower extremities. Results & Data Vital Signs (Past 12 Hours) Vital Signs Temp Pulse Resp BP BP Pulse Ox O2 Del Method 01/11/24 07:46 85 16 118/68 94 Room Air 01/11/24 07:19 36.7 C 88 16 137/74 93 Room Air 01/11/24 03:17 36.9 C 85 15 126/74 93 Room Air 01/10/24 23:19 36.6 C 96 H 16 127/78 96 Room Air Queries Orthopedic Spine Obesity: Yes
[2024-01-11] MEDS ORDERED: PHARMACY GLYCEMIC MGMT CONSULT PRN (09:39)
--- NOTE | 2024-01-11 10:16 | Hospitalist Progress Note ---
Date of Service January 11, 2024 Assessment & Plan (1) CHF (congestive heart failure): Plan: Lumbar radiculopathy Acute T9 vertebral body fracture Myelopathy concurrent with and due to spinal stenosis of thoracic region Presented with back pain and increasing bilateral leg weakness. History of back surgery with Dr. Taveras in the past Thoracic and lumbar MRI shows acute appearing T9 vertebral body fracture, severe central canal stenosis at T9-10 Status post ( on 01/10/2024) by [facility] #1 removal of posterior hardware T10 and proximal aspect of the lisbeth. #2 expiration fusion T10-T11. #3 decompression with bilateral medial facetectomies T9-T10. #4 posterior spinal fusion T7-T11. #5 placed posterior segmental instrumentation T7-T10 with connectors at T11- T12. #6 placement locally harvested morselized autograft posterior gutters. #7 placement infuse collagen sponge combined with Koros in the posterior lateral gutters T7-T11. Pain control on dexamethasone as per orthospine. PT/OT and possibly rehab Muscle relaxants Acute on chronic HFpEF- resolved Mild CHF decompensation presenting as increase in bilateral leg swelling. History diastolic dysfunction. echo from 01/01 reviewed. Grade I diastolic dysfunction with LVEF of 70% Continue oral furosemide home dose. f/w FR 1800 ml. Strict I/Os, daily weights, CHF education, Type 2 DM HbA1c of 7.4 in August 2023 Elevated blood glucose due to dexamethasone Pharmacy consulted for insulin management Goal BG of 140- 180 Asymptomatic pyuria: Contaminated specimen, no sepsis for now. Urine Culture - strep agalactiae and Gardnerella like species. Antibiotics not indicated. BPPV, stable CAD status post CABG, stable. hypertension, stable hyperlipidemia, on statin Rx Hypothyroidism: Euthyroid, TSH ok DVT prophylaxis. heparin on hold, SCDs Full code Time spent evaluating patient, direct bedside care, chart review, placing orders, interpretation of diagnostic studies, discussion with consultants, patient, and family members, as well as other required patient management activities is 50 minutes Please note the above document was generated using voice recognition software. It may contain grammatical, syntax or spelling errors. Any formal questions or concerns about the content, text or information contained within the body of this dictation should be directly addressed to the provider for clarification Admission and Anticipated Discharge Date Admission Date: January 01, 2024 Subjective Patient seen and examined at bedside. She reports her leg weakness has slightly improved and back pain is well- controlled on current medication. Her blood glucose has been in higher range due to initiation of steroids Review of Systems Review of Systems: All systems reviewed & are unremarkable except as noted in Subjective Physical Exam Physical Exam: General- adult elderly female seen in bed. Eyes- PERRL, EOMI, Neck- supple, no JVD, Lungs- diminished BS in the bases otherwise clear to auscultation and percussion Heart- regular rhythm; no murmur, no gallop, no rub appreciated Abdomen- normal bowel sounds, soft, nontender, no masses or hepatosplenomegaly Extremities- trace edema b/l; Dressing over the incision intact, clean and dry with no overlying soakage. Neuro- alert, oriented x 3; PERRL, EOMI; no facial palsy; no dysarthria; Strength of bilateral lower extremity of 4/5; sensation intact Skin- warm & dry Results & Data Results & Data Vital Signs (Past 12 Hours) Vital Signs Temp Pulse Resp BP BP Pulse Ox O2 Del Method 01/11/24 07:46 85 16 118/68 94 Room Air 01/11/24 07:19 36.7 C 88 16 137/74 93 Room Air 01/11/24 03:17 36.9 C 85 15 126/74 93 Room Air 01/10/24 23:19 36.6 C 96 H 16 127/78 96 Room Air
--- NOTE | 2024-01-11 15:15 | Pharmacy Report ---
Pharmacy Glycemic Short Note 2 - Date of Service January 11, 2024 - Glycemic Short BSG Results (Last 24 hours): 01/10/24 01/10/24 01/11/24 16:36 20:29 07:52 Glucose POC Glucose 232 H 255 H 273 H 01/11/24 01/11/24 08:10 11:44 Glucose 316 H* POC Glucose 276 H OUTPATIENT ANTIDIABETIC REGIMEN: * Lantus 18 units HS, Humalog 7 units with meals previously * A1c pending ASSESSMENT: * Patient POD #1 following spinal surgery, BSGs trended upward yesterday with addition of dexamethasone 6 mg q8H, last dose this AM --> to continue dexamethasone 8 mg daily (01/11 am) * Tightened novolog parameters * Increase lantus 50% today- reassess tomorrow PLAN FOR INPATIENT GLYCEMIC CONTROL: * Hold outpatient oral diabetes medications * Basal insulin * Lantus 5 units SQ this AM, 15 units with dinner, then ordered 15 units HS (to begin 01/11) * Bolus insulin * NovoLog per scale ACHS or Q6hrs while NPO * Goal Range: Low 140 mg/dL - High 180 mg/dL * Correction Factor: 20 mg/dL/unit * Nutritional / Prandial insulin per carb ratio of 1 unit per 8 grams CHO consumed
[2024-01-11] MEDS: LANTUS PER UNIT CHARGE SQ SCH (16:49)
[2024-01-11] MEDS: ACETAMINOPHEN 500 MG TAB PO PRN (19:39)
[2024-01-11] MEDS: ONDANSETRON 4 MG OD TAB PO PRN (23:15)
--- NOTE | 2024-01-12 07:32 | Orthopedic Progress Note ---
Date of Service January 12, 2024 Assessment & Plan (1) Myelopathy concurrent with and due to spinal stenosis of thoracic region: Plan: Patient is stable postoperative #2 status post thoracic decompression and extension of her fusion to T7. She realizes given take some time to recover. She is going to need rehab placement. Will continue to mobilize her with physical therapy and Occupational Therapy continue with pain control measures as well as GI and DVT prophylaxis. Hopefully will get her to rehab later this week. Admission and Anticipated Discharge Date Admission Date: January 01, 2024 Subjective Patient was seen bedside in room 360 bed 1. She is doing okay this morning. She still has a lot of back pain. She has less numbness in her legs. Her pain is relatively well-controlled she has no nausea. She denies any other numbness, tingling, or paresthesias. Physical Exam Physical Exam: On exam she is alert and oriented. She answers and asks questions appropriately. Her lower extremity motor exam reveals no focal atrophy she is able lift both legs up off the bed. She has good plantar and dorsiflexion of both legs. Sensations intact to light touch. Her abdomen soft and nontender calves are supple and nontender. Cardiovascular exam reveals no gross abnormalities.
[2024-01-12] MEDS: dexAMETHasone 8 MG in SYRINGE 0 ML IV SCH (08:09)
[2024-01-12 08:31] LABS: Basophils # (auto) 0.02 K/uL (0.00-0.20); Basophils % (auto) 0.2 %; Hematocrit (blood only) 36.1 % (37.0-47.0); Hemoglobin 11.6 g/dl (12.0-16.0); Immature Granulocytes # (auto) 0.03 K/uL (0.01-0.20); Immature Granulocytes % (auto) 0.3 %; Lymphocytes # (auto) 1.73 K/uL (1.20-3.40); Lymphocytes % (auto) 14.5 %; Mean Corpuscular Hemoglobin 27.9 pg (25.0-34.0); Mean Corpuscular Hgb Conc 32.1 g/dL (32.0-36.0); Mean Corpuscular Volume 86.8 fL (80.0-100.0); Mean Platelet Volume 12.2 fL (9.4-12.4); Monocytes # (auto) 1.07 K/uL (0.11-0.59); Neutrophils # (auto) 9.05 K/uL (1.40-6.50); Platelet Count 209 K/uL (130-400); RDW Coefficient of Variation 13.9 % (11.5-14.5); RDW Standard Deviation 43.8 fL (36.4-46.3); Red Blood Count 4.16 M/uL (4.20-5.40)
[2024-01-12 08:43] LABS: Calcium 9.2 mg/dl (8.6-10.3); Creatinine Clr Calc Pharmacy 59.9 ml/min
[2024-01-12] MEDS: HYDROmorphone INJ 0.5 MG/0.5 ML SYR IV PRN (12:14)
--- NOTE | 2024-01-12 14:03 | Pharmacy Report ---
Pharmacy Glycemic Short Note 2 - Date of Service January 12, 2024 - Glycemic Short BSG Results (Last 24 hours): 01/11/24 01/11/24 01/12/24 16:40 20:09 07:51 Glucose POC Glucose 299 H 229 H 161 H 01/12/24 01/12/24 08:06 11:37 Glucose 157 H POC Glucose 220 H OUTPATIENT ANTIDIABETIC REGIMEN: * Lantus 18 units HS, Humalog 7 units with meals previously * A1c pending ASSESSMENT: 01/11 * Fasting improved this AM with 20 units of lantus given yesterday * Prandial BSGs improved but still elevated- will tighten carb ratio as dexamethasone 8 mg daily continues, adjust goal range 01/10 * Patient POD #1 following spinal surgery, BSGs trended upward yesterday with addition of dexamethasone 6 mg q8H, last dose this AM --> to continue dexamethasone 8 mg daily (01/11 am) * Tightened novolog parameters * Increase lantus 50% today- reassess tomorrow PLAN FOR INPATIENT GLYCEMIC CONTROL: * Hold outpatient oral diabetes medications * Basal insulin * Lantus 20 units HS * Bolus insulin * NovoLog per scale ACHS or Q6hrs while NPO * Goal Range: Low 120 mg/dL - High 160 mg/dL * Correction Factor: 20 mg/dL/unit * Nutritional / Prandial insulin per carb ratio of 1 unit per 7 grams CHO consumed
--- NOTE | 2024-01-12 14:20 | Hospitalist Progress Note ---
Date of Service January 12, 2024 Assessment & Plan (1) CHF (congestive heart failure): Plan: Lumbar radiculopathy Acute T9 vertebral body fracture Myelopathy concurrent with and due to spinal stenosis of thoracic region Presented with back pain and increasing bilateral leg weakness. Thoracic and lumbar MRI shows acute appearing T9 vertebral body fracture, severe central canal stenosis at T9-10 Status post ( on 01/10/2024) by [facility] #1 removal of posterior hardware T10 and proximal aspect of the lisbeth. #2 expiration fusion T10-T11. #3 decompression with bilateral medial facetectomies T9-T10. #4 posterior spinal fusion T7-T11. #5 placed posterior segmental instrumentation T7-T10 with connectors at T11- T12. #6 placement locally harvested morselized autograft posterior gutters. #7 placement infuse collagen sponge combined with Koros in the posterior lateral gutters T7-T11. Pain control on dexamethasone as per [facility]. PT/OT and possibly rehab Muscle relaxants Acute on chronic HFpEF- resolved Mild CHF decompensation presenting as increase in bilateral leg swelling. History diastolic dysfunction. echo from 01/01 reviewed. Grade I diastolic dysfunction with LVEF of 70% Continue oral furosemide home dose. Strict I/Os, daily weights, CHF education, Type 2 DM HbA1c of 7.4 in August 2023 Elevated blood glucose due to dexamethasone Pharmacy consulted for insulin management Goal BG of 140- 180 Asymptomatic pyuria: Contaminated specimen, no sepsis for now. Urine Culture - strep agalactiae and Gardnerella like species. Antibiotics not indicated. BPPV, stable CAD status post CABG, stable. hypertension, stable hyperlipidemia, on statin Rx Hypothyroidism: Euthyroid, TSH ok DVT prophylaxis. heparin on hold, SCDs Full code Time spent evaluating patient, direct bedside care, chart review, placing orders, interpretation of diagnostic studies, discussion with consultants, patient, and family members, as well as other required patient management activities is 50 minutes Please note the above document was generated using voice recognition software. It may contain grammatical, syntax or spelling errors. Any formal questions or concerns about the content, text or information contained within the body of this dictation should be directly addressed to the provider for clarification Admission and Anticipated Discharge Date Admission Date: January 01, 2024 Subjective Patient seen and examined at bedside. She is sitting up on chair at the side of the bed without any distress. She reports that the pain is well-controlled on current medication. Her leg strength has improved compared to yesterday. No significant events overnight Review of Systems Review of Systems: All systems reviewed & are unremarkable except as noted in Subjective Results & Data Results & Data Vital Signs (Past 12 Hours) Vital Signs Temp Pulse Resp BP Pulse Ox O2 Del Method 01/12/24 13:01 36.7 C 75 16 118/73 90 Room Air 01/12/24 07:46 36.3 C L 88 16 128/58 L 96 Room Air
[2024-01-12] MEDS ORDERED: LANTUS PER UNIT CHARGE SQ SCH (21:00)
[2024-01-12] MEDS: LANTUS PER UNIT CHARGE SQ SCH (21:57)
[2024-01-13 07:23] LABS: Basophils # (auto) 0.02 K/uL (0.00-0.20); Basophils % (auto) 0.2 %; Eosinophils # (auto) 0.04 K/uL (0.00-0.50); Eosinophils % (auto) 0.3 %; Hematocrit (blood only) 34.7 % (37.0-47.0); Hemoglobin 11.5 g/dl (12.0-16.0); Immature Granulocytes # (auto) 0.04 K/uL (0.01-0.20); Immature Granulocytes % (auto) 0.3 %; Lymphocytes # (auto) 1.76 K/uL (1.20-3.40); Lymphocytes % (auto) 14.8 %; Mean Corpuscular Hemoglobin 28.4 pg (25.0-34.0); Mean Corpuscular Hgb Conc 33.1 g/dL (32.0-36.0); Mean Corpuscular Volume 85.7 fL (80.0-100.0); Mean Platelet Volume 12.6 fL (9.4-12.4); Monocytes # (auto) 1.11 K/uL (0.11-0.59); Monocytes % (auto) 9.4 %; Neutrophils # (auto) 8.89 K/uL (1.40-6.50); Platelet Count 217 K/uL (130-400); RDW Coefficient of Variation 13.7 % (11.5-14.5); RDW Standard Deviation 43.1 fL (36.4-46.3); Red Blood Count 4.05 M/uL (4.20-5.40); White Blood Count 11.86 K/ul (4.8-10.8)
[2024-01-13 07:32] LABS: BUN Creatinine Ratio 29.2 (10-20); Calcium 9.3 mg/dl (8.6-10.3); Creatinine Clr Calc Pharmacy 66.5 ml/min; Potassium 4.2 mmol/L (3.5-5.1)
[2024-01-13] MEDS: bisacodyL 10 MG SUPP PR PRN (08:18)
--- NOTE | 2024-01-13 09:05 | Hospitalist Progress Note ---
Date of Service January 13, 2024 Assessment & Plan (1) CHF (congestive heart failure): Plan: Lumbar radiculopathy Acute T9 vertebral body fracture Myelopathy concurrent with and due to spinal stenosis of thoracic region Presented with back pain and increasing bilateral leg weakness. Thoracic and lumbar MRI shows acute appearing T9 vertebral body fracture, severe central canal stenosis at T9-10 Status post ( on 01/10/2024) by [facility] #1 removal of posterior hardware T10 and proximal aspect of the lisbeth. #2 expiration fusion T10-T11. #3 decompression with bilateral medial facetectomies T9-T10. #4 posterior spinal fusion T7-T11. #5 placed posterior segmental instrumentation T7-T10 with connectors at T11- T12. #6 placement locally harvested morselized autograft posterior gutters. #7 placement infuse collagen sponge combined with Koros in the posterior lateral gutters T7-T11. Pain control on dexamethasone as per [facility]. Continue PT/OT Acute on chronic HFpEF- resolved Mild CHF decompensation presenting as increase in bilateral leg swelling. History diastolic dysfunction. echo from 01/01 reviewed. Grade I diastolic dysfunction with LVEF of 70% Continue oral furosemide home dose. Strict I/Os, daily weights, CHF education, Type 2 DM HbA1c of 7.4 in August 2023 Elevated blood glucose due to dexamethasone Pharmacy consulted for insulin management Goal BG of 140- 180 Asymptomatic pyuria: rine Culture -strep agalactiae and Gardnerella like species. Antibiotics not indicated. BPPV, stable CAD status post CABG, stable. hypertension, stable hyperlipidemia, on statin Rx Hypothyroidism: Euthyroid, TSH ok DVT prophylaxis. heparin on hold, SCDs. as per [facility] Full code Time spent evaluating patient, direct bedside care, chart review, placing orders, interpretation of diagnostic studies, discussion with consultants, patient, and family members, as well as other required patient management activities is 50 minutes Please note the above document was generated using voice recognition software. It may contain grammatical, syntax or spelling errors. Any formal questions or concerns about the content, text or information contained within the body of this dictation should be directly addressed to the provider for clarification Admission and Anticipated Discharge Date Admission Date: January 01, 2024 Subjective Patient seen and examined at bedside. She reports that her pain is well-controlled on current medication She reports improving strength in her legs No significant events overnight Review of Systems Review of Systems: All systems reviewed & are unremarkable except as noted in Subjective Physical Exam Physical Exam: General- adult elderly female seen in bed. Eyes- PERRL, EOMI, Neck- supple, no JVD, Lungs- diminished BS in the bases otherwise clear to auscultation and percussion Heart- regular rhythm; no murmur, no gallop, no rub appreciated Abdomen- normal bowel sounds, soft, nontender, no masses or hepatosplenomegaly Extremities- trace edema b/l; Dressing over the incision intact, clean and dry with no overlying soakage. Neuro- alert, oriented x 3; PERRL, EOMI; no facial palsy; no dysarthria; Strength of bilateral lower extremity of 4/5; sensation intact Skin- warm & dry Results & Data Results & Data Vital Signs (Past 12 Hours) Vital Signs Temp Pulse Resp BP Pulse Ox O2 Del Method 01/13/24 07:29 36.5 C 75 16 145/83 H 96 Room Air
[2024-01-13] MEDS: SOD PHOSPHATE/SOD BIPHOSPHATE ENEMA 132 ML BTL PR PRN (11:02)
--- NOTE | 2024-01-13 11:20 | Orthopedic Progress Note ---
Date of Service January 13, 2024 Assessment & Plan (1) Myelopathy concurrent with and due to spinal stenosis of thoracic region: Plan: At this time continue physical therapy and Occupational Therapy and anticipate discharge to rehab in the next few days. Admission and Anticipated Discharge Date Admission Date: January 01, 2024 Subjective Patient's back pain is controlled. She is tolerating physical therapy. Physical Exam Physical Exam: Patient is in the chair at the bedside. She is comfortable. Has reasonable strength testing. Results & Data Vital Signs (Past 12 Hours) Vital Signs Temp Pulse Resp BP Pulse Ox O2 Del Method 01/13/24 07:29 36.5 C 75 16 145/83 H 96 Room Air Queries Orthopedic Spine Obesity: Yes
[2024-01-13] MEDS: MINERAL OIL ENEMA 133 ML BTL PR ONE (12:09)
[2024-01-13] MEDS: MAGNESIUM HYDROXIDE SUSP 30 ML UDC PO PRN (15:38)
[2024-01-13] MEDS: HYDROmorphone INJ 0.5 MG/0.5 ML SYR IV PRN (18:28)
[2024-01-14 06:46] LABS: Basophils # (auto) 0.02 K/uL (0.00-0.20); Basophils % (auto) 0.2 %; Hematocrit (blood only) 35.4 % (37.0-47.0); Hemoglobin 11.7 g/dl (12.0-16.0); Immature Granulocytes # (auto) 0.06 K/uL (0.01-0.20); Immature Granulocytes % (auto) 0.5 %; Lymphocytes # (auto) 2.06 K/uL (1.20-3.40); Lymphocytes % (auto) 16.6 %; Mean Corpuscular Hemoglobin 28.5 pg (25.0-34.0); Mean Corpuscular Hgb Conc 33.1 g/dL (32.0-36.0); Mean Corpuscular Volume 86.1 fL (80.0-100.0); Mean Platelet Volume 12.3 fL (9.4-12.4); Monocytes # (auto) 1.34 K/uL (0.11-0.59); Monocytes % (auto) 10.8 %; Neutrophils # (auto) 8.94 K/uL (1.40-6.50); Neutrophils % (auto) 71.9 %; Platelet Count 231 K/uL (130-400); RDW Coefficient of Variation 13.8 % (11.5-14.5); RDW Standard Deviation 43.2 fL (36.4-46.3); Red Blood Count 4.11 M/uL (4.20-5.40); White Blood Count 12.42 K/ul (4.8-10.8)
[2024-01-14 07:14] LABS: BUN Creatinine Ratio 29.7 (10-20); Calcium 9.2 mg/dl (8.6-10.3); Creatinine Clr Calc Pharmacy 64.7 ml/min; Potassium 4.2 mmol/L (3.5-5.1)
[2024-01-14 07:54] LABS: Estimated Average Glucose 166 mg/dl; Hemoglobin A1C 7.4 % (4.5-5.6)
[2024-01-14] MEDS: FAMOTIDINE 20 MG TAB PO PRN (08:42)
[2024-01-14] MEDS: MAGNESIUM HYDROXIDE SUSP 30 ML UDC PO SCH (09:53)
[2024-01-14] MEDS: bisacodyL 10 MG SUPP PR STA (11:54)
--- NOTE | 2024-01-14 12:16 | XRay Report ---
KUB CLINICAL HISTORY: Evaluate for ileus. COMPARISON STUDY: CT of the abdomen and pelvis July 03, 2022. KUB January 04, 2024. FINDINGS: Postoperative findings within the thoracolumbar spine are incidentally noted. There are med aung sternotomy wires. There is mild gaseous distention of several small and large bowel loops. A mode rate amount stool is decreased in amount since prior KUB. IMPRESSION: 1. Mild gaseous distention of several small and large bowel loops. This may reflect an ileus. 2. Moderate stool, significantly decreased in amount since KUB. ACT 112: Negative or not required by law. Electronically signed by: Fortino Monaco M.D. 01/14/2024 12:15 PM
--- NOTE | 2024-01-14 12:50 | Hospitalist Progress Note ---
Date of Service January 14, 2024 Assessment & Plan (1) CHF (congestive heart failure): Plan: Lumbar radiculopathy Acute T9 vertebral body fracture Myelopathy concurrent with and due to spinal stenosis of thoracic region Presented with back pain and increasing bilateral leg weakness. Thoracic and lumbar MRI shows acute appearing T9 vertebral body fracture, severe central canal stenosis at T9-10 Status post ( on 01/10/2024) by [facility] #1 removal of posterior hardware T10 and proximal aspect of the lisbeth. #2 expiration fusion T10-T11. #3 decompression with bilateral medial facetectomies T9-T10. #4 posterior spinal fusion T7-T11. #5 placed posterior segmental instrumentation T7-T10 with connectors at T11- T12. #6 placement locally harvested morselized autograft posterior gutters. #7 placement infuse collagen sponge combined with Koros in the posterior lateral gutters T7-T11. Pain control KUB done as patient did not have bowel movement after surgery; mild gaseous distention seen, possibly ileus. Moderate stool seen as well; improvement since KUB from 01/03 Minimize opiates as possible Aggressive bowel regimen Clear liquid diet for now; advance as tolerated. Acute on chronic HFpEF- resolved Mild CHF decompensation presenting as increase in bilateral leg swelling. History diastolic dysfunction. echo from 01/01 reviewed. Grade I diastolic dysfunction with LVEF of 70% Continue oral furosemide home dose. Strict I/Os, daily weights, CHF education, Type 2 DM HbA1c of 7.4 in August 2023 Elevated blood glucose due to dexamethasone post-op Pharmacy consulted for insulin management Discussed with pharmacy as dexamethasone has been discontinued since 01/13. Patient insulin requirement is expected to decrease. I discussed liberalizing blood glucose range to 1 40-1 80 Mg per DL. Asymptomatic pyuria: rine Culture -strep agalactiae and Gardnerella like species. Antibiotics not indicated. BPPV, stable CAD status post CABG, stable. hypertension, stable hyperlipidemia, on statin Rx Hypothyroidism: Euthyroid, TSH ok DVT prophylaxis. heparin on hold, SCDs. as per [facility] Full code Time spent evaluating patient, direct bedside care, chart review, placing orders, interpretation of diagnostic studies, discussion with consultants, patient, and family members, as well as other required patient management activities is 50 minutes Please note the above document was generated using voice recognition software. It may contain grammatical, syntax or spelling errors. Any formal questions or concerns about the content, text or information contained within the body of this dictation should be directly addressed to the provider for clarification Admission and Anticipated Discharge Date Admission Date: January 01, 2024 Subjective Patient seen and examined at bedside. She reports that the pain is controlled with current medication No bowel movement yet. Review of Systems Review of Systems: All systems reviewed & are unremarkable except as noted in Subjective Physical Exam Physical Exam: General- adult elderly female seen in bed. Eyes- PERRL, EOMI, Neck- supple, no JVD, Lungs- diminished BS in the bases otherwise clear to auscultation and percussion Heart- regular rhythm; no murmur, no gallop, no rub appreciated Abdomen- normal bowel sounds, soft, nontender, no masses or hepatosplenomegaly Extremities- trace edema b/l; Dressing over the incision intact, clean and dry with no overlying soakage. Neuro- alert, oriented x 3; PERRL, EOMI; no facial palsy; no dysarthria; Strength of bilateral lower extremity of 4/5; sensation intact Skin- warm & dry Results & Data Results & Data Vital Signs (Past 12 Hours) Vital Signs Temp Pulse Resp BP Pulse Ox O2 Del Method 01/14/24 07:09 36.6 C 60 18 112/60 96 Room Air
--- NOTE | 2024-01-14 13:02 | Orthopedic Progress Note ---
Date of Service January 14, 2024 Assessment & Plan (1) Myelopathy concurrent with and due to spinal stenosis of thoracic region: Plan: At this time we will discontinue her drain and change dressing. Will continue with therapy. Transfer to rehab when bed available. Admission and Anticipated Discharge Date Admission Date: January 01, 2024 Subjective Back pain controlled leg pain and symptoms improving Physical Exam Physical Exam: Patient is currently in bed. She is consented testing. Results & Data Vital Signs (Past 12 Hours) Vital Signs Temp Pulse Resp BP Pulse Ox O2 Del Method 01/14/24 07:09 36.6 C 60 18 112/60 96 Room Air Queries Orthopedic Spine Obesity: Yes
[2024-01-14 14:13] LABS: Appearance Urine Clear (Clear); Bilirubin Urine Negative (Negative); Blood Urine Negative (Negative); Color Urine Yellow; Glucose Urine UA Negative (Negative); Ketones Urine Negative (Negative); Leukocyte Esterase Urine Negative (Negative); Nitrite Urine Negative (Negative); Protein Urine Negative (Negative); Urobilinogen Urine Negative (Negative); pH Urine 6.5 (4.5-7.5)
[2024-01-14] MEDS ORDERED: INSULIN ASPART PER UNIT CHARGE SC SCH (16:30)
[2024-01-14] MEDS: LANTUS PER UNIT CHARGE SQ SCH (20:31)
[2024-01-14] MEDS: INSULIN ASPART PER UNIT CHARGE SC SCH (20:31)
[2024-01-15] MEDS: NITROGLYCERIN SL 0.4 MG/TAB TAB SL PRN (07:31)
[2024-01-15] MEDS: NITROGLYCERIN SL 0.4 MG/TAB TAB ONE (07:36)
[2024-01-15] MEDS: METOPROLOL TARTRATE 50 MG TAB PO SCH (07:52)
[2024-01-15 08:12] LABS: Basophils # (auto) 0.01 K/uL (0.00-0.20); Basophils % (auto) 0.1 %; Hematocrit (blood only) 36.8 % (37.0-47.0); Hemoglobin 11.9 g/dl (12.0-16.0); Immature Granulocytes # (auto) 0.21 K/uL (0.01-0.20); Immature Granulocytes % (auto) 1.8 %; Lymphocytes # (auto) 2.18 K/uL (1.20-3.40); Lymphocytes % (auto) 18.4 %; Mean Corpuscular Hemoglobin 27.8 pg (25.0-34.0); Mean Corpuscular Hgb Conc 32.3 g/dL (32.0-36.0); Mean Platelet Volume 12.8 fL (9.4-12.4); Monocytes # (auto) 1.02 K/uL (0.11-0.59); Monocytes % (auto) 8.6 %; Neutrophils # (auto) 8.42 K/uL (1.40-6.50); Neutrophils % (auto) 71.1 %; Platelet Count 244 K/uL (130-400); RDW Coefficient of Variation 13.9 % (11.5-14.5); RDW Standard Deviation 43.5 fL (36.4-46.3); Red Blood Count 4.28 M/uL (4.20-5.40); White Blood Count 11.84 K/ul (4.8-10.8)
[2024-01-15 08:28] LABS: BUN Creatinine Ratio 32.4 (10-20); Calcium 8.9 mg/dl (8.6-10.3); Creatinine Clr Calc Pharmacy 67.5 ml/min; Potassium 4.2 mmol/L (3.5-5.1)
[2024-01-15 08:34] LABS: Troponin I High Sensitivity 8.1 pg/ml (0-14)
--- NOTE | 2024-01-15 08:37 | XRay Report ---
XR chest 1V portable CLINICAL HISTORY: Chest pain. COMPARISON STUDY: Chest radiograph January 02, 2024. FINDINGS: There is no pneumothorax or pleural effusion. There are median sternotomy wires and mediast inal surgical clips. Cardiomegaly is unchanged. There is extensive mitral annular calcification. Thor acolumbar spine fusion is partially imaged. There is no consolidation or evidence for pulmonary edema . IMPRESSION: No acute cardiopulmonary findings. Cardiomegaly. ACT 112: Negative or not required by law. Electronically signed by: Fortino Monaco M.D. 01/15/2024 8:36 AM
--- NOTE | 2024-01-15 12:03 | Orthopedic Progress Note ---
Date of Service January 15, 2024 Assessment & Plan (1) Myelopathy concurrent with and due to spinal stenosis of thoracic region: Plan: At this time I have encouraged the patient to get to a chair as tolerated. It is difficult to control her pain without exacerbating her GI issues and nausea. Will continue with the bowel regiment. Admission and Anticipated Discharge Date Admission Date: January 01, 2024 Subjective Patient is struggling with a combination of nausea and a postoperative back pain. Her leg symptoms have improved. She does not describe an episode of vomiting last evening. She is not tolerating foods. She has not had a bowel movement. Physical Exam Physical Exam: Patient is currently in bed. Abdomen is soft. She has good strength testing lower extremities. Results & Data Vital Signs (Past 12 Hours) Vital Signs O2 Del Method 01/15/24 09:32 Room Air Queries Orthopedic Spine Obesity: Yes
--- NOTE | 2024-01-15 13:54 | Pharmacy Report ---
Pharmacy Glycemic Short Note 2 - Date of Service January 15, 2024 - Glycemic Short BSG Results (Last 24 hours): 01/14/24 01/14/24 01/15/24 16:45 20:15 07:10 Glucose 99 POC Glucose 258 H 223 H 01/15/24 01/15/24 07:43 11:32 Glucose POC Glucose 87 104 H OUTPATIENT ANTIDIABETIC REGIMEN: * Lantus 18 units HS, Humalog 7 units with meals previously * A1c pending ASSESSMENT: 01/14 * Carie received 18 units of insulin yesterday, 10 of which was basal. BSGs were [phone] mg/dL. * Fasting BSG down to 87 mg/dL this AM. Basal was reduced yesterday, continue with this for now. * Novolog was loosened last evening which is continued into today. Lunchtime BSG was 104 mg/dL so no change necessary. 01/11 * Fasting improved this AM with 20 units of lantus given yesterday * Prandial BSGs improved but still elevated- will tighten carb ratio as dexamethasone 8 mg daily continues, adjust goal range 01/10 * Patient POD #1 following spinal surgery, BSGs trended upward yesterday with addition of dexamethasone 6 mg q8H, last dose this AM --> to continue dexamethasone 8 mg daily (01/11 am) * Tightened novolog parameters * Increase lantus 50% today- reassess tomorrow PLAN FOR INPATIENT GLYCEMIC CONTROL: * Basal insulin * Lantus 10 units HS * Bolus insulin * NovoLog per scale ACHS or Q6hrs while NPO * Goal Range: Low 120 mg/dL - High 160 mg/dL * Correction Factor: 25 mg/dL/unit * Nutritional / Prandial insulin per carb ratio of 1 unit per 8 grams CHO consumed
--- NOTE | 2024-01-15 16:51 | Electrocardiogram Report ---
Test Reason : Blood Pressure : */* mmHG Vent. Rate : 65 BPM Atrial Rate : 65 BPM P-R Int : 136 ms QRS Dur : 104 ms QT Int : 452 ms P-R-T Axes : 68 -18 144 degrees QTcB Int : 470 ms Sinus rhythm with occasional Premature ventricular complexes Abnormal ECG When compared with ECG of 09-Jan-2024 07:21, No significant change was found Confirmed by Reddy Henry [id number] on 01/15/2024 4:51:04 PM Referred By: REFERRED SELF Confirmed By: Reddy Henry
--- NOTE | 2024-01-15 17:29 | Hospitalist Progress Note ---
Date of Service January 15, 2024 Assessment & Plan (1) CHF (congestive heart failure): Plan: Lumbar radiculopathy Acute T9 vertebral body fracture Myelopathy concurrent with and due to spinal stenosis of thoracic region --Presented with back pain and increasing bilateral leg weakness. Thoracic and lumbar MRI shows acute appearing T9 vertebral body fracture, severe central canal stenosis at T9-10 Status post ( on 01/10/2024) by [facility] #1 removal of posterior hardware T10 and proximal aspect of the lisbeth. #2 expiration fusion T10-T11. #3 decompression with bilateral medial facetectomies T9-T10. #4 posterior spinal fusion T7-T11. #5 placed posterior segmental instrumentation T7-T10 with connectors at T11- T12. #6 placement locally harvested morselized autograft posterior gutters. #7 placement infuse collagen sponge combined with Koros in the posterior lateral gutters T7-T11. -- Continue pain control --Wound care per orthopedic spine Appreciate orthopedic input Continue PT OT Constipation Possible ileus Continue aggressive bowel regimen Advance diet as tolerated Will repeat KUB tomorrow Atypical chest pain PVCs Troponins negative Echo showed no wall motion abnormality Continue metoprolol Adjust metoprolol dose as needed Continue statin Resume aspirin tomorrow Acute on chronic HFpEF- resolved Mild CHF decompensation presenting as increase in bilateral leg swelling. History diastolic dysfunction. echo from 01/01 reviewed. Grade I diastolic dysfunction with LVEF of 70% Continue oral furosemide home dose. Strict I/Os, daily weights, CHF education, Repeat chest x-ray showed no acute process Type 2 DM HbA1c of 7.4 in August 2023 Elevated blood glucose due to dexamethasone post-op Pharmacy consulted for insulin management Discussed with pharmacy as dexamethasone has been discontinued since 01/13. Patient insulin requirement is expected to decrease. I discussed liberalizing blood glucose range to 1 40-1 80 Mg per DL. Asymptomatic pyuria: rine Culture -strep agalactiae and Gardnerella like species. Antibiotics not indicated. BPPV, stable CAD status post CABG, stable. hypertension, stable hyperlipidemia, on statin Rx Hypothyroidism: Continue levothyroxine DVT Px: heparin on hold, SCDs. as per [facility]ine Code Status Full code Admission and Anticipated Discharge Date Admission Date: January 01, 2024 Subjective Patient is seen and examined at bedside States having significant back pain at surgical site Also reports atypical chest pain and radiating from back, worsens with deep breathing Transient nausea No other complaints today Review of Systems Review of Systems: All systems reviewed & are unremarkable except as noted in Subjective Physical Exam Physical Exam: Physical Exam: Vitals signs as noted above General Appearance:Morbidly obese, no apparent distress Head: normocephalic, Atraumatic Eyes: normal inspection, EOMI Neck: supple, Trachea midline Respiratory/Chest: Decreased breath sounds, CTA, No accessory muscle use Cardiovascular: S1, S2, No murmur Abdomen/GI:Soft, Non tender, Bowel sounds present Back:Surgical site in dressing Extremities/Musculoskeletal:normal inspection, 1+edema Neurologic/Psych:AAOX3, grossly no focal neurological deficits Skin: normal color, warm Results & Data Results & Data Vital Signs (Past 12 Hours) Vital Signs Temp Pulse Resp BP Pulse Ox O2 Del Method O2 Flow Rate 01/15/24 15:06 36.7 C 63 17 123/72 100 Nasal Cannula 2 01/15/24 09:32 Room Air Laboratory Results Short CBC 01/15/24 Range/Units 07:10 WBC 11.84 H (4.8-10.8) K/ul Hgb 11.9 L (12.0-16.0) g/dl Hct 36.8 L (37.0-47.0) % Plt Count 244 (130-400) K/uL BMP 01/15/24 07:10 Sodium 139 Potassium 4.2 Chloride 100 Carbon Dioxide 30 BUN 23 Creatinine 0.71 Glucose 99 Calcium 8.9
[2024-01-15] MEDS: LANTUS PER UNIT CHARGE SQ SCH (21:07)
[2024-01-16] MEDS: ASPIRIN 81 MG ECTAB PO SCH (08:04)
--- NOTE | 2024-01-16 09:50 | XRay Report ---
EXAM: Radiograph of the Abdomen 1 View INDICATION: Constipation. TECHNIQUE: Frontal supine view of the abdomen/pelvis. COMPARISON: 01/14/2024 FINDINGS: Limitations: The flanks are not completely included. Gastrointestinal tract: No change colonic stool and air in redundant loops without distention. Organs: Visualized organ shadows appear grossly normal. Bones/joints: Extensive posterior spinal fusion hardware well-seated. No acute osseous abnormality. Soft tissues: No abnormality noted. No radiopaque foreign body noted. IMPRESSION: No interval change. ACT 112: Negative or not required by law. Electronically signed by Yane Diaz 01-16-2024 09:47 AM
--- NOTE | 2024-01-16 10:23 | Orthopedic Progress Note ---
Date of Service January 16, 2024 Assessment & Plan (1) Myelopathy concurrent with and due to spinal stenosis of thoracic region: Plan: At this time we will hope to reinitiate physical therapy transfers to the chair and ambulate as tolerated. She would be ideal candidate for rehab in the next day or so. Admission and Anticipated Discharge Date Admission Date: January 01, 2024 Subjective Patient's nausea is improved. She is having bowel movements. Her pain is controlled. Physical Exam Physical Exam: Patient demonstrates good strength testing lower extremities. The abdomen is soft. Results & Data Vital Signs (Past 12 Hours) Vital Signs Temp Pulse Pulse Resp BP Pulse Ox O2 Del Method 01/16/24 07:25 68 01/16/24 07:09 36.5 C 44 L 16 152/59 H 99 Room Air Queries Orthopedic Spine Obesity: Yes
[2024-01-16] MEDS: ACETAMINOPHEN 1,000 MG/100 ML VIAL IV PRN (11:00)
[2024-01-16] MEDS: HYDROmorphone INJ 0.5 MG/0.5 ML SYR IV PRN (11:04)
--- NOTE | 2024-01-16 14:19 | Hospitalist Progress Note ---
Date of Service January 16, 2024 Assessment & Plan (1) CHF (congestive heart failure): Plan: Lumbar radiculopathy Acute T9 vertebral body fracture Myelopathy concurrent with and due to spinal stenosis of thoracic region --Presented with back pain and increasing bilateral leg weakness. Thoracic and lumbar MRI shows acute appearing T9 vertebral body fracture, severe central canal stenosis at T9-10 Status post ( on 01/10/2024) by [facility] #1 removal of posterior hardware T10 and proximal aspect of the lisbeth. #2 expiration fusion T10-T11. #3 decompression with bilateral medial facetectomies T9-T10. #4 posterior spinal fusion T7-T11. #5 placed posterior segmental instrumentation T7-T10 with connectors at T11- T12. #6 placement locally harvested morselized autograft posterior gutters. #7 placement infuse collagen sponge combined with Koros in the posterior lateral gutters T7-T11. -- Continue pain control --Wound care per orthopedic spine Appreciate orthopedic input Continue PT OT Likely need rehab placement Constipation Possible ileus Continue bowel regimen diet as tolerated Had bowel movement Monitor Atypical chest pain PVCs Troponins negative Echo showed no wall motion abnormality Continue metoprolol, aspirin Adjust metoprolol dose as needed Continue statin No recurrence of chest pain currently Acute on chronic HFpEF- resolved Mild CHF decompensation presenting as increase in bilateral leg swelling. History diastolic dysfunction. echo from 01/01 reviewed. Grade I diastolic dysfunction with LVEF of 70% Continue oral furosemide home dose. Strict I/Os, daily weights, CHF education, Repeat chest x-ray showed no acute process Type 2 DM HbA1c of 7.4 in August 2023 Elevated blood glucose due to dexamethasone post-op Pharmacy consulted for insulin management Discussed with pharmacy as dexamethasone has been discontinued since 01/13. Patient insulin requirement is expected to decrease. I discussed liberalizing blood glucose range to 1 40-1 80 Mg per DL. Asymptomatic pyuria: rine Culture -strep agalactiae and Gardnerella like species. Antibiotics not indicated. BPPV, stable CAD status post CABG, stable. hypertension, stable hyperlipidemia, on statin Rx Hypothyroidism: Continue levothyroxine DVT Px: heparin on hold, SCDs. as per [facility] Code Status Full code Admission and Anticipated Discharge Date Admission Date: January 01, 2024 Subjective Patient is seen and examined at bedside Sitting in chair during my encounter Still has significant back pain at surgical site Reports nausea, no vomiting Had bowel movement overnight per patient Poor appetite No other complaints today Denies any chest pain, dyspnea, abdominal pain States having significant back pain at surgical site Review of Systems Review of Systems: All systems reviewed & are unremarkable except as noted in Subjective Physical Exam Physical Exam: Physical Exam: Vitals signs as noted above General Appearance:Morbidly obese, no apparent distress Head: normocephalic, Atraumatic Eyes: normal inspection, EOMI Neck: supple, Trachea midline Respiratory/Chest: Decreased breath sounds, CTA, No accessory muscle use Cardiovascular: S1, S2, No murmur Abdomen/GI:Soft, Non tender, Bowel sounds present Back:Surgical site in dressing Extremities/Musculoskeletal:normal inspection, 1+edema Neurologic/Psych:AAOX3, grossly no focal neurological deficits Skin: normal color, warm Results & Data Results & Data Vital Signs (Past 12 Hours) Vital Signs Temp Pulse Pulse Resp BP Pulse Ox O2 Del Method 01/16/24 09:30 Room Air 01/16/24 07:25 68 01/16/24 07:09 36.5 C 44 L 16 152/59 H 99 Room Air
[2024-01-17 06:49] LABS: Hematocrit (blood only) 36.2 % (37.0-47.0); Hemoglobin 11.8 g/dl (12.0-16.0); Mean Corpuscular Hemoglobin 28.2 pg (25.0-34.0); Mean Corpuscular Hgb Conc 32.6 g/dL (32.0-36.0); Mean Corpuscular Volume 86.6 fL (80.0-100.0); Mean Platelet Volume 12.2 fL (9.4-12.4); Platelet Count 226 K/uL (130-400); RDW Standard Deviation 43.9 fL (36.4-46.3); Red Blood Count 4.18 M/uL (4.20-5.40); White Blood Count 12.54 K/ul (4.8-10.8)
[2024-01-17 07:12] LABS: Calcium 8.6 mg/dl (8.6-10.3); Potassium 3.8 mmol/L (3.5-5.1)
[2024-01-17 07:18] LABS: BUN Creatinine Ratio 26.4 (10-20); Creatinine Clr Calc Pharmacy 66.5 ml/min
--- NOTE | 2024-01-17 08:00 | Orthopedic Progress Note ---
Date of Service January 17, 2024 Assessment & Plan (1) Myelopathy concurrent with and due to spinal stenosis of thoracic region: Plan: At this time for an orthopedic standpoint and recommend continued therapy as tolerated. She is stable for discharge to rehab from orthopedic standpoint. Admission and Anticipated Discharge Date Admission Date: January 01, 2024 Subjective Patient's resting comfortably. She tolerated physical therapy yesterday. Results & Data Vital Signs (Past 12 Hours) Vital Signs Temp Pulse Pulse Resp BP BP Pulse Ox 01/17/24 07:56 36.5 C 82 18 132/60 99 01/16/24 20:06 36.3 C L 85 16 109/53 L 98 O2 Del Method 01/17/24 07:56 Room Air 01/16/24 20:06 Room Air Queries Orthopedic Spine Obesity: Yes
--- NOTE | 2024-01-17 16:48 | Hospitalist Progress Note ---
Date of Service January 17, 2024 Assessment & Plan (1) CHF (congestive heart failure): Plan: Lumbar radiculopathy Acute T9 vertebral body fracture Myelopathy concurrent with and due to spinal stenosis of thoracic region --Presented with back pain and increasing bilateral leg weakness. Thoracic and lumbar MRI shows acute appearing T9 vertebral body fracture, severe central canal stenosis at T9-10 Status post ( on 01/10/2024) by [facility] #1 removal of posterior hardware T10 and proximal aspect of the lisbeth. #2 expiration fusion T10-T11. #3 decompression with bilateral medial facetectomies T9-T10. #4 posterior spinal fusion T7-T11. #5 placed posterior segmental instrumentation T7-T10 with connectors at T11- T12. #6 placement locally harvested morselized autograft posterior gutters. #7 placement infuse collagen sponge combined with Koros in the posterior lateral gutters T7-T11. -- Continue pain control --Wound care per orthopedic spine Appreciate orthopedic input Continue PT OT Plan to discharge to rehab facility likely tomorrow Constipation Possible ileus Continue bowel regimen Had bowel movement overnight Tolerating Atypical chest pain PVCs Troponins negative Echo showed no wall motion abnormality Continue metoprolol, aspirin Adjust metoprolol dose as needed Continue statin Resolved Acute on chronic HFpEF- resolved Mild CHF decompensation presenting as increase in bilateral leg swelling. History diastolic dysfunction. echo from 01/01 reviewed. Grade I diastolic dysfunction with LVEF of 70% Continue oral furosemide home dose. Strict I/Os, daily weights, CHF education, Repeat chest x-ray showed no acute process Type 2 DM HbA1c of 7.4 in August 2023 Elevated blood glucose due to dexamethasone post-op Pharmacy consulted for insulin management Discussed with pharmacy as dexamethasone has been discontinued since 01/13. Patient insulin requirement is expected to decrease. I discussed liberalizing blood glucose range to 1 40-1 80 Mg per DL. Asymptomatic pyuria: rine Culture -strep agalactiae and Gardnerella like species. Antibiotics not indicated. BPPV, stable CAD status post CABG, stable. hypertension, stable hyperlipidemia, on statin Rx Hypothyroidism: Continue levothyroxine DVT Px: heparin on hold, SCDs. as per [facility] Code Status Full code Admission and Anticipated Discharge Date Admission Date: January 01, 2024 Subjective Patient is seen and examined at bedside Back pain at surgical site is better Discussed with patient's family over the phone No other complaints today Denies any chest pain, dyspnea, abdominal pain Review of Systems Review of Systems: All systems reviewed & are unremarkable except as noted in Subjective Physical Exam Physical Exam: Physical Exam: Vitals signs as noted above General Appearance:Morbidly obese, no apparent distress Head: normocephalic, Atraumatic Eyes: normal inspection, EOMI Neck: supple, Trachea midline Respiratory/Chest: Decreased breath sounds, CTA, No accessory muscle use Cardiovascular: S1, S2, No murmur Abdomen/GI:Soft, Non tender, Bowel sounds present Back:Surgical site in dressing Extremities/Musculoskeletal:normal inspection, 1+edema Neurologic/Psych:AAOX3, grossly no focal neurological deficits Skin: normal color, warm Results & Data Results & Data Vital Signs (Past 12 Hours) Vital Signs Temp Pulse Pulse Resp BP BP Pulse Ox 01/17/24 14:44 36.4 C L 105 H 16 124/74 98 01/17/24 09:20 85 14 126/57 L 97 01/17/24 09:00 01/17/24 07:56 36.5 C 82 18 132/60 99 O2 Del Method 01/17/24 14:44 Room Air 01/17/24 09:20 Room Air 01/17/24 09:00 Room Air 01/17/24 07:56 Room Air Laboratory Results Short CBC 01/17/24 Range/Units 06:31 WBC 12.54 H (4.8-10.8) K/ul Hgb 11.8 L (12.0-16.0) g/dl Hct 36.2 L (37.0-47.0) % Plt Count 226 (130-400) K/uL BMP 01/17/24 06:31 Sodium 139 Potassium 3.8 Chloride 102 Carbon Dioxide 28 BUN 19 Creatinine 0.72 Glucose 132 H Calcium 8.6
[2024-01-18 08:30] LABS: Hematocrit (blood only) 40.7 % (37.0-47.0); Hemoglobin 13.4 g/dl (12.0-16.0); Mean Corpuscular Hemoglobin 28.3 pg (25.0-34.0); Mean Corpuscular Hgb Conc 32.9 g/dL (32.0-36.0); Platelet Count 297 K/uL (130-400); RDW Standard Deviation 43.5 fL (36.4-46.3); Red Blood Count 4.73 M/uL (4.20-5.40); White Blood Count 11.81 K/ul (4.8-10.8)
[2024-01-18 08:38] LABS: BUN Creatinine Ratio 28.6 (10-20); Calcium 9.4 mg/dl (8.6-10.3); Creatinine Clr Calc Pharmacy 52.6 ml/min
--- NOTE | 2024-01-18 11:07 | Orthopedic Progress Note ---
Date of Service January 18, 2024 Assessment & Plan (1) Myelopathy concurrent with and due to spinal stenosis of thoracic region: Plan: At this point I have encouraged her to continue with ambulation and therapy as tolerated. She hopefully will be transferred to rehab early next week. Admission and Anticipated Discharge Date Admission Date: January 01, 2024 Subjective Patient's back pain is controlled nausea is improved. She is tolerating physical therapy. Physical Exam Physical Exam: Patient is in the chair at the bedside. She has good strength testing. Appears comfortable. Results & Data Vital Signs (Past 12 Hours) Vital Signs Temp Pulse Resp BP Pulse Ox O2 Del Method 01/18/24 07:40 36.6 C 69 16 146/62 H 100 Room Air Queries Orthopedic Spine Obesity: Yes
--- NOTE | 2024-01-18 14:20 | Pharmacy Report ---
Pharmacy Glycemic Short Note 2 - Date of Service January 18, 2024 - Glycemic Short BSG Results (Last 24 hours): 01/17/24 01/17/24 01/18/24 16:44 20:54 07:42 Glucose POC Glucose 178 H 253 H 180 H 01/18/24 01/18/24 08:09 11:24 Glucose 205 H POC Glucose 266 H OUTPATIENT ANTIDIABETIC REGIMEN: * Lantus 18 units HS, Humalog 7 units with meals previously * A1c pending ASSESSMENT: 01/17 * Carie received 22 units of insulin yesterday (10 were basal) * Fasting BSG this AM acceptable, will aim to continue with current basal dose allowing for reductions/increases with low/high BSGs * NovoLog parameters tightened today, advanced from full liquid to type 2 DM, appears to be tolerating meals better per nursing carbohydrate documentation 01/14 * Carie received 18 units of insulin yesterday, 10 of which was basal. BSGs were [id number] mg/dL. * Fasting BSG down to 87 mg/dL this AM. Basal was reduced yesterday, continue with this for now. * Novolog was loosened last evening which is continued into today. Lunchtime BSG was 104 mg/dL so no change necessary. 01/11 * Fasting improved this AM with 20 units of lantus given yesterday * Prandial BSGs improved but still elevated- will tighten carb ratio as dexamethasone 8 mg daily continues, adjust goal range 01/10 * Patient POD #1 following spinal surgery, BSGs trended upward yesterday with addition of dexamethasone 6 mg q8H, last dose this AM --> to continue dexamethasone 8 mg daily (01/11 am) * Tightened novolog parameters * Increase lantus 50% today- reassess tomorrow PLAN FOR INPATIENT GLYCEMIC CONTROL: * Basal insulin * Lantus 10 units HS * Bolus insulin * NovoLog per scale ACHS or Q6hrs while NPO * Goal Range: Low 120 mg/dL - High 160 mg/dL * Correction Factor: 25 mg/dL/unit * Nutritional / Prandial insulin per carb ratio of 1 unit per 8 grams CHO consumed
--- NOTE | 2024-01-18 15:18 | Hospitalist Progress Note ---
Date of Service January 18, 2024 Assessment & Plan (1) CHF (congestive heart failure): Plan: Lumbar radiculopathy Acute T9 vertebral body fracture Myelopathy concurrent with and due to spinal stenosis of thoracic region --Presented with back pain and increasing bilateral leg weakness. Thoracic and lumbar MRI shows acute appearing T9 vertebral body fracture, severe central canal stenosis at T9-10 Status post ( on 01/10/2024) by [facility] #1 removal of posterior hardware T10 and proximal aspect of the lisbeth. #2 expiration fusion T10-T11. #3 decompression with bilateral medial facetectomies T9-T10. #4 posterior spinal fusion T7-T11. #5 placed posterior segmental instrumentation T7-T10 with connectors at T11- T12. #6 placement locally harvested morselized autograft posterior gutters. #7 placement infuse collagen sponge combined with Koros in the posterior lateral gutters T7-T11. --Pain control --Wound care per orthopedic spine Appreciate orthopedic input Continue PT OT Will need rehab placement Constipation Possible ileus Continue bowel regimen Encouraged to ambulate Atypical chest pain PVCs Troponins negative Echo showed no wall motion abnormality Continue metoprolol, aspirin Adjust metoprolol dose as needed Continue statin Resolved Acute on chronic HFpEF- resolved Mild CHF decompensation presenting as increase in bilateral leg swelling. History diastolic dysfunction. echo from 01/01 reviewed. Grade I diastolic dysfunction with LVEF of 70% Continue oral furosemide home dose. Strict I/Os, daily weights, CHF education, Repeat chest x-ray showed no acute process Type 2 DM HbA1c of 7.4 in August 2023 Elevated blood glucose due to dexamethasone post-op Pharmacy consulted for insulin management Discussed with pharmacy as dexamethasone has been discontinued since 01/13. Patient insulin requirement is expected to decrease. I discussed liberalizing blood glucose range to 1 40-1 80 Mg per DL. Asymptomatic pyuria: rine Culture -strep agalactiae and Gardnerella like species. Antibiotics not indicated. BPPV, stable CAD status post CABG, stable. hypertension, stable hyperlipidemia, on statin Rx Hypothyroidism: Continue levothyroxine DVT Px: heparin on hold, SCDs. as per [facility] Code Status Full code Disposition SNF as able Admission and Anticipated Discharge Date Admission Date: January 01, 2024 Subjective Patient is seen and examined at bedside Had small bowel movement today No new complaints Still has significant back pain per patient Denies any chest pain, dyspnea, abdominal pain Review of Systems Review of Systems: All systems reviewed & are unremarkable except as noted in Subjective Physical Exam Physical Exam: Physical Exam: Vitals signs as noted above General Appearance:Morbidly obese, no apparent distress Head: normocephalic, Atraumatic Eyes: normal inspection, EOMI Neck: supple, Trachea midline Respiratory/Chest: Decreased breath sounds, CTA, No accessory muscle use Cardiovascular: S1, S2, No murmur Abdomen/GI:Soft, Non tender, Bowel sounds present Back:Surgical site in dressing Extremities/Musculoskeletal:normal inspection, 1+edema Neurologic/Psych:AAOX3, grossly no focal neurological deficits Skin: normal color, warm Results & Data Results & Data Vital Signs (Past 12 Hours) Vital Signs Temp Pulse Pulse Resp BP BP Pulse Ox 01/18/24 14:23 36.4 C L 80 16 108/63 97 01/18/24 09:00 01/18/24 07:40 36.6 C 69 16 146/62 H 100 O2 Del Method 01/18/24 14:23 Room Air 01/18/24 09:00 Room Air 01/18/24 07:40 Room Air Laboratory Results Short CBC 01/18/24 Range/Units 08:09 WBC 11.81 H (4.8-10.8) K/ul Hgb 13.4 (12.0-16.0) g/dl Hct 40.7 (37.0-47.0) % Plt Count 297 (130-400) K/uL BMP 01/18/24 08:09 Sodium 134 L Potassium 4.0 Chloride 95 L Carbon Dioxide 28 BUN 26 H Creatinine 0.91 Glucose 205 H Calcium 9.4
[2024-01-18] MEDS ORDERED: POLYETHYLENE (MIRALAX) 17 GM PACK PO PRN (15:21)
[2024-01-18] MEDS: POLYETHYLENE (MIRALAX) 17 GM PACK PO ONE (16:57)
[2024-01-19 07:23] VITALS: TEMP 97.3
--- NOTE | 2024-01-19 10:52 | Orthopedic Progress Note ---
Date of Service January 19, 2024 Assessment & Plan (1) Myelopathy concurrent with and due to spinal stenosis of thoracic region: Plan: Plan at this point she will continue physical therapy 1 in the hospital and we await placement for rehab. Admission and Anticipated Discharge Date Admission Date: January 01, 2024 Subjective Patient is in her chair at the bedside. She is comfortable. Discussed when to testing. Physical Exam Physical Exam: On exam she is reasonable strength testing lower extremities. Abdomen is soft. Results & Data Vital Signs (Past 12 Hours) Vital Signs Temp Pulse Resp BP Pulse Ox O2 Del Method 01/19/24 08:00 Room Air 01/19/24 07:22 36.3 C L 70 16 133/79 99 Room Air Queries Orthopedic Spine Obesity: Yes
[2024-01-19] MEDS ORDERED: POLYETHYLENE (MIRALAX) 17 GM PACK PO PRN (11:30)
[2024-01-19 14:46] VITALS: RESP 18
--- NOTE | 2024-01-19 15:07 | Hospitalist Progress Note ---
Date of Service January 19, 2024 Assessment & Plan (1) CHF (congestive heart failure): Plan: Lumbar radiculopathy Acute T9 vertebral body fracture Myelopathy concurrent with and due to spinal stenosis of thoracic region --Presented with back pain and increasing bilateral leg weakness. Thoracic and lumbar MRI shows acute appearing T9 vertebral body fracture, severe central canal stenosis at T9-10 Status post ( on 01/10/2024) by [facility] #1 removal of posterior hardware T10 and proximal aspect of the lisbeth. #2 expiration fusion T10-T11. #3 decompression with bilateral medial facetectomies T9-T10. #4 posterior spinal fusion T7-T11. #5 placed posterior segmental instrumentation T7-T10 with connectors at T11- T12. #6 placement locally harvested morselized autograft posterior gutters. #7 placement infuse collagen sponge combined with Koros in the posterior lateral gutters T7-T11. --Pain control --Wound care per orthopedic spine Appreciate orthopedic input Continue PT OT Plan to discharge likely tomorrow to rehab facility if accepted Constipation Possible ileus Continue bowel regimen Encouraged to ambulate Atypical chest pain PVCs Troponins negative Echo showed no wall motion abnormality Continue metoprolol, aspirin Adjust metoprolol dose as needed Continue statin Resolved Acute on chronic HFpEF- resolved Mild CHF decompensation presenting as increase in bilateral leg swelling. History diastolic dysfunction. echo from 01/01 reviewed. Grade I diastolic dysfunction with LVEF of 70% Continue oral furosemide home dose. Strict I/Os, daily weights, CHF education, Repeat chest x-ray showed no acute process Type 2 DM HbA1c of 7.4 in August 2023 Elevated blood glucose due to dexamethasone post-op Pharmacy consulted for insulin management Discussed with pharmacy as dexamethasone has been discontinued since 01/13. Patient insulin requirement is expected to decrease. I discussed liberalizing blood glucose range to 1 40-1 80 Mg per DL. Asymptomatic pyuria: rine Culture -strep agalactiae and Gardnerella like species. Antibiotics not indicated. BPPV, stable CAD status post CABG, stable. hypertension, stable hyperlipidemia, on statin Rx Hypothyroidism: Continue levothyroxine DVT Px: heparin on hold, SCDs. as per [facility] Code Status Full code Disposition SNF as able Admission and Anticipated Discharge Date Admission Date: January 01, 2024 Subjective Patient is seen and examined at bedside Doing well today Back pain is controlled Sitting in chair comfortably during my encounter Small BM today Denies any chest pain, dyspnea, abdominal pain, nausea, vomiting Review of Systems Review of Systems: All systems reviewed & are unremarkable except as noted in Subjective Physical Exam Physical Exam: Physical Exam: Vitals signs as noted above General Appearance:Morbidly obese, no apparent distress Head: normocephalic, Atraumatic Eyes: normal inspection, EOMI Neck: supple, Trachea midline Respiratory/Chest: Decreased breath sounds, CTA, No accessory muscle use Cardiovascular: S1, S2, No murmur Abdomen/GI:Soft, Non tender, Bowel sounds present Back:Surgical site in dressing Extremities/Musculoskeletal:normal inspection, 1+edema Neurologic/Psych:AAOX3, grossly no focal neurological deficits Skin: normal color, warm Results & Data Results & Data Vital Signs (Past 12 Hours) Vital Signs Temp Pulse Pulse Resp BP Pulse Ox O2 Del Method 01/19/24 14:45 36.3 C L 104 H 18 134/72 97 Room Air 01/19/24 08:00 Room Air 01/19/24 07:22 36.3 C L 70 16 133/79 99 Room Air
[2024-01-19] MEDS: ACETAMINOPHEN 325 MG TAB PO PRN (19:44)
[2024-01-19] MEDS: SENNA 8.6 MG TAB PO SCH (19:45)
[2024-01-20] MEDS: ONDANSETRON 4 MG OD TAB PO PRN (01:28)
[2024-01-20 07:20] LABS: BUN Creatinine Ratio 26.6 (10-20); Calcium 9.2 mg/dl (8.6-10.3); Potassium 3.8 mmol/L (3.5-5.1)
--- NOTE | 2024-01-20 12:00 | Hospitalist Progress Note ---
Date of Service January 20, 2024 Assessment & Plan (1) CHF (congestive heart failure): Plan: Lumbar radiculopathy Acute T9 vertebral body fracture Myelopathy concurrent with and due to spinal stenosis of thoracic region --Presented with back pain and increasing bilateral leg weakness. Thoracic and lumbar MRI shows acute appearing T9 vertebral body fracture, severe central canal stenosis at T9-10 Status post ( on 01/10/2024) by [facility] #1 removal of posterior hardware T10 and proximal aspect of the lisbeth. #2 expiration fusion T10-T11. #3 decompression with bilateral medial facetectomies T9-T10. #4 posterior spinal fusion T7-T11. #5 placed posterior segmental instrumentation T7-T10 with connectors at T11- T12. #6 placement locally harvested morselized autograft posterior gutters. #7 placement infuse collagen sponge combined with Koros in the posterior lateral gutters T7-T11. --Wound care per orthopedic spine Appreciate orthopedic input Continue PT OT Pain continues to improve Plan to discharge to rehab facility today Constipation Possible ileus Continue bowel regimen Encouraged to ambulate Atypical chest pain PVCs Troponins negative Echo showed no wall motion abnormality Continue metoprolol, aspirin Continue statin Resolved Acute on chronic HFpEF- resolved Mild CHF decompensation presenting as increase in bilateral leg swelling. History diastolic dysfunction. echo from 01/01 reviewed. Grade I diastolic dysfunction with LVEF of 70% Continue oral furosemide home dose. Strict I/Os, daily weights, CHF education, Repeat chest x-ray showed no acute process Volume status improved Type 2 DM HbA1c of 7.4 in August 2023 Elevated blood glucose due to dexamethasone post-op Pharmacy consulted for insulin management Discussed with pharmacy as dexamethasone has been discontinued since 01/13. Patient insulin requirement is expected to decrease. I discussed liberalizing blood glucose range to 1 40-1 80 Mg per DL. Asymptomatic pyuria: rine Culture -strep agalactiae and Gardnerella like species. Antibiotics not indicated. BPPV, stable CAD status post CABG, stable. hypertension, stable hyperlipidemia, on statin Rx Hypothyroidism: Continue levothyroxine DVT Px: heparin on hold, SCDs. as per orthospine Code Status Full code Disposition SNF Admission and Anticipated Discharge Date Admission Date: January 01, 2024 Subjective Patient is seen and examined at bedside Sitting in chair during my encounter Back pain continues to improve No new complaints today Denies any chest pain, dyspnea, abdominal pain, nausea, vomiting Plan to discharge to rehab facility today Review of Systems Review of Systems: All systems reviewed & are unremarkable except as noted in Subjective Physical Exam Physical Exam: Physical Exam: Vitals signs as noted above General Appearance:Morbidly obese, no apparent distress Head: normocephalic, Atraumatic Eyes: normal inspection, EOMI Neck: supple, Trachea midline Respiratory/Chest: Decreased breath sounds, CTA, No accessory muscle use Cardiovascular: S1, S2, No murmur Abdomen/GI:Soft, Non tender, Bowel sounds present Back:Surgical site in dressing Extremities/Musculoskeletal:normal inspection, 1+edema Neurologic/Psych:AAOX3, grossly no focal neurological deficits Skin: normal color, warm Results & Data Results & Data Vital Signs (Past 12 Hours) Vital Signs Temp Pulse Resp BP Pulse Ox O2 Del Method 01/20/24 08:10 Room Air 01/20/24 07:21 36.3 C L 78 18 160/77 H 98 Room Air Laboratory Results [facility] 01/20/24 06:40 Sodium 133 L Potassium 3.8 Chloride 95 L Carbon Dioxide 28 BUN 25 H Creatinine 0.94 Glucose 158 H Calcium 9.2
--- NOTE | 2024-01-20 12:08 | Discharge Summary ---
Date of Service January 20, 2024 Admission HPI Per Admitting Provider History obtained from patient, family, and records. Medical history significant for chronic diastolic heart failure (65 to 70%, TTE 2022), CAD status post CABG, mild MR, hypertension, hyperlipidemia, DM 2 insulin requiring, hypothyroidism, GERD, chronic back pain, sacroiliitis as per records, history of BPPV, past tobacco abuse. Last confinement June 2022 for unstable angina. Patient noted worsening achy mid/low back pain more than a week ago with increasing bilateral leg weakness. No recollection of recent trauma or exertion. No fever, no chills, no incontinence symptoms. Denies dysuria symptoms. Vertigo attack at home described as spinning which usually responds to home Davion maneuver. Some sinus fullness. Patient unable to do home Davion maneuver properly due to back pain. No chest pain or unusual shortness of breath. Legs more swollen than usual, patient not sure about weight gain. Patient seen at PCPs office last week. Impression was lumbar radiculopathy. Outpatient PT eval and orthopedic spine evaluation contemplated. Outpatient UA negative for infection. Patient directed to ER for worsening symptoms. IV ceftriaxone administered at the ER. 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 Admission Exam Per Admitting Provider GENERAL: Slightly morbidly obese, uncomfortable, no respiratory distress SKIN: Normal color, warm HEENT: [place] palpebral conjunctivae, no ptosis, dry buccal mucosa NECK : Supple, no tenderness CHEST : Decreased breath sounds, no tenderness HEART : RRR, no obvious murmurs ABDOMEN: Some distention, nontender BACK : Low back tenderness, negative straight leg raise test EXTREMITIES : Bilateral LE swelling, no LE tenderness, no other conspicuous deformities noted NEUROLOGIC : Coherent, no facial asymmetry, no other gross focality Principal Diagnosis Thoracic spinal stenosis with myelopathy Constipation Acute on chronic HFpEF Discharge Data Allergies Allergy/AdvReac Type Severity Reaction Status Date / Time latex Allergy Intermediate skin Verified 01/08/24 11:33 irritation and peels skin off prednisone AdvReac Severe STROKE Verified 01/08/24 11:33 fentanyl AdvReac Intermediate "opiate Verified 01/08/24 11:33 agonists cause severe N&V, increased heart rate, "sk hydromorphone AdvReac Intermediate "opiate Verified 01/08/24 11:33 agonists cause severe N&V, increased heart rate, "sk methadone AdvReac Intermediate "opiate Verified 01/08/24 11:33 agonists cause severe N&V, increased heart rate, "sk morphine AdvReac Intermediate "opiate Verified 01/08/24 11:33 agonists cause severe N&V, increased heart rate, "sk oxycodone AdvReac Intermediate "opiate Verified 01/08/24 11:33 agonists cause severe N&V, increased heart rate, "sk meclizine AdvReac Mild Severe N&V Verified 01/08/24 11:33 tetracycline AdvReac Mild Severe N&V Verified 01/08/24 11:33 tramadol AdvReac Blurry Verified 01/08/24 11:33 Vision Consultations 01/01/24 21:58 ED Decision to Admit Stat 01/01/24 23:07 Consult Orthopedic Spine Surgery Routine 01/02/24 18:07 Consult Anesthesiology Routine Procedures Performed Operation Date: 01/10/24 12:25 Actual Procedures p T7-T10 Thoracic Decompression and Fusion, Spinal Cord Monitoring(Not Applicable) - Benoit Taveras, Ordered Studies Laboratory Results WBC 11.81 K/ul (4.8-10.8) H 01/18/24 08:09 RBC 4.73 M/uL (4.20-5.40) 01/18/24 08:09 Hgb 13.4 g/dl (12.0-16.0) 01/18/24 08:09 Hct 40.7 % (37.0-47.0) 01/18/24 08:09 MCV 86.0 fL (80.0-100.0) 01/18/24 08:09 MCH 28.3 pg (25.0-34.0) 01/18/24 08:09 MCHC 32.9 g/dL (32.0-36.0) 01/18/24 08:09 RDW Std Deviation 43.5 fL (36.4-46.3) 01/18/24 08:09 RDW Coeff of Jeri 14.0 % (11.5-14.5) 01/18/24 08:09 Plt Count 297 K/uL (130-400) 01/18/24 08:09 MPV 12.0 fL (9.4-12.4) 01/18/24 08:09 Immature Gran % (Auto) 1.8 % 01/15/24 07:10 Neut % (Auto) 71.1 % 01/15/24 07:10 Lymph % (Auto) 18.4 % 01/15/24 07:10 [place] % (Auto) 8.6 % 01/15/24 07:10 Eos % (Auto) 0.0 % 01/15/24 07:10 Baso % (Auto) 0.1 % 01/15/24 07:10 Neut # (Auto) 8.42 K/uL (1.40-6.50) H 01/15/24 07:10 Lymph # (Auto) 2.18 K/uL (1.20-3.40) 01/15/24 07:10 [place] # (Auto) 1.02 K/uL (0.11-0.59) H 01/15/24 07:10 Eos # (Auto) 0.00 K/uL (0.00-0.50) 01/15/24 07:10 Baso # (Auto) 0.01 K/uL (0.00-0.20) 01/15/24 07:10 Immature Gran # (Auto) 0.21 K/uL (0.01-0.20) H 01/15/24 07:10 Sodium 133 mmol/L (136-145) L 01/20/24 06:40 Potassium 3.8 mmol/L (3.5-5.1) 01/20/24 06:40 Chloride 95 mmol/L (98-107) L 01/20/24 06:40 Carbon Dioxide 28 mmol/L (21-32) 01/20/24 06:40 Anion Gap 10 (3-11) 01/20/24 06:40 BUN 25 mg/dl (6-23) H 01/20/24 06:40 Creatinine 0.94 mg/dl (0.6-1.2) 01/20/24 06:40 Est Cr Clr Drug Dosing 51.0 ml/min 01/20/24 06:40 eGFR 61.34 01/20/24 06:40 BUN/Creatinine Ratio 26.6 (10-20) H 01/20/24 06:40 Glucose 158 mg/dl (70-99(Fasting)) H 01/20/24 06:40 POC Glucose 234 mg/dl (70-99) H 01/20/24 11:07 Estimat Average Glucose 166 mg/dl 01/14/24 06:18 Hemoglobin A1c 7.4 % (4.5-5.6) H 01/14/24 06:18 Calcium 9.2 mg/dl (8.6-10.3) 01/20/24 06:40 Phosphorus 4.1 mg/dl (2.5-4.9) 01/08/24 06:31 Magnesium 1.8 mg/dl (1.7-2.4) 01/08/24 06:31 Total Bilirubin 0.4 mg/dl (0.2-1.0) 01/01/24 20:00 AST 19 U/L (13-39) 01/01/24 20:00 ALT 10 U/L (7-52) 01/01/24 20:00 Alkaline Phosphatase 136 U/L (34-104) H 01/01/24 20:00 Troponin I High Sens 8.3 pg/ml (0-14) 01/15/24 09:31 B-Natriuretic Peptide 142 pg/ml (0-100) H 01/01/24 21:00 Total Protein 7.2 gm/dl (6.0-8.3) 01/01/24 20:00 Albumin 4.1 gm/dl (3.4-5.0) 01/01/24 20:00 Globulin 3.1 gm/dl (2.5-4.0) 01/01/24 20:00 Albumin/Globulin Ratio 1.3 (0.9-2) 01/01/24 20:00 TSH 0.880 uIu/ml (0.300-4.500) 01/01/24 20:00 Urine Color Yellow 01/14/24 Unknown Urine Appearance Clear (Clear) 01/14/24 Unknown Urine pH 6.5 (4.5-7.5) 01/14/24 Unknown Ur Specific [place] 1.010 (1.000-1.030) 01/14/24 Unknown Urine Protein Negative (Negative) 01/14/24 Unknown Urine Glucose (UA) Negative (Negative) 01/14/24 Unknown Urine Ketones Negative (Negative) 01/14/24 Unknown Urine Blood Negative (Negative) 01/14/24 Unknown Urine Nitrite Negative (Negative) 01/14/24 Unknown Urine Bilirubin Negative (Negative) 01/14/24 Unknown Urine Urobilinogen Negative (Negative) 01/14/24 Unknown Ur Leukocyte Esterase Negative (Negative) 01/14/24 Unknown Urine WBC (Auto) 6-10 /hpf (0-5) H 01/01/24 21:55 Urine RBC (Auto) 0-2 /hpf (0-2) 01/01/24 21:55 U Hyaline Cast (Auto) 0-2 /lpf (0-2) 01/01/24 21:55 U Epithel Cells (Auto) 0-2 /hpf (0-2) 01/01/24 21:55 Urine Bacteria (Auto) None Seen (None Seen) 01/01/24 21:55 Adenovirus (PCR) Not Detected (NotDetected) 01/01/24 23:10 B. pertussis DNA (PCR) Not Detected (NotDetected) 01/01/24 23:10 B.parapertussis DNA PCR Not Detected (NotDetected) 01/01/24 23:10 C. pneumoniae DNA (PCR) Not Detected (NotDetected) 01/01/24 23:10 Coronavirus OC43 (PCR) Not Detected (NotDetected) 01/01/24 23:10 Coronavirus HKU1 (PCR) Not Detected (NotDetected) 01/01/24 23:10 Coronavirus 229E (PCR) Not Detected (NotDetected) 01/01/24 23:10 SARS-CoV-2 (PCR) Not Detected (NotDetected) 01/01/24 23:10 Coronavirus NL63 (PCR) Not Detected (NotDetected) 01/01/24 23:10 Human Metapneumovir PCR Not Detected (NotDetected) 01/01/24 23:10 Influenza Type A (PCR) Not Detected (NotDetected) 01/01/24 23:10 Influenza Type B (PCR) Not Detected (NotDetected) 01/01/24 23:10 M. pneumoniae (PCR) Not Detected (NotDetected) 01/01/24 23:10 Parainfluenza 1 (PCR) Not Detected (NotDetected) 01/01/24 23:10 Parainfluenza 2 (PCR) Not Detected (NotDetected) 01/01/24 23:10 Parainfluenza 3 (PCR) Not Detected (NotDetected) 01/01/24 23:10 Parainfluenza 4 (PCR) Not Detected (NotDetected) 01/01/24 23:10 RSV (PCR) Not Detected (NotDetected) 01/01/24 23:10 Entero/Rhino (PCR) Not Detected (NotDetected) 01/01/24 23:10 Blood Type O Positive 01/09/24 14:42 Antibody Screen NEGATIVE 01/09/24 14:42 Crossmatch See Detail 01/09/24 14:[address] 01/01/24 19:56 Exam(s): CT HEAD Without Contrast EXAM: CT Head Without Intravenous Contrast CLINICAL HISTORY: Reason for exam: dizzy, weak. TECHNIQUE: Axial computed tomography images of the head/brain without intravenous contrast. CTDI is 68.69 mGy and DLP is 961.59 mGy-cm. Automated exposure control was utilized for the study. A dose lowering technique was utilized adhering to the principles of ALARA. COMPARISON: None. FINDINGS: Diagnostic sensitivity of the exam is reduced by motion and beam hardening artifacts. Brain: There is no acute intracranial hemorrhage, mass-effect or midline shift. Senescent focal calcification of the left basal ganglion. There is age-related cerebral atrophy with widening of the extra-axial spaces and ventricular dilatation. There are periventricular/subcortical areas of decreased attenuation, likely from chronic microvascular disease. Bones/joints: Unremarkable. No acute fracture. Soft tissues: Left preseptal/periorbital soft tissue swelling. Sinuses: A completely opacified left maxillary sinus with abnormal soft tissues. No air-fluid levels. Mastoid air cells: No significant mastoid effusion. IMPRESSION: No definite acute intracranial abnormality identified. Chronic involutional and ischemic changes of the brain. Completely opacified left maxillary sinus/severe chronic sinusitis. Left preseptal/periorbital mild soft tissue swelling. Clinical correlation is advised. . Electronically signed by: Catalina Mccann MD, YOSEFR 01/01/24 22:22 PM Lumbar Spine MRI 01/08/24 00:00 MR thoracic spine wo con, MR lumbar spine wo con HISTORY: 78 years-old Female ro toe osteomyelitis Chronic mid-to-low back pain with prior surgery. COMPARISON: MRI thoracic and lumbar spine studies 06/08/22. TECHNIQUE: Multiplanar and multisequence MRI of the thoracic and lumbar spine were obtained without IV contrast. FINDINGS: MRI THORACIC SPINE: Study is motion degraded. Median sternotomy wires are noted along with cardiomegaly. Posterior fusion hardware extends from T10-L4. There is pronounced marrow edema involving the T9 vertebral body with extension into the pedicles and posterior elements. Additionally, there is a linear focus of decreased T1 and T2 marrow signal within the mid vertebral body on image 9 series 7, compatible with fracture. No fracture extension to the posterior elements is definitively seen on this exam. Additional mild marrow edema at T10. Fluid signal within the T9-T10 and T10-T11 disc spaces with small T9-T10 facet effusions. Mild associated paravertebral edema. No epidural fluid collections. Fluid signal within the thoracic spinal cord is within normal limits considering limitations of the study. There is moderate multilevel and vertebral disc space narrowing, spondylotic spurring and facet arthrosis. There is posterior annular disc bulge at T7-T8 without high-grade central canal or foraminal narrowing. T8-T9: Severe intervertebral disc space narrowing with circumferential disc osteophyte complex and advanced facet arthrosis. Minimal central canal stenosis with AP dimension of the thecal sac measuring 9 mm. Moderate bilateral foraminal narrowing. T9-T10: Additional findings as above with posterior annular disc bulge, ligamentum flavum thickening and advanced facet arthrosis. AP dimension of the central canal measures 4 mm with deformity upon the thoracic spinal cord. Severe central canal stenosis with prufgjgb-ao-jlenyo right and severe left foraminal narrowing. T10-T11: Not well evaluated secondary to artifact related to the hardware. There is suggestion of mild central canal stenosis with moderate bilateral foraminal narrowing. MRI LUMBAR SPINE: Siding Coreboard Inspector localizer images demonstrate no gross extraspinal abnormality. Posterior interbody lisbeth and screw fusion hardware is noted extending from T10 through L4. Discectomy changes at T12-L1, L3-L4, L4-L5 and L5-S1. Trace fluid signal is noted within the L2-L3, L4-L5 and L5-S1 disc spaces, which is likely on a degenerative basis. No acute fracture, subluxation, endplate erosions or marrow replacing process. The study is motion degraded. Moderate multilevel spondylotic spurring with yctgerds-js-rhtogb facet arthrosis. No epidural fluid collections. Conus medullaris terminates at L1-L2. L1-L2: No central canal or foraminal narrowing is identified. L2-L3: Severe intervertebral disc space narrowing with circumferential disc osteophyte complex and advanced facet arthrosis. Minimal central canal stenosis. Xugs-qi-qxnkurja right with moderate left foraminal narrowing is unchanged. L3-L4: Small posterior disc osteophyte complex with advanced facet arthrosis. Rnlm-us-opiaixbk central canal stenosis with AP dimension of the thecal sac measuring 8 mm. Severe right with fwkh-aa-ettxvmlf left foraminal stenosis is unchanged. L4-L5: Small left paracentral/left lateral recess disc osteophyte complex with advanced facet arthrosis. Mild central canal stenosis with moderate left lateral recess narrowing. Severe right with mild left foraminal stenosis is unchanged. L5-S1: Central canal is patent. Unchanged mild bilateral foraminal narrowing. IMPRESSION: 1. Limited study as above. 2. Acute-appearing T9 vertebral body fracture without significant intervertebral body height loss. There is reactive marrow and adjacent paravertebral edema. 3. Fluid signal within the T9-T10 and T10-T11 disc spaces is likely on a degenerative basis. Acute discitis/osteomyelitis could appear similarly. 4. Severe central canal stenosis at T9-T10. 5. Degenerative and postoperative changes of the lumbar spine as above. ACT 112: Negative or not required by law. The above report was generated using voice recognition software. It may contain grammatical, syntax or spelling errors. Dictated: 01/08/2024 1:45 PM Transcribed: 01/08/2024 2:19 PM Pavel [id number] [email or web address] Electronically signed by: Cruzito Jeff M.D. 01/08/2024 2:29 PM Thoracic Spine MRI 01/08/24 00:00 MR thoracic spine wo con, MR lumbar spine wo con HISTORY: 78 years-old Female ro toe osteomyelitis Chronic mid-to-low back pain with prior surgery. COMPARISON: MRI thoracic and lumbar spine studies 06/08/22. TECHNIQUE: Multiplanar and multisequence MRI of the thoracic and lumbar spine were obtained without IV contrast. FINDINGS: MRI THORACIC SPINE: Study is motion degraded. Median sternotomy wires are noted along with cardiomegaly. Posterior fusion hardware extends from T10-L4. There is pronounced marrow edema involving the T9 vertebral body with extension into the pedicles and posterior elements. Additionally, there is a linear focus of decreased T1 and T2 marrow signal within the mid vertebral body on image 9 series 7, compatible with fracture. No fracture extension to the posterior elements is definitively seen on this exam. Additional mild marrow edema at T10. Fluid signal within the T9-T10 and T10-T11 disc spaces with small T9-T10 facet effusions. Mild associated paravertebral edema. No epidural fluid collections. Fluid signal within the thoracic spinal cord is within normal limits considering limitations of the study. There is moderate multilevel and vertebral disc space narrowing, spondylotic spurring and facet arthrosis. There is posterior annular disc bulge at T7-T8 without high-grade central canal or foraminal narrowing. T8-T9: Severe intervertebral disc space narrowing with circumferential disc osteophyte complex and advanced facet arthrosis. Minimal central canal stenosis with AP dimension of the thecal sac measuring 9 mm. Moderate bilateral foraminal narrowing. T9-T10: Additional findings as above with posterior annular disc bulge, ligamen malik flavum thickening and advanced facet arthrosis. AP dimension of the central canal measures 4 mm with deformity upon the thoracic spinal cord. Severe central canal stenosis with aqfdpatf-ts-vaning right and severe left foraminal narrowing. T10-T11: Not well evaluated secondary to artifact related to the hardware. There is suggestion of mild central canal stenosis with moderate bilateral foraminal narrowing. MRI LUMBAR SPINE: Siding Coreboard Inspector localizer images demonstrate no gross extraspinal abnormality. Posterior interbody lisbeth and screw fusion hardware is noted extending from T10 through L4. Discectomy changes at T12-L1, L3-L4, L4-L5 and L5-S1. Trace fluid signal is noted within the L2-L3, L4-L5 and L5-S1 disc spaces, which is likely on a degenerative basis. No acute fracture, subluxation, endplate erosions or marrow replacing process. The study is motion degraded. Moderate multilevel spondylotic spurring with bkmdlazp-bb-apdigu facet arthrosis. No epidural fluid collections. Conus medullaris terminates at L1-L2. L1-L2: No central canal or foraminal narrowing is identified. L2-L3: Severe intervertebral disc space narrowing with circumferential disc osteophyte complex and advanced facet arthrosis. Minimal central canal stenosis. Dubo-yj-mudjtuli right with moderate left foraminal narrowing is unchanged. L3-L4: Small posterior disc osteophyte complex with advanced facet arthrosis. Yujh-ed-dtdqcboq central canal stenosis with AP dimension of the thecal sac measuring 8 mm. Severe right with yzyw-br-uakufsxb left foraminal stenosis is unchanged. L4-L5: Small left paracentral/left lateral recess disc osteophyte complex with advanced facet arthrosis. Mild central canal stenosis with moderate left lateral recess narrowing. Severe right with mild left foraminal stenosis is unchanged. L5-S1: Central canal is patent. Unchanged mild bilateral foraminal narrowing. IMPRESSION: 1. Limited study as above. 2. Acute-appearing T9 vertebral body fracture without significant intervertebral body height loss. There is reactive marrow and adjacent paravertebral edema. 3. Fluid signal within the T9-T10 and T10-T11 disc spaces is likely on a degenerative basis. Acute discitis/osteomyelitis could appear similarly. 4. Severe central canal stenosis at T9-T10. 5. Degenerative and postoperative changes of the lumbar spine as above. ACT 112: Negative or not required by law. The above report was generated using voice recognition software. It may contain grammatical, syntax or spelling errors. Dictated: 01/08/2024 1:45 PM Transcribed: 01/08/2024 2:19 PM Pavel [id number] [email or web address] Electronically signed by: Cruzito Jeff M.D. 01/08/2024 2:29 PM Thoracic Spine X-Ray 01/10/24 12:25 [place] thoracic spine 2V CLINICAL HISTORY: T7-T10 D/F COMPARISON STUDY: Thoracic spine MRI January 08, 2024. FLUOROSCOPY TIME: 52 seconds. Ka, r: 15.92 mGy FLUOROSCOPIC IMAGES: 3 FINDINGS: Fluoroscopy was provided during hardware removal with subsequent multilevel decompression and fusion. Exact localization is not possible given partial visualization of the thoracolumbar spine. Visualized portions of the hardware are intact. IMPRESSION: Fluoroscopy provided during hardware removal and subsequent multilevel decompression and fusion. ACT 112: Negative or not required by law. Electronically signed by: Fortino Monaco M.D. 01/10/2024 3:05 PM Chest X-Ray 01/15/24 07:56 XR chest 1V portable CLINICAL HISTORY: Chest pain. COMPARISON STUDY: Chest radiograph January 02, 2024. FINDINGS: There is no pneumothorax or pleural effusion. There are median sternotomy wires and mediastinal surgical clips. Cardiomegaly is unchanged. There is extensive mitral annular calcification. Thoracolumbar spine fusion is partially imaged. There is no consolidation or evidence for pulmonary edema. IMPRESSION: No acute cardiopulmonary findings. Cardiomegaly. ACT 112: Negative or not required by law. Electronically signed by: Fortino Monaco M.D. 01/15/2024 8:36 AM KUB X-Ray 01/16/24 07:00 EXAM: Radiograph of the Abdomen 1 View INDICATION: Constipation. TECHNIQUE: Frontal supine view of the abdomen/pelvis. COMPARISON: 01/14/2024 FINDINGS: Limitations: The flanks are not completely included. Gastrointestinal tract: No change colonic stool and air in redundant loops without distention. Organs: Visualized organ shadows appear grossly normal. Bones/joints: Extensive posterior spinal fusion hardware well-seated. No acute osseous abnormality. Soft tissues: No abnormality noted. No radiopaque foreign body noted. IMPRESSION: No interval change. ACT 112: Negative or not required by law. Electronically signed by Yane Diaz 01-16-2024 09:47 AM Hospital Course (1) CHF (congestive heart failure): Lumbar radiculopathy Acute T9 vertebral body fracture Myelopathy concurrent with and due to spinal stenosis of thoracic region --Presented with back pain and increasing bilateral leg weakness. Thoracic and lumbar MRI shows acute appearing T9 vertebral body fracture, severe central canal stenosis at T9-10 Status post ( on 01/10/2024) by [facility] #1 removal of posterior hardware T10 and proximal aspect of the lisbeth. #2 expiration fusion T10-T11. #3 decompression with bilateral medial facetectomies T9-T10. #4 posterior spinal fusion T7-T11. #5 placed posterior segmental instrumentation T7-T10 with connectors at T11- T12. #6 placement locally harvested morselized autograft posterior gutters. #7 placement infuse collagen sponge combined with Koros in the posterior lateral gutters T7-T11. --Wound care per orthopedic spine Appreciate orthopedic input Continue PT OT Pain continues to improve Plan to discharge to rehab facility today Constipation Possible ileus Continue bowel regimen Encouraged to ambulate Atypical chest pain PVCs Troponins negative Echo showed no wall motion abnormality Continue metoprolol, aspirin Continue statin Resolved Acute on chronic HFpEF- resolved Mild CHF decompensation presenting as increase in bilateral leg swelling. History diastolic dysfunction. echo from 01/01 reviewed. Grade I diastolic dysfunction with LVEF of 70% Continue oral furosemide home dose. Strict I/Os, daily weights, CHF education, Repeat chest x-ray showed no acute process Volume status improved Type 2 DM HbA1c of 7.4 in August 2023 Elevated blood glucose due to dexamethasone post-op Pharmacy consulted for insulin management Discussed with pharmacy as dexamethasone has been discontinued since 01/13. Patient insulin requirement is expected to decrease. I discussed liberalizing blood glucose range to 1 40-1 80 Mg per DL. Asymptomatic pyuria: rine Culture -strep agalactiae and Gardnerella like species. Antibiotics not indicated. BPPV, stable CAD status post CABG, stable. hypertension, stable hyperlipidemia, on statin Rx Hypothyroidism: Continue levothyroxine DVT Px: heparin on hold, SCDs. as per orthospine Code Status Full code Disposition SNF Total Time Total Time Spent Total Time Spent (In Minutes): 48 minutes Discharge Plan Discharge Items Patient Disposition: Transfer Inpatient Rehab Fac Reason For Visit: CHF Discharge Diagnosis: Thoracic spinal stenosis with myelopathy Constipation Acute on chronic HFpEF Condition on Discharge: Fair Activity: As commented below Exercise/Sports: Gradually increase as tolerated Non-emergency contact: Primary Care Provider and Surgeon Call non-emergency contact if: you have any medication questions Follow-up/Referrals: Chaitanya Fernandez MD [Primary Care Provider] - Diet: Carb Consistent or DM2 Addtl Attending Provider Instructions: ACTIVITY RECOMMENDATIONS: SELF CARE INSTRUCTIONS AFTER THORACIC/LUMBAR FUSIONS 1. You may walk to your tolerance. It is good exercise for your legs and back. Expect some back and intermittent leg aches and pains. 2. You may perform "counter-top" level activities (make a sandwich, lazaro with a project, etc.). 3. No bending or lifting of more than 10 pounds or back twisting of any nature (roll like a log when turning in bed). 4. You may ride in a car for 20-30 minutes at a time. No driving until after your first visit with your doctor. 5. Frequent changes of position and restricting sitting to 30 minutes at a time will help limit the amount of back spasms and stiffness you may experience. 6. You may discontinue the use of ambulatory aids (cane, crutches, etc.) once your strength and confidence allow. 7. You may dairy inspector the shower and let water strike your incision when you arrive home at least once daily. Do not take a tub bath, sit in a hot tub or go into a swimming pool until after your first recheck in the office. 8. You may resume previous diet. SPECIAL CARE INSTRUCTIONS: VERY IMPORTANT TO READ AND REVIEW A. Your surgical incision has been closed with a cosmetic suture under the skin that will dissolve in about 6 weeks. In 14 days, you can use a pair of clean scissors and cut the suture that is left outside of the skin at the ends of your incision. 1. The small skin tapes can be removed 7 days after surgery if they have not fallen off by that point. 2. You may keep the wound open to air as much as possible to promote healing after post-op day number 5 unless told otherwise by your doctor. 3. If you think the wound looks like it is becoming infected (redness or worsening drainage) and/or you are experiencing fever, chill or worsening back pain and muscle spasms, contact the office so that we may evaluate you as soon as possible. B. Complications are uncommon, but please contact us if you have any signs or symptoms of: 1. wound infection (fever higher than 102.5 degrees F, redness, separation of wound, drainage, or increasing pain from the incision) 2. blood clots in legs (pain, swelling, redness and warmth in legs) 3. urinary tract infection (fever higher than 102.5 degrees F, burning upon urination or increased frequency of urination) 4. nerve problems (inability to walk on your toes or heels, numbness, loss of bowel or bladder control) 5. any other symptoms that concern you C. Please call the office at if you have any concerns or questions about your operation or recovery. D. No smoking! Smoking drastically decreases the chance of a solid fusion. E. Do not take any anti-inflammatory medications (Indocin, Advil, Motrin, Aspirin, Naprosyn, etc.) as these may inhibit the chance of a solid fusion. Tylenol is okay to take for pain. MANAGING PAIN AFTER SPINAL SURGERY 1. Narcotic medication is intended for short-term use and will be provided for surgical pain. Surgical pain usually lasts for a period of 4-6 weeks. Narcotic medication includes Percocet, Vicodin, Darvocet, Tylenol #3 or Lortab. 2. Longer-term pain is more appropriately treated with non-narcotic medication such as Tylenol ES. 3. Muscle spasm is not appropriately treated with narcotics. Muscle relaxers such as Soma, Flexeril or Skelaxin can be used along with Tylenol ES. 4. Remember that we all live with some "aches and pains". This is not unusual or uncommon after an injury or as we get older. a. Back pain is expected and may include muscle spasms for 4 to 6 weeks after surgery. The pain should gradually improve. If the pain worsens for no apparent reason, please contact the office. b. Intermittent leg pain may also be experienced and should not be concerned about unless it worsens for no apparent reason. If so, please contact the office. 5. We will provide appropriate medication within the normal guidelines of their prescribed use. We will also be very cautious and aware of potential abuse and extended duration of patients' medication needs. a. Pain medications are for your comfort and to assist with sleep and rest so that the tissue can heal. They are not provided in order to return to normal activity and should not be used through the day. To do so or worsening pain at night can result from ongoing tissue damage and development of tolerance to the prescribed medicine. 6. Please allow 2-3 days to process refills. Prescriptions will not be mailed but must be picked up at the office. FOLLOW UP VISIT: Keep your scheduled follow-up appointment. Any questions, please call the office at . 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 Taveras as recommended --Continue bowel regiment at rehab facility to help with constipation. -- Monitor your blood glucose levels and blood pressure while at rehab facility. Further adjustment of medications as per your physician. Seek immediate medical attention if your symptoms reoccur or worsen Please take all medications as instructed on discharge list below. Please call if you have any questions or problems. You can reach a [facility] hospitalist on duty at [facility] 24 hours a day by calling [phone] Call your Primary Care doctor if any of the following symptoms or problems start or get worse: * Shortness of breath or difficulty breathing * Wake up at night short of breath * Chest pain * Cough * Swelling of your hands, feet, or legs * More fatigued or tired with your normal activity * Palpitations - sudden fast heart beats WEIGHT * Weigh yourself every morning after using the bathroom. * Use the same scale. * Wear the same amount of clothing. * Write your weight down on a chart. * Call your Primary Care doctor if you gain more than 2-3 pounds in 1-2 days. MEDICATIONS * Use this discharge instruction sheet for medication instructions. * Take your medications at the time your doctor ordered. * Do not skip a dose of your medicines. * If you miss a dose of medicine, take it as soon as possible, but DO NOT DOUBLE A DOSE. * Read your medicine information when you get home. * Know all of the side effects of your medicine. If in doubt, ask your pharmacist * Call your Primary Care doctor's office if you have any side effects. * Be sure all of your doctors know what medicine and herbs you take (including cold, flu, and herbal medicine). Take the following with you to your follow-up doctor appointments: * Weight Chart * Medication List * List of questions Do not drink excessive alcohol, beer or wine. Pending Studies at Discharge: No Stand-Alone Forms: My [facility] Skilled Items Patient informed of condition?: Yes DNR: No Discharge Level of Care: Skilled Communicable Disease: No Discharge Prognosis: Stable Lines: None Urinary Catheter: No Medications and DC Order Prescriptions: Continued losartan 50 mg tablet 50 mg PO DAILY atorvastatin 40 mg tablet 40 mg PO QAM insulin glargine [Lantus U-100 Insulin] 100 unit/mL solution 18 unit SUBCUT HS trazodone 50 mg tablet 25 mg PO HS polyethylene glycol 3350 [Miralax] 17 gram Powder In Packet 17 g PO DAILY PRN (Reason: Constipation) ondansetron HCl 4 mg Tablet 4 mg PO Q4 PRN (Reason: nausea/vomiting) sennosides-docusate sodium [Senokot-S] 8.6-50 mg Tablet 1 tab-cap PO .QLUNCH PRN (Reason: Constipation) sennosides-docusate sodium [Senna with Docusate Sodium] 8.6-50 mg Tablet 2 tab-cap PO HS potassium chloride 10 mEq Tablet Extended Release 10 meq PO DAILY allopurinol 100 mg Tablet 200 mg PO DAILY aspirin 81 mg Tablet,Delayed Release (Dr/Ec) 81 mg PO DAILY insulin aspart U-100 100 unit/mL Solution 7 unit SUBCUT TIDWMEAL pantoprazole 40 mg Tablet,Delayed Release (Dr/Ec) 40 mg PO BID lidocaine 5 % Adhesive Patch,Medicated 1 patch TOPICAL DAILY Rx Instructions: leave on most painful area for up to 12 hrs docusate sodium 100 mg Capsule 100 mg PO BID furosemide [Lasix] 20 mg Tablet 20 mg PO DAILY oxycodone 5 mg tablet 10 mg PO Q4 PRN (Reason: .pain 7-10) baclofen 5 mg Tablet 5 mg PO TID PRN (Reason: Pain) levothyroxine 125 mcg tablet 125 mcg PO DAILY isosorbide mononitrate 60 mg Tablet Extended Release 24 Hr 60 mg PO QAM Qty: 30 0RF metoprolol tartrate 50 mg tablet 75 mg PO Q12 Qty: 90 0RF amlodipine 2.5 mg tablet 5 mg PO DAILY Discharge Orders: Discharge Order (Routine); Ordered 01/20/24 Ordered By: Mikie Albright/Other Patient Handouts: Managing Type 2 Diabetes Admission Data Admit Date/Time: 01/01/24 23:06 Attending Provider: Mikie Orellana Admit Provider: Olvin Holder Primary Care Provider: Chaitanya Fernandez Other Providers: Jose De Jesus Larry Nash; Chaves,Care; Olvin Holder; Benoit Taveras; Jaylan Mcwilliams
[2024-01-20 12:20] VITALS: BP 108/63; PULSE 67
[2024-01-20 15:11] VITALS: O2SAT 99
== END 2024-01-20 13:06 | DRG 447 ==
LOC: ED 19:14 → 2E 23:06 → SUATTDRO 23:06 → 2E 23:39 → 3W 01-05 21:12